=== PATIENT | female | born 1935 | race Hispanic/Latino ===

== ENCOUNTER 2017-12-21 14:39 | Inpatient (IN) | payer MEDICARE ==
[2017-12-21] MEDS ORDERED: Ipratropium 0.02% Inhal Soln (0.5 mg/2.5 ml) UD IH STA (15:09)
[2017-12-21 15:24] LABS: BASO # 0.02 K/mm3 (0.0-2.0); BASO % 0.2 % (0.0-3.0); EOS # 0.5 (0.0-0.7); EOS % 4.3 % (1.5-5.0); GRAN # 7.49 (1.4-6.5); GRAN % 72.2 % (50.0-68.0); HEMOGLOBIN 11.2 g/dL (12.0-16.0); LYMPH # 1.9 (1.2-3.4); LYMPH % 18.3 % (22.0-35.0); MEAN CELL VOLUME 97.3 fl (80.0-105.0); MEAN CORPUSCULAR HEMOGLOBIN 30.3 pg (25.0-35.0); MEAN CORPUSCULAR HGB CONC 31.1 g/dl (31.0-37.0); MEAN PLATELET VOLUME 11.2 fl (7.0-11.0); MONO # 0.5 (0.1-0.6); RBC 3.7 10^6/uL (3.5-6.1); RED CELL DISTRIBUTION WIDTH 16.1 % (11.5-14.5); WHITE BLOOD COUNT 10.4 10^3/ul (4.5-11.0)
--- NOTE | 2017-12-21 15:34 | ED PDOC ---
Arrival/HPI - General Chief Complaint: Shortness Of Breath Time Seen by Provider: 12/21/17 14:42 Historian: Patient EM Caveat: Acuity of Condition, Respiratory Distress - History of Present Illness Narrative History of Present Illness (Text): 82 year old woman Elliot @ [facility] w/ past medical history of chf, ckd, hypothyroidism, diabetes, hypothyroidism, depressive disorder, anxiety presents for evaluation of hypoxia in the NH to 80% on 02 NC at 2 L , increased lethargy , and swelling of b/l lower extremites , pt is following commands , and conversant with waxing /waning mental status aox 1 to person and maybe hospital , denying any corporeal pain , but not answering any further query. 12/21/17 15:30 12/21/17 15:37 12/21/17 15:43 Time/Duration: Prior to Arrival Symptom Onset: Gradual Symptom Course: Unchanged Past Medical History - Provider Review Nursing Documentation Reviewed: Yes - Infectious Disease Hx of Infectious Diseases: None - Tetanus Immunization Tetanus Immunization: Unknown - Reproductive Menopause: Yes - Cardiac Hx Cardiac Arrhythmia: No Hx Congestive Heart Failure: Yes Hx Hypertension: Yes Hx Internal Defibrillator: No Hx Mitral Valve Prolapse: No Hx Pacemaker: No Hx Peripheral Edema: No - Pulmonary Hx Asthma: No Hx Bronchitis: No Hx Chronic Obstructive Pulmonary Disease (COPD): No Hx Emphysema: No - Neurological Hx Dementia: Yes - HEENT Hx HEENT Disorder: No - Renal Hx Renal Failure: (impared renal function) Other/Comment: anuria - Endocrine/Metabolic Hx Hypothyroidism: Yes - Hematological/Oncological Hx Blood Disorders: No Hx Cancer: Yes - Integumentary Other/Comment: rash/redness groin area, femoral foldsbilateral shins to feet, red/scaling/cellulitisredness, back of shins bilaterally and dorsal aspect of foot - Musculoskeletal/Rheumatological Hx Arthritis: Yes Hx Falls: Yes - Gastrointestinal Hx Gastroesophageal Reflux: Yes - Genitourinary/Gynecological Hx Incontinence: Yes - Psychiatric Hx Depression: Yes Hx Substance Use: No - Surgical History Hx Appendectomy: Yes Hx Cardiac Catheterization: No Hx Cholecystectomy: Yes Hx Coronary Stent: No Hx Mastectomy: Yes (L sided) - Anesthesia Hx Anesthesia Reactions: No - Suicidal Assessment Feels Threatened In Home Enviroment: No Family/Social History - Physician Review Nursing Documentation Reviewed: Yes Family/Social History: No Known Family HX Smoking Status: Heavy Smoker > 10 Cigarettes Daily Hx Alcohol Use: No Hx Substance Use: No Hx Substance Use Treatment: No Allergies/Home Meds Allergies/Adverse Reactions: Allergies No Known Allergies Allergy (Verified 04/12/14 17:58) Home Medications: Home Meds Medication Instructions Recorded Confirmed Escitalopram [Lexapro] 20 mg PO DAILY 04/12/14 12/21/17 Acetaminophen [Tylenol] 650 mg PO Q4 PRN 05/25/14 12/21/17 Apixaban [Eliquis] 2.5 mg PO BID 12/21/17 12/21/17 Clonazepam [Klonopin] 0.25 mg PO DAILY 12/21/17 12/21/17 Insulin Human Regular [Novolin R] 0 unit SC BID 12/21/17 12/21/17 Levothyroxine [Synthroid] 0.112 mg PO DAILY 12/21/17 12/21/17 Magnesium Hydroxide [Milk Of 30 ml PO PRN PRN 12/21/17 12/21/17 Magnesia] Memantine [Namenda] 5 mg PO BID 12/21/17 12/21/17 Mirtazapine [Remeron] 15 mg PO HS 12/21/17 12/21/17 Multi Vitamin 1 tab PO DAILY 12/21/17 12/21/17 Omeprazole 20 mg PO DAILY 12/21/17 12/21/17 Pregabalin [Lyrica] 75 mg PO BID 12/21/17 12/21/17 Siltussin Dm 10 ml PO QID PRN 12/21/17 12/21/17 cloNIDine [clonidine HCl] 0.1 mg PO PRN PRN 12/21/17 12/21/17 Review of Systems - Physician Review All systems were reviewed & negative as marked: Yes - Review of Systems Systems not reviewed;Unavailable: Altered Mental Status Constitutional: Normal Eyes: Normal ENT: Normal Respiratory: SOB Cardiovascular: Normal Gastrointestinal: Normal Genitourinary Female: Normal Musculoskeletal: Normal Skin: Normal Neurological: Normal Endocrine: Normal Hemo/Lymphatic: Normal Psychiatric: Normal Physical Exam Vital Signs Reviewed: Yes Vital Signs Temp Pulse Resp BP Pulse Ox 12/21/17 17:22 68 20 81/52 L 99 12/21/17 15:54 100/50 L 12/21/17 15:48 60 20 100/5 L 93 L 12/21/17 15:10 98.6 F 60 22 120/45 L 77 L Temperature: Afebrile Blood Pressure: Normal Pulse: Regular Respiratory Rate: Normal Appearance: Positive for: Ill-Appearing, Other (lethargic) Pain Distress: None Mental Status: Positive for: Lethargic - Systems Exam Head: Present: Atraumatic, Normocephalic Pupils: Present: PERRL Extroacular Muscles: Present: EOMI Conjunctiva: Present: Normal Ears: Present: Normal Mouth: Present: Dry Respiratory/Chest: Present: Rales, Other (coarse crackles at the bases ) Cardiovascular: Present: Regular Rate and Rhythm Abdomen: Present: Normal Bowel Sounds, Other (obese , soft, nt ) Breast/Axillary: Present: Other (deferred) Upper Extremity: Present: Normal Inspection Lower Extremity: Present: Edema, Other (trace to 1+ pitting edema ) Neurological: Present: GCS=15, CN II-XII Intact, Speech Normal, Motor Func Grossly Intact, Normal Sensory Function, Normal Cerebellar Funct, Norm Deep Tendon Reflexes Skin: Present: Warm, Other (no sacral or calcaneal decubiti ) Psychiatric: Present: Lethargic Medical Decision Making ED Course and Treatment: 82 year old woman w/ pmhx of multiple comorbidities most relevantly chf and depression on antipsychotics presenting in likely chf exacerbation w/ possible superimposed C02 narcosis vs oversedation. ekg : paced ekg at 60 bpm ab.34 /60/57 risk stratify w/ labs trial of bipap/ivp lasix neumann catheter placement likly micu disposition cardiology consultation w/ Dr. Massey pulmonology consultation w/ Dr. Maria MICU 12/21/17 16:10 - Lab Interpretations Lab Results: 12/21/17 15:15 12/21/17 15:15 Lab Results 12/21/17 15:45: Urine Color Yellow, Urine Appearance Sl cloudy, Urine pH 6.0, Ur Specific [place] 1.020, Urine Protein Negative, Urine Glucose (UA) Negative, Urine Ketones Negative, Urine Blood Negative, Urine Nitrate Positive H, Urine Bilirubin Negative, Urine Urobilinogen 0.2, Ur Leukocyte Esterase Trace H, Urine RBC Negative, Urine WBC 10 - 15, Ur Epithelial Cells 4 - 5, Urine Bacteria Many 12/21/17 15:40: pCO2 60 H, pO2 57.0 L, HCO3 32.4 H, ABG pH 7.34 L, ABG Total CO2 34.2 H, ABG O2 Saturation 91.3 L, ABG Base Excess 4.8 H, ABG Potassium 3.1 L , Sodium 143.0, Chloride 109.0 H, Glucose 89, Lactate 0.6 L, Mechanical Rate 15 , FiO2 60.0, Inspiratory BiPAP 12, Arterial Blood Potassium 3.1 L 12/21/17 15:15: Sodium 142, Chloride 99, Potassium 4.0, Carbon Dioxide 37 H, Anion Gap 10, BUN 20, Creatinine 1.1, Est GFR ( Amer) 57, Est GFR (Non- Af Amer) 47, Random Glucose 104, Calcium 8.7, Phosphorus 4.4, Magnesium 1.6 L, Total Bilirubin 0.4, AST 29, ALT 25, Alkaline Phosphatase 78, Troponin I < 0.01 D, NT-Pro-B Natriuret Pep 1040 H, Total Protein 6.5, Albumin 3.1, Globulin 3.3 , Albumin/Globulin Ratio 0.9 L 12/21/17 15:15: pO2 66 H, VBG pH 7.28 L, VBG pCO2 85.0 H*, VBG HCO3 39.9 H, VBG Total CO2 42.5 H, VBG O2 Sat (Calc) 93.5 H, VBG Base Excess 9.6 H, VBG Potassium 4.0, Sodium 140.0, Chloride 103.0, Glucose 106 H, Lactate 1.0, FiO2 21.0, Venous Blood Potassium 4.0 12/21/17 15:15: PT 16.2 H, INR 1.41 H, APTT 34.5 12/21/17 15:15: WBC 10.4, RBC 3.70, Hgb 11.2 L, Hct 36.0, MCV 97.3, MCH 30.3, MCHC 31.1, RDW 16.1 H, Plt Count 184, MPV 11.2 H, Gran % 72.2 H, Lymph % (Auto) 18.3 L, [place] % (Auto) 5.0, Eos % (Auto) 4.3, Baso % (Auto) 0.2, Gran # 7.49 H, Lymph # (Auto) 1.9, [place] # (Auto) 0.5, Eos # (Auto) 0.5, Baso # (Auto) 0.02 - RAD Interpretation Radiology Orders: 12/21/17 15:05 CHEST PORTABLE [RAD] Stat - Medication Orders Current Medication Orders: Furosemide (Lasix) 40 mg IVP 0200,1400 SOHAN Heparin Sodium (Porcine) (Heparin) 5,000 units SC Q12 SOHAN PRN Reason: Protocol Ceftriaxone Sodium (Rocephin 1 Gram Ivpb) 1 gm in 100 mls @ 100 mls/hr IVPB DAILY SOHAN PRN Reason: Protocol Discontinued Medications Furosemide (Lasix) 40 mg IVP STAT STA Stop: 12/21/17 15:44 Last Admin: 12/21/17 15:54 Dose: 40 mg MAR Blood Pressure Document 12/21/17 15:54 SRE (Rec: 12/21/17 15:59 SRE [id number]) Blood Pressure Blood Pressure (100/60-150/90) 100/50 IVP Administration Document 12/21/17 15:54 SRE (Rec: 12/21/17 15:59 SRE [id number]) Charges for Administration # of IVP Administrations 1 Ceftriaxone Sodium (Rocephin 1 Gram Ivpb) 1 gm in 100 mls @ 100 mls/hr IVPB DAILY SOHAN PRN Reason: Protocol Ceftriaxone Sodium (Rocephin 1 Gram Ivpb) 1 gm in 100 mls @ 100 mls/hr IVPB ONCE ONE PRN Reason: Protocol Stop: 12/21/17 17:59 Last Admin: 12/21/17 17:21 Dose: 100 mls/hr eMAR Start Stop Document 12/21/17 17:21 SRE (Rec: 12/21/17 17:21 SRE [id number]) Intravenous Solution Start Date 12/21/17 Start Time 17:21 End Date 12/21/17 End time 18:20 Total Infusion Time 59 Ipratropium [place] (Atrovent) 0.5 mg IH STAT STA Stop: 12/21/17 15:10 Last Admin: 12/21/17 15:32 Dose: 0.5 mg Disposition/Present on Arrival - Present on Arrival Any Indicators Present on Arrival: Yes History of DVT/PE: No History of Uncontrolled Diabetes: Yes Urinary Catheter: No History of Decub. Ulcer: No History Surgical Site Infection Following: None - Disposition Have Diagnosis and Disposition been Completed?: Yes Diagnosis: Acute exacerbation of CHF (congestive heart failure) Disposition: HOSPITALIZED Disposition Time: 16:40 Patient Plan: Admission, ICU Condition: GUARDED
[2017-12-21 15:36] LABS: INR 1.41 (0.93-1.08); PARTIAL THROMBOPLASTIN TIME 34.5 Seconds (25.1-36.5); PROTHROMBIN TIME 16.2 SECONDS (9.4-12.5)
[2017-12-21 15:40] LABS: VENOUS BLOOD GAS BASE EXCESS 9.6 mmol/L (0.0-2.0); VENOUS BLOOD GAS PO2 66 mm/Hg (30-55); VENOUS BLOOD PH 7.28 (7.32-7.43)
--- NOTE | 2017-12-21 15:40 | RAD ---
HISTORY: Sepsis Patient COMPARISON: 06/03/2014 FINDINGS: LUNGS: No focal consolidation. PLEURA: Small bilateral pleural effusion, right greater than left. No pneumothorax. CARDIOVASCULAR: Grossly normal heart size. Congestive change is noted. Right subclavian central venous infusion port. Permanent pacemaker. OSSEOUS STRUCTURES: No significant abnormalities. VISUALIZED UPPER ABDOMEN: Normal. OTHER FINDINGS: None. IMPRESSION: Small bilateral pleural effusion, right greater than left. Congestive change. No focal consolidations seen.
[2017-12-21 15:44] LABS: ARTERIAL BLOOD GAS HCO3 32.4 mmol/L (21-28); ARTERIAL BLOOD GAS O2 SAT 91.3 % (95-98); ARTERIAL BLOOD GAS PCO2 60 mm/Hg (35-45); ARTERIAL BLOOD GAS PH 7.34 (7.35-7.45); ARTERIAL BLOOD GAS TCO2 34.2 mmol.L (22-28)
[2017-12-21 15:46] LABS: ALB/GLOB RATIO 0.9 (1.1-1.8); ALBUMIN 3.1 g/dL (3.0-4.8); ALT/SGPT 25 U/L (7-56); AST/SGOT 29 U/L (14-36); BLOOD UREA NITROGEN 20 mg/dL (7-21); CALCIUM 8.7 mg/dL (8.4-10.5); GFR AFRICAN-AMERICAN 57; GFR NON-AFRICAN AMERICAN 47
[2017-12-21 15:57] LABS: B-TYPE NATRIURETIC PEPTIDE 1040 pg/mL (0-450); TROPONIN I < 0.01 ng/mL
[2017-12-21 16:01] LABS: URINE BILIRUBIN NEGATIVE (NEGATIVE); URINE BLOOD NEGATIVE (NEGATIVE); URINE GLUCOSE (UA) NEGATIVE (NEGATIVE); URINE LEUKOCYTE ESTERASE TRACE Leu/uL (NEGATIVE); URINE PROTEIN NEGATIVE mg/dL (<30 mg/dL); URINE UROBILINOGEN 0.2 E.U./dL (<1 E.U./dL)
[2017-12-21 16:03] LABS: URINE APPEARANCE SL CLOUDY (CLEAR); URINE COLOR YELLOW (YELLOW)
[2017-12-21 16:12] LABS: URINE BACTERIA MANY (NEG); URINE RBC NEGATIVE /hpf (0-2)
[2017-12-21] MEDS ORDERED: cefTRIAXone 1 gm 1 GM/100 ML BAG IVPB ONE (17:00)
--- NOTE | 2017-12-21 17:26 | CP.PCM.CON ---
<Darrion Joseph - Last Filed: 12/21/17 17:51> History of Present Illness - History of Present Illness History of Present Illness: Patient is an 82 year old female with a past history of CHF, CKD, hypothyroidism , DM, hypothyroidism, depressive disorder, and anxiety who presents from [facility] due to concerns of low O2 sat of 80% on 2L NC, lethargy, and bilateral edema of lower extremities. Patient is alert and awake, able to communicate, currently complaining of hunger. States she wants to have food. Admits to having problems breathing. Denies fevers, chills, chest pain, nausea, vomiting, diarrhea.Patient was placed on BiPAP and given lasix. Patient will be transferred to ICU for further monitoring considering hypotension. Past medical hx: COPD, osteoarthritis, congestive heart failure, chronic renal insufficiency, coronary artery disease s/p angioplasty, dementia, NIDDM, peptic ulcer disease, history of mitral valve prolapse, bilateral leg cellulitis Surgical hx: Appendectomy, cholecystectomy, mastectomy Social hx: tobacco use > 10 cigarettes daily, denies alcohol and drug abuse medications: please refer to MAR Allergies:NKDA Review of Systems - Constitutional Constitutional: absent: Anorexia, Chills, Fever - EENT Eyes: absent: Blurred Vision, Change in Vision - Cardiovascular Cardiovascular: absent: Chest Pain, Dyspnea - Gastrointestinal Gastrointestinal: absent: Diarrhea, Nausea, Vomiting - Genitourinary Genitourinary: absent: Dysuria - Musculoskeletal Musculoskeletal: absent: Back Pain - Neurological Neurological: absent: Dizziness, Numbness - Psychiatric Psychiatric: absent: Anxiety - Endocrine Endocrine: absent: Fatigue - Hematologic/Lymphatic Hematologic: absent: Easy Bleeding, Easy Bruising Past Patient History - Infectious Disease Hx of Infectious Diseases: None - Tetanus Immunizations Tetanus Immunization: Unknown - Past Social History Smoking Status: Heavy Smoker > 10 Cigarettes Daily - CARDIAC Hx Cardia Arrhythmia: No Hx Congestive Heart Failure: Yes Hx Hypertension: Yes Hx Internal Defibrillator: No Hx Mitral Valve Prolapse: No Hx Pacemaker: No Hx Peripheral Edema: No - PULMONARY Hx Asthma: No Hx Bronchitis: No Hx Chronic Obstructive Pulmonary Disease (COPD): No Hx Emphysema: No - NEUROLOGICAL Hx Dementia: Yes - HEENT Hx HEENT Problems: No - RENAL Hx Renal Failure: (impared renal function) Other/Comment: anuria - ENDOCRINE/METABOLIC Hx Hypothyroidism: Yes - HEMATOLOGICAL/ONCOLOGICAL Hx Blood Disorders: No Hx Cancer: Yes - INTEGUMENTARY Other/Comment: rash/redness groin area, femoral foldsbilateral shins to feet, red/scaling/cellulitisredness, back of shins bilaterally and dorsal aspect of foot - MUSCULOSKELETAL/RHEUMATOLOGICAL Hx Arthritis: Yes Hx Falls: Yes - GASTROINTESTINAL Hx Gastroesophageal Reflux: Yes - GENITOURINARY/GYNECOLOGICAL Hx Incontinence: Yes - PSYCHIATRIC Hx Depression: Yes Hx Substance Use: No - SURGICAL HISTORY Hx Appendectomy: Yes Hx Cardiac Catheterization: No Hx Cholecystectomy: Yes Hx Coronary Stent: No Hx Mastectomy: Yes (L sided) - ANESTHESIA Hx Anesthesia Reactions: No Meds Allergies/Adverse Reactions: Allergies Allergy/AdvReac Type Severity Reaction Status Date / Time No Known Allergies Allergy Verified 04/12/14 17:58 - Medications Medications: Current Medications Ceftriaxone Sodium (Rocephin 1 Gram Ivpb) 1 gm in 100 mls @ 100 mls/hr IVPB ONCE ONE PRN Reason: Protocol Stop: 12/21/17 17:59 Last Admin: 12/21/17 17:21 Dose: 100 mls/hr Physical Exam - Head Exam Head Exam: ATRAUMATIC, NORMAL INSPECTION, NORMOCEPHALIC - Eye Exam Eye Exam: EOMI, Normal appearance - Neck Exam Neck exam: Positive for: Normal Inspection - Respiratory Exam Respiratory Exam: Wheezes. absent: Clear to Auscultation Bilateral, NORMAL BREATHING PATTERN - Cardiovascular Exam Cardiovascular Exam: REGULAR RHYTHM, +S1, +S2 - GI/Abdominal Exam GI & Abdominal Exam: Normal Bowel Sounds, Soft - Neurological Exam Neurological exam: Alert - Psychiatric Exam Psychiatric exam: Normal Affect, Normal Mood - Skin Additional comments: erythemetous rash to groin area, femoral folds , and bilateral shins extending to both feet, erythemetous scaling of back of shins bilaterally and dorsal aspect of foot Results - Vital Signs Recent Vital Signs: Last Vital Signs Temp 98.6 F 12/21/17 15:10 Pulse 68 12/21/17 17:22 Resp 20 12/21/17 17:22 BP 81/52 L 12/21/17 17:22 Pulse Ox 99 12/21/17 17:22 - Labs Result Diagrams: 12/21/17 15:15 12/21/17 15:15 Labs: Laboratory Results - last 24 hr 12/21/17 12/21/17 12/21/17 15:15 15:15 15:15 WBC 10.4 RBC 3.70 Hgb 11.2 L Hct 36.0 MCV 97.3 MCH 30.3 MCHC 31.1 RDW 16.1 H Plt Count 184 MPV 11.2 H Gran % 72.2 H Lymph % (Auto) 18.3 L [place] % (Auto) 5.0 Eos % (Auto) 4.3 Baso % (Auto) 0.2 Gran # 7.49 H Lymph # (Auto) 1.9 [place] # (Auto) 0.5 Eos # (Auto) 0.5 Baso # (Auto) 0.02 PT 16.2 H INR 1.41 H APTT 34.5 pCO2 pO2 66 H HCO3 ABG pH ABG Total CO2 ABG O2 Saturation ABG Base Excess ABG Potassium VBG pH 7.28 L VBG pCO2 85.0 H* VBG HCO3 39.9 H VBG Total CO2 42.5 H VBG O2 Sat (Calc) 93.5 H VBG Base Excess 9.6 H VBG Potassium 4.0 Sodium 140.0 Chloride 103.0 Glucose 106 H Lactate 1.0 Mechanical Rate FiO2 21.0 Inspiratory BiPAP Potassium Carbon Dioxide Anion Gap BUN Creatinine Est GFR ( Amer) Est GFR (Non-Af Amer) Random Glucose Calcium Phosphorus Magnesium Total Bilirubin AST ALT Alkaline Phosphatase Troponin I NT-Pro-B Natriuret Pep Total Protein Albumin Globulin Albumin/Globulin Ratio Arterial Blood Potassium Venous Blood Potassium 4.0 Urine Color Urine Appearance Urine pH Ur Specific [place] Urine Protein Urine Glucose (UA) Urine Ketones Urine Blood Urine Nitrate Urine Bilirubin Urine Urobilinogen Ur Leukocyte Esterase Urine RBC Urine WBC Ur Epithelial Cells Urine Bacteria 12/21/17 12/21/17 12/21/17 15:15 15:40 15:45 WBC RBC Hgb Hct MCV MCH MCHC RDW Plt Count MPV Gran % Lymph % (Auto) [place] % (Auto) Eos % (Auto) Baso % (Auto) Gran # Lymph # (Auto) [place] # (Auto) Eos # (Auto) Baso # (Auto) PT INR APTT pCO2 60 H pO2 57.0 L HCO3 32.4 H ABG pH 7.34 L ABG Total CO2 34.2 H ABG O2 Saturation 91.3 L ABG Base Excess 4.8 H ABG Potassium 3.1 L VBG pH VBG pCO2 VBG HCO3 VBG Total CO2 VBG O2 Sat (Calc) VBG Base Excess VBG Potassium Sodium 142 143.0 Chloride 99 109.0 H Glucose 89 Lactate 0.6 L Mechanical Rate 15 FiO2 60.0 Inspiratory BiPAP 12 Potassium 4.0 Carbon Dioxide 37 H Anion Gap 10 BUN 20 Creatinine 1.1 Est GFR ( Amer) 57 Est GFR (Non-Af Amer) 47 Random Glucose 104 Calcium 8.7 Phosphorus 4.4 Magnesium 1.6 L Total Bilirubin 0.4 AST 29 ALT 25 Alkaline Phosphatase 78 Troponin I < 0.01 D NT-Pro-B Natriuret Pep 1040 H Total Protein 6.5 Albumin 3.1 Globulin 3.3 Albumin/Globulin Ratio 0.9 L Arterial Blood Potassium 3.1 L Venous Blood Potassium Urine Color Yellow Urine Appearance Sl cloudy Urine pH 6.0 Ur Specific [place] 1.020 Urine Protein Negative Urine Glucose (UA) Negative Urine Ketones Negative Urine Blood Negative Urine Nitrate Positive H Urine Bilirubin Negative Urine Urobilinogen 0.2 Ur Leukocyte Esterase Trace H Urine RBC Negative Urine WBC 10 - 15 Ur Epithelial Cells 4 - 5 Urine Bacteria Many Assessment & Plan - Assessment and Plan (Free Text) Assessment: Patient is an 82 year old female with a past history of CHF, CKD, hypothyroidism , DM, hypothyroidism, depressive disorder, and anxiety who presents from [facility] due to concerns of low O2 sat of 80% on 2L NC, lethargy, and bilateral edema of lower extremities, found to be in CHF exacerbation and currently on BiPAP Plan: Neurologic -Patient alert awake and oriented x 3 -Patient has a baseline dementia, as of today she is aware that she is at [facility] as well as her name Cardiovascular -Cardiology consulted -CHF exacerbation; continue with lasix -Echo ordered; results pending Pulmonary -ABG reveals pCO2 60, pO2 57, Bicarb 32.4, pH 7.34 -Patient currently on BiPAP O2 sat 100% IPAP 12, 6 EPAP, Rate 15, 60 FIO2 -maintain O2> 92% Endocrine -Maintain euglycemia -TSH ordered; results pending Heme -H&H stable at 11.2 & 36; continue to monitor -DVT prophylaxis with Heparin SC Infectious disease -patient afebrile, maintain normothermia -UA reveals Positive nitrate and leukocyte esterase, WBC 10-15, epithelial cells 4-5 -Will repeat UA, start patient on Rocephin -Urine culture results pending <Jam Encarnacion - Last Filed: 12/21/17 18:18> Meds - Medications Medications: Current Medications Furosemide (Lasix) 40 mg IVP 0200,1400 SOHAN Heparin Sodium (Porcine) (Heparin) 5,000 units SC Q12 SOHAN PRN Reason: Protocol Ceftriaxone Sodium (Rocephin 1 Gram Ivpb) 1 gm in 100 mls @ 100 mls/hr IVPB DAILY SOHAN PRN Reason: Protocol Results - Vital Signs Recent Vital Signs: Last Vital Signs Temp 98.6 F 12/21/17 15:10 Pulse 68 12/21/17 17:56 Resp 18 12/21/17 17:56 BP 81/52 L 12/21/17 17:56 Pulse Ox 99 12/21/17 17:22 - Labs Result Diagrams: 12/21/17 15:15 12/21/17 15:15 Assessment & Plan - Assessment and Plan (Free Text) Plan: Patient seen and examined on rounds, agree with note with following additions/ exceptions: Patient is 82yo female with PMHx 84 of CHF, CKD, hypothyroidism, DM, hypothyroidism, depressive disorder, and anxiety who presents from [facility] for hypoxia, O2 sat 80% on room air, found to have LE edema, worsening congestion, pulm edema on CXR, given Lasix IV in the ER, with 400cc UOP. Currently afebrile , HD stable, comfortable on BIPAP. CHF exacerbation SOB Resp failure Hypothyroidism Recommend: - wean off bipap - supp o2 goal sat>90% - panculture, UCx, BCx, Procal - Rocephin for positive UA - hold BP meds for now - ECHO - cardiology consult - IV Lasix - I/Os, daily weights - GI ppx - DVT ppx - Monitor in MICU
[2017-12-21 18:06] VITALS: BMI 40.5
[2017-12-21] MEDS ORDERED: Insulin Reg-LOW-Coverage SC SCH (22:00)
[2017-12-22] MEDS: Insulin Reg-MEDIUM-Coverage SC SCH ×4 (01:12→22:31)
--- NOTE | 2017-12-22 02:34 | HP ---
HISTORY OF PRESENT ILLNESS: I have been talking with the nurses at [facility], [facility], over the past week to try and get her oxygen up, giving her Lasix and apparently today, she had between 77% and 80% O2 on 2 L nasal cannula and instead of increasing the nasal cannula and the Lasix, they brought her to the emergency room for evaluation. She is short of breath, although she is alert and conversing well. PAST MEDICAL HISTORY: CHF, CKD, hypothyroidism, diabetes, depressive disorder, osteoarthritis, COPD, chronic renal insufficiency. She is status post angioplasty, dementia, non-insulin dependant diabetes mellitus, peptic ulcer disease, history of mitral valve prolapse, and bilateral leg cellulitis history. PAST SURGICAL HISTORY: She had an appendectomy, cholecystectomy, mastectomy for breast cancer history. SOCIAL HISTORY: smoking history. No alcohol. No drugs. ALLERGIES: NO KNOWN DRUG ALLERGIES. MEDICATIONS: She is on heparin. She is on Lasix IV twice a day, Rocephin IV. She takes Klonopin, Tylenol, Catapres, Eliquis, omeprazole, Lexapro, Lyrica, Namenda, Remeron, Synthroid at the skilled nursing. She is on Rocephin right now. REVIEW OF SYSTEMS: She is alert, talking, comfortable. She has poor vision, but that is chronic. No acute vision changes. No hearing changes. No chest pain or shortness of breath at this time. She had shortness of breath at skilled nursing, but she had oxygen that helped. No coughing. No back pain. No problems urinating. No diarrhea, nausea, or vomiting. A little tired. No easy bleeding. History of impaired renal function, breast cancer history. Also, rashes and redness in the groin area, back of her shins. She has arthritis, does have history of falls, reflux, incontinence, depression, left-sided mastectomy. PHYSICAL EXAMINATION: VITAL SIGNS: She has 98.6 temperature, 68 pulse, 20 respiratory rate, 81/52 blood pressure, 99% O2 saturation on oxygen. HEENT: Head is atraumatic and normocephalic. Extraocular muscles are intact. Throat is moist. NECK: Supple. HEART: Regular rate. Normal S1, S2. LUNGS: Decreased breath sounds bilaterally, some wheezes, some congestion changes with cough. ABDOMEN: Soft, nontender. Positive bowel sounds. No guarding, no rebound, no CVA tenderness. NEUROLOGIC: Alert, presently confused. SKIN: Has erythema in her folds and to her feet. EXTREMITIES: A +1/4 pitting edema. LABORATORY DATA: She has a 10.4 white count, 11.2 hemoglobin, 36 hematocrit with 184 platelets. The pCO2 was 85. Her urine showed many bacteria. She had 142 sodium, potassium 4, BUN 20, creatinine 1.1, GFR is 47, sugar is 104, calcium 8.7, phosphorus 4.4, and magnesium is 1.6, I have replaced it. Total bilirubin is 0.4. AST is 29, ALT is 25, alkaline phosphatase 78. Troponin I less than 0.01. BNP is 1040, she is on Lasix 40 IV twice a day. Chest x-ray showed congestive heart failure. INR is 1.41. Urine has many bacteria. IMPRESSION AND PLAN: She is here for congestive heart failure. She is here for urinary tract infection, history of diabetes. She has dementia, presently confused. Check her labs tomorrow. IV Rocephin with IV Lasix. She has Atrovent, Lexapro, Lyrica, Namenda, Remeron, Synthroid, and I put her on some insulin coverage and hopefully she will do well. [place] As[place] DO [id number]
[2017-12-22 03:58] LABS: ALBUMIN 3.3 g/dL (3.0-4.8); ALT/SGPT 23 U/L (7-56); AST/SGOT 27 U/L (14-36); BLOOD UREA NITROGEN 20 mg/dL (7-21); CALCIUM 8.9 mg/dL (8.4-10.5); GFR AFRICAN-AMERICAN 52; GFR NON-AFRICAN AMERICAN 43; HDL CHOLESTEROL 44 mg/dL (29-60)
[2017-12-22 03:59] LABS: PROTHROMBIN TIME 14.7 SECONDS (9.4-12.5)
[2017-12-22 04:00] LABS: INR 1.28 (0.93-1.08); PARTIAL THROMBOPLASTIN TIME 35.4 Seconds (25.1-36.5)
[2017-12-22 04:09] LABS: LDL CHOLESTEROL 53 mg/dL (0-129); TROPONIN I < 0.01 ng/mL
[2017-12-22 04:11] LABS: BASO # 0.02 K/mm3 (0.0-2.0); BASO % 0.2 % (0.0-3.0); EOS # 0.8 (0.0-0.7); GRAN # 4.65 (1.4-6.5); GRAN % 55.4 % (50.0-68.0); HEMOGLOBIN 12.5 g/dL (12.0-16.0); LYMPH # 2.4 (1.2-3.4); LYMPH % 28.9 % (22.0-35.0); MEAN CELL VOLUME 97.1 fl (80.0-105.0); MEAN CORPUSCULAR HEMOGLOBIN 30.7 pg (25.0-35.0); MEAN CORPUSCULAR HGB CONC 31.6 g/dl (31.0-37.0); MEAN PLATELET VOLUME 11.4 fl (7.0-11.0); MONO # 0.5 (0.1-0.6); MONO % 5.5 % (1.0-6.0); RBC 4.07 10^6/uL (3.5-6.1); RED CELL DISTRIBUTION WIDTH 16.1 % (11.5-14.5); WHITE BLOOD COUNT 8.4 10^3/ul (4.5-11.0)
[2017-12-22] MEDS ORDERED: Magnesium Sulfate 1 gm in D5W 1 GM/100 ML BAG IVPB ONE ×2 (07:50→11:32)
[2017-12-22] MEDS: Levalbuterol 1.25 MG/3 ML Inhal Soln UD IH SCH ×2 (08:00→12:23)
--- NOTE | 2017-12-22 08:03 | CP.CCUPN ---
<Darrion Joseph - Last Filed: 12/22/17 11:13> CCU Subjective - Physician Review Subjective (Free Text): 12/22/17 08:08 Patient seen and examined at bedside with no acute complaints. States she feels great and much better than yesterday. Denies shortness of breath, chest pain, palpitations, nausea, vomiting, diarrhea, abdominal pain, cough, headache. CCU Objective - Vital Signs / Intake & Output Vital Signs (Last 4 hours): Vital Signs Temp Pulse Resp BP Pulse Ox 12/22/17 06:20 60 21 98 12/22/17 06:10 60 21 95 12/22/17 06:00 60 46 H 116/55 L 95 12/22/17 05:50 68 18 97 12/22/17 05:40 60 19 93 L 12/22/17 05:30 60 28 H 100 12/22/17 05:20 60 17 97 12/22/17 05:10 60 20 97 12/22/17 05:00 60 19 108/56 L 96 12/22/17 04:50 60 16 97 12/22/17 04:40 60 18 95 12/22/17 04:30 60 19 95 12/22/17 04:20 60 19 96 12/22/17 04:10 60 22 96 12/22/17 04:00 98.3 F 60 19 122/78 95 Intake and Output (Last 8hrs): Intake & Output 12/21/17 12/22/17 12/22/17 22:59 06:59 14:59 Intake Total 120 220 Output Total 1150 1900 Balance -1030 -1680 Weight 117.48 kg 110.178 kg Intake: IV 0 Right Antecubital 0 Right Hand 0 Oral 120 220 Output: Urine 1150 1900 Urethral (Walsh) 150 1900 Other: # Bowel Movements 0 - Physical Exam Head: Positive for: Atraumatic, Normocephalic Pupils: Positive for: PERRL Extroacular Muscles: Positive for: EOMI Conjunctiva: Positive for: Normal Ears: Positive for: Normal Mouth: Positive for: Moist Mucous Membranes Respiratory/Chest: Positive for: Rales, Other (coarse crackles at the bases ) Cardiovascular: Positive for: Regular Rate and Rhythm, Normal S1, S2 Abdomen: Positive for: Normal Bowel Sounds, Other (obese , soft, nt ) Breast/Axillary: Positive for: Other (deferred) Upper Extremity: Positive for: Normal Inspection Lower Extremity: Positive for: Edema, Other (trace to 1+ pitting edema ) Neurological: Positive for: GCS=15, CN II-XII Intact, Speech Normal, Motor Func Grossly Intact, Normal Sensory Function, Normal Cerebellar Funct, Norm Deep Tendon Reflexes Skin: Positive for: Warm, Other (erythemetous rash to groin area, femoral folds , and bilateral shins extending to both feet, erythemetous scaling of back of shins bilaterally and dorsal aspect of foot) Psychiatric: Positive for: Lethargic - Medications Active Medications: Active Medications Generic Name Dose Route Start Last Admin Trade Name Freq PRN Reason Stop Dose Admin Escitalopram Oxalate 20 mg 12/22/17 10:00 Lexapro PO DAILY SOHAN Furosemide 40 mg 12/22/17 02:00 12/22/17 02:01 Lasix IVP 40 mg 0200,1400 SOHAN Administration Heparin Sodium (Porcine) 5,000 units 12/21/17 22:00 12/21/17 21:30 Heparin SC 5,000 units Q12 SOHAN Administration Protocol Ceftriaxone Sodium 1 gm in 100 mls @ 100 mls/hr 12/22/17 10:00 Rocephin 1 Gram Ivpb IVPB DAILY SOHAN Protocol Magnesium Sulfate/Dextrose 1 gm in 100 mls @ 100 mls/hr 12/22/17 07:50 Magnesium Sulfate 1 Gm/100 Ml D5w IVPB 12/22/17 08:49 ONCE ONE Insulin Human Regular 0 units 12/21/17 22:00 12/22/17 01:12 Humulin R Med SC Not Given ACHS SOHAN Protocol Levalbuterol HCl 1.25 mg 12/22/17 08:00 Xopenex IH [id number] SOHAN Levothyroxine Sodium 112 mcg 12/22/17 07:30 Synthroid PO ACB SOHAN Memantine 5 mg 12/22/17 10:00 Namenda PO BID SOHAN Mirtazapine 15 mg 12/21/17 22:00 12/21/17 21:30 Remeron PO 15 mg HS SOHAN Administration Pantoprazole Sodium 40 mg 12/22/17 10:00 Protonix Inj IVP DAILY SOHAN Pregabalin 75 mg 12/22/17 10:00 Lyrica PO BID SOHAN - Patient Studies Lab Studies: Lab Studies 12/22/17 12/22/17 12/22/17 Range/Units 03:40 03:40 03:40 WBC 8.4 (4.5-11.0) 10^3/ul RBC 4.07 (3.5-6.1) 10^6/uL Hgb 12.5 (12.0-16.0) g/dL Hct 39.5 (36.0-48.0) % MCV 97.1 (80.0-105.0) fl MCH 30.7 (25.0-35.0) pg MCHC 31.6 (31.0-37.0) g/dl RDW 16.1 H (11.5-14.5) % Plt Count 172 (120.0-450.0) 10^3/uL MPV 11.4 H (7.0-11.0) fl Gran % 55.4 (50.0-68.0) % Lymph % (Auto) 28.9 (22.0-35.0) % [place] % (Auto) 5.5 (1.0-6.0) % Eos % (Auto) 10.0 H (1.5-5.0) % Baso % (Auto) 0.2 (0.0-3.0) % Gran # 4.65 (1.4-6.5) Lymph # (Auto) 2.4 (1.2-3.4) [place] # (Auto) 0.5 (0.1-0.6) Eos # (Auto) 0.8 H (0.0-0.7) Baso # (Auto) 0.02 (0.0-2.0) K/mm3 PT 14.7 H (9.4-12.5) SECONDS INR 1.28 H (0.93-1.08) APTT 35.4 (25.1-36.5) Seconds Sodium 141 (132-148) mmol/L Potassium 3.8 (3.6-5.0) mmol/L Chloride 96 L (98-107) mmol/L Carbon Dioxide 38 H (21-33) mmol/L Anion Gap 11 (10-20) BUN 20 (7-21) mg/dL Creatinine 1.2 (0.7-1.2) mg/dl Est GFR ( Amer) 52 Est GFR (Non-Af Amer) 43 POC Glucose (mg/dL) (65-110) mg/dL Random Glucose 89 (70-110) mg/dL Calcium 8.9 (8.4-10.5) mg/dL Phosphorus 4.2 (2.5-4.5) mg/dL Magnesium 1.5 L (1.7-2.2) mg/dL Total Bilirubin 0.4 (0.2-1.3) mg/dL AST 27 (14-36) U/L ALT 23 (7-56) U/L Alkaline Phosphatase 82 (38-126) U/L Troponin I < 0.01 ng/mL Total Protein 6.7 (5.8-8.3) g/dL Albumin 3.3 (3.0-4.8) g/dL Globulin 3.4 gm/dL Albumin/Globulin Ratio 1.0 L (1.1-1.8) Triglycerides 93 (35-160) mg/dL Cholesterol 135 (130-200) mg/dL LDL Cholesterol Direct 53 (0-129) mg/dL HDL Cholesterol 44 (29-60) mg/dL Free T4 (0.78-2.19) ng/dL TSH 3rd Generation (0.46-4.68) mIU/mL 12/21/17 12/21/17 12/21/17 Range/Units 21:56 21:27 21:27 WBC (4.5-11.0) 10^3/ul RBC (3.5-6.1) 10^6/uL Hgb (12.0-16.0) g/dL Hct (36.0-48.0) % MCV (80.0-105.0) fl MCH (25.0-35.0) pg MCHC (31.0-37.0) g/dl RDW (11.5-14.5) % Plt Count (120.0-450.0) 10^3/uL MPV (7.0-11.0) fl Gran % (50.0-68.0) % Lymph % (Auto) (22.0-35.0) % [place] % (Auto) (1.0-6.0) % Eos % (Auto) (1.5-5.0) % Baso % (Auto) (0.0-3.0) % Gran # (1.4-6.5) Lymph # (Auto) (1.2-3.4) [place] # (Auto) (0.1-0.6) Eos # (Auto) (0.0-0.7) Baso # (Auto) (0.0-2.0) K/mm3 PT (9.4-12.5) SECONDS INR (0.93-1.08) APTT (25.1-36.5) Seconds Sodium (132-148) mmol/L Potassium (3.6-5.0) mmol/L Chloride (98-107) mmol/L Carbon Dioxide (21-33) mmol/L Anion Gap (10-20) BUN (7-21) mg/dL Creatinine (0.7-1.2) mg/dl Est GFR ( Amer) Est GFR (Non-Af Amer) POC Glucose (mg/dL) 119 H (65-110) mg/dL Random Glucose (70-110) mg/dL Calcium (8.4-10.5) mg/dL Phosphorus (2.5-4.5) mg/dL Magnesium (1.7-2.2) mg/dL Total Bilirubin (0.2-1.3) mg/dL AST (14-36) U/L ALT (7-56) U/L Alkaline Phosphatase (38-126) U/L Troponin I < 0.01 ng/mL Total Protein (5.8-8.3) g/dL Albumin (3.0-4.8) g/dL Globulin gm/dL Albumin/Globulin Ratio (1.1-1.8) Triglycerides (35-160) mg/dL Cholesterol (130-200) mg/dL LDL Cholesterol Direct (0-129) mg/dL HDL Cholesterol (29-60) mg/dL Free T4 1.34 (0.78-2.19) ng/dL TSH 3rd Generation (0.46-4.68) mIU/mL 12/21/17 Range/Units 18:00 WBC (4.5-11.0) 10^3/ul RBC (3.5-6.1) 10^6/uL Hgb (12.0-16.0) g/dL Hct (36.0-48.0) % MCV (80.0-105.0) fl MCH (25.0-35.0) pg MCHC (31.0-37.0) g/dl RDW (11.5-14.5) % Plt Count (120.0-450.0) 10^3/uL MPV (7.0-11.0) fl Gran % (50.0-68.0) % Lymph % (Auto) (22.0-35.0) % [place] % (Auto) (1.0-6.0) % Eos % (Auto) (1.5-5.0) % Baso % (Auto) (0.0-3.0) % Gran # (1.4-6.5) Lymph # (Auto) (1.2-3.4) [place] # (Auto) (0.1-0.6) Eos # (Auto) (0.0-0.7) Baso # (Auto) (0.0-2.0) K/mm3 PT (9.4-12.5) SECONDS INR (0.93-1.08) APTT (25.1-36.5) Seconds Sodium (132-148) mmol/L Potassium (3.6-5.0) mmol/L Chloride (98-107) mmol/L Carbon Dioxide (21-33) mmol/L Anion Gap (10-20) BUN (7-21) mg/dL Creatinine (0.7-1.2) mg/dl Est GFR ( Amer) Est GFR (Non-Af Amer) POC Glucose (mg/dL) (65-110) mg/dL Random Glucose (70-110) mg/dL Calcium (8.4-10.5) mg/dL Phosphorus (2.5-4.5) mg/dL Magnesium (1.7-2.2) mg/dL Total Bilirubin (0.2-1.3) mg/dL AST (14-36) U/L ALT (7-56) U/L Alkaline Phosphatase (38-126) U/L Troponin I ng/mL Total Protein (5.8-8.3) g/dL Albumin (3.0-4.8) g/dL Globulin gm/dL Albumin/Globulin Ratio (1.1-1.8) Triglycerides (35-160) mg/dL Cholesterol (130-200) mg/dL LDL Cholesterol Direct (0-129) mg/dL HDL Cholesterol (29-60) mg/dL Free T4 (0.78-2.19) ng/dL TSH 3rd Generation 0.08 L (0.46-4.68) mIU/mL Laboratory Results - last 24 hr 12/21/17 12/21/17 12/21/17 18:00 21:27 21:27 WBC RBC Hgb Hct MCV MCH MCHC RDW Plt Count MPV Gran % Lymph % (Auto) [place] % (Auto) Eos % (Auto) Baso % (Auto) Gran # Lymph # (Auto) [place] # (Auto) Eos # (Auto) Baso # (Auto) PT INR APTT Sodium Potassium Chloride Carbon Dioxide Anion Gap BUN Creatinine Est GFR ( Amer) Est GFR (Non-Af Amer) POC Glucose (mg/dL) Random Glucose Calcium Phosphorus Magnesium Total Bilirubin AST ALT Alkaline Phosphatase Troponin I < 0.01 Total Protein Albumin Globulin Albumin/Globulin Ratio Triglycerides Cholesterol LDL Cholesterol Direct HDL Cholesterol Free T4 1.34 TSH 3rd Generation 0.08 L 12/21/17 12/22/17 12/22/17 21:56 03:40 03:40 WBC 8.4 RBC 4.07 Hgb 12.5 Hct 39.5 MCV 97.1 MCH 30.7 MCHC 31.6 RDW 16.1 H Plt Count 172 MPV 11.4 H Gran % 55.4 Lymph % (Auto) 28.9 [place] % (Auto) 5.5 Eos % (Auto) 10.0 H Baso % (Auto) 0.2 Gran # 4.65 Lymph # (Auto) 2.4 [place] # (Auto) 0.5 Eos # (Auto) 0.8 H Baso # (Auto) 0.02 PT 14.7 H INR 1.28 H APTT 35.4 Sodium Potassium Chloride Carbon Dioxide Anion Gap BUN Creatinine Est GFR ( Amer) Est GFR (Non-Af Amer) POC Glucose (mg/dL) 119 H Random Glucose Calcium Phosphorus Magnesium Total Bilirubin AST ALT Alkaline Phosphatase Troponin I Total Protein Albumin Globulin Albumin/Globulin Ratio Triglycerides Cholesterol LDL Cholesterol Direct HDL Cholesterol Free T4 TSH 3rd Generation 12/22/17 03:40 WBC RBC Hgb Hct MCV MCH MCHC RDW Plt Count MPV Gran % Lymph % (Auto) [place] % (Auto) Eos % (Auto) Baso % (Auto) Gran # Lymph # (Auto) [place] # (Auto) Eos # (Auto) Baso # (Auto) PT INR APTT Sodium 141 Potassium 3.8 Chloride 96 L Carbon Dioxide 38 H Anion Gap 11 BUN 20 Creatinine 1.2 Est GFR ( Amer) 52 Est GFR (Non-Af Amer) 43 POC Glucose (mg/dL) Random Glucose 89 Calcium 8.9 Phosphorus 4.2 Magnesium 1.5 L Total Bilirubin 0.4 AST 27 ALT 23 Alkaline Phosphatase 82 Troponin I < 0.01 Total Protein 6.7 Albumin 3.3 Globulin 3.4 Albumin/Globulin Ratio 1.0 L Triglycerides 93 Cholesterol 135 LDL Cholesterol Direct 53 HDL Cholesterol 44 Free T4 TSH 3rd Generation Fingerstick Blood Sugar Results: 119 Review of Systems - EENT Eyes: absent: Blurred Vision, Change in Vision Nose/Mouth/Throat: absent: Dysphagia, Sore Throat - Cardiovascular Cardiovascular: absent: Chest Pain, Dyspnea, Dyspnea on Exertion - Respiratory Respiratory: absent: Cough, Dyspnea - Gastrointestinal Gastrointestinal: absent: Diarrhea, Nausea, Vomiting - Genitourinary Genitourinary: UNREMARKABLE. absent: Dysuria - Musculoskeletal Musculoskeletal: UNREMARKABLE. absent: Back Pain - Integumentary Integumentary: UNREMARKABLE - Neurological Neurological: absent: Dizziness, Numbness - Psychiatric Psychiatric: absent: Anxiety - Endocrine Endocrine: UNREMARKABLE - Hematologic/Lymphatic Hematologic: UNREMARKABLE Critical Care Progress Note - Nutrition Nutrition: Nutrition Category Date Time Status Heart Healthy Diet [DIET] Diets 12/21/17 Dinner Ordered Assessment/Plan - Assessment and Plan (Free Text) Assessment: Patient is an 82 year old female with a past history of CHF, CKD, hypothyroidism , DM, hypothyroidism, depressive disorder, and anxiety who presents from [facility] due to concerns of low O2 sat of 80% on 2L NC, lethargy, and bilateral edema of lower extremities, found to be in CHF exacerbation and currently on BiPAP. Plan: Neurologic -Patient alert awake and oriented x 3 -aware of her surroundings and acknowledges understanding of her current condition Cardiovascular -Cardiology consulted -CHF exacerbation; continue with lasix -Echo ordered; results pending Pulmonary -Patient currently on BiPAP O2 sat 100% IPAP 12, 6 EPAP, Rate 15, 60 FIO2 -maintain O2> 92% Endocrine -Glucose of 68;provided Magnesium with D5 Maintain euglycemia -TSH 0.08, free t4 normal; sublinical hyperthyroidism Heme -H&H stable; continue to monitor -DVT prophylaxis with Heparin SC -Patient initially on eliquis due to immobility, will discuss with PMD Renal -Hypomagnesemia; repleted Infectious disease -patient afebrile, maintain normothermia -UA reveals Positive nitrate and leukocyte esterase, WBC 10-15, epithelial cells 4-5 -Continue with Rocephin -Urine culture results pending <Neeraj Park - Last Filed: 12/22/17 12:07> CCU Objective - Vital Signs / Intake & Output Intake and Output (Last 8hrs): Intake & Output 12/21/17 12/22/17 12/22/17 22:59 06:59 14:59 Intake Total 120 220 Output Total 1150 1900 Balance -1030 -1680 Weight 259 lb 242 lb 14.4 oz Intake: IV 0 Right Antecubital 0 Right Hand 0 Oral 120 220 Output: Urine 1150 1900 Urethral ([place]h) 150 1900 Other: # Bowel Movements 0 - Medications Active Medications: Active Medications Generic Name Dose Route Start Last Admin Trade Name Freq PRN Reason Stop Dose Admin Albuterol/Ipratropium 3 ml 12/22/17 14:00 Duoneb 3 Mg/0.5 Mg (3 Ml) Ud IH [id number] SOHAN Albuterol/Ipratropium 3 ml 12/22/17 08:25 Duoneb 3 Mg/0.5 Mg (3 Ml) Ud IH Q2H PRN Shortness of Breath Escitalopram Oxalate 20 mg 12/22/17 10:00 12/22/17 10:50 Lexapro PO 20 mg DAILY SOHAN Administration Furosemide 40 mg 12/22/17 02:00 12/22/17 02:01 Lasix IVP 40 mg 0200,1400 SOHAN Administration Heparin Sodium (Porcine) 5,000 units 12/21/17 22:00 12/22/17 09:01 Heparin SC 5,000 units Q12 SOHAN Administration Protocol Ceftriaxone Sodium 1 gm in 100 mls @ 100 mls/hr 12/22/17 10:00 12/22/17 09:03 Rocephin 1 Gram Ivpb IVPB 100 mls/hr DAILY SOHAN Administration Protocol Magnesium Sulfate/Dextrose 1 gm in 100 mls @ 102 mls/hr 12/22/17 11:32 Magnesium Sulfate 1 Gm/100 Ml D5w IVPB 12/22/17 12:19 ONCE ONE Insulin Human Regular 0 units 12/21/17 22:00 12/22/17 08:48 Humulin R Med SC Not Given ACHS [facility] Protocol Levalbuterol HCl 1.25 mg 12/22/17 08:00 Xopenex IH [id number] SOHAN Levothyroxine Sodium 112 mcg 12/22/17 07:30 12/22/17 10:50 Synthroid PO 112 mcg ACB SOHAN Administration Memantine 5 mg 12/22/17 10:00 12/22/17 10:50 Namenda PO 5 mg BID SOHAN Administration Mirtazapine 15 mg 12/21/17 22:00 12/21/17 21:30 Remeron PO 15 mg HS SOHAN Administration Pantoprazole Sodium 40 mg 12/22/17 10:00 12/22/17 09:02 Protonix Inj IVP 40 mg DAILY SOHAN Administration Pregabalin 75 mg 12/22/17 10:00 12/22/17 09:02 Lyrica PO 75 mg BID SOHAN Administration - Patient Studies Lab Studies: Lab Studies 12/22/17 12/22/17 12/22/17 Range/Units 11:02 10:40 08:46 WBC (4.5-11.0) 10^3/ul RBC (3.5-6.1) 10^6/uL Hgb (12.0-16.0) g/dL Hct (36.0-48.0) % MCV (80.0-105.0) fl MCH (25.0-35.0) pg MCHC (31.0-37.0) g/dl RDW (11.5-14.5) % Plt Count (120.0-450.0) 10^3/uL MPV (7.0-11.0) fl Gran % (50.0-68.0) % Lymph % (Auto) (22.0-35.0) % [place] % (Auto) (1.0-6.0) % Eos % (Auto) (1.5-5.0) % Baso % (Auto) (0.0-3.0) % Gran # (1.4-6.5) Lymph # (Auto) (1.2-3.4) [place] # (Auto) (0.1-0.6) Eos # (Auto) (0.0-0.7) Baso # (Auto) (0.0-2.0) K/mm3 PT (9.4-12.5) SECONDS INR (0.93-1.08) APTT (25.1-36.5) Seconds Sodium (132-148) mmol/L Potassium (3.6-5.0) mmol/L Chloride (98-107) mmol/L Carbon Dioxide (21-33) mmol/L Anion Gap (10-20) BUN (7-21) mg/dL Creatinine (0.7-1.2) mg/dl Est GFR ( Amer) Est GFR (Non-Af Amer) POC Glucose (mg/dL) 151 H 123 H (65-110) mg/dL Random Glucose (70-110) mg/dL Calcium (8.4-10.5) mg/dL Phosphorus (2.5-4.5) mg/dL Magnesium (1.7-2.2) mg/dL Total Bilirubin (0.2-1.3) mg/dL AST (14-36) U/L ALT (7-56) U/L Alkaline Phosphatase (38-126) U/L Troponin I ng/mL NT-Pro-B Natriuret Pep 1760 H (0-450) pg/mL Total Protein (5.8-8.3) g/dL Albumin (3.0-4.8) g/dL Globulin gm/dL Albumin/Globulin Ratio (1.1-1.8) Triglycerides (35-160) mg/dL Cholesterol (130-200) mg/dL LDL Cholesterol Direct (0-129) mg/dL HDL Cholesterol (29-60) mg/dL Free T4 (0.78-2.19) ng/dL TSH 3rd Generation (0.46-4.68) mIU/mL 12/22/17 12/22/17 12/22/17 Range/Units 07:28 03:40 03:40 WBC (4.5-11.0) 10^3/ul RBC (3.5-6.1) 10^6/uL Hgb (12.0-16.0) g/dL Hct (36.0-48.0) % MCV (80.0-105.0) fl MCH (25.0-35.0) pg MCHC (31.0-37.0) g/dl RDW (11.5-14.5) % Plt Count (120.0-450.0) 10^3/uL MPV (7.0-11.0) fl Gran % (50.0-68.0) % Lymph % (Auto) (22.0-35.0) % [place] % (Auto) (1.0-6.0) % Eos % (Auto) (1.5-5.0) % Baso % (Auto) (0.0-3.0) % Gran # (1.4-6.5) Lymph # (Auto) (1.2-3.4) [place] # (Auto) (0.1-0.6) Eos # (Auto) (0.0-0.7) Baso # (Auto) (0.0-2.0) K/mm3 PT 14.7 H (9.4-12.5) SECONDS INR 1.28 H (0.93-1.08) APTT 35.4 (25.1-36.5) Seconds Sodium 141 (132-148) mmol/L Potassium 3.8 (3.6-5.0) mmol/L Chloride 96 L (98-107) mmol/L Carbon Dioxide 38 H (21-33) mmol/L Anion Gap 11 (10-20) BUN 20 (7-21) mg/dL Creatinine 1.2 (0.7-1.2) mg/dl Est GFR ( Amer) 52 Est GFR (Non-Af Amer) 43 POC Glucose (mg/dL) 68 (65-110) mg/dL Random Glucose 89 (70-110) mg/dL Calcium 8.9 (8.4-10.5) mg/dL Phosphorus 4.2 (2.5-4.5) mg/dL Magnesium 1.5 L (1.7-2.2) mg/dL Total Bilirubin 0.4 (0.2-1.3) mg/dL AST 27 (14-36) U/L ALT 23 (7-56) U/L Alkaline Phosphatase 82 (38-126) U/L Troponin I < 0.01 ng/mL NT-Pro-B Natriuret Pep (0-450) pg/mL Total Protein 6.7 (5.8-8.3) g/dL Albumin 3.3 (3.0-4.8) g/dL Globulin 3.4 gm/dL Albumin/Globulin Ratio 1.0 L (1.1-1.8) Triglycerides 93 (35-160) mg/dL Cholesterol 135 (130-200) mg/dL LDL Cholesterol Direct 53 (0-129) mg/dL HDL Cholesterol 44 (29-60) mg/dL Free T4 (0.78-2.19) ng/dL TSH 3rd Generation (0.46-4.68) mIU/mL 12/22/17 12/21/17 12/21/17 Range/Units 03:40 21:56 21:27 WBC 8.4 (4.5-11.0) 10^3/ul RBC 4.07 (3.5-6.1) 10^6/uL Hgb 12.5 (12.0-16.0) g/dL Hct 39.5 (36.0-48.0) % MCV 97.1 (80.0-105.0) fl MCH 30.7 (25.0-35.0) pg MCHC 31.6 (31.0-37.0) g/dl RDW 16.1 H (11.5-14.5) % Plt Count 172 (120.0-450.0) 10^3/uL MPV 11.4 H (7.0-11.0) fl Gran % 55.4 (50.0-68.0) % Lymph % (Auto) 28.9 (22.0-35.0) % [place] % (Auto) 5.5 (1.0-6.0) % Eos % (Auto) 10.0 H (1.5-5.0) % Baso % (Auto) 0.2 (0.0-3.0) % Gran # 4.65 (1.4-6.5) Lymph # (Auto) 2.4 (1.2-3.4) [place] # (Auto) 0.5 (0.1-0.6) Eos # (Auto) 0.8 H (0.0-0.7) Baso # (Auto) 0.02 (0.0-2.0) K/mm3 PT (9.4-12.5) SECONDS INR (0.93-1.08) APTT (25.1-36.5) Seconds Sodium (132-148) mmol/L Potassium (3.6-5.0) mmol/L Chloride (98-107) mmol/L Carbon Dioxide (21-33) mmol/L Anion Gap (10-20) BUN (7-21) mg/dL Creatinine (0.7-1.2) mg/dl Est GFR ( Amer) Est GFR (Non-Af Amer) POC Glucose (mg/dL) 119 H (65-110) mg/dL Random Glucose (70-110) mg/dL Calcium (8.4-10.5) mg/dL Phosphorus (2.5-4.5) mg/dL Magnesium (1.7-2.2) mg/dL Total Bilirubin (0.2-1.3) mg/dL AST (14-36) U/L ALT (7-56) U/L Alkaline Phosphatase (38-126) U/L Troponin I ng/mL NT-Pro-B Natriuret Pep (0-450) pg/mL Total Protein (5.8-8.3) g/dL Albumin (3.0-4.8) g/dL Globulin gm/dL Albumin/Globulin Ratio (1.1-1.8) Triglycerides (35-160) mg/dL Cholesterol (130-200) mg/dL LDL Cholesterol Direct (0-129) mg/dL HDL Cholesterol (29-60) mg/dL Free T4 1.34 (0.78-2.19) ng/dL TSH 3rd Generation (0.46-4.68) mIU/mL 12/21/17 12/21/17 Range/Units 21:27 18:00 WBC (4.5-11.0) 10^3/ul RBC (3.5-6.1) 10^6/uL Hgb (12.0-16.0) g/dL Hct (36.0-48.0) % MCV (80.0-105.0) fl MCH (25.0-35.0) pg MCHC (31.0-37.0) g/dl RDW (11.5-14.5) % Plt Count (120.0-450.0) 10^3/uL MPV (7.0-11.0) fl Gran % (50.0-68.0) % Lymph % (Auto) (22.0-35.0) % [place] % (Auto) (1.0-6.0) % Eos % (Auto) (1.5-5.0) % Baso % (Auto) (0.0-3.0) % Gran # (1.4-6.5) Lymph # (Auto) (1.2-3.4) [place] # (Auto) (0.1-0.6) Eos # (Auto) (0.0-0.7) Baso # (Auto) (0.0-2.0) K/mm3 PT (9.4-12.5) SECONDS INR (0.93-1.08) APTT (25.1-36.5) Seconds Sodium (132-148) mmol/L Potassium (3.6-5.0) mmol/L Chloride (98-107) mmol/L Carbon Dioxide (21-33) mmol/L Anion Gap (10-20) BUN (7-21) mg/dL Creatinine (0.7-1.2) mg/dl Est GFR ( Amer) Est GFR (Non-Af Amer) POC Glucose (mg/dL) (65-110) mg/dL Random Glucose (70-110) mg/dL Calcium (8.4-10.5) mg/dL Phosphorus (2.5-4.5) mg/dL Magnesium (1.7-2.2) mg/dL Total Bilirubin (0.2-1.3) mg/dL AST (14-36) U/L ALT (7-56) U/L Alkaline Phosphatase (38-126) U/L Troponin I < 0.01 ng/mL NT-Pro-B Natriuret Pep (0-450) pg/mL Total Protein (5.8-8.3) g/dL Albumin (3.0-4.8) g/dL Globulin gm/dL Albumin/Globulin Ratio (1.1-1.8) Triglycerides (35-160) mg/dL Cholesterol (130-200) mg/dL LDL Cholesterol Direct (0-129) mg/dL HDL Cholesterol (29-60) mg/dL Free T4 (0.78-2.19) ng/dL TSH 3rd Generation 0.08 L (0.46-4.68) mIU/mL Laboratory Results - last 24 hr 12/21/17 12/21/17 12/21/17 18:00 21:27 21:27 WBC RBC Hgb Hct MCV MCH MCHC RDW Plt Count MPV Gran % Lymph % (Auto) [place] % (Auto) Eos % (Auto) Baso % (Auto) Gran # Lymph # (Auto) [place] # (Auto) Eos # (Auto) Baso # (Auto) PT INR APTT Sodium Potassium Chloride Carbon Dioxide Anion Gap BUN Creatinine Est GFR ( Amer) Est GFR (Non-Af Amer) POC Glucose (mg/dL) Random Glucose Calcium Phosphorus Magnesium Total Bilirubin AST ALT Alkaline Phosphatase Troponin I < 0.01 NT-Pro-B Natriuret Pep Total Protein Albumin Globulin Albumin/Globulin Ratio Triglycerides Cholesterol LDL Cholesterol Direct HDL Cholesterol Free T4 1.34 TSH 3rd Generation 0.08 L 12/21/17 12/22/17 12/22/17 21:56 03:40 03:40 WBC 8.4 RBC 4.07 Hgb 12.5 Hct 39.5 MCV 97.1 MCH 30.7 MCHC 31.6 RDW 16.1 H Plt Count 172 MPV 11.4 H Gran % 55.4 Lymph % (Auto) 28.9 [place] % (Auto) 5.5 Eos % (Auto) 10.0 H Baso % (Auto) 0.2 Gran # 4.65 Lymph # (Auto) 2.4 [place] # (Auto) 0.5 Eos # (Auto) 0.8 H Baso # (Auto) 0.02 PT 14.7 H INR 1.28 H APTT 35.4 Sodium Potassium Chloride Carbon Dioxide Anion Gap BUN Creatinine Est GFR ( Amer) Est GFR (Non-Af Amer) POC Glucose (mg/dL) 119 H Random Glucose Calcium Phosphorus Magnesium Total Bilirubin AST ALT Alkaline Phosphatase Troponin I NT-Pro-B Natriuret Pep Total Protein Albumin Globulin Albumin/Globulin Ratio Triglycerides Cholesterol LDL Cholesterol Direct HDL Cholesterol Free T4 TSH 3rd Generation 12/22/17 12/22/17 12/22/17 03:40 07:28 08:46 WBC RBC Hgb Hct MCV MCH MCHC RDW Plt Count MPV Gran % Lymph % (Auto) [place] % (Auto) Eos % (Auto) Baso % (Auto) Gran # Lymph # (Auto) [place] # (Auto) Eos # (Auto) Baso # (Auto) PT INR APTT Sodium 141 Potassium 3.8 Chloride 96 L Carbon Dioxide 38 H Anion Gap 11 BUN 20 Creatinine 1.2 Est GFR ( Amer) 52 Est GFR (Non-Af Amer) 43 POC Glucose (mg/dL) 68 123 H Random Glucose 89 Calcium 8.9 Phosphorus 4.2 Magnesium 1.5 L Total Bilirubin 0.4 AST 27 ALT 23 Alkaline Phosphatase 82 Troponin I < 0.01 NT-Pro-B Natriuret Pep Total Protein 6.7 Albumin 3.3 Globulin 3.4 Albumin/Globulin Ratio 1.0 L Triglycerides 93 Cholesterol 135 LDL Cholesterol Direct 53 HDL Cholesterol 44 Free T4 TSH 3rd Generation 12/22/17 12/22/17 10:40 11:02 WBC RBC Hgb Hct MCV MCH MCHC RDW Plt Count MPV Gran % Lymph % (Auto) [place] % (Auto) Eos % (Auto) Baso % (Auto) Gran # Lymph # (Auto) [place] # (Auto) Eos # (Auto) Baso # (Auto) PT INR APTT Sodium Potassium Chloride Carbon Dioxide Anion Gap BUN Creatinine Est GFR ( Amer) Est GFR (Non-Af Amer) POC Glucose (mg/dL) 151 H Random Glucose Calcium Phosphorus Magnesium Total Bilirubin AST ALT Alkaline Phosphatase Troponin I NT-Pro-B Natriuret Pep 1760 H Total Protein Albumin Globulin Albumin/Globulin Ratio Triglycerides Cholesterol LDL Cholesterol Direct HDL Cholesterol Free T4 TSH 3rd Generation Critical Care Progress Note - Nutrition Nutrition: Nutrition Category Date Time Status Heart Healthy Diet [DIET] Diets 12/21/17 Dinner Ordered Attending/Attestation - Attestation I have personally seen and examined this patient.: Yes I have fully participated in the care of the patient.: Yes I have reviewed all pertinent clinical information: Yes Notes (Text): 12/22/17 12:02 The patient was seen and examined at the bedside. Patient care was discussed with resident Medical records, lab studies, and imaging were reviewed and management issues were discussed and formulated. Agree with above treatment plans as outlined in ' note with addition of the following: Acute Respiratory Insufficiency \ Hypoxemia \ CHF \ COPD \ UTI \ DM -hemodynamic monitoring to maintain MAP>65 -o2 supplementation to maintain Spo2 >90 Pao2>60 -CXR reviewed -continue nebs and pulmonary toileting -continue Abx and f\u cultures -f\u Bun\Cr and U\o; monitor and replace e-lites; diuresis with lasix -PO diet and aspiration precautions -ISS and BGM monitoring -DVT \ PUD prophylaxis CCM f\u 30min
[2017-12-22] MEDS ORDERED: Albuterol-Ipratrop 3 mg / 0.5 (3 ml) UD IH PRN (08:25)
[2017-12-22] MEDS: cefTRIAXone 1 gm 1 GM/100 ML BAG IVPB SCH (09:03)
--- NOTE | 2017-12-22 09:03 | CARD ---
APPROVED REPORT EKG Measurement Heart [id number] <Conclusion> Electronic atrial pacemaker: 100% A. Paced Right bundle branch block Left anterior fascicular block Bifascicular block PRWP, possible due to lead positioning No change
[2017-12-22] MEDS ORDERED: cefTRIAXone 1 gm 1 GM/100 ML BAG IVPB SCH (10:00)
[2017-12-22] MEDS: Levothyroxine 112 MCG TAB PO SCH (10:50)
[2017-12-22] MEDS: Albuterol-Ipratrop 3 mg / 0.5 (3 ml) UD IH SCH ×2 (13:07→20:43)
--- NOTE | 2017-12-22 13:48 | CON ---
DATE: 12/22/2017 HISTORY OF PRESENT ILLNESS: The patient is a 82-year-old woman who lives in a intermediate who presented with shortness of breath. She was found to have a pulse oximetry that was low. PAST MEDICAL HISTORY: Notable for hypertension, diabetes mellitus as well as hypothyroidism. She was on Eliquis as an outpatient for questionable reasons. Currently, the patient is in the ICU. She denies chest pain, denies shortness of breath. Past medical history is notable for COPD, history of PTCA and stent in the past as well as chronic renal insufficiency. SOCIAL HISTORY: She does smoke occasionally. REVIEW OF SYSTEMS: The 14-point review of systems was reviewed. No cardiac symptomatology is noted. PHYSICAL EXAMINATION VITAL SIGNS: Blood pressure 116/55, heart rate in the 60s. NECK: Negative JVD. LUNGS: Decreased breath sounds without rales. HEART: Reveals S1, S2. EXTREMITIES: Trace edema. DATA: EKG shows normal sinus rhythm with right bundle-branch block and left anterior hemiblock. Troponins are negative x2. Glucose is 119. BUN and creatinine unremarkable. The hemoglobin is 12.5. IMPRESSION 1. Hypoxemia. 2. No evidence for congestive heart failure. 3. Diabetes mellitus. 4. Hypertension, questionable reasons for being on anticoagulation in the past. Given these findings, we will obtain an echocardiogram to evaluate her LV function and measure her pulmonary pressures. I will obtain a ProBNP. Homero Massey MD
--- NOTE | 2017-12-22 14:21 | PN ---
DATE: SUBJECTIVE: I saw her resting comfortably in the Intensive Care Unit. She has oxygen mask on. She is alert. She is comfortable. No acute complaints. No chest pain or shortness of breath. She tells me she is hungry for her breakfast. She is in good spirits. OBJECTIVE: VITAL SIGNS: Temperature 98.3, 60 pulse, 21 respiratory rate, 116/55 blood pressure, 98% O2 saturation on oxygen. HEENT: Head is atraumatic, normocephalic. HEART: Regular rate. LUNGS: Decreased breath sounds but clear. ABDOMEN: Soft, morbidly obese, nontender. EXTREMITIES: Trace edema if anything. MEDICATIONS: She is on DuoNeb, heparin, insulin, Lasix IV twice a day, Lexapro, Lyrica, magnesium replacement, Namenda, Protonix, Remeron, Rocephin, Synthroid, Xopenex. LABORATORY DATA: Her white count is 8.4, hemoglobin 12.5, hematocrit 39.5, platelets of 172. INR is 1.28. Sodium 141, potassium 3.8, BUN 20, creatinine 1.2, GFR is 52, sugar is 89, calcium is 8.9, phosphorus 4.2, magnesium 1.5. Total bilirubin is 0.4. AST is 27, ALT is 23, alkaline phosphatase is 82. The troponin is less than 0.01. Total protein 6.7, albumin is 3.3, globulin 3.4. ASSESSMENT AND PLAN: She does have urinary tract infection. She had congestive heart failure, shortness of breath, urinary tract infection. She might be able to today. I will discuss that with her consults, which are Pulmonary and Cardiology. Trying to get out of bed to chair and when get her back to her long term, which is [facility] where she is a permanent resident. North Asif DO MTDD
--- NOTE | 2017-12-22 15:59 | CON ---
DATE: 12/22/2017 PULMONARY CONSULTATION REASON FOR CONSULTATION: Shortness of breath. REFERRING PHYSICIAN: North Asif DO HISTORY OF PRESENT ILLNESS: History is obtained via extensive discussion with the night nurse. I have also reviewed the chart at length, and discussed the case with the patient at length. The patient is an 82-year-old female, long-term resident, with past medical history significant for congestive heart failure, hypothyroidism, diabetes mellitus, questionable chronic obstructive pulmonary disease (positive former heavy smoker), who presents to [facility] - transferred from the long-term - with increasing shortness of breath at rest and dyspnea on exertion for one day. In the long-term, the patient's oxygen saturation was also noted to be low. She was then transferred to [facility] for further evaluation and treatment. In the emergency room, the patient was noted to be in congestive heart failure. She was thus admitted for additional evaluation. Again, I did discuss the case with the night nurse at length. The night nurse stated that the patient's shortness of breath is much improved - compared to her initial presentation. There is no history of significant cough or sputum production. There is no history of chest pain, coughing up of blood, or chest pain - made worse with deep respirations. There is no history of temperatures, chills or infectious exposure. There is no history of night sweats, weight loss or appetite change prior to the above events. No history of leg or calf pains. No history of syncope or diaphoresis. No history of recent travel or trauma. REVIEW OF SYSTEMS: No history of nausea, vomiting or diarrhea. No acute urinary symptoms. No new musculoskeletal complaints. Rest of the review of systems is negative. ALLERGIES: NO KNOWN ALLERGIES. SOCIAL HISTORY: Positive for extensive tobacco usage. No alcohol. FAMILY HISTORY: No inheritable diseases. HOME MEDICATIONS: Include insulin, clonidine, Namenda, Remeron, Tylenol, Lyrica, omeprazole, Synthroid, Lexapro, Eliquis, Klonopin. PHYSICAL EXAMINATION GENERAL: The patient appears comfortable this morning. She is not short of breath at rest. She is awake and alert. VITAL SIGNS: Temperature is 98.3, pulse 60, respirations 18/20, blood pressure 116/55. Oxygen saturation on VentiMask is 98%. HEENT: Normocephalic, atraumatic. Positive JVD. CARDIOVASCULAR: Systolic ejection murmur at the lower left sternal border. Positive S3 gallop. LUNGS: Mild crackles at both bases. Very minimal rhonchi. No wheezing. EXTREMITIES: Positive for edema. No cyanosis, no clubbing. Calves are nontender to palpation. GI: Abdomen is soft, nontender and nondistended. Bowel sounds are positive. SKIN: No acute rash. NEUROLOGIC: Limited at the present time. PERTINENT LABORATORY DATA: Chest x-ray was done yesterday and reviewed. There is [id number] pulmonary vascular congestion noted. There are also small bilateral pleural effusions. CBC: White count 8.4, hemoglobin 12.5, hematocrit 39.5, platelets of 172,000. Arterial blood gas was done on BiPAP. Results are pH 7.34, pCO2 of 60, pO2 of 57. Complete metabolic profile: Chloride 96, carbon dioxide 38, magnesium 1.5. Rest of the metabolic profiles within normal limits. Initial B-type natriuretic peptide 1040. IMPRESSION: 1. Respiratory failure. 2. Acute congestive heart failure. 3. Probable chronic obstructive pulmonary disease. 4. Diabetes mellitus. 5. Hypertension. PLAN: Again, I did discuss the case with the night nurse at length. I have also reviewed the chart at length and discussed the case with the patient at length. The patient was transferred from [facility] because of increasing shortness of breath at rest, dyspnea on exertion, and oxygen desaturation for the past day. In the emergency room, she was noted to be in congestive heart failure. She was thus admitted for additional evaluation. Again, I did discuss the case with the night nurse at length. The night nurse stated that the patient's shortness of breath is much improved/decreased compared to her initial presentation. I did review the chest x-ray as above. The chest x-ray is consistent with [id number] congestive heart failure with small bilateral pleural effusions. The patient has been placed on Lasix and feels much better this morning. She is awake and alert. On physical exam, there is only mild bronchospasm noted. I will start the patient on Xopenex nebulizer treatments this morning. She does not carry the diagnosis of chronic obstructive pulmonary disease, but was a smoker for over 40 years. When the acute events have passed, I would like to get a pulmonary function test on this patient. The patient has also been started on antibiotic therapy. There are no temperatures noted. There is no leukocytosis. Again, the clinical status of this patient is significantly improved - compared to the initial presentation. I will order a chest x-ray - for tomorrow - for comparison. I would also like to see the patient out of bed if possible. I will discuss the above with the entire ICU team the next few moments. I will also discuss the above with Dr. Asif later this morning. Thank you very much for this pulmonary consultation. Willis Maria MD MTDShanice
--- NOTE | 2017-12-22 17:34 | CARD ---
APPROVED REPORT EXAM: Two-dimensional and M-mode echocardiogram with Doppler and color Doppler. INDICATION Dyspnea CHF 2D DIMENSIONS Left Atrium (2D)4.9 (1.6-4.0cm)IVSd1.2 (0.7-1.1cm) LVDd4.1 (3.9-5.9cm)LVOT Diameter1.9 (1.8-2.4cm) PWd1.3 (0.7-1.1cm)LVDs2.8 (2.5-4.0cm) FS (%) 32.1 %LVEF (%)60.7 (>50%) M-Mode DIMENSIONS Aortic Root3.40 (2.2-3.7cm)Aortic Cusp Exc.0.70 (1.5-2.0cm) Aortic Valve AoV Peak Fztleaqs142.0cm/sAoV VTI56.0cmAO Peak GR.37mmHg LVOT Peak Zldmlgba63.0cm/sLVOT VTI16.80cmAO Mean GR.19mmHg GLADYS (VMAX)0.12kf3PNM (VTI)0.85cm2 Mitral Valve MV E Omwgcmxt418.0cm/sMV A Hbwwqoof80.8cm/sMV ZAK059sc E/A ratio1.9MVA (PHT)1.95cm2 TDI Lateral E' Peak V7.99cm/sMedial E' Peak V7.80cm/sE/Lateral E'15.4 E/Medial E'15.8 Pulmonary Valve PV Peak Glvbmqui67.9cm/sPV Peak Grad.2mmHg Tricuspid Valve TR Peak Mzoutqhh087iq/sRAP LMBDERCO01skEzDS Peak Gr.23mmHg BIYM71cnPs LEFT VENTRICLE The left ventricle is normal size. There is normal left ventricular wall thickness. The left ventricular function is normal. The left ventricular ejection fraction is within the normal range. There is normal LV segmental wall motion. Transmitral Doppler flow pattern is Grade I-abnormal relaxation pattern. RIGHT VENTRICLE The right ventricle is normal size. There is normal right ventricular wall thickness. The right ventricular systolic function is normal. ATRIA The left atrium is moderately dilated. The right atrium is mildly dilated. AORTIC VALVE The aortic valve is mildly to moderately calcified. There is moderate valvular aortic stenosis. MITRAL VALVE The mitral valve is calcified and displays decreased opening. Mitral regurgitation is mild. There is moderate mitral valve stenosis. TRICUSPID VALVE There is mild tricuspid regurgitation. There is mild pulmonary hypertension. GREAT VESSELS The aortic root is normal in size. PERICARDIAL EFFUSION There is a small loculated anterior pericardial effusion. <Conclusion> The left ventricle is normal size. There is normal left ventricular wall thickness. The left ventricular function is normal. The left ventricular ejection fraction is within the normal range. There is normal LV segmental wall motion. There is moderate valvular aortic stenosis. There is moderate mitral valve stenosis.Mitral regurgitation is mild. There is mild tricuspid regurgitation.There is mild pulmonary hypertension.
[2017-12-23] MEDS: Albuterol-Ipratrop 3 mg / 0.5 (3 ml) UD IH SCH ×4 (02:59→19:36)
[2017-12-23 06:17] LABS: ARTERIAL BLOOD GAS HCO3 32.4 mmol/L (21-28); ARTERIAL BLOOD GAS HEMOGLOBIN 9.1 g/dL (11.7-17.4); ARTERIAL BLOOD GAS O2 CAPACITY 12.6 mL/dl (16-24); ARTERIAL BLOOD GAS O2 CONTENT 12.6 ML/dl (15-23); ARTERIAL BLOOD GAS PCO2 50 mm/Hg (35-45); ARTERIAL BLOOD GAS PH 7.42 (7.35-7.45); ARTERIAL BLOOD GAS TCO2 33.9 mmol.L (22-28)
[2017-12-23 06:34] LABS: HEMOGLOBIN 11.2 g/dL (12.0-16.0); MEAN CELL VOLUME 96.6 fl (80.0-105.0); MEAN CORPUSCULAR HEMOGLOBIN 29.4 pg (25.0-35.0); MEAN CORPUSCULAR HGB CONC 30.4 g/dl (31.0-37.0); MEAN PLATELET VOLUME 11.6 fl (7.0-11.0); RBC 3.81 10^6/uL (3.5-6.1); RED CELL DISTRIBUTION WIDTH 16.2 % (11.5-14.5); WHITE BLOOD COUNT 7.3 10^3/ul (4.5-11.0)
[2017-12-23 06:47] LABS: ALBUMIN 3.3 g/dL (3.0-4.8); CALCIUM 8.6 mg/dL (8.4-10.5)
[2017-12-23] MEDS: Pantoprazole 40 mg EC Tab PO SCH (06:50)
[2017-12-23] MEDS: Insulin Reg-MEDIUM-Coverage SC SCH ×4 (07:44→22:00)
[2017-12-23] MEDS: Levalbuterol 1.25 MG/3 ML Inhal Soln UD IH SCH ×2 (07:49→13:38)
[2017-12-23] MEDS: Budesonide 0.5 mg/2 ml Inhal Susp UD IH SCH (07:49)
--- NOTE | 2017-12-23 08:02 | PN ---
DATE: 12/23/2017 PULMONARY NOTE SUBJECTIVE: The patient appears much more comfortable this morning. She is not short of breath at rest. PHYSICAL EXAMINATION: VITAL SIGNS: Temperature is 98.2, pulse 63, respirations 16, blood pressure 100/53. Oxygen saturation on Ventimask is 95% to 96%. HEENT: Normocephalic, atraumatic. Positive JVD. CARDIOVASCULAR: Systolic ejection murmur at the lower left sternal border. Positive S3 gallop. LUNGS: Mild crackles at both bases. Still with mild rhonchi bilaterally. No wheezing. EXTREMITIES: Positive for edema. No cyanosis, no clubbing. Calves are nontender to palpation. GI: Abdomen is soft, nontender, nondistended. Bowel sounds are positive. SKIN: No acute rash. NEUROLOGIC: Exam limited at the present time. PERTINENT LABORATORY DATA: Chest x-ray was done this morning and reviewed. There is a slight decrease in the pulmonary vascular congestion. Arterial blood gas was done on Ventimask. Results are pH 7.42, pCO2 of 50 and pO2 of 125. IMPRESSION: 1. Respiratory failure. 2. Acute congestive heart failure. 3. Probable chronic obstructive pulmonary disease. 4. Diabetes mellitus. 5. Hypertension. PLAN: The patient appears comfortable this morning. She is not short of breath at rest. I did discuss the case with the night nurse at length. The night nurse stated that the patient had a very good night. I did review the chest x-ray as above. The chest x-ray is somewhat improved with a slight decrease in the pulmonary vascular congestion. I have also reviewed the arterial blood gas. The arterial blood gas now reveals normalization of the pH, as well as a decrease in the alveolar-arterial gradient. We can try changing to nasal cannula at this point in time. The patient is refusing her BiPAP. I would continue with the treatment for congestive heart failure as per Cardiology. Input by Dr. Massey is noted. The patient remains on Lasix/afterload reduction. I will continue with the current nebulizer treatments and try adding inhaled Pulmicort this morning. The patient does have a significant smoking history. The clinical status of the patient is certainly improved-compared to the initial presentation. However, her future status/prognosis does remain very guarded. I will discuss the above with the entire ICU team in the next few moments. I will also discuss the above with Dr. Asif later this morning. Willis Maria MD MTDShanice
[2017-12-23] MEDS: Levothyroxine 112 MCG TAB PO SCH (08:30)
--- NOTE | 2017-12-23 08:50 | RAD ---
HISTORY: Follow-up COMPARISON: Comparison made with prior chest radiograph 12/21/2017 FINDINGS: No change right-sided MediPort tip in the SVC. LUNGS: Pulmonary vascular congestive changes with bilateral lower lobe alveolar-type infiltrates and bilateral effusions. PLEURA: No significant pleural effusion identified, no pneumothorax apparent. CARDIOVASCULAR: Heart remains enlarged. Aorta ectatic and uncoiled Bipolar pacemaker unchanged OSSEOUS STRUCTURES: No significant abnormalities. VISUALIZED UPPER ABDOMEN: Normal. OTHER FINDINGS: None. IMPRESSION: Pulmonary vascular congestive changes with bilateral lower lobe alveolar-type infiltrates and bilateral effusions.
[2017-12-23] MEDS: cefTRIAXone 1 gm 1 GM/100 ML BAG IVPB SCH (09:38)
--- NOTE | 2017-12-23 10:26 | PQF RESP ---
This form is a permanent part of the medical record Clarification of your documentation is requested to better reflect the severity of illness and intensity of treatment of your patient. Indicators present Can you further clarify hypoxic respiratory failure as to Acute, chronic or Acute on chronic. Also Dr Massey states " no evidence of CHF". Can you clarify cause of Respiratory failure? [] Use of Home Oxygen [] Respiratory rate > 28 or <8/min (Labored respirations) [x] PCO2 > 50 mm Hg or (Hypercapnia) (somnolence) [] PaO2 < 60 mm Hg or Hypoxemia (confusion) [x] ABG blood gas pH < 7.35 [] SpO2 < 90% sat on Room Air [] Cyanosis [] Unable to Speak in Full Sentences [] Use of Accessory Muscles / Tripoding [] Wheezing [] Other: [] Location in the medical record that reflects the above clinical findings: [x] Pul & Card consults Treatment Provided: [] BiPap PHYSICIAN'S RESPONSE Based on your medical judgment of the clinical indicators outlined above, are you treating this patient for a known or suspected: [x] Acute Respiratory Failure (hypoxia or hypercapnia) [] Chronic Respiratory Failure (hypoxia or hypercapnia) [] Acute on Chronic Respiratory Failure (hypoxia or hypercapnia) [] Hypoxemia please specify ACUTE, CHRONIC or ACUTE on CHRONIC [] Other []_ [] If unable to determine, please check the box, sign and date. Present On Admission (POA) Indicator: [x] Present at the time of admission [] Not present at the time of admission [] Clinically Undetermined In responding to this query, please exercise your independent professional judgment. The fact that a question is asked does not imply that any particular answer is desired or expected. Thank you for your clarification on this documentation. If you have any questions please call:[ ] [phone] * Thank you, [ ] Nessa Winters RN CDS telemetry rn Chronic Respiratory Failure Description: Respiratory failure is a syndrome in which the respiratory system fails in one or both of its gas exchange functions: oxygenation and carbon dioxide elimination. In theory, respiratory failure is defined as a Pa02 value of <60 mm/Hg or a PaC02 of >50 mm/Hg. However, these values may be affected by renal compensation. Respiratory failure may be acute or chronic. While acute respiratory failure is characterized by life-threatening derangement in arterial blood gases and acid-base balance, the manifestations of chronic respiratory failure are less dramatic and may not be as readily apparent. Classifications: Respiratory failure may be classified as hypoxemic (usually characterized by Pa02 of <60 mm/Hg) or hypercapnic (usually characterized by PaC02 >50 mm/Hg) and either may be acute or chronic. Chronic hypercapnic respiratory failure develops over time and allows for renal compensation and an increase in bicarbonate concentration; therefore the pH is usually only slightly decreased. The distinction between acute and chronic hypoxemic respiratory failure cannot readily be made on the basis of ABGs; the clinical markers of chronic hypoxemia, such as polythycemia or cor pulmonale suggest a long standing disorder (chronic hypoxemic respiratory failure). Clinical Indicators: dyspnea at rest or "chronic" dyspnea, concomitant conditions such as polycythemia or cor pulmonale, requirement for continuous oxygen support, forced expiratory volume in one second (FEV1) of 49 or less, pursed lip breathing, "barrel" chest, hyperinflation by CXR, muscle wasting, malnutrition/obesity, poor exercise capacity, peripheral edema, description as a "blue bloater" (usually associated with chronic, obstructive bronchitis) or "pink puffer" (usually associated with emphysema) Risks: Chronic Hypoxemic Respiratory Failure - COPD, pulmonary fibrosis, asthma , pulmonary arterial hypertension, granulomatous lung diseases, congenital heart disease, bronchiectasis, kyphoscoliosis, obesity; Chronic Hypercapnic Respiratory Failure - COPD, severe asthma, myasthenia gravis, polyneuropathy, polio, head and cervical spine injuries, obesity hypoventilation syndrome. Treatment: supplemental oxygen, bronchodilators, corticosteroids, adequate nutrition, lung transplant References: Am. J. Respir. Crit. Care Med. "Global Strategy for the Diagnosis, Management and Prevention of COPD: GOLD Exectuive Summary," Philippe Headley [place] - 2007; Proceedings of the [employer] Thor[employer] Society "Mechanisms and Measurements of Dyspnea in COPD," [place] - 2006; WebMD; Respiratory Failure, Blake Chand MD - 03/2006; Kai's Principles of Internal Medicine, 17th edition. Acute Respiratory Failure Acute Respiratory Failure indicators include: ~Respirations >28 ~Air hunger ~Use of accessory muscles of respiration ~Inability to speak in full sentences Cyanosis ~Pulse ox <90% RA or <95% on O2 pH <7.35 or >7.45 ~pO2 < 60 mm Hg (or 10mm below COPD patient's baseline) ~pCO2 >50mm Hg (or 10mm above COPD patient's baseline) "Respiratory failure may be assigned as a principal diagnosis when it is the condition established after study to be chiefly responsible for occasioning admission to the hospital. The fact that the respiratory failure was managed without intubation and mechanical ventilation does not preclude its use." [facility], 3rd Qtr., 1988, p. 7 MTDD
--- NOTE | 2017-12-23 14:02 | PN ---
DATE: SUBJECTIVE: I saw her resting comfortably in the Intensive Care Unit. She is alert and talking. She has the oxygen on. I ordered some physical therapy for her. I think she could start to move. She is being seen by Pulmonary and Cardiology. MEDICATIONS: She is on albuterol, heparin, insulin, Lasix, Lexapro, Lyrica, magnesium replacement, Namenda, Protonix, Pulmicort, Remeron, Rocephin, Synthroid, Xopenex. PHYSICAL EXAMINATION: VITAL SIGNS: She has a 98.2 temp, 60 pulse, 16 respiratory rate, 95% O2 sat, 100/53 blood pressure. HEENT: Head is atraumatic, normocephalic. HEART: Regular rate. LUNGS: Decreased breath sounds, but clear. ABDOMEN: Morbidly obese, soft, nontender. Positive bowel sounds. EXTREMITIES: Trace edemas. LABORATORY DATA: She has a 7.3 white count, 11.2 hemoglobin, 36.8 hematocrit a 186 platelets. She has a 141 sodium; potassium 3.5, we will give her some potassium; BUN 23; creatinine 1.2; GFR is 43; sugar is 86; calcium is 8.6; total bili is 0.3; AST is 29; ALT is 24; alk phos is 81; total protein 6.7. ASSESSMENT AND PLAN: She is being seen by Pulmonary, Cardiology. She has respiratory failure, acute congestive heart failure. She had a chest x-ray showed pulmonary vascular congestion, changes of bilateral lower lobe infiltrate, so we are still dealing with pneumonia and congestive heart failure. We will continue with aggressive treatment and care by Pulmonary, Cardiology and Intensive Care Unit. We with check her labs tomorrow. Maybe some physical therapy and out of bed to chair if possible. I do think there is subtle improvement with her. North Asif DO
[2017-12-24] MEDS: Albuterol-Ipratrop 3 mg / 0.5 (3 ml) UD IH SCH ×4 (02:06→19:24)
[2017-12-24] MEDS: Pantoprazole 40 mg EC Tab PO SCH (05:04)
[2017-12-24 06:28] LABS: ARTERIAL BLOOD GAS HCO3 38.4 mmol/L (21-28); ARTERIAL BLOOD GAS HEMOGLOBIN 10.2 g/dL (11.7-17.4); ARTERIAL BLOOD GAS O2 CAPACITY 13.9 mL/dl (16-24); ARTERIAL BLOOD GAS O2 CONTENT 13.2 ML/dl (15-23); ARTERIAL BLOOD GAS O2 SAT 94.8 % (95-98); ARTERIAL BLOOD GAS PCO2 62 mm/Hg (35-45); ARTERIAL BLOOD GAS TCO2 40.3 mmol.L (22-28)
[2017-12-24 07:11] LABS: HEMOGLOBIN 11.3 g/dL (12.0-16.0); MEAN CELL VOLUME 96.1 fl (80.0-105.0); MEAN CORPUSCULAR HEMOGLOBIN 29.4 pg (25.0-35.0); MEAN CORPUSCULAR HGB CONC 30.5 g/dl (31.0-37.0); MEAN PLATELET VOLUME 11.5 fl (7.0-11.0); RBC 3.85 10^6/uL (3.5-6.1); RED CELL DISTRIBUTION WIDTH 16.5 % (11.5-14.5)
[2017-12-24 07:39] LABS: ALBUMIN 3.5 g/dL (3.0-4.8); CALCIUM 8.6 mg/dL (8.4-10.5)
[2017-12-24] MEDS: Levalbuterol 1.25 MG/3 ML Inhal Soln UD IH SCH ×2 (08:09→19:24)
[2017-12-24] MEDS: Budesonide 0.5 mg/2 ml Inhal Susp UD IH SCH ×2 (08:09→19:25)
[2017-12-24] MEDS: Levothyroxine 112 MCG TAB PO SCH (08:14)
[2017-12-24] MEDS ORDERED: Potassium Chloride 20 mEq ER Tab PO ONE (08:36)
--- NOTE | 2017-12-24 08:43 | PN ---
DATE: 12/24/2017 PULMONARY NOTE SUBJECTIVE: The patient appears comfortable this morning. She is not short of breath at rest. PHYSICAL EXAMINATION: VITAL SIGNS: Temperature is 98.6, pulse 61, respirations 17, blood pressure 126/57. Oxygen saturation on Ventimask is 98%. HEENT: Normocephalic, atraumatic. NECK: Positive JVD. CARDIOVASCULAR: Systolic ejection murmur at the lower left sternal border. Positive S3 gallop. LUNGS: Mild crackles at both bases. Much less rhonchi. No wheezing. EXTREMITIES: Positive for edema. No cyanosis, no clubbing. Calves are nontender to palpation. GI: Abdomen is soft, nontender, nondistended. Bowel sounds are positive. SKIN: No acute rash. NEUROLOGIC: Exam limited at the present time. PERTINENT LABORATORY DATA: The chest x-ray was done this morning and reviewed. There is definite improvement with decreased pulmonary vascular congestion. Arterial blood gas was done on Ventimask, 50% oxygen. Results are pH 7.40, pCO2 of 62 and pO2 of 62. IMPRESSION: 1. Respiratory failure. 2. Acute congestive heart failure. 3. Chronic obstructive pulmonary disease. 4. Diabetes mellitus. 5. Hypertension. PLAN: The patient appears comfortable this morning. She is not short of breath at rest. I did discuss the case with the night nurse at length. The night nurse stated that the patient had a very good night. I did review the chest x-ray as above. There is definite improvement with decreased pulmonary vascular congestion. I have also reviewed the arterial blood gas. The pH is normal, however, there is a significant alveolar-arterial gradient. The patient does use her BiPAP at night. On physical exam, there is significantly less bronchospasm. I will continue with the current nebulizer treatments and inhaled steroids (added yesterday) for now. I would continue with the treatment for congestive heart failure-as per Cardiology. Input by Dr. Massey is noted. The patient remains on intravenous Lasix. The clinical status of the patient is certainly improved overall. However, again, the future status/prognosis for this patient does remain guarded. I will discuss the above with the entire ICU team in the next few moments. I will also discuss the above with Dr. Asif later this morning. Willis Maria MD [facility] # [id number] [place]
--- NOTE | 2017-12-24 09:49 | PQF CHF ---
This form is a permanent part of the medical record Clarification of your documentation is requested to better reflect the severity of illness and intensity of treatment of your patient. Indicators present Dr. Massey consult 12/22 states- " No evidence for CHF" ECHO showed normal EF. You documentated acute CHF .Can you clarify if CHF was POA? Please include acuity & type. [] Diagnosis of CHF and/or history of CHF [x] BNP > 200 ( 1040 ) [] Imaging Finding of Pulmonary Edema /Pleural Effusions [] Fluid/Volume Overload [] Pitting edema [] Ejection Fraction < 40% (Indicative of Systolic Heart Failure) [] Ejection Fraction > 40% (Indicative of Diastolic Heart Failure) [] Dyspnea / Orthopenea / Paroxysmal Nocturnal Dyspnea [] Other: Location in the medical record that reflects the above clinical findings: [x] Card consult 12/22 Treatment Provided: [x] IV Lasix PHYSICIAN'S RESPONSE as per dr massey no chf Based on your medical judgment of the clinical indicators outlined above, are you treating this patient for a known or suspected: [] Acute CHF [] Systolic [] Diastolic [] Combined [] Chronic CHF [] Systolic [] Diastolic [] Combined [] Acute on Chronic CHF []Systolic [] Diastolic [] Combined [] CHF due hypertension [] Acute systolic []Chronic systolic [] Acute/ chronic systolic [] Other, please indicate: [] [] If Unable to Determine, please check the box, sign and date. Present On Admission (POA) Indicator: [] Present at the time of admission [] Not present at the time of admission [] Clinically Undetermined In responding to this query, please exercise your independent professional judgment. The fact that a question is asked does not imply that any particular answer is desired or expected. Thank you for your clarification on this documentation. If you have any questions please call:[ ][phone] * Thank you, [ ] Nessa Winters RN CDS motor grader operator MARCO
--- NOTE | 2017-12-24 10:01 | RAD ---
HISTORY: follow up COMPARISON: Comparison made with prior study dated 12/23/2017. FINDINGS: No change right central venous access line LUNGS: Interval slight improvement previously noted pulmonary vascular congestion however mild bibasilar alveolar-type infiltrates and small effusions remain. PLEURA: As above. No evidence of pneumothorax CARDIOVASCULAR: Marked cardiomegaly. No change bipolar pacemaker. OSSEOUS STRUCTURES: No significant abnormalities. VISUALIZED UPPER ABDOMEN: Normal. OTHER FINDINGS: None. IMPRESSION: Interval slight improvement previously noted pulmonary vascular congestion however mild bibasilar alveolar-type infiltrates and small effusions remain.
[2017-12-24] MEDS: Cefpodoxime (Vantin) 200 mg Tab PO SCH ×2 (10:15→22:05)
--- NOTE | 2017-12-24 12:01 | PN ---
DATE: SUBJECTIVE: She is resting comfortably in the Intensive Care Unit on Venti mask. She is alert. Presently confused. No acute distress. No shortness of breath. No abdominal pain. She tells me she is a little bit hungry. PHYSICAL EXAMINATION: VITAL SIGNS: She has a 98.6 temp, 64 pulse, 17 respiratory rate, 90% O2 sat with a 109/54 blood pressure. HEENT: Head is atraumatic, normocephalic. HEART: Regular rate. LUNGS: Decreased breath sounds bilaterally, but clear. ABDOMEN: Soft, morbidly obese. EXTREMITIES: +1/4 pitting edema. MEDICATIONS: She is on albuterol, heparin, insulin, Lasix, Lexapro, Lyrica, Namenda, Protonix, Pulmicort, Remeron, Synthroid, Vantin p.o., Xopenex. She is off the Rocephin. She is on IV Lasix 40 b.i.d. for the CHF. She had COPD, most probably and possible infiltrates on chest x-ray, UTI and diabetes. LABORATORY DATA: She has a 7 white count, 11.3 hemoglobin, 37 hematocrit with a 208 platelets. She has 140 sodium; potassium 3.3, I am going to give her some potassium this morning; BUN is 26; creatinine 1.3; GFR is 39; sugar is 87; calcium is 8.6; total bili is 0.3; AST is 29; ALT is 22; alk phos 87. ASSESSMENT AND PLAN: She is being seen by Pulmonary and Cardiology and the power chisel operator. Chest x-ray is pending this morning. She is from the atrium at [facility]. When I get the okay from Cardiology and Pulmonary, I will send her back there. We will continue aggressive treatment and care on Taylor Morris. North Asif DO
--- NOTE | 2017-12-24 15:50 | PN ---
DATE: 12/24/2017 CARDIOLOGY FOLLOWUP SUBJECTIVE: The patient is in bed comfortable without shortness of breath. PHYSICAL EXAMINATION VITAL SIGNS: Blood pressure is 98/60, pulse oximetry is 91, the heart rate is in the 60s. NECK: Negative JVD. LUNGS: Decreased breath sounds. HEART: Reveals S1, S2. EXTREMITIES: Without edema. LABORATORY DATA: Hemoglobin is 11.3. Chemistries: BUN and creatinine is 26 and 1.3. IMPRESSION: 1. No evidence for congestive heart failure. 2. Diabetes mellitus. 3. Hypertension. 4. Obesity. PLAN: Given these findings, we will review the echocardiogram. ADDENDUM The echocardiogram reveals good LV function with mitral valve disease noted. Homero Massey MD
[2017-12-24] MEDS: Insulin Reg-MEDIUM-Coverage SC SCH ×2 (17:14→22:24)
[2017-12-25] MEDS: Levalbuterol 1.25 MG/3 ML Inhal Soln UD IH SCH ×3 (01:29→13:52)
[2017-12-25] MEDS: Albuterol-Ipratrop 3 mg / 0.5 (3 ml) UD IH SCH ×3 (01:29→13:35)
[2017-12-25 07:18] LABS: HEMOGLOBIN 10.1 g/dL (12.0-16.0); MEAN CELL VOLUME 95.9 fl (80.0-105.0); MEAN CORPUSCULAR HEMOGLOBIN 29.7 pg (25.0-35.0); MEAN PLATELET VOLUME 11.2 fl (7.0-11.0); RBC 3.4 10^6/uL (3.5-6.1); RED CELL DISTRIBUTION WIDTH 16.5 % (11.5-14.5); WHITE BLOOD COUNT 5.9 10^3/ul (4.5-11.0)
[2017-12-25] MEDS: Budesonide 0.5 mg/2 ml Inhal Susp UD IH SCH (07:57)
--- NOTE | 2017-12-25 08:51 | PN ---
DATE: 12/25/2017 PULMONARY NOTE SUBJECTIVE: The patient appears very comfortable this morning. She is not short of breath at rest. PHYSICAL EXAMINATION: VITAL SIGNS: Temperature is 98.8, pulse 61, respirations 18, blood pressure 116/67. Oxygen saturation on nasal cannula is 95%. HEENT: Normocephalic, atraumatic. NECK: Positive JVD. CARDIOVASCULAR: Systolic ejection murmur at the lower left sternal border. Positive S3 gallop. LUNGS: Mild crackles at the bases. No rhonchi or wheezing this morning. EXTREMITIES: Positive for edema. No cyanosis, no clubbing. Calves are nontender to palpation. GI: Abdomen is soft, nontender, nondistended. Bowel sounds are positive. SKIN: No acute rash. NEUROLOGIC: Exam limited at the present time. IMPRESSION: 1. Status post respiratory failure. 2. Acute congestive heart failure. 3. Chronic obstructive pulmonary disease. 4. Diabetes mellitus. 5. Hypertension. PLAN: The patient appears very comfortable this morning. She is not short of breath at rest. She does state to feeling much better overall. I did discuss the case with the night nurse at length. The night nurse stated that the patient had a very good night, but continues to refuse the BiPAP. On physical exam, there is certainly less bronchospasm noted. I will continue with the current nebulizer treatments and inhaled steroids for now. I will also continue with the aspiration precautions. I would continue with the treatment for congestive heart failure as per Cardiology. Input by Dr. Massey is noted. Patient remains on intravenous Lasix. The clinical status of the patient is significantly improved overall. However, again, her future status/prognosis does remain guarded. I will also discuss the above with Dr. Asif. Willis Maria MD MTDD
[2017-12-25 09:24] LABS: ALB/GLOB RATIO 0.9 (1.1-1.8); BLOOD UREA NITROGEN 26 mg/dL (7-21); GFR AFRICAN-AMERICAN > 60; GFR NON-AFRICAN AMERICAN 53
[2017-12-25] MEDS: Cefpodoxime (Vantin) 200 mg Tab PO SCH (09:39)
[2017-12-25] MEDS: Insulin Reg-MEDIUM-Coverage SC SCH ×2 (09:40→12:40)
[2017-12-25] MEDS: Levothyroxine 112 MCG TAB PO SCH (09:42)
[2017-12-25] MEDS: Pantoprazole 40 mg EC Tab PO SCH (09:42)
[2017-12-25 10:28] LABS: ALT/SGPT 16 U/L (7-56); AST/SGOT 29 U/L (14-36); CALCIUM 8.7 mg/dL (8.4-10.5)
--- NOTE | 2017-12-25 12:51 | DS ---
She got out of the Intensive Care Unit. She is resting comfortably in bed. She is doing quite well. She is talking. She is eating. She is on albuterol; heparin; insulin coverage; potassium replacement; Lasix IV, we will change to p.o.; Lexapro; Lyrica; Namenda; Protonix; Pulmicort inhaler; Remeron; Synthroid; Vantin for another week and Xopenex. OBJECTIVE VITAL SIGNS: She has a 98.8 temperature, 61 pulse, 116/67 blood pressure, 18 respiratory rate, 95% O2 saturation on room air. HEENT: Head is atraumatic, normocephalic. HEART: Regular rate. LUNGS: Decreased breath sounds, but clear. ABDOMEN: Soft, obese, nontender. EXTREMITIES: No edema. She is bedridden. DATA: She has a 141 sodium, potassium 4.1, BUN 26, creatinine 1, GFR is 53, sugar is 89, total protein 6.4, albumin is 3. Urine with many, but she is on antibiotics. She has a 5.9 white count, 10.1 hemoglobin, 32.6 hematocrit, 27 platelets. She has 141 sodium. She has been seen by Cardio and Pulmonary. PLAN: My plan is to discharge her back to [facility]. Continue with the same medications she is getting here. We will follow up on a visit to the long-term. The patient had multiple problems while she was here. She had intubation, respiratory failure, CHF, COPD, UTI, diabetes, pneumonia. North Asif DO
--- NOTE | 2017-12-25 14:29 | PN ---
DATE: 12/25/2017 CARDIOLOGY FOLLOWUP SUBJECTIVE: The patient is without shortness of breath. PHYSICAL EXAMINATION: VITAL SIGNS: Blood pressure is 116/67. NECK: Negative JVD. LUNGS: Without rales. HEART: Reveals S1 and S2 with a II/ systolic ejection murmur. EXTREMITIES: Without edema. LABORATORY DATA: Laboratories are noted. IMPRESSION: 1. Dyspnea is improved. 2. Diabetes mellitus. 3. Hypertension. 4. Obesity. PLAN: Given these findings, there is no evidence for CHF. The patient has moderate aortic stenosis. We will discuss with Dr. Asif about continued medical care or whether we need to pursue further intervention for her aortic stenosis. Homero Massey MD
[2017-12-25 15:00] VITALS: BP 121/69; PULSE 60; RESP 20; TEMP 98.1; O2SAT 97
== END 2017-12-25 16:51 | DRG 189 ==
LOC: ED 14:39 → ERH 17:14 → CCU 18:03 → 5RNO 12-24 12:08
PROVIDERS: ADMIT Family Medicine; ATTEND Family Medicine
PROC: 5A09457 Assistance with Respiratory Ventilation, 24-96 Consecutive Hours, Continuous Positive Airway Pressure (ICD-10-PCS; principal; 2017-12-21)
DX: J96.01 Acute respiratory failure with hypoxia (principal); J18.9 Pneumonia, unspecified organism; I13.0 Hypertensive heart and chronic kidney disease with heart failure and stage 1 through stage 4 chronic kidney disease, or unspecified chronic kidney disease; J44.0 Chronic obstructive pulmonary disease with (acute) lower respiratory infection; N39.0 Urinary tract infection, site not specified; E03.9 Hypothyroidism, unspecified; E11.22 Type 2 diabetes mellitus with diabetic chronic kidney disease; E66.9 Obesity, unspecified; F03.90 Unspecified dementia, unspecified severity, without behavioral disturbance, psychotic disturbance, mood disturbance, and anxiety; F17.210 Nicotine dependence, cigarettes, uncomplicated; I05.8 Other rheumatic mitral valve diseases; I25.10 Atherosclerotic heart disease of native coronary artery without angina pectoris; I50.9 Heart failure, unspecified; K21.9 Gastro-esophageal reflux disease without esophagitis; N18.9 Chronic kidney disease, unspecified; Z79.01 Long term (current) use of anticoagulants; Z79.4 Long term (current) use of insulin; Z85.3 Personal history of malignant neoplasm of breast; Z87.11 Personal history of peptic ulcer disease; Z90.49 Acquired absence of other specified parts of digestive tract; Z95.5 Presence of coronary angioplasty implant and graft; R40.2412 Glasgow coma scale score 13-15, at arrival to emergency department

== ENCOUNTER 2018-01-11 20:29 | Inpatient (IN) | payer MEDICARE, MEDICAID ==
[2018-01-11] MEDS ORDERED: Sodium Chloride 0.9% 1,000 ML IV SCH (21:00)
[2018-01-11 21:10] LABS: HEMOGLOBIN 13.3 g/dL (12.0-16.0); MEAN CELL VOLUME 97.7 fl (80.0-105.0); MEAN CORPUSCULAR HEMOGLOBIN 30.9 pg (25.0-35.0); MEAN CORPUSCULAR HGB CONC 31.7 g/dl (31.0-37.0); MEAN PLATELET VOLUME 11.9 fl (7.0-11.0); RBC 4.3 10^6/uL (3.5-6.1); RED CELL DISTRIBUTION WIDTH 16.5 % (11.5-14.5); WHITE BLOOD COUNT 8.4 10^3/ul (4.5-11.0)
[2018-01-11 21:11] LABS: VENOUS BLOOD GAS BASE EXCESS 10.2 mmol/L (0.0-2.0); VENOUS BLOOD GAS PO2 91 mm/Hg (30-55); VENOUS BLOOD PH 7.38 (7.32-7.43)
[2018-01-11 21:28] LABS: INR 1.59 (0.93-1.08); PROTHROMBIN TIME 18.3 SECONDS (9.4-12.5)
[2018-01-11 21:29] LABS: PARTIAL THROMBOPLASTIN TIME 35.1 Seconds (25.1-36.5)
--- NOTE | 2018-01-11 21:43 | ED PDOC ---
Arrival/HPI - General Chief Complaint: Fever Time Seen by Provider: 01/11/18 20:33 Historian: Patient, [facility] - History of Present Illness Narrative History of Present Illness (Text): 01/11/18 21:39 Taylor Morris is an 82 year old female, whose past medical history includes CHF, chronic kidney disease, hypothyroidism, diabetes, depression, osteoarthritis, COPD, diabetes, mitral valve prolapse, dementia, bilateral lower extremity cellulitis, and left-sided mastecetomy s/p breast cancer, who presents to the Emergency department brought in from [facility] for fever and lethargy today. Patient when questioned denies any abdominal pain, chest pain, shortness of breath, or any other complaints. Patient appears weak, and answered slowly when questioned. Symptom Onset: Gradual Symptom Course: Unchanged Activities at Onset: Light Context: Home Past Medical History - Provider Review Nursing Documentation Reviewed: Yes - Infectious Disease Hx of Infectious Diseases: None - Tetanus Immunization Tetanus Immunization: Unknown - Reproductive Menopause: Yes - Cardiac Hx Congestive Heart Failure: Yes Hx Hypertension: Yes - Pulmonary Hx Chronic Obstructive Pulmonary Disease (COPD): No - Neurological Hx Dementia: Yes - HEENT Hx HEENT Disorder: No - Renal Hx Renal Failure: (impaired renal function) - Endocrine/Metabolic Hx Hypothyroidism: Yes - Hematological/Oncological Hx Blood Disorders: No Hx Cancer: Yes - Integumentary Other/Comment: rash/redness groin area, femoral foldsbilateral shins to feet, red/scaling/cellulitisredness, back of shins bilaterally and dorsal aspect of foot - Musculoskeletal/Rheumatological Hx Arthritis: Yes - Gastrointestinal Hx Gastroesophageal Reflux: Yes - Genitourinary/Gynecological Hx Incontinence: Yes - Psychiatric Hx Depression: Yes Hx Substance Use: No - Surgical History Hx Appendectomy: Yes Hx Cardiac Catheterization: No Hx Cholecystectomy: Yes Hx Coronary Stent: No Hx Mastectomy: Yes (L sided) - Anesthesia Hx Anesthesia Reactions: No - Suicidal Assessment Feels Threatened In Home Enviroment: No Family/Social History - Physician Review Nursing Documentation Reviewed: Yes Family/Social History: Unknown Family HX Smoking Status: Heavy Smoker > 10 Cigarettes Daily Hx Alcohol Use: No Hx Substance Use: No Hx Substance Use Treatment: No Allergies/Home Meds Allergies/Adverse Reactions: Allergies No Known Allergies Allergy (Verified 01/11/18 20:51) Home Medications: Home Meds Medication Instructions Recorded Confirmed Escitalopram [Lexapro] 20 mg PO DAILY 04/12/14 01/11/18 Acetaminophen [Tylenol] 650 mg PO Q4 PRN 05/25/14 01/11/18 Apixaban [Eliquis] 2.5 mg PO BID 12/21/17 01/11/18 Clonazepam [Klonopin] 0.25 mg PO DAILY 12/21/17 01/11/18 Insulin Human Regular [Novolin R] 0 unit SC BID 12/21/17 01/11/18 Levothyroxine [Synthroid] 0.112 mg PO DAILY 12/21/17 01/11/18 Magnesium Hydroxide [Milk Of 30 ml PO PRN PRN 12/21/17 01/11/18 Magnesia] Memantine [Namenda] 5 mg PO BID 12/21/17 01/11/18 Mirtazapine [Remeron] 15 mg PO HS 12/21/17 01/11/18 Multi Vitamin 1 tab PO DAILY 12/21/17 01/11/18 Omeprazole 20 mg PO DAILY 12/21/17 01/11/18 Pregabalin [Lyrica] 75 mg PO BID 12/21/17 01/11/18 Siltussin Dm 10 ml PO QID PRN 12/21/17 01/11/18 cloNIDine [Catapres] 0.1 mg PO PRN PRN 12/21/17 01/11/18 Review of Systems - Physician Review All systems were reviewed & negative as marked: Yes - Review of Systems Constitutional: Fevers, Other (+lethargy) Respiratory: absent: SOB Cardiovascular: absent: Chest Pain Gastrointestinal: absent: Abdominal Pain Physical Exam Vital Signs Reviewed: Yes Vital Signs Temp Pulse Resp BP Pulse Ox 01/11/18 22:31 60 18 100/68 93 L 01/11/18 20:45 98.5 F 60 17 104/62 91 L Temperature: Afebrile Blood Pressure: Normal Pulse: Regular Respiratory Rate: Normal Appearance: Positive for: Non-Toxic Pain Distress: None Mental Status: Positive for: other (Drowsy but arousable) Finger Stick Blood Glucose: 137 - Systems Exam Head: Present: Atraumatic, Normocephalic Pupils: Present: PERRL Extroacular Muscles: Present: EOMI Conjunctiva: Present: Normal Mouth: Present: Moist Mucous Membranes Pharnyx: Present: Normal. No: ERYTHEMA, EXUDATE, TONSILS ENLARGED, Peritonsilar Swelling, Uvular Deviation, Muffled/Hoarse Voice, Strider, Soft Palate/Uvular Edema Nose (External): Present: Atraumatic Nose (Internal): Present: Normal Inspection Neck: Present: Normal Range of Motion. No: Meningeal Signs, MIDLINE TENDERNESS , Paraspinal Tenderness Respiratory/Chest: Present: Clear to Auscultation. No: Respiratory Distress, Accessory Muscle Use Cardiovascular: Present: Regular Rate and Rhythm, Normal S1, S2. No: Murmurs Abdomen: No: Tenderness, Distention, Peritoneal Signs Back: Present: Normal Inspection Upper Extremity: Present: Normal Inspection. No: Cyanosis, Edema Lower Extremity: Present: Normal Inspection. No: Edema Neurological: Present: GCS=15, CN II-XII Intact, Speech Normal, Motor Func Grossly Intact, Normal Sensory Function, Normal Cerebellar Funct Skin: Present: Warm, Dry, Normal Color. No: Rashes Psychiatric: Present: Other (Drowsy but arousable) Medical Decision Making ED Course and Treatment: 01/11/18 21:39 Impression: 82 year old female sent from long-term for lethargy and fever. Plan: -- EKG -- Chest X-ray -- Labs, BNP, cardiac enzymes, VBG, blood cultures -- Urinalysis, urine cultures -- IV fluids -- Reassess and disposition Prior Visits: Notes and results from previous visits were reviewed. On 12/21/2017, pt was seen in the emergency department for hypoxia, lethargy, and bilateral lower extemity swelling. Pt was admitted to the ICU for further evaluation. Progress Notes: Reviewed EKG, 100% paced rhythm at [address] RBBB. Non-specific ST/T wave changes. 01/11/18 22:32 Chest X-ray reviewed, shows trace pleural effusion. 01/11/18 23:[address] Asif, who is aware and agrees with plan. Accepts pt in to his service. Pt will go to Telemetry observation for altered mental status and UTI. - Lab Interpretations Lab Results: 01/11/18 20:57 01/11/18 21:27 Lab Results 01/11/18 21:27: Urine Color Yellow, Urine Appearance Clear, Urine pH 6.0, Ur Specific [place] 1.015, Urine Protein Negative, Urine Glucose (UA) Negative, Urine Ketones Negative, Urine Blood Trace-intact H, Urine Nitrate Negative, Urine Bilirubin Negative, Urine Urobilinogen 1.0 H, Ur Leukocyte Esterase Trace H, Urine RBC 5 - 10, Urine WBC 5 - 10, Ur Epithelial Cells 6 - 8 01/11/18 21:27: Sodium 151 H, Chloride 104, Potassium 3.8, Carbon Dioxide 38 H, Anion Gap 13, BUN 35 H, Creatinine 1.4 H, Est GFR ( Amer) 43, Est GFR ( Non-Af Amer) 36, Random Glucose 154 H, Calcium 8.9, Phosphorus 4.7 H, Magnesium 1.5 L, Total Bilirubin 0.5, AST 31, ALT 25, Alkaline Phosphatase 95, Lactate Dehydrogenase 523, Total Creatine Kinase < 20 L, Troponin I 0.01, NT-Pro-B Natriuret Pep 893 H, Total Protein 7.2, Albumin 3.5, Globulin 3.7, Albumin/ Globulin Ratio 0.9 L 01/11/18 20:57: pO2 91 H, VBG pH 7.38, VBG pCO2 64.0 H, VBG HCO3 37.9 H, VBG Total CO2 39.9 H, VBG O2 Sat (Calc) 98.1 H, VBG Base Excess 10.2 H, VBG Potassium 3.9, Sodium 144.0, Chloride 105.0, Glucose 145 H, Lactate 1.4, FiO2 21.0, Venous Blood Potassium 3.9 01/11/18 20:57: WBC 8.4 D, RBC 4.30, Hgb 13.3 D, Hct 42.0, MCV 97.7, MCH 30.9 , MCHC 31.7, RDW 16.5 H, Plt Count 224, MPV 11.9 H 01/11/18 20:57: PT 18.3 H, INR 1.59 H, APTT 35.1 01/11/18 20:45: POC Glucose (mg/dL) 137 H I have reviewed the lab results: Yes - RAD Interpretation Radiology Orders: 01/11/18 20:48 CHEST PORTABLE [RAD] Stat Prison Warden: ED Physician - EKG Interpretation Interpreted by ED Physician: Yes Type: 12 lead EKG - Medication Orders Current Medication Orders: Dextrose (Dextrose 5% In Water 1000 Ml) 1,000 mls @ 100 mls/hr IV .Q10H SOHAN Discontinued Medications Sodium Chloride (Sodium Chloride 0.9%) 1,000 mls @ 150 mls/hr IV .Q6H40M SOHAN Last Admin: 01/11/18 21:19 Dose: 150 mls/hr eMAR Start Stop Document 01/11/18 21:19 JOL (Rec: 01/11/18 21:19 JOL [id number]) Intravenous Solution Start Date 01/11/18 Start Time 21:19 Ceftriaxone Sodium (Rocephin 1 Gram Ivpb) 1 gm in 100 mls @ 200 mls/hr IV ONCE STA PRN Reason: Protocol Stop: 01/12/18 00:05 Last Admin: 01/12/18 00:00 Dose: 200 mls/hr eMAR Start Stop Document 01/12/18 00:00 JOL (Rec: 01/12/18 00:00 JOL [id number]) Intravenous Solution Start Date 01/12/18 Start Time 00:00 End Date 01/12/18 End time 00:30 Total Infusion Time 30 - Scribe Statement The provider has reviewed the documentation as recorded by the Scribe Sweta Terry All medical record entries made by the Scribgina were at my direction and personally dictated by me. I have reviewed the chart and agree that the record accurately reflects my personal performance of the history, physical exam, medical decision making, and the department course for this patient. I have also personally directed, reviewed, and agree with the discharge instructions and disposition. Disposition/Present on Arrival - Present on Arrival Any Indicators Present on Arrival: No History of DVT/PE: No History of Uncontrolled Diabetes: Yes Urinary Catheter: No History of Decub. Ulcer: No History Surgical Site Infection Following: None - Disposition Have Diagnosis and Disposition been Completed?: Yes Diagnosis: Altered mental status, UTI (urinary tract infection) Disposition: HOSPITALIZED Disposition Time: 23:50 Condition: STABLE
[2018-01-11 22:32] LABS: URINE BILIRUBIN NEGATIVE (NEGATIVE); URINE BLOOD TRACE-INTACT (NEGATIVE); URINE GLUCOSE (UA) NEGATIVE (NEGATIVE); URINE LEUKOCYTE ESTERASE TRACE Leu/uL (NEGATIVE); URINE PROTEIN NEGATIVE mg/dL (<30 mg/dL)
[2018-01-11 22:33] LABS: URINE APPEARANCE CLEAR (CLEAR); URINE COLOR YELLOW (YELLOW)
[2018-01-11 22:44] LABS: ALB/GLOB RATIO 0.9 (1.1-1.8); ALBUMIN 3.5 g/dL (3.0-4.8); ALT/SGPT 25 U/L (7-56); AST/SGOT 31 U/L (14-36); BLOOD UREA NITROGEN 35 mg/dL (7-21); CALCIUM 8.9 mg/dL (8.4-10.5); GFR AFRICAN-AMERICAN 43; GFR NON-AFRICAN AMERICAN 36
[2018-01-11 22:53] LABS: B-TYPE NATRIURETIC PEPTIDE 893 pg/mL (0-450); TROPONIN I 0.01 ng/mL
[2018-01-11] MEDS ORDERED: cefTRIAXone 1 gm 1 GM/100 ML BAG IV STA (23:36)
--- NOTE | 2018-01-12 01:24 | CT ---
EXAM: CT Head Without Intravenous Contrast CLINICAL HISTORY: 82 years old, female; Signs and symptoms; Altered mental status/memory loss; Additional info: AMS TECHNIQUE: Axial computed tomography images of the head/brain without intravenous contrast. All CT scans at this facility use one or more dose reduction techniques, viz.: automated exposure control; ma/kV adjustment per patient size (including targeted exams where dose is matched to indication; i.e. head); or iterative reconstruction technique. Coronal and sagittal reformatted images were created and reviewed. COMPARISON: No relevant prior studies available. FINDINGS: Brain: [id number] atrophy. No intracranial hemorrhage. No mass. Several scattered foci of decreased attenuation within periventricular/subcortical white matter. No definite edema. Ventricles: No hydrocephalus. Bones/joints: No acute fracture. Soft tissues: Unremarkable. Vasculature: Atherosclerotic disease of intracranial arteries. Sinuses: No acute sinusitis. Mastoid air cells: Minimal opacification of RIGHT mastoid. Orbits: Unremarkable as visualized. IMPRESSION: 1. Nonspecific white matter changes. Acute infarction may be CT occult within first 24 hours. If a focal deficit persists, consider followup CT or MRI for further evaluation. 2. Incidental/non-acute findings are described above.
[2018-01-12 04:54] VITALS: BMI 40.2
[2018-01-12 08:21] LABS: ALBUMIN 3.2 g/dL (3.0-4.8); CALCIUM 8.4 mg/dL (8.4-10.5)
--- NOTE | 2018-01-12 08:45 | RAD ---
HISTORY: sob COMPARISON: 12/24/2017 FINDINGS: LUNGS: No active pulmonary disease. PLEURA: No significant pleural effusion identified, no pneumothorax apparent. CARDIOVASCULAR: Moderate cardiomegaly OSSEOUS STRUCTURES: No significant abnormalities. VISUALIZED UPPER ABDOMEN: Normal. OTHER FINDINGS: Pacemaker. Port-A-Cath IMPRESSION: No active disease.
[2018-01-12] MEDS: cefTRIAXone 1 gm 1 GM/100 ML BAG IVPB SCH (10:23)
[2018-01-12] MEDS: Levothyroxine 112 MCG TAB PO SCH (10:25)
[2018-01-12] MEDS: Sodium Chloride 0.45% 1,000 ML IV SCH (10:28)
--- NOTE | 2018-01-12 12:57 | CON ---
DATE: 01/12/2018 NEUROLOGY CONSULTATION CHIEF COMPLAINT: Change in mental status. HISTORY OF PRESENT ILLNESS: This is an 82-year-old woman with history of dementia, history of cognitive impairment, hypothyroidism, type 2 diabetes mellitus, depression, osteoarthritis, COPD, mitral valve prolapse, CHF, bilateral lower extremity cellulitis, history of breast cancer, status post left-sided mastectomy who has presented to the ER from [facility] because of generalized weakness, lethargy and fever. She appears generally weak and answers slowly to questions. She was found to have low systolic and diastolic blood pressures. She is on Lyrica 75 mg p.o. b.i.d. for neuropathic pain, Remeron at bedtime for possible insomnia and is on Klonopin likely low dose 0.25 for anxiety. She is on Namenda for cognitive impairment. Currently her today's blood pressure is 92/48, which is low. MRI of the brain is currently pending. She has elevated BUN and creatinine as well as elevated sodium level of 151. Currently, no acute focal weakness seen, but just generalized lethargy. PAST MEDICAL HISTORY: History of CHF, COPD, bilateral lower extremity cellulitis, cognitive impairment, osteoarthritis, type 2 diabetes mellitus, hypothyroidism, history of breast cancer, status post left-sided mastectomy. REVIEW OF SYSTEMS: A 14-point review of systems is negative except as per the HPI. ALLERGIES: NO KNOWN DRUG ALLERGIES. MEDICATIONS: Reviewed by nurse's reconciliation sheet. SOCIAL HISTORY: No illicit drug use, smoking or EtOH abuse. PHYSICAL EXAMINATION: GENERAL: Patient is lethargic. VITAL SIGNS: Temperature 97.5, pulse rate 68, blood pressure 98/50, respiratory rate 20, oxygen saturation 93% by nasal cannula. HEENT: Head is atraumatic, normocephalic. PERRLA. Extraocular muscles are intact. NECK: Supple. No JVD, no adenopathy noted. LUNGS: Clear to auscultation. No adventitious sounds. HEART: S1 and S2, normal rate and rhythm. No murmurs, rubs, or gallops. ABDOMEN: Soft, nontender, and nondistended. Bowel sounds are present. EXTREMITIES: No clubbing. No cyanosis. Peripheral pulses 2+ felt bilaterally. Lower extremities has rash and redness in the groin area and bilateral cellulitis in the lower extremities. NEUROLOGIC: Patient is lethargic. Speech is hypophonic, no aphasia noted. She is alert, oriented to person, place and year. Recall after 5 minutes is 0/3. Poor attention span. Slow thought process. Cranial nerves II through XII intact. Motor: No pronator drift seen but moves all extremities. Sensory: Decreased light touch and pinprick up to the calves bilaterally. Decreased vibration of the toes. DTRs are 2+ throughout and 1 at both knees and also at the ankles. Coordination: [id number] intact. No dysmetria noted. Gait is deferred for now. LABORATORY DATA: Sodium is 151, potassium 3.4, chloride of 102, CO2 of 37, BUN of 35, creatinine 1.2. Random glucose 138. ASSESSMENT: This is an 82-year-old woman with history of breast cancer, status post left mastectomy, congestive heart failure, chronic obstructive pulmonary disease, osteoarthritis, history of diabetes, diabetic neuropathy on Lyrica 75 p.o. b.i.d., history of congestive heart failure on Eliquis 2.5 mg p.o. b.i.d., history of depression on Lexapro, hypothyroidism who presents from the [facility] for lethargy and fever, found to have low systolic and diastolic blood pressures as well as elevated BUN and creatinine and elevated sodium. At this time I think her altered mental status is likely secondary to underlying toxic metabolic encephalopathy superimposed on underlying generalized current medical issues also her lethargy can also be secondary to transient cerebral hypoperfusion to the brain from low systolic and diastolic blood pressures and given that she has history of congestive heart failure. PLAN: 1. Keep blood pressure between 120s to 130s systolic and diastolic 70s to 80s. Gentle IV hydration. 2. Monitor her electrolytes and correct accordingly. 3. Keep blood sugars between 140 to 180. 4. Avoid any sedative medications. 5. Delirium precautions. 6. MRI of the brain to assess for any acute intracranial abnormality and PT/OT evaluation. Thank you for this consult. Patricio Moreno MD
[2018-01-12] MEDS ORDERED: Insulin Lispro 1 UNITS/0.01 ML ONE (13:13)
[2018-01-12] MEDS: Levalbuterol 1.25 MG/3 ML Inhal Soln UD IH SCH ×2 (13:47→18:59)
--- NOTE | 2018-01-12 14:07 | CARD ---
APPROVED REPORT EKG Measurement Heart [id number] [id number] <Conclusion> Electronic atrial pacemaker Right bundle branch block Left anterior fascicular block Bifascicular block Minimal voltage criteria for LVH, may be normal variant Possible Lateral infarct, age undetermined Abnormal ECG
--- NOTE | 2018-01-12 15:17 | CARD ---
APPROVED REPORT EKG Measurement Heart [id number] <Conclusion> AV sequential or dual chamber electronic pacemaker; AV paced
--- NOTE | 2018-01-12 17:44 | HP ---
HISTORY OF PRESENT ILLNESS: I know her quite well from the residential. I got a call from the nursing that she was not herself, presented to the Emergency Room. She is definitely sluggish mentally, not herself, arousable, but very lethargic which is new. She is an 82-year-old white female, morbidly obese with past medical history of CHF, chronic kidney disease, hypothyroid, diabetes, depression, osteoarthritis, COPD, mitral valve prolapse, dementia, bilateral lower extremity cellulitis, history of left-sided mastectomy, status post breast cancer. She is lethargic and she is in and out of it mentally. She has little bit of dementia, impaired renal function, hypothyroidism, breast cancer, some cellulitis in the femoral folds, bilateral shins. She has arthritis, reflux, incontinence of urine, depression, history of appendectomy, cholecystectomy, left sided mastectomy. FAMILY HISTORY: Hypertension in the family. SOCIAL HISTORY: Still smokes cigarettes, no alcohol, no drugs. ALLERGIES: NO KNOWN DRUG ALLERGIES. MEDICATIONS: She takes Lexapro, Tylenol, Eliquis, Klonopin, Novolyn, Synthroid, milk of magnesia, Namenda, Remeron, multivitamin, omeprazole, Lyrica, Siltussin, Catapres. Her blood pressure and hold the Catapres. She is out of it and hold Lyrica and hold Klonopin. REVIEW OF SYSTEMS: She is very lethargic. She will answer questions. No shortness of breath, no chest pain, no abdominal pain, not hungry, just feels very off, not herself. She is in and out of it during the interview. PHYSICAL EXAMINATION: VITAL SIGNS: She has a 98.5 temperature, 60 pulse, 17 respiratory rate, 104/62 blood pressure, 92% O2 sat on room air. GENERAL: She can be alert, you have to arouse her. HEENT: Head atraumatic and normocephalic. Extraocular movements are intact. Pupils equal and reactive to light. Throat moist. NECK: Supple. Weak voice. HEART: Regular rate. Normal S1 and S2. LUNGS: Decreased breath sounds bilaterally, poor inspiration, but clear to auscultation. No wheeze no rhonchi, no rales. ABDOMEN: Morbidly obese, soft, nontender, positive bowel sounds. No guarding, no rebound, no CVA tenderness. EXTREMITIES: Trace edema of the lower extremities. NEUROLOGIC: She can move everything but she is sluggish. GCS of 15. Cranial nerves II through XII grossly intact. Speech is normal but very faint voice, very weak. SKIN: Warm and dry, but there are some areas of redness in the folds, very drowsy, arousable, not much better than yesterday. LABORATORY DATA: She had multiple tests. She has urine, which was trace leukocytes. Sodium 151, potassium 3.8, BUN 35, creatinine 1.4, GFR 36, sugar is 129, calcium is 8.9, phosphorus 4.7, magnesium 1.5, total bilirubin is 0.5, AST is 31, ALT is 25, alkaline phosphatase 75. Lactate dehydrogenase is 523, troponin I is 0.01. BNP is high at 893, total protein 7.2. Blood gas lactate was 1.4, pO2 is 91. INR is 1.59. White count is 8.4, hemoglobin 13.3, hematocrit 42, platelets 224. She will have consult with Infectious Disease and Neurology, she will be on Rocephin, IV fluids, IV Lasix, I am not sure why she is out of it. The CAT scan of the head did not show anything acute. I set up for an MRI of the brain. We will see what Neuro and Infectious Disease have to say. She is presently an observation, I am going to keep her observation for the time being. North Asif DO MTDD
--- NOTE | 2018-01-12 18:10 | CT ---
PROCEDURE: CT HEAD WITHOUT CONTRAST. HISTORY: Altered mental status COMPARISON: 01/12/2018 CT head. TECHNIQUE: Axial computed tomography images were obtained through the head/brain without intravenous contrast. Coronal and sagittal reconstructed images. Radiation dose: Total exam DLP = 813.15 mGy-cm. This CT exam was performed using one or more of the following dose reduction techniques: Automated exposure control, adjustment of the mA and/or kV according to patient size, and/or use of iterative reconstruction technique. FINDINGS: HEMORRHAGE: No intracranial hemorrhage. BRAIN: No mass effect or edema. Age related senescent changes. VENTRICLES: Unremarkable. No hydrocephalus. CALVARIUM: Unremarkable. PARANASAL SINUSES: Unremarkable as visualized. No significant inflammatory changes. MASTOID AIR CELLS: Unremarkable as visualized. No inflammatory changes. OTHER FINDINGS: None. IMPRESSION: No acute intracranial abnormalities. No significant findings to account for the clinical presentation. No significant interval change compared to the prior examination(s).
[2018-01-12] MEDS: Budesonide 0.5 mg/2 ml Inhal Susp UD IH SCH (18:59)
--- NOTE | 2018-01-12 19:01 | CP.PCM.CON ---
History of Present Illness - History of Present Illness History of Present Illness: 82 year old female with PMH of chronic CHF, chronic renal failure, hypothyroidism, DM, history of depression, COPD, mitral valve prolapse, dementia , history of lower extremity cellulitis, breast cancer S/P left mastectomy was [place] [facility] [place] of lethargy and apparent fever in the custodial. There was no note of loss of consciousness, no convulsions, no bowel or urinary incontinence, no vomiting. There is no note of fever on this admission. The patient is now more awake and alert and is answering simple questions. Urinalysis done in the ED is showing 5-10 WBC's. Infectious Diseases consult is requested to further evaluate and manage. Review of Systems - Review of Systems All systems: reviewed and no additional remarkable complaints except (as per HPI ) Past Patient History - Infectious Disease Hx of Infectious Diseases: None - Tetanus Immunizations Tetanus Immunization: Unknown - Past Social History Smoking Status: Heavy Smoker > 10 Cigarettes Daily - CARDIAC Hx Congestive Heart Failure: Yes Hx Hypertension: Yes - PULMONARY Hx Chronic Obstructive Pulmonary Disease (COPD): No - NEUROLOGICAL Hx Dementia: Yes - HEENT Hx HEENT Problems: No - RENAL Hx Renal Failure: (impaired renal function) - ENDOCRINE/METABOLIC Hx Hypothyroidism: Yes - HEMATOLOGICAL/ONCOLOGICAL Hx Blood Disorders: No Hx Cancer: Yes - INTEGUMENTARY Other/Comment: rash/redness groin area, femoral foldsbilateral shins to feet, red/scaling/cellulitisredness, back of shins bilaterally and dorsal aspect of foot - MUSCULOSKELETAL/RHEUMATOLOGICAL Hx Arthritis: Yes - GASTROINTESTINAL Hx Gastroesophageal Reflux: Yes - GENITOURINARY/GYNECOLOGICAL Hx Incontinence: Yes - PSYCHIATRIC Hx Depression: Yes Hx Substance Use: No - SURGICAL HISTORY Hx Appendectomy: Yes Hx Cardiac Catheterization: No Hx Cholecystectomy: Yes Hx Coronary Stent: No Hx Mastectomy: Yes (L sided) - ANESTHESIA Hx Anesthesia Reactions: No Meds Allergies/Adverse Reactions: Allergies Allergy/AdvReac Type Severity Reaction Status Date / Time No Known Allergies Allergy Verified 01/11/18 20:51 - Medications Medications: Current Medications Dextrose (Dextrose 5% In Water 1000 Ml) 1,000 mls @ 100 mls/hr IV .Q10H SOHAN Last Admin: 01/12/18 05:53 Dose: 100 mls/hr Physical Exam - Constitutional Appears: Non-toxic, Chronically Ill - Head Exam Head Exam: NORMAL INSPECTION - Neck Exam Neck exam: Negative for: Meningismus - Respiratory Exam Respiratory Exam: Decreased Breath Sounds - Cardiovascular Exam Cardiovascular Exam: +S1, +S2 - GI/Abdominal Exam GI & Abdominal Exam: Soft. absent: Tenderness Results - Vital Signs Recent Vital Signs: Last Vital Signs Temp 97.5 F L 01/12/18 06:00 Pulse 70 01/12/18 06:00 Resp 20 01/12/18 06:00 BP 100/62 01/12/18 06:00 Pulse Ox 93 L 01/12/18 06:00 - Labs Result Diagrams: 01/11/18 20:57 01/12/18 07:55 Labs: Laboratory Results - last 24 hr 01/12/18 02:56 POC Glucose (mg/dL) 129 H Assessment & Plan - Assessment and Plan (Free Text) Plan: Assessment lethargy, probably toxic-metabolic encephalopathy (hypernatremia), R/O UTI chronic CHF chronic renal failure hypothyroidism DM history of depression COPD mitral valve prolapse dementia history of lower extremity cellulitis breast cancer S/P left mastectomy morbid obesity with BMI 42 Plan patient was started by PMD on Rocephin; will follow up urine cx and blood cx will monitor clinically
[2018-01-12] MEDS: Insulin Reg-HIGH-Coverage SC SCH ×2 (20:14→23:22)
[2018-01-13] MEDS: Levalbuterol 1.25 MG/3 ML Inhal Soln UD IH SCH ×4 (01:14→20:23)
[2018-01-13 06:16] LABS: HEMOGLOBIN 12.5 g/dL (12.0-16.0); MEAN CELL VOLUME 97.3 fl (80.0-105.0); MEAN CORPUSCULAR HEMOGLOBIN 30.6 pg (25.0-35.0); MEAN CORPUSCULAR HGB CONC 31.4 g/dl (31.0-37.0); MEAN PLATELET VOLUME 11.6 fl (7.0-11.0); RBC 4.09 10^6/uL (3.5-6.1); RED CELL DISTRIBUTION WIDTH 16.3 % (11.5-14.5); WHITE BLOOD COUNT 7.6 10^3/ul (4.5-11.0)
[2018-01-13 06:35] LABS: ALBUMIN 3.4 g/dL (3.0-4.8); CALCIUM 8.3 mg/dL (8.4-10.5)
[2018-01-13] MEDS: Pantoprazole 40 mg EC Tab PO SCH (06:35)
[2018-01-13] MEDS: Insulin Reg-HIGH-Coverage SC SCH ×4 (07:59→21:36)
[2018-01-13] MEDS: Budesonide 0.5 mg/2 ml Inhal Susp UD IH SCH ×2 (08:01→20:23)
[2018-01-13] MEDS: Sodium Chloride 0.45% 1,000 ML IV SCH (08:25)
[2018-01-13] MEDS: cefTRIAXone 1 gm 1 GM/100 ML BAG IVPB SCH (09:26)
[2018-01-13] MEDS: Levothyroxine 112 MCG TAB PO SCH (09:26)
[2018-01-13] MEDS ORDERED: Vancomycin 2 GM in Sodium Chloride 0.9% 500 ML IVPB ONE (09:36)
[2018-01-13] MEDS ORDERED: Magnesium Sulfate 2 GM in Sodium Chloride 0.9% 100 ML IVPB ONE (09:57)
--- NOTE | 2018-01-13 10:43 | PN ---
DATE: 01/13/2018 SUBJECTIVE: I saw her resting comfortably in bed. Yesterday, she was out of it and slow and confused and lethargic. Today, she is alert and comfortable and back to her baseline. MEDICATIONS: She is on IV fluids, Eliquis, insulin, Lasix IV, Lexapro, Nicoderm, potassium replacement, Protonix, Pulmicort, Remeron, Rocephin IV, Synthroid and Xopenex. PHYSICAL EXAMINATION: VITAL SIGNS: 98 temp, 60 pulse, 92/52 blood pressure, 18 respiratory rate, 93% O2 sat on nasal cannula 2 L. HEENT: Head is atraumatic, normocephalic. She is much more awake, alert, talking with me comfortable. No chest pain. No shortness of breath. No abdominal pain. HEART: Regular rate. LUNGS: Decreased breath sounds, but clear. ABDOMEN: Soft, morbidly obese, nontender. Positive bowel sounds. No guarding. No rebound. No CVA tenderness. EXTREMITIES: Have +1/4 pitting edema. LABORATORY DATA: She has a urine, which showed trace. She had chemistry with a 146 sodium, potassium 3.6, BUN 35, creatinine 1.3, GFR 39, sugar is 115, calcium is 8.3, total bili is 0.3, AST is 38, ALT is 24, alk phos 93, total protein 6.9. She has a white count of 7.6, hemoglobin 12.5, hematocrit 39.8, platelets of 202. On micro, she grew gram-positive cocci in the urine. No growth in the blood. ASSESSMENT AND PLAN: I will see what Infectious Disease has to say today. If it is at all possible, I will try and get her back to [facility]. I am going to get finish her treatment there if I can change her to p.o., is on IV Rocephin there. Possibly, we can discharge her to there today since she is improved with the change in mentation. This is a possible discharge summary on [facility]. [place] Asif DO [facility] # [id number]
--- NOTE | 2018-01-13 12:41 | CP.PCM.PN ---
Subjective - Date & Time of Evaluation Date of Evaluation: 01/13/18 Time of Evaluation: 10:15 - Subjective Subjective: Patient is more awake and alert, no fevers, not in distress. No abdominal pain. Objective - Vital Signs/Intake and Output Vital Signs (last 24 hours): Temp Pulse Resp BP Pulse Ox 98 F 60 18 111/39 L 93 L 01/13/18 00:01 01/13/18 06:00 01/13/18 00:01 01/13/18 09:26 01/13/18 00:01 Intake and Output: 01/13/18 01/13/18 06:59 18:59 Intake Total 360 240 Output Total 650 Balance 360 -410 - Medications Medications: Current Medications Apixaban (Eliquis) 2.5 mg PO BID [facility] PRN Reason: Protocol Last Admin: 01/13/18 09:26 Dose: 2.5 mg Budesonide (Pulmicort Respules) 0.5 mg IH [id number] [facility] Last Admin: 01/13/18 08:01 Dose: 0.5 mg Escitalopram Oxalate (Lexapro) 20 mg PO DAILY [facility] Last Admin: 01/13/18 09:26 Dose: 20 mg Furosemide (Lasix) 40 mg IVP DAILY [facility] Last Admin: 01/13/18 09:26 Dose: 40 mg Sodium Chloride (Sodium Chloride 0.45%) 1,000 mls @ 30 mls/hr IV .Q24H [facility] Last Admin: 01/13/18 08:25 Dose: Not Given Ceftriaxone Sodium (Rocephin 1 Gram Ivpb) 1 gm in 100 mls @ 100 mls/hr IVPB DAILY [facility] PRN Reason: Protocol Last Admin: 01/13/18 09:26 Dose: 100 mls/hr Insulin Human Regular (Humulin R High) 0 units SC ACHS [facility] PRN Reason: Protocol Last Admin: 01/13/18 07:59 Dose: Not Given Levalbuterol HCl (Xopenex) 1.25 mg IH [id number] [facility] Last Admin: 01/13/18 08:01 Dose: 1.25 mg Levothyroxine Sodium (Synthroid) 112 mcg PO DAILY [facility] Last Admin: 01/13/18 09:26 Dose: 112 mcg Mirtazapine (Remeron) 15 mg PO HS [facility] Last Admin: 05/07/18 23:24 Dose: 15 mg Nicotine (Nicoderm Cq) 1 patch TD DAILY [facility] Last Admin: 01/13/18 09:25 Dose: 1 patch Pantoprazole Sodium (Protonix Ec Tab) 40 mg PO 0600 [facility] Last Admin: 01/13/18 06:35 Dose: 40 mg - Labs Labs: 01/13/18 05:30 01/13/18 05:30 PT 18.3 SECONDS (9.4-12.5) H 01/11/18 20:57 INR 1.59 (0.93-1.08) H 01/11/18 20:57 APTT 35.1 Seconds (25.1-36.5) 01/11/18 20:57 - Constitutional Appears: Chronically Ill - Head Exam Head Exam: NORMAL INSPECTION - ENT Exam ENT Exam: Mucous Membranes Moist - Neck Exam Neck Exam: absent: Meningismus - Respiratory Exam Respiratory Exam: Decreased Breath Sounds - Cardiovascular Exam Cardiovascular Exam: +S1, +S2 - GI/Abdominal Exam GI & Abdominal Exam: Soft. absent: Tenderness Assessment and Plan - Assessment and Plan (Free Text) Plan: Assessment lethargy, probably toxic-metabolic encephalopathy (hypernatremia), R/O UTI with gram positive cocci chronic CHF chronic renal failure hypothyroidism DM history of depression COPD mitral valve prolapse dementia history of lower extremity cellulitis breast cancer S/P left mastectomy morbid obesity with BMI 42 Plan continue Rocephin day 2 for now and will give a dose of IV Vancomycin pending identification and sensitivities of the gram positive cocci in the urine will continue to monitor clinically discussed with Dr. Asif
[2018-01-13 17:15] VITALS: RESP 18
--- NOTE | 2018-01-13 18:14 | PN ---
DATE: 01/13/2018 NEUROLOGY CONSULT CHIEF COMPLAINT: Followup for change in mental status. SUBJECTIVE: The patient is seen and examined at bedside, more alert, more awake. Urinary tract culture grew gram-positive in clusters and cocci, on antibiotics as per ID. Repeat CAT scan showed no acute intracranial abnormalities. I saw her, she is much more improved today. Her magnesium is low at 1.2 and has calcium of 8.3, which is low. PAST MEDICAL HISTORY: History of CHF, COPD, bilateral lower extremity cellulitis, cognitive impairment, osteoarthritis, type 2 diabetes mellitus, hypothyroidism, history of breast cancer, status post left-sided mastectomy. REVIEW OF SYSTEMS: Fourteen-point review of systems negative except as per the HPI. ALLERGIES: NO KNOWN DRUG ALLERGIES. MEDICATIONS: Reviewed by nurses' reconciliation sheet. SOCIAL HISTORY: No illicit drug use, smoking or EtOH abuse. PHYSICAL EXAMINATION: VITAL SIGNS: Temperature 98.6, pulse rate of 60, blood pressure of 87/57, respiratory rate of 18 GENERAL: The patient is sitting up in bed, drowsy, in no acute distress. HEENT: Atraumatic, normocephalic. PERRLA. Extraocular muscles intact. NECK: Supple. No JVD. No adenopathy noted. LUNGS: Clear to auscultation. No adventitious sounds. HEART: S1 and S2. Normal rate and rhythm. No murmurs, rubs or gallops. ABDOMEN: Soft, nontender and nondistended. Bowel sounds are present. EXTREMITIES: No clubbing. No cyanosis. Peripheral pulses 2+ felt bilaterally. NEUROLOGIC: The patient is lethargic. Speech is hypophonic. No aphasia noted. She is oriented to person and place, not much to month and year. Recall after 5 minutes is 0/3. Poor attention span, slow thought process. Cranial nerves II through XII are intact. No pronator drift seen. Moves all extremities equally. Sensory exam: Decreased light touch and pinprick up to the calves bilaterally. Decreased vibration of the toes. DTRs are 2+ throughout and 1 at both knees and ankles. Coordination and gait are deferred for now. LABORATORY DATA: Sodium 146, potassium 3.6, chloride of 100, carbon dioxide 34, BUN of 35, creatinine of 1.3, random glucose of 123. ASSESSMENT AND PLAN: This is an 82-year-old woman with history of breast cancer, status post left mastectomy; congestive heart failure; chronic obstructive pulmonary disease; osteoarthritis; history of diabetes; diabetic neuropathy, on Lyrica 75 mg p.o. b.i.d; history of congestive heart failure, on Eliquis 2.5 mg p.o. b.i.d.; history of depression, on Lexapro; hypothyroidism. Presenting from the [facility] with lethargy, fever. Found to have low systolic and diastolic blood pressures, elevated BUN and creatinine, elevated sodium and on top of that, she has gram-positive cocci in her urine indicating urinary tract infection. In addition, she still has low systolic and diastolic blood pressures. At this time, her altered mental status is secondary to underlying toxic metabolic encephalopathy superimposed underlying generalized medical issues in addition to underlying transient cerebral hypoperfusion to the brain. At this time, recommend, 1. Keep systolic blood pressure in 120s to 130s systolic and diastolic 70-80s with gentle IV hydration. 2. Monitor electrolytes and correct accordingly. 3. Replace her magnesium. 4. Keep her sugars between 140-180. 5. Avoid sedative medications and continue with delirium precautions and continue with Physical Therapy/Occupational Therapy evaluations. Continue with current present medical management. Patricio Moreno MD
[2018-01-14] MEDS: Levalbuterol 1.25 MG/3 ML Inhal Soln UD IH SCH ×4 (01:38→21:14)
[2018-01-14] MEDS: Pantoprazole 40 mg EC Tab PO SCH (05:41)
[2018-01-14] MEDS: Sodium Chloride 0.45% 1,000 ML IV SCH (05:41)
[2018-01-14] MEDS: Budesonide 0.5 mg/2 ml Inhal Susp UD IH SCH ×2 (07:54→21:14)
[2018-01-14] MEDS: Insulin Reg-HIGH-Coverage SC SCH ×4 (07:58→21:50)
[2018-01-14] MEDS: Levothyroxine 112 MCG TAB PO SCH (09:42)
[2018-01-14] MEDS: cefTRIAXone 1 gm 1 GM/100 ML BAG IVPB SCH (09:42)
--- NOTE | 2018-01-14 09:43 | US ---
PROCEDURE: Right upper extremity venous US CLINICAL HISTORY: Arm pain and swelling Evaluate for deep venous thrombosis. PHYSICIAN(S): Homero Ibarra M.D FINDINGS: The exam is somewhat limited by edema and body habitus. The visualized rightinternal jugular vein is sonographically normal and compressible. No evidence of obstruction or thrombus is seen. The visualized segments of the right subclavian vein are patent with normal waveforms. No sonographic evidence of obstruction or thrombosis is seen. The visualized deep venous system of the proximal right upper extremity is sonographically normal and compressible. IMPRESSION: 1. No sonographic evidence for deep venous thrombosis in the visualized segments of the right upper extremity. 2. Limited study
[2018-01-14 10:12] LABS: ALB/GLOB RATIO 0.9 (1.1-1.8); CALCIUM 8.2 mg/dL (8.4-10.5)
--- NOTE | 2018-01-14 11:36 | CP.PCM.PN ---
Subjective - Date & Time of Evaluation Date of Evaluation: 01/14/18 Time of Evaluation: 10:00 - Subjective Subjective: Patient for 2D echo, no fevers, not in distress, no chest pain, no pain along the port site, no vomiting, no abdominal pain, no diarrhea. Objective - Vital Signs/Intake and Output Vital Signs (last 24 hours): Temp Pulse Resp BP Pulse Ox 98.3 F 60 18 101/51 L 100 01/14/18 06:00 01/14/18 06:00 01/14/18 06:00 01/14/18 06:00 01/14/18 06:00 Intake and Output: 01/14/18 01/14/18 06:59 18:59 Intake Total 590 Output Total 300 Balance 290 - Medications Medications: Current Medications Apixaban (Eliquis) 2.5 mg PO BID [facility] PRN Reason: Protocol Last Admin: 01/13/18 17:14 Dose: 2.5 mg Budesonide (Pulmicort Respules) 0.5 mg IH [id number] [facility] Last Admin: 01/14/18 07:54 Dose: 0.5 mg Escitalopram Oxalate (Lexapro) 20 mg PO DAILY [facility] Last Admin: 01/13/18 09:26 Dose: 20 mg Furosemide (Lasix) 40 mg IVP DAILY [facility] Last Admin: 01/13/18 09:26 Dose: 40 mg Sodium Chloride (Sodium Chloride 0.45%) 1,000 mls @ 30 mls/hr IV .Q24H [facility] Last Admin: 01/14/18 05:41 Dose: 30 mls/hr Ceftriaxone Sodium (Rocephin 1 Gram Ivpb) 1 gm in 100 mls @ 100 mls/hr IVPB DAILY [facility] PRN Reason: Protocol Last Admin: 01/13/18 09:26 Dose: 100 mls/hr Insulin Human Regular (Humulin R High) 0 units SC ACHS [facility] PRN Reason: Protocol Last Admin: 01/14/18 07:58 Dose: Not Given Levalbuterol HCl (Xopenex) 1.25 mg IH [id number] [facility] Last Admin: 01/14/18 07:54 Dose: 1.25 mg Levothyroxine Sodium (Synthroid) 112 mcg PO DAILY [facility] Last Admin: 01/13/18 09:26 Dose: 112 mcg Mirtazapine (Remeron) 15 mg PO HS [facility] Last Admin: 01/13/18 21:39 Dose: 15 mg Nicotine (Nicoderm Cq) 1 patch TD DAILY [facility] Last Admin: 01/13/18 09:25 Dose: 1 patch Pantoprazole Sodium (Protonix Ec Tab) 40 mg PO 0600 [facility] Last Admin: 01/14/18 05:41 Dose: 40 mg - Labs Labs: 01/13/18 05:30 01/13/18 05:30 PT 18.3 SECONDS (9.4-12.5) H 01/11/18 20:57 INR 1.59 (0.93-1.08) H 01/11/18 20:57 APTT 35.1 Seconds (25.1-36.5) 01/11/18 20:57 - Constitutional Appears: Non-toxic, Chronically Ill - Head Exam Head Exam: NORMAL INSPECTION - Respiratory Exam Respiratory Exam: Decreased Breath Sounds. absent: Rales Additional comments: right anterior chest wall port-a-cath in place - Cardiovascular Exam Cardiovascular Exam: +S1, +S2 - GI/Abdominal Exam GI & Abdominal Exam: Soft. absent: Tenderness Assessment and Plan - Assessment and Plan (Free Text) Plan: Assessment lethargy, probably toxic-metabolic encephalopathy (hypernatremia), R/O UTI with gram positive cocci, with coagulase negative staph bacteremia, R/O due to right sided chest wall port S/P pacemaker placement chronic CHF chronic renal failure hypothyroidism DM history of depression COPD mitral valve prolapse dementia history of lower extremity cellulitis breast cancer S/P left mastectomy morbid obesity with BMI 42 Plan continue Rocephin day 3 and we have given a dose of IV Vancomycin pending sensitivities of the coagulase negative staph in the blood, and t he gram positive cocci in the urine; follow up repeat blood cx, duplex ultrasound of right upper extremity veins and 2D echo; will get random Vanco level and dose Vancomycin intermittently will continue to monitor clinically
[2018-01-14] MEDS ORDERED: Potassium Chloride 40 mEq/30 ml LIQ UD PO ONE (11:58)
[2018-01-15] MEDS: Levalbuterol 1.25 MG/3 ML Inhal Soln UD IH SCH ×3 (01:51→13:25)
--- NOTE | 2018-01-15 05:04 | DS ---
HISTORY OF PRESENT ILLNESS: She stays at [facility]. She will be on IV Rocephin there for 7 more days. She is comfortable in bed, back to her baseline, happy, wants to go back. PHYSICAL EXAMINATION: VITAL SIGNS: She has 98.3 temperature, 60 pulse, 101/51 blood pressure, 18 respiratory rate, 100% O2 sat on 3 L nasal cannula. HEENT: Head is atraumatic and normocephalic. HEART: Regular rate. LUNGS: Decreased breath sounds, but clear. ABDOMEN: Soft. Morbidly obese. Nontender. EXTREMITIES: Trace edema. MEDICATIONS: She is going to go back on Eliquis, Lasix p.o. 40, Lexapro, Nicoderm patch, Protonix, Pulmicort, Remeron, Rocephin IV daily for 7 more days, Synthroid, and Xopenex. ASSESSMENT AND PLAN: She has temp. Hopefully, it will be okay with Infectious Disease. They wanted to keep her 1 more day. I think we can watch over there and do blood test at the [facility]. This is a discharge summary on Taylor Bah, who has a gram-positive cocci, urinary tract infection. She had change in mentation. North Asif DO
[2018-01-15] MEDS: Pantoprazole 40 mg EC Tab PO SCH (05:59)
[2018-01-15 06:12] VITALS: O2SAT 93
[2018-01-15] MEDS: Budesonide 0.5 mg/2 ml Inhal Susp UD IH SCH (07:32)
[2018-01-15] MEDS: Insulin Reg-HIGH-Coverage SC SCH ×2 (07:39→11:48)
[2018-01-15] MEDS: Sodium Chloride 0.45% 1,000 ML IV SCH ×2 (07:40→08:24)
[2018-01-15 08:14] LABS: HEMOGLOBIN 10.9 g/dL (12.0-16.0); MEAN CELL VOLUME 95.2 fl (80.0-105.0); MEAN CORPUSCULAR HGB CONC 32.5 g/dl (31.0-37.0); MEAN PLATELET VOLUME 11.7 fl (7.0-11.0); RBC 3.52 10^6/uL (3.5-6.1); RED CELL DISTRIBUTION WIDTH 16.2 % (11.5-14.5); WHITE BLOOD COUNT 6.6 10^3/ul (4.5-11.0)
[2018-01-15 08:25] LABS: CALCIUM 8.3 mg/dL (8.4-10.5); GFR AFRICAN-AMERICAN > 60; GFR NON-AFRICAN AMERICAN 53
[2018-01-15 08:42] LABS: BLOOD UREA NITROGEN 27 mg/dL (7-21)
[2018-01-15] MEDS: cefTRIAXone 1 gm 1 GM/100 ML BAG IVPB SCH (09:19)
[2018-01-15] MEDS: Levothyroxine 112 MCG TAB PO SCH (09:21)
--- NOTE | 2018-01-15 09:53 | CARD ---
APPROVED REPORT EXAM: Two-dimensional and M-mode echocardiogram with Doppler and color Doppler. Other Information Quality : PoorRhythm : INDICATION Infection:Rule out subacute bacterial endocarditis 2D DIMENSIONS Left Atrium (2D)4.1 (1.6-4.0cm)IVSd1.3 (0.7-1.1cm) LVDd2.6 (3.9-5.9cm)PWd1.3 (0.7-1.1cm) LVDs1.6 (2.5-4.0cm)FS (%) 39.2 % LVEF (%)72.0 (>50%) M-Mode DIMENSIONS Aortic Root3.00 (2.2-3.7cm)Aortic Cusp Exc.0.70 (1.5-2.0cm) Aortic Valve AoV Peak Mswzisdx967.0cm/sAoV VTI71.8cmAO Peak GR.35mmHg AO Mean GR.22mmHgAVA (VTI)1.01cm2 Mitral Valve MV E Cqbmiwvo62.4cm/sMV A Lcajnltz448.0cm/sE/A ratio0.7 TDI E/Lateral E'0.0E/Medial E'0.0 Tricuspid Valve TR Peak [id number]/sRAP [id number] Peak Gr.22mmHg [id number] LEFT VENTRICLE The left ventricle is normal size. There is mild concentric left ventricular hypertrophy. The left ventricular function is normal. The left ventricular ejection fraction is within the normal range. There is normal LV segmental wall motion. RIGHT VENTRICLE The right ventricle is normal size. ATRIA The left atrium is mildly dilated. The right atrium size is normal. AORTIC VALVE The aortic valve is moderately to severely calcified. There is mild to moderate valvular aortic stenosis. MITRAL VALVE The mitral valve is moderately thickened but opens well. Mitral annular calcification is moderate. The subvalvular structures are calcified. Mitral regurgitation is mild. TRICUSPID VALVE The tricuspid valve is not well visualized. There is mild tricuspid regurgitation. PULMONIC VALVE The pulmonic valve is not well visualized. GREAT VESSELS The aortic root is normal in size. PERICARDIAL EFFUSION There is no pericardial effusion. <Conclusion> The left ventricle is normal size. There is mild concentric left ventricular hypertrophy. The left ventricular function is normal. The aortic valve is moderately to severely calcified. There is mild to moderate valvular aortic stenosis. Mitral regurgitation is mild. There is mild tricuspid regurgitation. Limited study. Calcfied AV, MV. No definite vegetation seen.
[2018-01-15] MEDS ORDERED: Magnesium Sulfate 2 GM in Sodium Chloride 0.9% 100 ML IV ONE (10:37)
[2018-01-15] MEDS ORDERED: Potassium Chloride 20 mEq ER Tab PO ONE (10:37)
--- NOTE | 2018-01-15 10:39 | CP.PCM.DIS ---
Provider - Provider Date of Admission: 01/12/18 11:16 Attending physician: North Asif DO Primary care physician: North Asif DO Consults: ID: Dr Hernandez Neuro: Dr Moreno Time Spent in preparation of Discharge (in minutes): 45 Diagnosis - Discharge Diagnosis (1) Bacteremia due to coagulase-negative Staphylococcus Status: Acute (2) Urinary tract infection Status: Acute (3) Altered mental status Status: Resolved (4) CKD (chronic kidney disease) stage 4, GFR 15-29 ml/min Status: Chronic (5) COPD (chronic obstructive pulmonary disease) Status: Chronic (6) HTN (hypertension) Status: Chronic (7) Diastolic CHF Status: Chronic (8) Breast cancer Status: Chronic (9) Cellulitis of leg Status: Chronic Hospital Course - Lab Results Lab Results: Micro Results 01/13/18 20:39 Blood-Thru Central Line Blood Culture - Preliminary NO GROWTH AFTER 24 HOURS 01/13/18 20:39 Blood-Thru Central Line Blood Culture - Preliminary NO GROWTH AFTER 24 HOURS Most Recent Lab Values WBC 6.6 10^3/ul (4.5-11.0) 01/15/18 08:00 RBC 3.52 10^6/uL (3.5-6.1) 01/15/18 08:00 Hgb 10.9 g/dL (12.0-16.0) L 01/15/18 08:00 Hct 33.5 % (36.0-48.0) L 01/15/18 08:00 MCV 95.2 fl (80.0-105.0) 01/15/18 08:00 MCH 31.0 pg (25.0-35.0) 01/15/18 08:00 MCHC 32.5 g/dl (31.0-37.0) 01/15/18 08:00 RDW 16.2 % (11.5-14.5) H 01/15/18 08:00 Plt Count 183 10^3/uL (120.0-450.0) 01/15/18 08:00 MPV 11.7 fl (7.0-11.0) H 01/15/18 08:00 PT 18.3 SECONDS (9.4-12.5) H 01/11/18 20:57 INR 1.59 (0.93-1.08) H 01/11/18 20:57 APTT 35.1 Seconds (25.1-36.5) 01/11/18 20:57 pO2 91 mm/Hg (30-55) H 01/11/18 20:57 VBG pH 7.38 (7.32-7.43) 01/11/18 20:57 VBG pCO2 64.0 (40-60) H 01/11/18 20:57 VBG HCO3 37.9 mmol/l (21-28) H 01/11/18 20:57 VBG Total CO2 39.9 mmol.L (22-28) H 01/11/18 20:57 VBG O2 Sat (Calc) 98.1 % (40-65) H 01/11/18 20:57 VBG Base Excess 10.2 mmol/L (0.0-2.0) H 01/11/18 20:57 VBG Potassium 3.9 mmol/L (3.6-5.2) 01/11/18 20:57 Sodium 144.0 mmol/L (132-148) 01/11/18 20:57 Chloride 105.0 mmol/L (98-107) 01/11/18 20:57 Glucose 145 mg/dl (65-105) H 01/11/18 20:57 Lactate 1.4 mmol/L (0.7-2.1) 01/11/18 20:57 FiO2 21.0 % 01/11/18 20:57 Sodium 142 mmol/L (132-148) 01/15/18 08:00 Potassium 3.7 mmol/L (3.6-5.0) 01/15/18 08:00 Chloride 100 mmol/L (98-107) 01/15/18 08:00 Carbon Dioxide 31 mmol/L (21-33) 01/15/18 08:00 Anion Gap 14 (10-20) 01/15/18 08:00 BUN 27 mg/dL (7-21) H 01/15/18 08:00 Creatinine 1.0 mg/dl (0.7-1.2) 01/15/18 08:00 Est GFR ( Amer) > 60 01/15/18 08:00 Est GFR (Non-Af Amer) 53 01/15/18 08:00 POC Glucose (mg/dL) 140 mg/dL (65-110) H 01/14/18 16:23 Random Glucose 84 mg/dL (70-110) 01/15/18 08:00 Calcium 8.3 mg/dL (8.4-10.5) L 01/15/18 08:00 Phosphorus 4.1 mg/dL (2.5-4.5) 01/15/18 08:00 Magnesium 1.5 mg/dL (1.7-2.2) L 01/15/18 08:00 Total Bilirubin 0.3 mg/dL (0.2-1.3) 01/14/18 09:30 AST 24 U/L (14-36) 01/14/18 09:30 ALT 21 U/L (7-56) 01/14/18 09:30 Alkaline Phosphatase 82 U/L (38-126) 01/14/18 09:30 Lactate Dehydrogenase 523 U/L (333-699) 01/11/18 21:27 Total Creatine Kinase < 20 U/L (35-230) L 01/11/18 21:27 Troponin I 0.01 ng/mL 01/11/18 21:27 NT-Pro-B Natriuret Pep 893 pg/mL (0-450) H 01/11/18 21:27 Total Protein 6.2 g/dL (5.8-8.3) 01/14/18 09:30 Albumin 3.0 g/dL (3.0-4.8) 01/14/18 09:30 Globulin 3.2 gm/dL 01/14/18 09:30 Albumin/Globulin Ratio 0.9 (1.1-1.8) L 01/14/18 09:30 Venous Blood Potassium 3.9 mmol/L (3.6-5.2) 01/11/18 20:57 Urine Color Yellow (YELLOW) 01/11/18 21: Urine Appearance Clear (CLEAR) 01/11/18 21:27 Urine pH 6.0 (4.7-8.0) 01/11/18 21:27 Ur Specific Bath 1.015 (1.005-1.035) 01/11/18 21:27 Urine Protein Negative mg/dL (<30 mg/dL) 01/11/18 21:27 Urine Glucose (UA) Negative mg/dL (NEGATIVE) 05/06/18 21:27 Urine Ketones Negative mg/dL (NEGATIVE) 01/11/18 21:27 Urine Blood Trace-intact (NEGATIVE) H 01/11/18 21:27 Urine Nitrate Negative (NEGATIVE) 01/11/18 21: Urine Bilirubin Negative (NEGATIVE) 01/11/18 21:27 Urine Urobilinogen 1.0 E.U./dL (<1 E.U./dL) H 01/11/18 21:27 Ur Leukocyte Esterase Trace Susana/uL (NEGATIVE) H 01/11/18 21:27 Urine RBC 5 - 10 /hpf (0-2) 01/11/18 21:27 Urine WBC 5 - 10 /hpf (0-6) 01/11/18 21:27 Ur Epithelial Cells 6 - 8 /hpf (0-5) 01/11/18 21: Random Vancomycin 16.8 ug/mL (20-40) L 01/14/18 10:30 - Hospital Course Hospital Course: Patient is an 82 y/o Female with PMH of chronic CHF s/p pacemaker, CKD stage 2, hypothyroidism, DM, history of depression, COPD, mitral valve prolapse, history of lower extremity cellulites, breast cancer S/P left mastectomy, has right sided chemo port, senior living resident who initially presented to [facility] due to AMS and lethargy. Patient was found to have UTI with Strep gallolyticus, and coaguloase negative staph bacteremia. Patient was treated with rocephin for few days pending culture sensitively. Repeat blood cultures via the port with no growth. Patient had cardiac echo with no vegetations noted. Patient also had LE U/S with no DVT. ID was following. Patient was being followed by neuro, and cardio. On 01/15/18, urine and blood cultures sensitivities returned. Patient reported she was feeling better and want to return to the senior living. Patient was sent back to senior living on amoxi for 4 days for uti and vancomycin for 12 days, with repeat CMP in 3 days and 1 week subsequently to monitor for renal function. Diet: Dysphasia modified diet Activity: May return to baseline - Date & Time of H&P Date of H&P: 01/12/18 Time of H&P: 08:15 Discharge Exam - Head Exam Head Exam: NORMAL INSPECTION - Eye Exam Eye Exam: EOMI, Normal appearance, PERRL. absent: Scleral icterus Pupil Exam: NORMAL ACCOMODATION - ENT Exam ENT Exam: Mucous Membranes Moist - Neck Exam Neck exam: Normal Inspection - Respiratory Exam Respiratory Exam: Clear to PA & Lateral, NORMAL BREATHING PATTERN, UNREMARKABLE. absent: Rales, Rhonchi, Wheezes, Respiratory Distress, Stridor - Cardiovascular Exam Cardiovascular Exam: REGULAR RHYTHM, RRR, +S1, +S2. absent: Tachycardia, Gallop , JVD, Rubs, Systolic Murmur - GI/Abdominal Exam GI & Abdominal Exam: Normal Bowel Sounds, Unremarkable. absent: Distended, Firm , Guarding, Organomegaly, Rigid, Soft, Tenderness - Extremities Exam Extremities exam: normal inspection - Back Exam Back exam: NORMAL INSPECTION - Neurological Exam Neurological exam: Alert, Oriented x3, Reflexes Normal - Psychiatric Exam Psychiatric exam: Normal Affect, Normal Mood - Skin Skin Exam: Dry, Normal Color, Warm Discharge Plan - Discharge Medications Prescriptions: Amoxicillin [Amoxil 500 mg Cap] 500 mg PO Q8 4 Days cap Vancomycin 750mg [Vancomycin 750 mg in NS] 750 mg IVPB Q12 10 Days bag - Follow Up Plan Condition: STABLE Disposition: REHAB FACILITY/REHAB UNIT Patient education suggested?: Yes Instructions: Urinary Tract Infection, Adult (DC), Altered Mental Status (DC) Additional Instructions: Patient to be discharged to [facility], Will need Vancomycin 750 mg q12 for 10-14 days. Patient should get repeat complete metabolic panel ( cmp) in 3 days to make renal function is not worsening. Patient should also get another repeat cmp in another week after the first cmp to evaluate renal function. Patient will also need to take amoxicillin 500 mg q8 hours for 4 days for urinary tract infection. Patient will need a repeat blood cultures after completing the antibiotic regimen. Referrals: North Asif DO [Primary Care Provider] -
--- NOTE | 2018-01-15 11:51 | CP.PCM.PN ---
Subjective - Date & Time of Evaluation Date of Evaluation: 01/15/18 Time of Evaluation: 09:50 - Subjective Subjective: Patient is comfortable in bed, no fevers, no diarrhea, not in distress, wants to go home. Objective - Vital Signs/Intake and Output Vital Signs (last 24 hours): Temp Pulse Resp BP Pulse Ox 98 F 60 18 105/55 L 93 L 01/15/18 06:00 01/15/18 06:00 01/15/18 06:00 01/15/18 06:00 01/15/18 06:00 Intake and Output: 01/14/18 01/15/18 18:59 06:59 Intake Total 480 360 Output Total 400 Balance 80 360 - Medications Medications: Current Medications Apixaban (Eliquis) 2.5 mg PO BID [facility] PRN Reason: Protocol Last Admin: 01/14/18 17:41 Dose: 2.5 mg Budesonide (Pulmicort Respules) 0.5 mg IH [id number] [facility] Last Admin: 01/14/18 21:14 Dose: 0.5 mg Escitalopram Oxalate (Lexapro) 20 mg PO DAILY [facility] Last Admin: 01/14/18 09:42 Dose: 20 mg Furosemide (Lasix) 40 mg IVP DAILY [facility] Last Admin: 01/14/18 09:42 Dose: 40 mg Sodium Chloride (Sodium Chloride 0.45%) 1,000 mls @ 30 mls/hr IV .Q24H [facility] Last Admin: 01/14/18 05:41 Dose: 30 mls/hr Ceftriaxone Sodium (Rocephin 1 Gram Ivpb) 1 gm in 100 mls @ 100 mls/hr IVPB DAILY [facility] PRN Reason: Protocol Last Admin: 01/14/18 09:42 Dose: 100 mls/hr Insulin Human Regular (Humulin R High) 0 units SC ACHS [facility] PRN Reason: Protocol Last Admin: 01/14/18 21:50 Dose: Not Given Levalbuterol HCl (Xopenex) 1.25 mg IH [id number] [facility] Last Admin: 01/15/18 01:51 Dose: 1.25 mg Levothyroxine Sodium (Synthroid) 112 mcg PO DAILY [facility] Last Admin: 01/14/18 09:42 Dose: 112 mcg Mirtazapine (Remeron) 15 mg PO HS [facility] Last Admin: 01/14/18 21:50 Dose: 15 mg Nicotine (Nicoderm Cq) 1 patch TD DAILY [facility] Last Admin: 01/14/18 10:00 Dose: 1 patch Pantoprazole Sodium (Protonix Ec Tab) 40 mg PO 0600 [facility] Last Admin: 01/15/18 05:59 Dose: 40 mg - Labs Labs: 01/13/18 05:30 01/14/18 09:30 PT 18.3 SECONDS (9.4-12.5) H 01/11/18 20:57 INR 1.59 (0.93-1.08) H 01/11/18 20:57 APTT 35.1 Seconds (25.1-36.5) 01/11/18 20:57 - Constitutional Appears: Non-toxic, Chronically Ill - Head Exam Head Exam: NORMAL INSPECTION - ENT Exam ENT Exam: Mucous Membranes Moist - Neck Exam Neck Exam: absent: Lymphadenopathy, Meningismus - Respiratory Exam Respiratory Exam: Decreased Breath Sounds Additional comments: right anterior chest wall port in place - Cardiovascular Exam Cardiovascular Exam: +S1, +S2 - GI/Abdominal Exam GI & Abdominal Exam: Soft. absent: Tenderness Assessment and Plan - Assessment and Plan (Free Text) Plan: Assessment lethargy, probably toxic-metabolic encephalopathy (hypernatremia), R/O UTI with Strep gallolyticus, with methicillin-resistant coagulase negative staph bacteremia, R/O due to right sided chest wall port S/P pacemaker placement chronic CHF chronic renal failure hypothyroidism DM history of depression COPD mitral valve prolapse dementia history of lower extremity cellulitis breast cancer S/P left mastectomy morbid obesity with BMI 42 Plan on Rocephin day 4 and will continue IV Vancomycin 750 mg q12; repeat blood cx are negative, duplex ultrasound of right upper extremity veins and 2D echo are negative for DVT and vegetations respectively; random Vanco level is 16.8 - will need CMP in 3 days to make sure renal function is not worsening and then a week after that; will need 10-14 days of antibiotics with repeat blood cx after d/c of antibiotics - communicated this to Dr. Bender and his team (covering Dr. Asif) patient can be switched to PO Amoxicillin for the UTI for another 3-4 days
[2018-01-15] MEDS ORDERED: Vancomycin 750mg 750 MG/250 ML BAG IVPB SCH (12:00)
[2018-01-15 12:15] VITALS: BP 83/35; PULSE 56; TEMP 98.2
== END 2018-01-15 16:19 | DRG 689 ==
LOC: ED 20:29 → ERH 23:49 → 2RNO 01-12 02:13 → OBSVTOIN 01-12 11:16
PROVIDERS: ADMIT Family Medicine; ATTEND Family Medicine
PROC: 3E0F7GC Introduction of Other Therapeutic Substance into Respiratory Tract, Via Natural or Artificial Opening (ICD-10-PCS; principal; 2018-01-12)
DX: N39.0 Urinary tract infection, site not specified (principal); G92 Toxic encephalopathy; N18.4 Chronic kidney disease, stage 4 (severe); I13.0 Hypertensive heart and chronic kidney disease with heart failure and stage 1 through stage 4 chronic kidney disease, or unspecified chronic kidney disease; I50.32 Chronic diastolic (congestive) heart failure; L03.115 Cellulitis of right lower limb; L03.116 Cellulitis of left lower limb; Z68.41 Body mass index [BMI] 40.0-44.9, adult; J44.9 Chronic obstructive pulmonary disease, unspecified; E11.40 Type 2 diabetes mellitus with diabetic neuropathy, unspecified; E03.9 Hypothyroidism, unspecified; E11.22 Type 2 diabetes mellitus with diabetic chronic kidney disease; E66.01 Morbid (severe) obesity due to excess calories; I34.1 Nonrheumatic mitral (valve) prolapse; F03.90 Unspecified dementia, unspecified severity, without behavioral disturbance, psychotic disturbance, mood disturbance, and anxiety; B95.5 Unspecified streptococcus as the cause of diseases classified elsewhere; F32.9 Major depressive disorder, single episode, unspecified; F17.210 Nicotine dependence, cigarettes, uncomplicated; M19.90 Unspecified osteoarthritis, unspecified site; Z79.01 Long term (current) use of anticoagulants; Z85.3 Personal history of malignant neoplasm of breast; Z90.12 Acquired absence of left breast and nipple; Z95.0 Presence of cardiac pacemaker

== ENCOUNTER 2018-06-28 16:24 | Inpatient (IN) | payer MEDICARE, MEDICAID ==
[2018-06-28 16:25] VITALS: BMI 40.2
--- NOTE | 2018-06-28 16:56 | ED PDOC ---
Arrival/HPI - General Historian: Correction - History of Present Illness Narrative History of Present Illness (Text): 06/28/18 16:40 83 yo F with pmhx of chronic CHF, chronic renal failure, hypothyroidism, DM, depression, baseline dementia, COPD, mitral valve prolapse, hx LE cellulitis, breast cancer s/p L mastectomy BIBEMS from [facility] for worsening lethargy x 2 days, generalized weakness and confusion, O2 saturation 92% with NC 2L/min. Per information obtained from [facility], patient has been refusing meals the past 2 days, SBP has been running low in the 80s. HPI, ROS unattainable due to patient's status. PMHx: as stated above PSHx: L mastectomy Allergies: NKDA Home Medications: as per chart Social Hx: no alcohol, tobacco, illicit drug use; Comes from [facility] in [place] FHx: unknown Time/Duration: Prior to Arrival Symptom Onset: Gradual Symptom Course: Worsening Activities at Onset: Light <Jairo Henderson - Last Filed: 06/28/18 18:35> <Christopher Zamora - Last Filed: 06/28/18 18:56> - General Chief Complaint: Weakness/Neurological Deficit Time Seen by Provider: 06/28/18 16:26 Past Medical History - Provider Review Nursing Documentation Reviewed: Yes - Infectious Disease Hx of Infectious Diseases: None - Tetanus Immunization Tetanus Immunization: Unknown - Cardiac Hx Congestive Heart Failure: Yes Hx Hypertension: Yes - Pulmonary Hx Chronic Obstructive Pulmonary Disease (COPD): No - Neurological Hx Dementia: Yes - HEENT Hx HEENT Disorder: No - Renal Hx Renal Failure: (impaired renal function) - Endocrine/Metabolic Hx Hypothyroidism: Yes - Hematological/Oncological Hx Blood Disorders: No Hx Cancer: Yes - Integumentary Other/Comment: rash/redness groin area, femoral foldsbilateral shins to feet, red/scaling/cellulitisredness, back of shins bilaterally and dorsal aspect of foot - Musculoskeletal/Rheumatological Hx Arthritis: Yes - Gastrointestinal Hx Gastroesophageal Reflux: Yes - Genitourinary/Gynecological Hx Incontinence: Yes - Psychiatric Hx Depression: Yes Hx Substance Use: No - Surgical History Hx Appendectomy: Yes Hx Cardiac Catheterization: No Hx Cholecystectomy: Yes Hx Coronary Stent: No Hx Mastectomy: Yes (L sided) - Anesthesia Hx Anesthesia Reactions: No - Suicidal Assessment Feels Threatened In Home Enviroment: No <Loccisano,Jairo - Last Filed: 06/28/18 18:35> Family/Social History - Physician Review Nursing Documentation Reviewed: Yes Family/Social History: Unknown Family HX Smoking Status: Heavy Smoker > 10 Cigarettes Daily Hx Alcohol Use: No Hx Substance Use: No Hx Substance Use Treatment: No <Jairo Henderson - Last Filed: 06/28/18 18:35> Allergies/Home Meds <Jairo Henderson - Last Filed: 06/28/18 18:35> <Christopher Zamora - Last Filed: 06/28/18 18:56> Allergies/Adverse Reactions: Allergies No Known Allergies Allergy (Verified 06/28/18 16:38) Home Medications: Home Meds Medication Instructions Recorded Confirmed Escitalopram [Lexapro] 20 mg PO DAILY 04/12/14 06/28/18 Acetaminophen [Tylenol] 650 mg PO Q4 PRN 05/25/14 06/28/18 Apixaban [Eliquis] 2.5 mg PO BID 12/21/17 06/28/18 Clonazepam [Klonopin] 0.25 mg PO DAILY 12/21/17 06/28/18 Insulin Human Regular [Novolin R] 0 unit SC BID 12/21/17 06/28/18 Levothyroxine [Synthroid] 0.112 mg PO DAILY 12/21/17 06/28/18 Magnesium Hydroxide [Milk Of 30 ml PO PRN PRN 12/21/17 06/28/18 Magnesia] Memantine [Namenda] 5 mg PO BID 12/21/17 06/28/18 Mirtazapine [Remeron] 15 mg PO HS 12/21/17 06/28/18 Omeprazole 20 mg PO DAILY 12/21/17 06/28/18 Pregabalin [Lyrica] 75 mg PO BID 12/21/17 06/28/18 Review of Systems - Review of Systems Systems not reviewed;Unavailable: Altered Mental Status <Jairo Henderson - Last Filed: 06/28/18 18:35> Physical Exam - Physical Exam Physical Exam Limitations: Altered Mental Status Vital Signs Reviewed: Yes Temperature: Afebrile Blood Pressure: Normal Pulse: Regular Respiratory Rate: Normal Appearance: Positive for: Ill-Appearing Mental Status: Positive for: Lethargic - Systems Exam Head: Present: Atraumatic, Normocephalic Neck: Present: Normal Range of Motion Respiratory/Chest: Present: Good Air Exchange. No: Respiratory Distress, Accessory Muscle Use, Wheezes, Rales, Rhonchi Cardiovascular: Present: Regular Rate and Rhythm, Normal S1, S2 Abdomen: Present: Normal Bowel Sounds. No: Tenderness, Distention, Peritoneal Signs, Rebound, Guarding, Mass/Organomegaly Upper Extremity: Present: NORMAL PULSES, Capillary Refill < 2s. No: Cyanosis, Edema, Swelling, Erythema Lower Extremity: Present: Edema, NORMAL PULSES. No: Cyanosis, Erythema, Deformity Skin: Present: Warm, Dry, Normal Color. No: Rashes Psychiatric: Present: Lethargic <Jairo Henderson - Last Filed: 06/28/18 18:35> Vital Signs Temp Pulse Resp BP Pulse Ox 06/28/18 18:05 61 06/28/18 17:28 62 24 119/44 L 96 06/28/18 16:25 98.8 F 65 24 104/61 96 - Systems Exam Neck: No: Meningeal Signs, MIDLINE TENDERNESS <Christopher Zamora - Last Filed: 06/28/18 18:56> Medical Decision Making ED Course and Treatment: 06/28/18 17:17 Impression: 83 yo F presenting to emergency department with worsening AMS, lethargy, weakness x 2 days Plan: --CBC, CMP --ABG, VBG --BNP --Trop --TSH --BCx --type and screen --UA --CXR --duoneb 06/28/18 18:25 Dr. Zamora spoke to Dr. Asif, to be admitted to ICU - Lab Interpretations Narrative Lab Interpretation (Text): 06/28/18 18:26 UTI + Na 155 BNP 5900 Lactate 2.2 I have reviewed the lab results: Yes - RAD Interpretation Narrative RAD Interpretations (Text): 06/28/18 18:26 CXR: no active disease Radiology Orders: 06/28/18 16:37 CHEST PORTABLE [RAD] Stat Street [employer] Building Decorator: Radiologist - EKG Interpretation EKG Interpretation (Text): 06/28/18 17:19 HR 62 bpm Electronic atrial pacemaker RBBB L anterior fascicular block Bifascicular block Interpreted by ED Physician: Yes Type: 12 lead EKG <Jairo Henderson - Last Filed: 06/28/18 18:35> ED Course and Treatment: 06/28/18 18:51 Bipap ordered given GCS9 and ABG UTI on labs, ABX ordered. Appreciate consult w/ Dr. Richter: to be admitted to ICU Appreciate consult w/ Dr. Asif: to be admitted to his service: consults for Dr. Cates (URO) and Red (ID) placed Pending CT. Pupils PERRLA, EOMI. No unilateral weakness. Symptoms >24 hours. Non-tender abdomen. No meningeal signs or rash on my exam. Tolerating Bipap well on my exam. EK, Atrial paced, No stemi Critical Care time 30 minutes - Lab Interpretations Lab Results: 06/28/18 16:28 06/28/18 17:36 Lab Results 06/28/18 17:36: TSH 3rd Generation 0.53 06/28/18 17:36: Sodium 155 H, Chloride 114 H, Potassium 5.0, Carbon Dioxide 35 H , Anion Gap 10, BUN 92 H, Creatinine 3.0 H, Est GFR ( Amer) 18, Est GFR (Non-Af Amer) 15, Random Glucose 141 H, Calcium 11.6 H, Magnesium 1.6 L, Total Bilirubin 1.9 H, AST 101 H D, ALT 47, Alkaline Phosphatase 121, Troponin I 0.07 D, NT-Pro-B Natriuret Pep 5900 H, Total Protein 7.2, Albumin 3.0, Globulin 4.2, Albumin/Globulin Ratio 0.7 L 06/28/18 17:00: pCO2 49 H, pO2 68.0 L, HCO3 32.5 H, ABG pH 7.43, ABG Total CO2 34.0 H, ABG O2 Saturation 94.9 L, ABG Base Excess 6.9 H, ABG Potassium 4.5, Sodium 158.0 H, Chloride 121.0 H, Glucose 129 H, Lactate 1.5, FiO2 100.0, Arterial Blood Potassium 4.5 06/28/18 16:45: Blood Type Cancelled, Antibody Screen Cancelled, BBK History Checked Cancelled 06/28/18 16:45: Urine Color Light yellow, Urine Appearance Turbid, Urine pH 6.5, Ur Specific [place] 1.015, Urine Protein 30 H, Urine Glucose (UA) Negative, Urine Ketones Negative, Urine Blood Moderate H, Urine Nitrate Negative, Urine Bilirubin Negative, Urine Urobilinogen 2.0 H, Ur Leukocyte Esterase Large H, Urine RBC Tntc, Urine WBC Tntc, Ur Epithelial Cells 6 - 8, Amorphous Sediment Small, Urine Bacteria Large, Urine Other Uyeast 06/28/18 16:28: pO2 65 H, VBG pH 7.39, VBG pCO2 61.0 H, VBG HCO3 36.9 H, VBG Total CO2 38.8 H, VBG O2 Sat (Calc) 92.1 H, VBG Base Excess 9.6 H, VBG Potassium 5.2, Sodium 158.0 H, Chloride 117.0 H, Glucose 139 H, Lactate 2.2 H, FiO2 21.0, Venous Blood Potassium 5.2 06/28/18 16:28: WBC 10.9 D, RBC 4.21, Hgb 12.3, Hct 41.0, MCV 97.4, MCH 29.2, MCHC 30.0 L, RDW 18.3 H, Plt Count 210, Gran % 83.7 H, Lymph % (Auto) 10.7 L, [place] % (Auto) 5.4, Eos % (Auto) 0.1 L, Baso % (Auto) 0.1, Gran # 9.08 H, Lymph # (Auto) 1.2, [place] # (Auto) 0.6, Eos # (Auto) 0.0, Baso # (Auto) 0.01 - RAD Interpretation Radiology Orders: 06/28/18 16:37 CHEST PORTABLE [RAD] Stat 06/28/18 18:26 RENAL [US] Routine 06/28/18 18:36 HEAD W/O CONTRAST [CT] Stat - Medication Orders Current Medication Orders: Vancomycin HCl (Vancomycin 1gm) 1 gm in 250 mls @ 167 mls/hr IVPB STAT STA; Protocol Stop: 06/28/18 19:08 Last Admin: 06/28/18 18:34 Dose: 167 mls/hr eMAR Start Stop Document 06/28/18 18:34 EQ (Rec: 06/28/18 18:35 EQ [id number]) Intravenous Solution Start Date 06/28/18 Start Time 18:35 Lactated Ringer's 1,000 ml/ IV (SUPPLIES) 1,000 mls @ 1,000 mls/hr IV ONCE ONE Stop: 06/28/18 19:23 Last Admin: 06/28/18 18:34 Dose: 1,000 mls/hr eMAR Start Stop Document 06/28/18 18:34 EQ (Rec: 06/28/18 18:34 EQ [id number]) Intravenous Solution Start Date 06/28/18 Start Time 18:34 Insulin Human Regular (Humulin R Med) 0 units SC Q4H SOHAN; Protocol Pantoprazole Sodium (Protonix Inj) 40 mg IVP DAILY SOHAN Discontinued Medications Albuterol/Ipratropium (Duoneb 3 Mg/0.5 Mg (3 Ml) Ud) 3 ml IH STAT STA Stop: 06/28/18 16:59 Last Admin: 06/28/18 17:21 Dose: 3 ml Piperacillin Sod/Tazobactam Sod (Zosyn 3.375 In Ns 100ml) 100 mls @ 200 mls/hr IVPB STAT STA; Protocol Stop: 06/28/18 18:08 Last Admin: 06/28/18 18:00 Dose: 200 mls/hr eMAR Start Stop Document 06/28/18 18:00 EQ (Rec: 06/28/18 18:00 EQ [id number]) Intravenous Solution Start Date 06/28/18 Start Time 18:00 Lactated Ringer's 1,000 ml/ IV (SUPPLIES) 1,000 mls @ 13,607.7 mls/hr IV ONCE ONE Stop: 06/28/18 18:29 Last Admin: 06/28/18 18:34 Dose: 13,607.7 mls/hr eMAR Start Stop Document 06/28/18 18:34 EQ (Rec: 06/28/18 18:34 EQ [id number]) Intravenous Solution Start Date 06/28/18 Start Time 18:34 Methylprednisolone (Solu-Medrol) 125 mg IVP STAT STA Stop: 06/28/18 17:48 Last Admin: 06/28/18 18:00 Dose: 125 mg IVP Administration Document 06/28/18 18:00 EQ (Rec: 06/28/18 18:00 EQ [id number]) Charges for Administration # of IVP Administrations 1 <Christopher Zamora - Last Filed: 06/28/18 18:56> - PA / [employer] / Resident Statement MD/DO has examined the patient and agrees with the treatment plan. <Christopher Zamora - Last Filed: 06/28/18 18:56> Disposition/Present on Arrival - Present on Arrival Any Indicators Present on Arrival: Yes History of DVT/PE: No History of Uncontrolled Diabetes: Yes Urinary Catheter: No History of Decub. Ulcer: No History Surgical Site Infection Following: None - Disposition Have Diagnosis and Disposition been Completed?: Yes Disposition Time: 18:38 Patient Plan: ICU <Jairo Henderson - Last Filed: 06/28/18 18:35> <Christopher Zamora - Last Filed: 06/28/18 18:56> - Disposition Diagnosis: UTI (urinary tract infection), Altered mental status, Hypernatremia Disposition: HOSPITALIZED Patient Problems: Current Active Problems Problem Status Onset Urinary tract infection Acute Altered mental status Acute Hypernatremia Acute Condition: FAIR
[2018-06-28] MEDS ORDERED: Albuterol-Ipratrop 3 mg / 0.5 (3 ml) UD IH STA (16:58)
[2018-06-28 17:17] LABS: VENOUS BLOOD GAS BASE EXCESS 9.6 mmol/L (0.0-2.0); VENOUS BLOOD GAS PO2 65 mm/Hg (30-55); VENOUS BLOOD PH 7.39 (7.32-7.43)
[2018-06-28 17:20] LABS: ARTERIAL BLOOD GAS HCO3 32.5 mmol/L (21-28); ARTERIAL BLOOD GAS O2 SAT 94.9 % (95-98); ARTERIAL BLOOD GAS PCO2 49 mm/Hg (35-45); ARTERIAL BLOOD GAS PH 7.43 (7.35-7.45)
[2018-06-28 17:37] LABS: BASO # 0.01 K/mm3 (0.0-2.0); BASO % 0.1 % (0.0-3.0); EOS % 0.1 % (1.5-5.0); GRAN # 9.08 (1.4-6.5); GRAN % 83.7 % (50.0-68.0); HEMOGLOBIN 12.3 g/dL (12.0-16.0); LYMPH # 1.2 (1.2-3.4); LYMPH % 10.7 % (22.0-35.0); MEAN CELL VOLUME 97.4 fl (80.0-105.0); MEAN CORPUSCULAR HEMOGLOBIN 29.2 pg (25.0-35.0); MONO # 0.6 (0.1-0.6); MONO % 5.4 % (1.0-6.0); PLATELET COUNT 210 10^3/uL (120.0-450.0); RBC 4.21 10^6/uL (3.5-6.1); RED CELL DISTRIBUTION WIDTH 18.3 % (11.5-14.5); WHITE BLOOD COUNT 10.9 10^3/ul (4.5-11.0)
[2018-06-28] MEDS ORDERED: Vancomycin 1gm in NS 250ml 1 GM/250 ML BAG IVPB STA (17:39)
[2018-06-28] MEDS ORDERED: Piperacillin/Tazobact 3.375 gm 100 ML IVPB STA (17:39)
[2018-06-28 17:40] LABS: PH,URINE 6.5 (4.7-8.0); URINE APPEARANCE TURBID (CLEAR); URINE BILIRUBIN NEGATIVE (NEGATIVE); URINE BLOOD MODERATE (NEGATIVE); URINE COLOR LIGHT YELLOW (YELLOW); URINE GLUCOSE (UA) NEGATIVE (NEGATIVE); URINE LEUKOCYTE ESTERASE LARGE Leu/uL (NEGATIVE); URINE PROTEIN 30 mg/dL (<30 mg/dL)
--- NOTE | 2018-06-28 17:42 | RAD ---
Date of service: 06/28/2018 HISTORY: ams COMPARISON: 01/11/2018 FINDINGS: LUNGS: No active pulmonary disease. PLEURA: No significant pleural effusion identified, no pneumothorax apparent. CARDIOVASCULAR: Atherosclerotic calcifications identified primarily aortic arch. Cardiomegaly. No evidence of acute, significant cardiovascular disease. Position/ configuration of pacemaker Satisfactory. Venous access catheter in stable, satisfactory position. OSSEOUS STRUCTURES: No significant abnormalities. VISUALIZED UPPER ABDOMEN: Normal. OTHER FINDINGS: None. IMPRESSION: No active disease. No significant interval change compared to the prior examination(s).
[2018-06-28 17:46] LABS: URINE AMORPHOUS SEDIMENT SMALL; URINE BACTERIA LARGE (NEG); URINE RBC TNTC /hpf (0-2); URINE WBC TNTC /hpf (0-6)
[2018-06-28 17:55] LABS: ALB/GLOB RATIO 0.7 (1.1-1.8); CALCIUM 11.6 mg/dL (8.4-10.5)
[2018-06-28 18:07] LABS: TROPONIN I 0.07 ng/mL
[2018-06-28] MEDS: Insulin Reg-MEDIUM-Coverage SC SCH ×2 (19:37→23:21)
[2018-06-28] MEDS ORDERED: Magnesium Sulfate 2 gm/50 ml 2 GM/50 ML BAG IVPB ONE (19:50)
--- NOTE | 2018-06-28 20:24 | CP.PCM.CON ---
<Christiano Hampton - Last Filed: 06/28/18 21:12> History of Present Illness - History of Present Illness History of Present Illness: Christiano Hampton DO, PGY-2: ICU Consult Note 83 year old female with past medical history of chronic CHF, chronic renal failure, hypothyroidism, DM, history of depression, COPD, mitral valve prolapse, dementia, history of lower extremity cellulitis, and breast cancer S/P left mastectomy was brought in to [facility] for worsening lethargy x 2 days, generalized weakness and confusion. In the ED patient was on BIPAP and HPI and ROS was limited. Per ED note patient was refusing meals the past 2 days. Systolic Blood Pressure was also noted to be low intially in the ED but improved to the 130s after fluids. PMHx: as stated above PSHx: L mastectomy Allergies: NKDA Home Medications: as per chart Social Hx: no alcohol, tobacco, illicit drug use; Comes from [facility] in [place] FHx: unknown Review of Systems - Review of Systems All systems: reviewed and no additional remarkable complaints except (as per HPI) Past Patient History - Infectious Disease Hx of Infectious Diseases: None - Tetanus Immunizations Tetanus Immunization: Unknown - Past Social History Smoking Status: Heavy Smoker > 10 Cigarettes Daily - CARDIAC Hx Congestive Heart Failure: Yes Hx Hypertension: Yes - PULMONARY Hx Chronic Obstructive Pulmonary Disease (COPD): No - NEUROLOGICAL Hx Dementia: Yes - HEENT Hx HEENT Problems: No - RENAL Hx Renal Failure: (impaired renal function) - ENDOCRINE/METABOLIC Hx Hypothyroidism: Yes - HEMATOLOGICAL/ONCOLOGICAL Hx Blood Disorders: No Hx Cancer: Yes - INTEGUMENTARY Other/Comment: rash/redness groin area, femoral foldsbilateral shins to feet, red/scaling/cellulitisredness, back of shins bilaterally and dorsal aspect of foot - MUSCULOSKELETAL/RHEUMATOLOGICAL Hx Arthritis: Yes - GASTROINTESTINAL Hx Gastroesophageal Reflux: Yes - GENITOURINARY/GYNECOLOGICAL Hx Incontinence: Yes - PSYCHIATRIC Hx Depression: Yes Hx Substance Use: No - SURGICAL HISTORY Hx Appendectomy: Yes Hx Cardiac Catheterization: No Hx Cholecystectomy: Yes Hx Coronary Stent: No Hx Mastectomy: Yes (L sided) - ANESTHESIA Hx Anesthesia Reactions: No Meds Allergies/Adverse Reactions: Allergies Allergy/AdvReac Type Severity Reaction Status Date / Time No Known Allergies Allergy Verified 06/28/18 16:38 - Medications Medications: Current Medications Apixaban (Eliquis) 2.5 mg PO Q12 SOHAN; Protocol Escitalopram Oxalate (Lexapro) 20 mg PO DAILY SOHAN Meropenem 250 mg/ Sodium (Chloride) 100 mls @ 100 mls/hr IVPB Q12H SOHAN; Pro tocol Stop: 07/07/18 19:31 Magnesium Sulfate (Magnesium Sulfate 2 Gm/50 Ml Water) 2 gm in 50 mls @ 50 mls/hr IVPB ONCE ONE Stop: 06/28/18 20:49 Insulin Human Regular (Humulin R Med) 0 units SC Q4H SOHAN; Protocol Last Admin: 06/28/18 19:37 Dose: Not Given Levothyroxine Sodium (Synthroid) 112 mcg PO DAILY SOHAN Pantoprazole Sodium (Protonix Inj) 40 mg IVP DAILY [facility] Physical Exam - Constitutional Appears: Confused - Head Exam Head Exam: ATRAUMATIC, NORMOCEPHALIC - Eye Exam Eye Exam: EOMI, Normal appearance - ENT Exam ENT Exam: Mucous Membranes Moist - Respiratory Exam Respiratory Exam: Rales, NORMAL BREATHING PATTERN. absent: Accessory Muscle Use - Cardiovascular Exam Cardiovascular Exam: RRR, +S1, +S2 - GI/Abdominal Exam GI & Abdominal Exam: Normal Bowel Sounds, Soft - Extremities Exam Extremities exam: Positive for: pedal edema. Negative for: calf tenderness - Neurological Exam Additional comments: responds to sternal rub - Psychiatric Exam Psychiatric exam: Normal Affect, Normal Mood - Skin Skin Exam: Dry, Intact, Normal Color, Warm Results - Vital Signs Recent Vital Signs: Last Vital Signs Temp 97.5 F L 06/28/18 19:28 Pulse 60 06/28/18 19:28 Resp 16 06/28/18 19:28 BP 109/52 L 06/28/18 19:28 Pulse Ox 95 06/28/18 19:28 - Labs Result Diagrams: 06/28/18 16:28 06/28/18 17:36 Labs: Laboratory Results - last 24 hr 06/28/18 06/28/18 06/28/18 16:28 16:28 16:45 WBC 10.9 D RBC 4.21 Hgb 12.3 Hct 41.0 MCV 97.4 MCH 29.2 MCHC 30.0 L RDW 18.3 H Plt Count 210 Gran % 83.7 H Lymph % (Auto) 10.7 L [place] % (Auto) 5.4 Eos % (Auto) 0.1 L Baso % (Auto) 0.1 Gran # 9.08 H Lymph # (Auto) 1.2 [place] # (Auto) 0.6 Eos # (Auto) 0.0 Baso # (Auto) 0.01 pCO2 pO2 65 H HCO3 ABG pH ABG Total CO2 ABG O2 Saturation ABG Base Excess ABG Potassium VBG pH 7.39 VBG pCO2 61.0 H VBG HCO3 36.9 H VBG Total CO2 38.8 H VBG O2 Sat (Calc) 92.1 H VBG Base Excess 9.6 H VBG Potassium 5.2 Sodium 158.0 H Chloride 117.0 H Glucose 139 H Lactate 2.2 H FiO2 21.0 Potassium Carbon Dioxide Anion Gap BUN Creatinine Est GFR ( Amer) Est GFR (Non-Af Amer) Random Glucose Calcium Magnesium Total Bilirubin AST ALT Alkaline Phosphatase Troponin I NT-Pro-B Natriuret Pep Total Protein Albumin Globulin Albumin/Globulin Ratio TSH 3rd Generation Arterial Blood Potassium Venous Blood Potassium 5.2 Urine Color Light yellow Urine Appearance Turbid Urine pH 6.5 Ur Specific [place] 1.015 Urine Protein 30 H Urine Glucose (UA) Negative Urine Ketones Negative Urine Blood Moderate H Urine Nitrate Negative Urine Bilirubin Negative Urine Urobilinogen 2.0 H Ur Leukocyte Esterase Large H Urine RBC Tntc Urine WBC Tntc Ur Epithelial Cells 6 - 8 Amorphous Sediment Small Urine Bacteria Large Urine Other Uyeast Blood Type Blood Type Confirm Antibody Screen BBK History Checked 06/28/18 06/28/18 06/28/18 16:45 17:00 17:36 WBC RBC Hgb Hct MCV MCH MCHC RDW Plt Count Gran % Lymph % (Auto) [place] % (Auto) Eos % (Auto) Baso % (Auto) Gran # Lymph # (Auto) [place] # (Auto) Eos # (Auto) Baso # (Auto) pCO2 49 H pO2 68.0 L HCO3 32.5 H ABG pH 7.43 ABG Total CO2 34.0 H ABG O2 Saturation 94.9 L ABG Base Excess 6.9 H ABG Potassium 4.5 VBG pH VBG pCO2 VBG HCO3 VBG Total CO2 VBG O2 Sat (Calc) VBG Base Excess VBG Potassium Sodium 158.0 H 155 H Chloride 121.0 H 114 H Glucose 129 H Lactate 1.5 FiO2 100.0 Potassium 5.0 Carbon Dioxide 35 H Anion Gap 10 BUN 92 H Creatinine 3.0 H Est GFR ( Amer) 18 Est GFR (Non-Af Amer) 15 Random Glucose 141 H Calcium 11.6 H Magnesium 1.6 L Total Bilirubin 1.9 H AST 101 H D ALT 47 Alkaline Phosphatase 121 Troponin I 0.07 D NT-Pro-B Natriuret Pep 5900 H Total Protein 7.2 Albumin 3.0 Globulin 4.2 Albumin/Globulin Ratio 0.7 L TSH 3rd Generation Arterial Blood Potassium 4.5 Venous Blood Potassium Urine Color Urine Appearance Urine pH Ur Specific [place] Urine Protein Urine Glucose (UA) Urine Ketones Urine Blood Urine Nitrate Urine Bilirubin Urine Urobilinogen Ur Leukocyte Esterase Urine RBC Urine WBC Ur Epithelial Cells Amorphous Sediment Urine Bacteria Urine Other Blood Type Cancelled Blood Type Confirm Antibody Screen Cancelled BBK History Checked Cancelled 06/28/18 06/28/18 17:36 17:55 WBC RBC Hgb Hct MCV MCH MCHC RDW Plt Count Gran % Lymph % (Auto) [place] % (Auto) Eos % (Auto) Baso % (Auto) Gran # Lymph # (Auto) [place] # (Auto) Eos # (Auto) Baso # (Auto) pCO2 pO2 HCO3 ABG pH ABG Total CO2 ABG O2 Saturation ABG Base Excess ABG Potassium VBG pH VBG pCO2 VBG HCO3 VBG Total CO2 VBG O2 Sat (Calc) VBG Base Excess VBG Potassium Sodium Chloride Glucose Lactate FiO2 Potassium Carbon Dioxide Anion Gap BUN Creatinine Est GFR ( Amer) Est GFR (Non-Af Amer) Random Glucose Calcium Magnesium Total Bilirubin AST ALT Alkaline Phosphatase Troponin I NT-Pro-B Natriuret Pep Total Protein Albumin Globulin Albumin/Globulin Ratio TSH 3rd Generation 0.53 Arterial Blood Potassium Venous Blood Potassium Urine Color Urine Appearance Urine pH Ur Specific [place] Urine Protein Urine Glucose (UA) Urine Ketones Urine Blood Urine Nitrate Urine Bilirubin Urine Urobilinogen Ur Leukocyte Esterase Urine RBC Urine WBC Ur Epithelial Cells Amorphous Sediment Urine Bacteria Urine Other Blood Type Blood Type Confirm A POSITIVE Antibody Screen BBK History Checked Assessment & Plan - Assessment and Plan (Free Text) Assessment: 83 year old female with past medical history of CHF, chronic renal failure, hypothyroidism, DM, depression, baseline dementia, COPD, mitral valve prolapse, hx LE cellulitis, breast cancer s/p L mastectomy who presented with lethargy, decreased PO intake and was found to have a UTI with hypoxemic respiratory failure admitted to the ICU for closer monitoring. Plan: 1) Altered Mental Status secondary to UTI - Blood and urine cultures ordered - Chest X-ray non-diagnostic - Antibiotics per ID - CT head ordered 2) Hypoxemic respiratory failure - Non-invasive positve airway pressure support - ABG in the AM 3) Chronic Kidney Disease - Dose antibiotics renally - Avoid nephrotoxins - Renal US ordered 4) Hypercalcemia, Hypernatremia and hypomagnesemia - Lasix 40 mg IVP once - 2 L of lactated ringers given for hypernatremia - 2 grams of Magnesium given and to be infused slowly 5) Dementia, depression, hypothyroidism - Recommend continue home medications 6) DVT/GI prophylaxis - Protonix 40 mg IVP daily - Continue with Eliquis Case reviewed and discussed with attending physician, Dr. Everett - Date & Time Date: 06/28/18 Time: 21:22 <Ksenia Everett - Last Filed: 06/28/18 22:03> Meds - Medications Medications: Current Medications Apixaban (Eliquis) 2.5 mg PO Q12 SOHAN; Protocol Escitalopram Oxalate (Lexapro) 20 mg PO DAILY SOHAN Meropenem 250 mg/ Sodium (Chloride) 100 mls @ 100 mls/hr IVPB Q12H SOHAN; Protocol Stop: 07/07/18 19:31 Insulin Human Regular (Humulin R Med) 0 units SC Q4H SOHAN; Protocol Last Admin: 06/28/18 19:37 Dose: Not Given Levothyroxine Sodium (Synthroid) 112 mcg PO DAILY SOHAN Pantoprazole Sodium (Protonix Inj) 40 mg IVP DAILY SOHAN Results - Vital Signs Recent Vital Signs: Last Vital Signs Temp 97.5 F L 06/28/18 19:28 Pulse 60 06/28/18 19:28 Resp 16 06/28/18 19:28 BP 109/52 L 06/28/18 19:28 Pulse Ox 95 06/28/18 19:28 - Labs Result Diagrams: 06/28/18 16:28 06/28/18 17:36 Labs: Laboratory Results - last 24 hr 06/28/18 06/28/18 06/28/18 16:28 16:28 16:45 WBC 10.9 D RBC 4.21 Hgb 12.3 Hct 41.0 MCV 97.4 MCH 29.2 MCHC 30.0 L RDW 18.3 H Plt Count 210 Gran % 83.7 H Lymph % (Auto) 10.7 L [place] % (Auto) 5.4 Eos % (Auto) 0.1 L Baso % (Auto) 0.1 Gran # 9.08 H Lymph # (Auto) 1.2 [place] # (Auto) 0.6 Eos # (Auto) 0.0 Baso # (Auto) 0.01 PT INR pCO2 pO2 65 H HCO3 ABG pH ABG Total CO2 ABG O2 Saturation ABG Base Excess ABG Potassium VBG pH 7.39 VBG pCO2 61.0 H VBG HCO3 36.9 H VBG Total CO2 38.8 H VBG O2 Sat (Calc) 92.1 H VBG Base Excess 9.6 H VBG Potassium 5.2 Sodium 158.0 H Chloride 117.0 H Glucose 139 H Lactate 2.2 H FiO2 21.0 Potassium Carbon Dioxide Anion Gap BUN Creatinine Est GFR ( Amer) Est GFR (Non-Af Amer) Random Glucose Calcium Magnesium Total Bilirubin AST ALT Alkaline Phosphatase Troponin I NT-Pro-B Natriuret Pep Total Protein Albumin Globulin Albumin/Globulin Ratio TSH 3rd Generation Arterial Blood Potassium Venous Blood Potassium 5.2 Urine Color Light yellow Urine Appearance Turbid Urine pH 6.5 Ur Specific [place] 1.015 Urine Protein 30 H Urine Glucose (UA) Negative Urine Ketones Negative Urine Blood Moderate H Urine Nitrate Negative Urine Bilirubin Negative Urine Urobilinogen 2.0 H Ur Leukocyte Esterase Large H Urine RBC Tntc Urine WBC Tntc Ur Epithelial Cells 6 - 8 Amorphous Sediment Small Urine Bacteria Large Urine Other Uyeast Blood Type Blood Type Confirm Antibody Screen BBK History Checked 06/28/18 06/28/18 06/28/18 16:45 17:00 17:36 WBC RBC Hgb Hct MCV MCH MCHC RDW Plt Count Gran % Lymph % (Auto) [place] % (Auto) Eos % (Auto) Baso % (Auto) Gran # Lymph # (Auto) [place] # (Auto) Eos # (Auto) Baso # (Auto) PT INR pCO2 49 H pO2 68.0 L HCO3 32.5 H ABG pH 7.43 ABG Total CO2 34.0 H ABG O2 Saturation 94.9 L ABG Base Excess 6.9 H ABG Potassium 4.5 VBG pH VBG pCO2 VBG HCO3 VBG Total CO2 VBG O2 Sat (Calc) VBG Base Excess VBG Potassium Sodium 158.0 H 155 H Chloride 121.0 H 114 H Glucose 129 H Lactate 1.5 FiO2 100.0 Potassium 5.0 Carbon Dioxide 35 H Anion Gap 10 BUN 92 H Creatinine 3.0 H Est GFR ( Amer) 18 Est GFR (Non-Af Amer) 15 Random Glucose 141 H Calcium 11.6 H Magnesium 1.6 L Total Bilirubin 1.9 H AST 101 H D ALT 47 Alkaline Phosphatase 121 Troponin I 0.07 D NT-Pro-B Natriuret Pep 5900 H Total Protein 7.2 Albumin 3.0 Globulin 4.2 Albumin/Globulin Ratio 0.7 L TSH 3rd Generation Arterial Blood Potassium 4.5 Venous Blood Potassium Urine Color Urine Appearance Urine pH Ur Specific [place] Urine Protein Urine Glucose (UA) Urine Ketones Urine Blood Urine Nitrate Urine Bilirubin Urine Urobilinogen Ur Leukocyte Esterase Urine RBC Urine WBC Ur Epithelial Cells Amorphous Sediment Urine Bacteria Urine Other Blood Type Cancelled Blood Type Confirm Antibody Screen Cancelled BBK History Checked Cancelled 06/28/18 06/28/18 06/28/18 17:36 17:55 21:15 WBC RBC Hgb Hct MCV MCH MCHC RDW Plt Count Gran % Lymph % (Auto) [place] % (Auto) Eos % (Auto) Baso % (Auto) Gran # Lymph # (Auto) [place] # (Auto) Eos # (Auto) Baso # (Auto) PT 15.7 H INR 1.37 pCO2 pO2 HCO3 ABG pH ABG Total CO2 ABG O2 Saturation ABG Base Excess ABG Potassium VBG pH VBG pCO2 VBG HCO3 VBG Total CO2 VBG O2 Sat (Calc) VBG Base Excess VBG Potassium Sodium Chloride Glucose Lactate FiO2 Potassium Carbon Dioxide Anion Gap BUN Creatinine Est GFR ( Amer) Est GFR (Non-Af Amer) Random Glucose Calcium Magnesium Total Bilirubin AST ALT Alkaline Phosphatase Troponin I NT-Pro-B Natriuret Pep Total Protein Albumin Globulin Albumin/Globulin Ratio TSH 3rd Generation 0.53 Arterial Blood Potassium Venous Blood Potassium Urine Color Urine Appearance Urine pH Ur Specific [place] Urine Protein Urine Glucose (UA) Urine Ketones Urine Blood Urine Nitrate Urine Bilirubin Urine Urobilinogen Ur Leukocyte Esterase Urine RBC Urine WBC Ur Epithelial Cells Amorphous Sediment Urine Bacteria Urine Other Blood Type Blood Type Confirm A POSITIVE Antibody Screen BBK History Checked 06/28/18 21:15 WBC RBC Hgb Hct MCV MCH MCHC RDW Plt Count Gran % Lymph % (Auto) [place] % (Auto) Eos % (Auto) Baso % (Auto) Gran # Lymph # (Auto) [place] # (Auto) Eos # (Auto) Baso # (Auto) PT INR pCO2 pO2 39 HCO3 ABG pH ABG Total CO2 ABG O2 Saturation ABG Base Excess ABG Potassium VBG pH 7.37 VBG pCO2 56.0 VBG HCO3 32.4 H VBG Total CO2 34.1 H VBG O2 Sat (Calc) 69.4 H VBG Base Excess 5.5 H VBG Potassium 4.8 Sodium 157.0 H Chloride 116.0 H Glucose 172 H Lactate 3.2 H FiO2 21.0 Potassium Carbon Dioxide Anion Gap BUN Creatinine Est GFR ( Amer) Est GFR (Non-Af Amer) Random Glucose Calcium Magnesium Total Bilirubin AST ALT Alkaline Phosphatase Troponin I NT-Pro-B Natriuret Pep Total Protein Albumin Globulin Albumin/Globulin Ratio TSH 3rd Generation Arterial Blood Potassium Venous Blood Potassium 4.8 Urine Color Urine Appearance Urine pH Ur Specific [place] Urine Protein Urine Glucose (UA) Urine Ketones Urine Blood Urine Nitrate Urine Bilirubin Urine Urobilinogen Ur Leukocyte Esterase Urine RBC Urine WBC Ur Epithelial Cells Amorphous Sediment Urine Bacteria Urine Other Blood Type Blood Type Confirm Antibody Screen BBK History Checked Attending/Attestation - Attestation I have personally seen and examined this patient.: Yes I have fully participated in the care of the patient.: Yes I have reviewed all pertinent clinical information: Yes Notes (Text): 06/28/18 21:52 83 year old white woman with history of DM,CHF,MVR, CKD, hypothyroidism,dementia, breast cancer, left mastectomy, osteoarthritis, is admitted with altered mental status, hypoxia, hypercarbia, elevated lactate level, hypernatremia,UTI, obstructive uropathy?, will monitory hemodynamically, IV antibiotics, monitor ABG, consultation with nephrology, urology, ID. CC time spent: 30 minutes.
[2018-06-28 21:37] LABS: VENOUS BLOOD GAS BASE EXCESS 5.5 mmol/L (0.0-2.0); VENOUS BLOOD GAS PO2 39 mm/Hg (30-55); VENOUS BLOOD PH 7.37 (7.32-7.43)
[2018-06-28 21:42] LABS: INR 1.37; PROTHROMBIN TIME 15.7 SECONDS (9.4-12.5)
--- NOTE | 2018-06-29 00:36 | CON ---
DATE: 06/28/2018 HISTORY OF PRESENT ILLNESS: This is an 83-year-old lady with history of some dementia; atrial fibrillation, on Eliquis; CHF; chronic renal failure,; diabetes; depression; COPD; breast cancer status post left mastectomy who was brought in from [facility] for worsening lethargy for 2 days, generalized weakness, fatigue, and tiredness. She also had borderline oxygen saturation with 2 L per minute of FiO2 supplementation. Her appetite also declined. When she came to [facility] ER, she was put on BiPAP, however, still remained lethargic and somnolent. No nausea, no vomiting, no diarrhea, no constipation, no chest pain. PAST MEDICAL HISTORY: Chronic renal failure, CHF, hypothyroidism, diabetes, depression, baseline dementia, COPD, mitral valve prolapse. PAST SURGICAL HISTORY: Status post left mastectomy for breast cancer. FAMILY HISTORY: Noncontributory. SOCIAL HISTORY: No alcohol or illicit drug abuse. No tobacco smoking. She lives in [facility] at [place]. FAMILY HISTORY: Noncontributory. ALLERGIES: NKDA. REVIEW OF SYSTEMS: Review of 12-organ system other than mentioned in history of present illness is negative. PHYSICAL EXAMINATION VITAL SIGNS: Blood pressure 112/40, heart rate 62, oxygen saturation 93%. The patient is on BiPAP 12/5 with FiO2 40%. ENT: Head and neck atraumatic. LUNGS: Clear to auscultation bilaterally. HEART: Regular rate and rhythm. S1 and S2 normal. ABDOMEN: Soft, nontender, and nondistended. MUSCULOSKELETAL: No C/C/E. NEURO: The patient is somnolent. SKIN: Moist. PSYCH: The patient is somnolent. LABORATORY DATA: Sodium 155, potassium 5, chloride 114, carbon dioxide 35, BUN 92, creatinine 3, glucose 141, AST 101, ALT 47, total bilirubin 1.9. Magnesium 1.6. TSH 0.53. Potassium 4.5. ABG 7.43/49/68 with O2 sat 94 that was prior to BiPAP application. WBC 10.9, hemoglobin 12.3, platelet count 210. Urine is positive for large leukocyte esterase, negative for nitrites. Bacterial large. Yeast present. WBCs and RBCs are too numerous to be counted. DIAGNOSTIC DATA: Chest x-ray showed no active disease. ASSESSMENT AND PLAN: This is an 83-year-old lady who presented with severe sepsis secondary to urinary tract infection with acute kidney injury, septic encephalopathy, and some respiratory insufficiency. At present time, we will proceed with aggressive fluid resuscitation. We will work with balanced crystalloids and lactated Ringer's; 1 L bolus was given and then we will continue with lactated Ringer's at 100 mL/hour. We will keep eye on potassium, however, we will try to avoid hyperchloremia (therefore, lactated Ringer's was chosen over normal saline). The patient was given vancomycin and Zosyn. ID consult is pending. Blood culture, urine culture, and procalcitonin were ordered. The patient will be going to ICU for further management and monitoring. If her mental status deteriorate to the point that she would be unable to protect her airways, we will have low threshold for intubation. We will continue to target euvolemia, glycemia, normothermia, and oxygen saturation more than 90%. We will continue with deep vein thrombosis and gastrointestinal prophylaxis. Of note, the patient is on Eliquis, and I ordered, coagulation profile as well. Gastrointestinal prophylaxis aspiration precaution. Maintain mean arterial pressure more than 65. We will maintain blood glucose within 140-180 range according to NICE-SUGAR trial. GI-solano, the patient will remain n.p.o. ccm time 40 min Mickey Lee MD MARCO
[2018-06-29 01:30] LABS: VENOUS BLOOD GAS BASE EXCESS 4.3 mmol/L (0.0-2.0); VENOUS BLOOD GAS PO2 30 mm/Hg (30-55); VENOUS BLOOD PH 7.35 (7.32-7.43)
[2018-06-29] MEDS ORDERED: Lactated Ringer's 1,000 ML IV SCH (02:30)
[2018-06-29 03:11] LABS: ALB/GLOB RATIO 0.7 (1.1-1.8); ALBUMIN 2.1 g/dL (3.0-4.8); CALCIUM 10.2 mg/dL (8.4-10.5)
[2018-06-29] MEDS: Insulin Reg-MEDIUM-Coverage SC SCH ×5 (05:24→21:55)
[2018-06-29 05:30] LABS: VENOUS BLOOD GAS BASE EXCESS -10.9 mmol/L (0.0-2.0); VENOUS BLOOD GAS PO2 57 mm/Hg (30-55); VENOUS BLOOD PH 7.28 (7.32-7.43)
--- NOTE | 2018-06-29 05:43 | HP ---
HISTORY OF PRESENT ILLNESS: I know Taylor very well from [facility]. I have been doing blood testing and giving her Cipro. She has had urinary tract infection. She had different antibiotics. She has had multiple urinary tract infections over the past year. She is an 83-year-old morbidly obese bedridden female, who presents with change in mentation from the assisted, worsening lethargy over the past 48 hours, generalized weakness, confusion. Her oxygen sat was 92 on 2 liters. She is now on BiPAP in the emergency room, we are trying not to intubate her. She has a history of chronic CHF, renal failure, hypothyroidism, diabetes, depression, baseline dementia but she is alert, COPD, mitral valve prolapse, history of lower extremity cellulitis, breast cancer status post left mastectomy, brought in by ambulance. ALLERGIES: NO KNOWN DRUG ALLERGIES. SOCIAL HISTORY: She does no smoking, no drinking, no drugs. No alcohol. Was a heavy smoker, not smoking anymore. She is bedridden, cannot get a really good feel from her in the ER. She has impaired renal function, hypothyroid. She has cancer, rash, reddened groin area, scaling, reflux, incontinence, depression, appendectomy, cardiac catheterization, cholecystectomy, mastectomy left-sided. FAMILY HISTORY: Unknown family history. MEDICATIONS: Lexapro, Tylenol, Eliquis, Klonopin, Novolin, Synthroid, Namenda, Remeron, omeprazole and Lyrica. She has altered mental status, right now on BiPAP, good review of systems, but she has steadily worsening of mentation, stopped eating today. PHYSICAL EXAMINATION: VITAL SIGNS: Afebrile. Pulse is regular. She has a 98.8 temp, 65 pulse, 24 respiratory rate, 104/61 blood pressure, 96% O2 sat on oxygen. GENERAL: Ill appearing, lethargic, on BiPAP. HEENT: Head atraumatic, normocephalic. NECK: Supple. No JVD. HEART: Regular rate. Normal S1, S2. LUNGS: Decreased breath sounds. Poor inspiration, but clear to auscultation. No wheezes, no rhonchi, no rales. ABDOMEN: She is morbidly obese, soft, nontender. Positive bowel sounds. No guarding, no rebound, no CVA tenderness. EXTREMITIES: There is trace edema in bilateral lower extremities. SKIN: Has got some erythematous areas in her groin and her low back, early grade 1, poor turgor. LABORATORY DATA: She had multiple tests. She has a urine that has moderate blood, large leukocytes, large bacteria. Sodium 155, potassium 5, BUN 92, creatinine 3, GFR 15. Sugar is 141, calcium 11.6, magnesium 1.6, total bili is 1.9. AST is 101, ALT is 47, alk phos 121. Troponin I is 0.07. BNP is Total protein 7.2, albumin is 3. She is definitely dehydrated with acute kidney injury. Her lactate was 2.2. White count 10.9, 12.3 hemoglobin, 41 hematocrit with 210 platelets. Chest x-ray showed no active disease. She is here with a sepsis, UTI, acute kidney injury, dehydration. She will be put in the Intensive Care Unit. Also high sodium and change in mentation. North Asif DO MTDShanice
[2018-06-29 05:45] LABS: ARTERIAL BLOOD GAS HCO3 31.2 mmol/L (21-28); ARTERIAL BLOOD GAS HEMOGLOBIN 10.8 g/dL (11.7-17.4); ARTERIAL BLOOD GAS O2 CAPACITY 14.7 mL/dl (16-24); ARTERIAL BLOOD GAS O2 CONTENT 13.9 ML/dl (15-23); ARTERIAL BLOOD GAS O2 SAT 94.3 % (95-98); ARTERIAL BLOOD GAS PCO2 47 mm/Hg (35-45); ARTERIAL BLOOD GAS PH 7.43 (7.35-7.45); ARTERIAL BLOOD GAS TCO2 32.6 mmol.L (22-28)
[2018-06-29 06:00] LABS: GRAN % 92.4 % (50.0-68.0); LYMPH # 0.5 (1.2-3.4); LYMPH % 6.2 % (22.0-35.0); MEAN CELL VOLUME 97.2 fl (80.0-105.0); MEAN CORPUSCULAR HEMOGLOBIN 29.1 pg (25.0-35.0); MEAN CORPUSCULAR HGB CONC 29.9 g/dl (31.0-37.0); MEAN PLATELET VOLUME 12.1 fl (7.0-11.0); MONO # 0.1 (0.1-0.6); MONO % 1.4 % (1.0-6.0); PLATELET COUNT 140 10^3/uL (120.0-450.0); RBC 3.23 10^6/uL (3.5-6.1); WHITE BLOOD COUNT 7.8 10^3/ul (4.5-11.0)
[2018-06-29 06:06] LABS: TROPONIN I 0.03 ng/mL
[2018-06-29 06:06] LABS: HEMOGLOBIN 9.4 g/dL (12.0-16.0)
[2018-06-29 06:15] LABS: ALB/GLOB RATIO 0.7 (1.1-1.8); ALBUMIN 2.1 g/dL (3.0-4.8)
[2018-06-29 06:27] LABS: CALCIUM 9.9 mg/dL (8.4-10.5)
[2018-06-29 06:38] LABS: BAND 4 % (0-2); LYMPHOCYTE 2 % (22.0-35.0); NEUTROPHIL 94 % (50.0-70.0)
[2018-06-29 06:39] LABS: ANISOCYTOSIS 1+; PLATELET ESTIMATE NORMAL (NORMAL)
[2018-06-29] MEDS ORDERED: Magnesium Sulfate 2 gm/50 ml 2 GM/50 ML BAG IVPB ONE (07:30)
[2018-06-29 08:02] LABS: VENOUS BLOOD GAS BASE EXCESS 10.1 mmol/L (0.0-2.0); VENOUS BLOOD GAS PO2 28 mm/Hg (30-55); VENOUS BLOOD PH 7.39 (7.32-7.43)
--- NOTE | 2018-06-29 08:53 | PN ---
DATE: 06/29/2018 SUBJECTIVE: I saw her in the Intensive Care Unit. Her eyes are opened a little bit, nonverbal, still on BiPAP. She is in a lot of trouble. She has severe sepsis secondary to urinary tract infection, acute kidney injury, septic encephalopathy. MEDICATIONS: She is on multiple medications. She is on Eliquis, insulin, lactated Ringer's, Lexapro, Merrem IV, Protonix and Synthroid. PHYSICAL EXAMINATION: VITAL SIGNS: She has a 97.3 temp, 60 pulse, 111/65 blood pressure, 24 respiratory rate, 96% O2 sat on room air. HEENT: Head is atraumatic, normocephalic. HEART: Regular rate. LUNGS: Decreased breath sounds, but clear. ABDOMEN: Soft, morbidly obese, nontender. EXTREMITIES: Some edema. LABORATORY DATA: She has a 7.8 white count, 9.4 hemoglobin, 31.4 hematocrit with 140 platelets. Her lactate is down to 2.3, it was as high as 16.3. 149 sodium; potassium 4.3; BUN 69; creatinine 2.1, coming down a little bit; GFR is up to 22; sugar is 160; calcium is 9.9; phosphorus 3.2; magnesium is 1, we have to replace the magnesium; total bili is 1; AST is 79; ALT is 42; alk phos 81; troponin I is 0.03; total protein is 5.2. Urine with large leukocytes, large bacteria. ASSESSMENT AND PLAN: She was seen by the railroad yard worker and an Intensive Care Unit note from the resident. There are consults for Renal, Infectious Disease and Urology for the persistent urinary tract infections. We will check her labs tomorrow. Replace the magnesium. Hopefully, she will respond to treatment and improve. Taylor Morris who has severe sepsis. [place] Asif DO
--- NOTE | 2018-06-29 08:53 | CP.CCUPN ---
<Darrion Joseph - Last Filed: 06/29/18 11:20> CCU Subjective - Physician Review Subjective (Free Text): 06/29/18 11:21 Patient seen and examined at bedside in no acute distress. Patient is able to open her eyes when called upon. Patient noted to be on BiPAP this morning. No acute events overnight as per nurse. Critical Care Time Spent (in minutes): 40 CCU Objective - Vital Signs / Intake & Output Vital Signs (Last 4 hours): Vital Signs Temp Pulse Resp BP Pulse Ox 06/29/18 08:00 98.4 F 60 27 H 132/57 L 96 06/29/18 07:00 60 49 H 101/51 L 96 06/29/18 06:17 61 19 121/58 L 98 06/29/18 06:02 61 33 H 145/68 97 06/29/18 06:01 60 27 H 180/65 H 93 L 06/29/18 06:00 95 06/29/18 05:00 60 30 H 109/58 L 96 Intake and Output (Last 8hrs): Intake & Output 06/28/18 06/29/18 06/29/18 22:59 06:59 14:59 Intake Total 1900 Output Total 550 Balance 1350 Weight 122.47 kg 122.47 kg Intake: IV 1900 Right Hand 1900 Output: Urine 550 Urethral (Walsh) 550 Other: Voiding Method Indwelling Catheter # Bowel Movements 1 - Physical Exam Head: Positive for: Atraumatic, Normocephalic Conjunctiva: Positive for: Normal Ears: Positive for: Normal Mouth: Positive for: Dry Neck: Negative for: Meningeal Signs, MIDLINE TENDERNESS Respiratory/Chest: Positive for: Good Air Exchange, Rhonchi. Negative for: Respiratory Distress, Accessory Muscle Use, Wheezes, Rales Cardiovascular: Positive for: Regular Rate and Rhythm, Normal S1, S2 Abdomen: Positive for: Normal Bowel Sounds. Negative for: Tenderness, Distention, Peritoneal Signs, Rebound, Guarding, Mass/Organomegaly Upper Extremity: Positive for: NORMAL PULSES, Capillary Refill < 2s. Negative for: Cyanosis, Edema, Swelling, Erythema Lower Extremity: Positive for: Edema, NORMAL PULSES. Negative for: Cyanosis, Erythema, Deformity Skin: Positive for: Warm, Dry, Normal Color. Negative for: Rashes Psychiatric: Positive for: Alert - Medications Active Medications: Active Medications Generic Name Dose Route Start Last Admin Trade Name Jose E PRN Reason Stop Dose Admin Apixaban 2.5 mg 06/28/18 22:00 06/28/18 23:20 Eliquis PO Not Given Q12 SOHAN Protocol Escitalopram Oxalate 20 mg 06/29/18 10:00 Lexapro PO DAILY SOHAN Meropenem 250 mg/ Sodium 100 mls @ 100 mls/hr 06/28/18 19:30 06/29/18 08:20 Chloride IVPB 07/07/18 19:31 100 mls/hr Q12H SOHAN Administration Protocol Lactated Ringer's 1,000 mls @ 150 mls/hr 06/29/18 02:30 06/29/18 02:30 Lactated Ringer's IV 150 mls/hr .[id number] SOHAN Administration Insulin Human Regular 0 units 06/28/18 18:45 06/29/18 06:00 Humulin R Med SC Not Given Q4H SOHAN Protocol Levothyroxine Sodium 112 mcg 06/29/18 10:00 Synthroid PO DAILY SOHAN Pantoprazole Sodium 40 mg 06/29/18 10:00 Protonix Inj IVP DAILY SOHAN - Patient Studies Lab Studies: Lab Studies 06/29/18 06/29/18 06/29/18 Range/Units 07:50 05:54 05:39 WBC 7.8 D (4.5-11.0) 10^3/ul RBC 3.23 L (3.5-6.1) 10^6/uL Hgb 9.4 L D (12.0-16.0) g/dL Hct 31.4 L (36.0-48.0) % MCV 97.2 (80.0-105.0) fl MCH 29.1 (25.0-35.0) pg MCHC 29.9 L (31.0-37.0) g/dl RDW 18.0 H (11.5-14.5) % Plt Count 140 (120.0-450.0) 10^3/uL MPV 12.1 H (7.0-11.0) fl Gran % 92.4 H (50.0-68.0) % Lymph % (Auto) 6.2 L (22.0-35.0) % [place] % (Auto) 1.4 (1.0-6.0) % Eos % (Auto) 0.0 L (1.5-5.0) % Baso % (Auto) 0.0 (0.0-3.0) % Gran # 7.20 H (1.4-6.5) Lymph # (Auto) 0.5 L (1.2-3.4) [place] # (Auto) 0.1 (0.1-0.6) Eos # (Auto) 0.0 (0.0-0.7) Baso # (Auto) 0.00 (0.0-2.0) K/mm3 Neutrophils % (Manual) 94 H (50.0-70.0) % Band Neutrophils % 4 H (0-2) % Lymphocytes % (Manual) 2 L (22.0-35.0) % Monocytes % (Manual) TEST NOT PERFORMED Platelet Evaluation Normal (NORMAL) Anisocytosis (manual) 1+ PT (9.4-12.5) SECONDS INR pCO2 47 H (35-45) mm/Hg pO2 28 L 66.0 L (30-55) mm/Hg HCO3 31.2 H (21-28) mmol/L ABG pH 7.43 (7.35-7.45) ABG Total CO2 32.6 H (22-28) mmol.L ABG O2 Saturation 94.3 L (95-98) % ABG O2 Content 13.9 L (15-23) ML/dl ABG Base Excess 6.0 H (-2.0-3.0) mmol/L ABG Hemoglobin 10.8 L (11.7-17.4) g/dL ABG Carboxyhemoglobin 2.0 H (0.5-1.5) % POC ABG HHb (Measured) 5.5 H (0-5) % ABG Methemoglobin 1.3 (0.0-3.0) % ABG O2 Capacity 14.7 L (16-24) mL/dl ABG Potassium (3.6-5.2) mmol/L VBG pH 7.39 (7.32-7.43) VBG pCO2 62.0 H (40-60) VBG HCO3 37.5 H (21-28) mmol/l VBG Total CO2 39.4 H (22-28) mmol.L VBG O2 Sat (Calc) 42.5 (40-65) % VBG Base Excess 10.1 H (0.0-2.0) mmol/L VBG Potassium 4.7 (3.6-5.2) mmol/L Hgb O2 Saturation 91.1 L (95.0-98.0) % Sodium 157.0 H (132-148) mmol/L Chloride 117.0 H (98-107) mmol/L Glucose 183 H (65-105) mg/dl Lactate 2.3 H (0.7-2.1) mmol/L FiO2 21.0 40.0 % Potassium (3.6-5.0) mmol/L Carbon Dioxide (21-33) mmol/L Anion Gap (10-20) BUN (7-21) mg/dL Creatinine (0.7-1.2) mg/dl Est GFR ( Amer) Est GFR (Non-Af Amer) Random Glucose (70-110) mg/dL Calcium (8.4-10.5) mg/dL Phosphorus (2.5-4.5) mg/dL Magnesium (1.7-2.2) mg/dL Total Bilirubin (0.2-1.3) mg/dL AST (14-36) U/L ALT (7-56) U/L Alkaline Phosphatase (38-126) U/L Troponin I ng/mL NT-Pro-B Natriuret Pep (0-450) pg/mL Total Protein (5.8-8.3) g/dL Albumin (3.0-4.8) g/dL Globulin gm/dL Albumin/Globulin Ratio (1.1-1.8) TSH 3rd Generation (0.46-4.68) mIU/mL Arterial Blood Potassium (3.6-5.2) mmol/L Venous Blood Potassium 4.7 (3.6-5.2) mmol/L Urine Color (YELLOW) Urine Appearance (CLEAR) Urine pH (4.7-8.0) Ur Specific [place] (1.005-1.035) Urine Protein (<30 mg/dL) mg/dL Urine Glucose (UA) (NEGATIVE) mg/dL Urine Ketones (NEGATIVE) mg/dL Urine Blood (NEGATIVE) Urine Nitrate (NEGATIVE) Urine Bilirubin (NEGATIVE) Urine Urobilinogen (<1 E.U./dL) E.U./dL Ur Leukocyte Esterase (NEGATIVE) Susana/uL Urine RBC (0-2) /hpf Urine WBC (0-6) /hpf Ur Epithelial Cells (0-5) /hpf Amorphous Sediment Urine Bacteria (NEG) Urine Other Blood Type Blood Type Confirm Antibody Screen BBK History Checked 06/29/18 06/29/18 06/29/18 Range/Units 05:20 05:20 02:14 WBC (4.5-11.0) 10^3/ul RBC (3.5-6.1) 10^6/uL Hgb (12.0-16.0) g/dL Hct (36.0-48.0) % MCV (80.0-105.0) fl MCH (25.0-35.0) pg MCHC (31.0-37.0) g/dl RDW (11.5-14.5) % Plt Count (120.0-450.0) 10^3/uL MPV (7.0-11.0) fl Gran % (50.0-68.0) % Lymph % (Auto) (22.0-35.0) % [place] % (Auto) (1.0-6.0) % Eos % (Auto) (1.5-5.0) % Baso % (Auto) (0.0-3.0) % Gran # (1.4-6.5) Lymph # (Auto) (1.2-3.4) [place] # (Auto) (0.1-0.6) Eos # (Auto) (0.0-0.7) Baso # (Auto) (0.0-2.0) K/mm3 Neutrophils % (Manual) (50.0-70.0) % Band Neutrophils % (0-2) % Lymphocytes % (Manual) (22.0-35.0) % Monocytes % (Manual) Platelet Evaluation (NORMAL) Anisocytosis (manual) PT (9.4-12.5) SECONDS INR pCO2 (35-45) mm/Hg pO2 57 H (30-55) mm/Hg HCO3 (21-28) mmol/L ABG pH (7.35-7.45) ABG Total CO2 (22-28) mmol.L ABG O2 Saturation (95-98) % ABG O2 Content (15-23) ML/dl ABG Base Excess (-2.0-3.0) mmol/L ABG Hemoglobin (11.7-17.4) g/dL ABG Carboxyhemoglobin (0.5-1.5) % POC ABG HHb (Measured) (0-5) % ABG Methemoglobin (0.0-3.0) % ABG O2 Capacity (16-24) mL/dl ABG Potassium (3.6-5.2) mmol/L VBG pH 7.28 L (7.32-7.43) VBG pCO2 31.0 L (40-60) VBG HCO3 14.6 L (21-28) mmol/l VBG Total CO2 15.6 L (22-28) mmol.L VBG O2 Sat (Calc) 91.3 H (40-65) % VBG Base Excess -10.9 L (0.0-2.0) mmol/L VBG Potassium 4.3 (3.6-5.2) mmol/L Hgb O2 Saturation (95.0-98.0) % Sodium 140.0 149 H 151 H (132-148) mmol/L Chloride 110.0 H 113 H 114 H (98-107) mmol/L Glucose 84 (65-105) mg/dl Lactate 16.3 H* (0.7-2.1) mmol/L FiO2 21.0 % Potassium 4.3 4.8 (3.6-5.0) mmol/L Carbon Dioxide 29 30 (21-33) mmol/L Anion Gap 11 12 (10-20) BUN 69 H 73 H (7-21) mg/dL Creatinine 2.1 H 2.5 H (0.7-1.2) mg/dl Est GFR ( Amer) 27 22 Est GFR (Non-Af Amer) 22 18 Random Glucose 160 H 184 H (70-110) mg/dL Calcium 9.9 10.2 (8.4-10.5) mg/dL Phosphorus 3.2 3.4 (2.5-4.5) mg/dL Magnesium 1.0 L* 2.1 (1.7-2.2) mg/dL Total Bilirubin 1.0 1.4 H (0.2-1.3) mg/dL AST 79 H 78 H D (14-36) U/L ALT 42 44 (7-56) U/L Alkaline Phosphatase 81 86 (38-126) U/L Troponin I 0.03 D ng/mL NT-Pro-B Natriuret Pep (0-450) pg/mL Total Protein 5.2 L 5.3 L (5.8-8.3) g/dL Albumin 2.1 L 2.1 L (3.0-4.8) g/dL Globulin 3.1 3.2 gm/dL Albumin/Globulin Ratio 0.7 L 0.7 L (1.1-1.8) TSH 3rd Generation (0.46-4.68) mIU/mL Arterial Blood Potassium (3.6-5.2) mmol/L Venous Blood Potassium 4.3 (3.6-5.2) mmol/L Urine Color (YELLOW) Urine Appearance (CLEAR) Urine pH (4.7-8.0) Ur Specific [place] (1.005-1.035) Urine Protein (<30 mg/dL) mg/dL Urine Glucose (UA) (NEGATIVE) mg/dL Urine Ketones (NEGATIVE) mg/dL Urine Blood (NEGATIVE) Urine Nitrate (NEGATIVE) Urine Bilirubin (NEGATIVE) Urine Urobilinogen (<1 E.U./dL) E.U./dL Ur Leukocyte Esterase (NEGATIVE) Susana/uL Urine RBC (0-2) /hpf Urine WBC (0-6) /hpf Ur Epithelial Cells (0-5) /hpf Amorphous Sediment Urine Bacteria (NEG) Urine Other Blood Type Blood Type Confirm Antibody Screen BBK History Checked 06/29/18 06/28/18 06/28/18 Range/Units 01:20 21:15 21:15 WBC (4.5-11.0) 10^3/ul RBC (3.5-6.1) 10^6/uL Hgb (12.0-16.0) g/dL Hct (36.0-48.0) % MCV (80.0-105.0) fl MCH (25.0-35.0) pg MCHC (31.0-37.0) g/dl RDW (11.5-14.5) % Plt Count (120.0-450.0) 10^3/uL MPV (7.0-11.0) fl Gran % (50.0-68.0) % Lymph % (Auto) (22.0-35.0) % [place] % (Auto) (1.0-6.0) % Eos % (Auto) (1.5-5.0) % Baso % (Auto) (0.0-3.0) % Gran # (1.4-6.5) Lymph # (Auto) (1.2-3.4) [place] # (Auto) (0.1-0.6) Eos # (Auto) (0.0-0.7) Baso # (Auto) (0.0-2.0) K/mm3 Neutrophils % (Manual) (50.0-70.0) % Band Neutrophils % (0-2) % Lymphocytes % (Manual) (22.0-35.0) % Monocytes % (Manual) Platelet Evaluation (NORMAL) Anisocytosis (manual) PT 15.7 H (9.4-12.5) SECONDS INR 1.37 pCO2 (35-45) mm/Hg pO2 30 39 (30-55) mm/Hg HCO3 (21-28) mmol/L ABG pH (7.35-7.45) ABG Total CO2 (22-28) mmol.L ABG O2 Saturation (95-98) % ABG O2 Content (15-23) ML/dl ABG Base Excess (-2.0-3.0) mmol/L ABG Hemoglobin (11.7-17.4) g/dL ABG Carboxyhemoglobin (0.5-1.5) % POC ABG HHb (Measured) (0-5) % ABG Methemoglobin (0.0-3.0) % ABG O2 Capacity (16-24) mL/dl ABG Potassium (3.6-5.2) mmol/L VBG pH 7.35 7.37 (7.32-7.43) VBG pCO2 57.0 56.0 (40-60) VBG HCO3 31.5 H 32.4 H (21-28) mmol/l VBG Total CO2 33.2 H 34.1 H (22-28) mmol.L VBG O2 Sat (Calc) 51.8 69.4 H (40-65) % VBG Base Excess 4.3 H 5.5 H (0.0-2.0) mmol/L VBG Potassium 5.0 4.8 (3.6-5.2) mmol/L Hgb O2 Saturation (95.0-98.0) % Sodium 155.0 H 157.0 H (132-148) mmol/L Chloride 116.0 H 116.0 H (98-107) mmol/L Glucose 196 H 172 H (65-105) mg/dl Lactate 4.5 H* 3.2 H (0.7-2.1) mmol/L FiO2 21.0 21.0 % Potassium (3.6-5.0) mmol/L Carbon Dioxide (21-33) mmol/L Anion Gap (10-20) BUN (7-21) mg/dL Creatinine (0.7-1.2) mg/dl Est GFR ( Amer) Est GFR (Non-Af Amer) Random Glucose (70-110) mg/dL Calcium (8.4-10.5) mg/dL Phosphorus (2.5-4.5) mg/dL Magnesium (1.7-2.2) mg/dL Total Bilirubin (0.2-1.3) mg/dL AST (14-36) U/L ALT (7-56) U/L Alkaline Phosphatase (38-126) U/L Troponin I ng/mL NT-Pro-B Natriuret Pep (0-450) pg/mL Total Protein (5.8-8.3) g/dL Albumin (3.0-4.8) g/dL Globulin gm/dL Albumin/Globulin Ratio (1.1-1.8) TSH 3rd Generation (0.46-4.68) mIU/mL Arterial Blood Potassium (3.6-5.2) mmol/L Venous Blood Potassium 5.0 4.8 (3.6-5.2) mmol/L Urine Color (YELLOW) Urine Appearance (CLEAR) Urine pH (4.7-8.0) Ur Specific [place] (1.005-1.035) Urine Protein (<30 mg/dL) mg/dL Urine Glucose (UA) (NEGATIVE) mg/dL Urine Ketones (NEGATIVE) mg/dL Urine Blood (NEGATIVE) Urine Nitrate (NEGATIVE) Urine Bilirubin (NEGATIVE) Urine Urobilinogen (<1 E.U./dL) E.U./dL Ur Leukocyte Esterase (NEGATIVE) Susana/uL Urine RBC (0-2) /hpf Urine WBC (0-6) /hpf Ur Epithelial Cells (0-5) /hpf Amorphous Sediment Urine Bacteria (NEG) Urine Other Blood Type Blood Type Confirm Antibody Screen BBK History Checked 06/28/18 06/28/18 06/28/18 Range/Units 17:55 17:36 17:36 WBC (4.5-11.0) 10^3/ul RBC (3.5-6.1) 10^6/uL Hgb (12.0-16.0) g/dL Hct (36.0-48.0) % MCV (80.0-105.0) fl MCH (25.0-35.0) pg MCHC (31.0-37.0) g/dl RDW (11.5-14.5) % Plt Count (120.0-450.0) 10^3/uL MPV (7.0-11.0) fl Gran % (50.0-68.0) % Lymph % (Auto) (22.0-35.0) % [place] % (Auto) (1.0-6.0) % Eos % (Auto) (1.5-5.0) % Baso % (Auto) (0.0-3.0) % Gran # (1.4-6.5) Lymph # (Auto) (1.2-3.4) [place] # (Auto) (0.1-0.6) Eos # (Auto) (0.0-0.7) Baso # (Auto) (0.0-2.0) K/mm3 Neutrophils % (Manual) (50.0-70.0) % Band Neutrophils % (0-2) % Lymphocytes % (Manual) (22.0-35.0) % Monocytes % (Manual) Platelet Evaluation (NORMAL) Anisocytosis (manual) PT (9.4-12.5) SECONDS INR pCO2 (35-45) mm/Hg pO2 (30-55) mm/Hg HCO3 (21-28) mmol/L ABG pH (7.35-7.45) ABG Total CO2 (22-28) mmol.L ABG O2 Saturation (95-98) % ABG O2 Content (15-23) ML/dl ABG Base Excess (-2.0-3.0) mmol/L ABG Hemoglobin (11.7-17.4) g/dL ABG Carboxyhemoglobin (0.5-1.5) % POC ABG HHb (Measured) (0-5) % ABG Methemoglobin (0.0-3.0) % ABG O2 Capacity (16-24) mL/dl ABG Potassium (3.6-5.2) mmol/L VBG pH (7.32-7.43) VBG pCO2 (40-60) VBG HCO3 (21-28) mmol/l VBG Total CO2 (22-28) mmol.L VBG O2 Sat (Calc) (40-65) % VBG Base Excess (0.0-2.0) mmol/L VBG Potassium (3.6-5.2) mmol/L Hgb O2 Saturation (95.0-98.0) % Sodium 155 H (132-148) mmol/L Chloride 114 H (98-107) mmol/L Glucose (65-105) mg/dl Lactate (0.7-2.1) mmol/L FiO2 % Potassium 5.0 (3.6-5.0) mmol/L Carbon Dioxide 35 H (21-33) mmol/L Anion Gap 10 (10-20) BUN 92 H (7-21) mg/dL Creatinine 3.0 H (0.7-1.2) mg/dl Est GFR ( Amer) 18 Est GFR (Non-Af Amer) 15 Random Glucose 141 H (70-110) mg/dL Calcium 11.6 H (8.4-10.5) mg/dL Phosphorus (2.5-4.5) mg/dL Magnesium 1.6 L (1.7-2.2) mg/dL Total Bilirubin 1.9 H (0.2-1.3) mg/dL AST 101 H D (14-36) U/L ALT 47 (7-56) U/L Alkaline Phosphatase 121 (38-126) U/L Troponin I 0.07 D ng/mL NT-Pro-B Natriuret Pep 5900 H (0-450) pg/mL Total Protein 7.2 (5.8-8.3) g/dL Albumin 3.0 (3.0-4.8) g/dL Globulin 4.2 gm/dL Albumin/Globulin Ratio 0.7 L (1.1-1.8) TSH 3rd Generation 0.53 (0.46-4.68) mIU/mL Arterial Blood Potassium (3.6-5.2) mmol/L Venous Blood Potassium (3.6-5.2) mmol/L Urine Color (YELLOW) Urine Appearance (CLEAR) Urine pH (4.7-8.0) Ur Specific [place] (1.005-1.035) Urine Protein (<30 mg/dL) mg/dL Urine Glucose (UA) (NEGATIVE) mg/dL Urine Ketones (NEGATIVE) mg/dL Urine Blood (NEGATIVE) Urine Nitrate (NEGATIVE) Urine Bilirubin (NEGATIVE) Urine Urobilinogen (<1 E.U./dL) E.U./dL Ur Leukocyte Esterase (NEGATIVE) Susana/uL Urine RBC (0-2) /hpf Urine WBC (0-6) /hpf Ur Epithelial Cells (0-5) /hpf Amorphous Sediment Urine Bacteria (NEG) Urine Other Blood Type Blood Type Confirm A POSITIVE Antibody Screen BBK History Checked 06/28/18 06/28/18 06/28/18 Range/Units 17:00 16:45 16:45 WBC (4.5-11.0) 10^3/ul RBC (3.5-6.1) 10^6/uL Hgb (12.0-16.0) g/dL Hct (36.0-48.0) % MCV (80.0-105.0) fl MCH (25.0-35.0) pg MCHC (31.0-37.0) g/dl RDW (11.5-14.5) % Plt Count (120.0-450.0) 10^3/uL MPV (7.0-11.0) fl Gran % (50.0-68.0) % Lymph % (Auto) (22.0-35.0) % [place] % (Auto) (1.0-6.0) % Eos % (Auto) (1.5-5.0) % Baso % (Auto) (0.0-3.0) % Gran # (1.4-6.5) Lymph # (Auto) (1.2-3.4) [place] # (Auto) (0.1-0.6) Eos # (Auto) (0.0-0.7) Baso # (Auto) (0.0-2.0) K/mm3 Neutrophils % (Manual) (50.0-70.0) % Band Neutrophils % (0-2) % Lymphocytes % (Manual) (22.0-35.0) % Monocytes % (Manual) Platelet Evaluation (NORMAL) Anisocytosis (manual) PT (9.4-12.5) SECONDS INR pCO2 49 H (35-45) mm/Hg pO2 68.0 L (30-55) mm/Hg HCO3 32.5 H (21-28) mmol/L ABG pH 7.43 (7.35-7.45) ABG Total CO2 34.0 H (22-28) mmol.L ABG O2 Saturation 94.9 L (95-98) % ABG O2 Content (15-23) ML/dl ABG Base Excess 6.9 H (-2.0-3.0) mmol/L ABG Hemoglobin (11.7-17.4) g/dL ABG Carboxyhemoglobin (0.5-1.5) % POC ABG HHb (Measured) (0-5) % ABG Methemoglobin (0.0-3.0) % ABG O2 Capacity (16-24) mL/dl ABG Potassium 4.5 (3.6-5.2) mmol/L VBG pH (7.32-7.43) VBG pCO2 (40-60) VBG HCO3 (21-28) mmol/l VBG Total CO2 (22-28) mmol.L VBG O2 Sat (Calc) (40-65) % VBG Base Excess (0.0-2.0) mmol/L VBG Potassium (3.6-5.2) mmol/L Hgb O2 Saturation (95.0-98.0) % Sodium 158.0 H (132-148) mmol/L Chloride 121.0 H (98-107) mmol/L Glucose 129 H (65-105) mg/dl Lactate 1.5 (0.7-2.1) mmol/L FiO2 100.0 % Potassium (3.6-5.0) mmol/L Carbon Dioxide (21-33) mmol/L Anion Gap (10-20) BUN (7-21) mg/dL Creatinine (0.7-1.2) mg/dl Est GFR ( Amer) Est GFR (Non-Af Amer) Random Glucose (70-110) mg/dL Calcium (8.4-10.5) mg/dL Phosphorus (2.5-4.5) mg/dL Magnesium (1.7-2.2) mg/dL Total Bilirubin (0.2-1.3) mg/dL AST (14-36) U/L ALT (7-56) U/L Alkaline Phosphatase (38-126) U/L Troponin I ng/mL NT-Pro-B Natriuret Pep (0-450) pg/mL Total Protein (5.8-8.3) g/dL Albumin (3.0-4.8) g/dL Globulin gm/dL Albumin/Globulin Ratio (1.1-1.8) TSH 3rd Generation (0.46-4.68) mIU/mL Arterial Blood Potassium 4.5 (3.6-5.2) mmol/L Venous Blood Potassium (3.6-5.2) mmol/L Urine Color Light yellow (YELLOW) Urine Appearance Turbid (CLEAR) Urine pH 6.5 (4.7-8.0) Ur Specific [place] 1.015 (1.005-1.035) Urine Protein 30 H (<30 mg/dL) mg/dL Urine Glucose (UA) Negative (NEGATIVE) mg/dL Urine Ketones Negative (NEGATIVE) mg/dL Urine Blood Moderate H (NEGATIVE) Urine Nitrate Negative (NEGATIVE) Urine Bilirubin Negative (NEGATIVE) Urine Urobilinogen 2.0 H (<1 E.U./dL) E.U./dL Ur Leukocyte Esterase Large H (NEGATIVE) Susana/uL Urine RBC Tntc (0-2) /hpf Urine WBC Tntc (0-6) /hpf Ur Epithelial Cells 6 - 8 (0-5) /hpf Amorphous Sediment Small Urine Bacteria Large (NEG) Urine Other Uyeast Blood Type Cancelled Blood Type Confirm Antibody Screen Cancelled BBK History Checked Cancelled 06/28/18 06/28/18 Range/Units 16:28 16:28 WBC 10.9 D (4.5-11.0) 10^3/ul RBC 4.21 (3.5-6.1) 10^6/uL Hgb 12.3 (12.0-16.0) g/dL Hct 41.0 (36.0-48.0) % MCV 97.4 (80.0-105.0) fl MCH 29.2 (25.0-35.0) pg MCHC 30.0 L (31.0-37.0) g/dl RDW 18.3 H (11.5-14.5) % Plt Count 210 (120.0-450.0) 10^3/uL MPV (7.0-11.0) fl Gran % 83.7 H (50.0-68.0) % Lymph % (Auto) 10.7 L (22.0-35.0) % [place] % (Auto) 5.4 (1.0-6.0) % Eos % (Auto) 0.1 L (1.5-5.0) % Baso % (Auto) 0.1 (0.0-3.0) % Gran # 9.08 H (1.4-6.5) Lymph # (Auto) 1.2 (1.2-3.4) [place] # (Auto) 0.6 (0.1-0.6) Eos # (Auto) 0.0 (0.0-0.7) Baso # (Auto) 0.01 (0.0-2.0) K/mm3 Neutrophils % (Manual) (50.0-70.0) % Band Neutrophils % (0-2) % Lymphocytes % (Manual) (22.0-35.0) % Monocytes % (Manual) Platelet Evaluation (NORMAL) Anisocytosis (manual) PT (9.4-12.5) SECONDS INR pCO2 (35-45) mm/Hg pO2 65 H (30-55) mm/Hg HCO3 (21-28) mmol/L ABG pH (7.35-7.45) ABG Total CO2 (22-28) mmol.L ABG O2 Saturation (95-98) % ABG O2 Content (15-23) ML/dl ABG Base Excess (-2.0-3.0) mmol/L ABG Hemoglobin (11.7-17.4) g/dL ABG Carboxyhemoglobin (0.5-1.5) % POC ABG HHb (Measured) (0-5) % ABG Methemoglobin (0.0-3.0) % ABG O2 Capacity (16-24) mL/dl ABG Potassium (3.6-5.2) mmol/L VBG pH 7.39 (7.32-7.43) VBG pCO2 61.0 H (40-60) VBG HCO3 36.9 H (21-28) mmol/l VBG Total CO2 38.8 H (22-28) mmol.L VBG O2 Sat (Calc) 92.1 H (40-65) % VBG Base Excess 9.6 H (0.0-2.0) mmol/L VBG Potassium 5.2 (3.6-5.2) mmol/L Hgb O2 Saturation (95.0-98.0) % Sodium 158.0 H (132-148) mmol/L Chloride 117.0 H (98-107) mmol/L Glucose 139 H (65-105) mg/dl Lactate 2.2 H (0.7-2.1) mmol/L FiO2 21.0 % Potassium (3.6-5.0) mmol/L Carbon Dioxide (21-33) mmol/L Anion Gap (10-20) BUN (7-21) mg/dL Creatinine (0.7-1.2) mg/dl Est GFR ( Amer) Est GFR (Non-Af Amer) Random Glucose (70-110) mg/dL Calcium (8.4-10.5) mg/dL Phosphorus (2.5-4.5) mg/dL Magnesium (1.7-2.2) mg/dL Total Bilirubin (0.2-1.3) mg/dL AST (14-36) U/L ALT (7-56) U/L Alkaline Phosphatase (38-126) U/L Troponin I ng/mL NT-Pro-B Natriuret Pep (0-450) pg/mL Total Protein (5.8-8.3) g/dL Albumin (3.0-4.8) g/dL Globulin gm/dL Albumin/Globulin Ratio (1.1-1.8) TSH 3rd Generation (0.46-4.68) mIU/mL Arterial Blood Potassium (3.6-5.2) mmol/L Venous Blood Potassium 5.2 (3.6-5.2) mmol/L Urine Color (YELLOW) Urine Appearance (CLEAR) Urine pH (4.7-8.0) Ur Specific [place] (1.005-1.035) Urine Protein (<30 mg/dL) mg/dL Urine Glucose (UA) (NEGATIVE) mg/dL Urine Ketones (NEGATIVE) mg/dL Urine Blood (NEGATIVE) Urine Nitrate (NEGATIVE) Urine Bilirubin (NEGATIVE) Urine Urobilinogen (<1 E.U./dL) E.U./dL Ur Leukocyte Esterase (NEGATIVE) Susana/uL Urine RBC (0-2) /hpf Urine WBC (0-6) /hpf Ur Epithelial Cells (0-5) /hpf Amorphous Sediment Urine Bacteria (NEG) Urine Other Blood Type Blood Type Confirm Antibody Screen BBK History Checked Laboratory Results - last 24 hr 06/28/18 06/28/18 06/28/18 16:28 16:28 16:45 WBC 10.9 D RBC 4.21 Hgb 12.3 Hct 41.0 MCV 97.4 MCH 29.2 MCHC 30.0 L RDW 18.3 H Plt Count 210 MPV Gran % 83.7 H Lymph % (Auto) 10.7 L [place] % (Auto) 5.4 Eos % (Auto) 0.1 L Baso % (Auto) 0.1 Gran # 9.08 H Lymph # (Auto) 1.2 [place] # (Auto) 0.6 Eos # (Auto) 0.0 Baso # (Auto) 0.01 Neutrophils % (Manual) Band Neutrophils % Lymphocytes % (Manual) Monocytes % (Manual) Platelet Evaluation Anisocytosis (manual) PT INR pCO2 pO2 65 H HCO3 ABG pH ABG Total CO2 ABG O2 Saturation ABG O2 Content ABG Base Excess ABG Hemoglobin ABG Carboxyhemoglobin POC ABG HHb (Measured) ABG Methemoglobin ABG O2 Capacity ABG Potassium VBG pH 7.39 VBG pCO2 61.0 H VBG HCO3 36.9 H VBG Total CO2 38.8 H VBG O2 Sat (Calc) 92.1 H VBG Base Excess 9.6 H VBG Potassium 5.2 Hgb O2 Saturation Sodium 158.0 H Chloride 117.0 H Glucose 139 H Lactate 2.2 H FiO2 21.0 Potassium Carbon Dioxide Anion Gap BUN Creatinine Est GFR ( Amer) Est GFR (Non-Af Amer) Random Glucose Calcium Phosphorus Magnesium Total Bilirubin AST ALT Alkaline Phosphatase Troponin I NT-Pro-B Natriuret Pep Total Protein Albumin Globulin Albumin/Globulin Ratio TSH 3rd Generation Arterial Blood Potassium Venous Blood Potassium 5.2 Urine Color Light yellow Urine Appearance Turbid Urine pH 6.5 Ur Specific [place] 1.015 Urine Protein 30 H Urine Glucose (UA) Negative Urine Ketones Negative Urine Blood Moderate H Urine Nitrate Negative Urine Bilirubin Negative Urine Urobilinogen 2.0 H Ur Leukocyte Esterase Large H Urine RBC Tntc Urine WBC Tntc Ur Epithelial Cells 6 - 8 Amorphous Sediment Small Urine Bacteria Large Urine Other Uyeast Blood Type Blood Type Confirm Antibody Screen BBK History Checked 06/28/18 06/28/18 06/28/18 16:45 17:00 17:36 WBC RBC Hgb Hct MCV MCH MCHC RDW Plt Count MPV Gran % Lymph % (Auto) [place] % (Auto) Eos % (Auto) Baso % (Auto) Gran # Lymph # (Auto) [place] # (Auto) Eos # (Auto) Baso # (Auto) Neutrophils % (Manual) Band Neutrophils % Lymphocytes % (Manual) Monocytes % (Manual) Platelet Evaluation Anisocytosis (manual) PT INR pCO2 49 H pO2 68.0 L HCO3 32.5 H ABG pH 7.43 ABG Total CO2 34.0 H ABG O2 Saturation 94.9 L ABG O2 Content ABG Base Excess 6.9 H ABG Hemoglobin ABG Carboxyhemoglobin POC ABG HHb (Measured) ABG Methemoglobin ABG O2 Capacity ABG Potassium 4.5 VBG pH VBG pCO2 VBG HCO3 VBG Total CO2 VBG O2 Sat (Calc) VBG Base Excess VBG Potassium Hgb O2 Saturation Sodium 158.0 H 155 H Chloride 121.0 H 114 H Glucose 129 H Lactate 1.5 FiO2 100.0 Potassium 5.0 Carbon Dioxide 35 H Anion Gap 10 BUN 92 H Creatinine 3.0 H Est GFR ( Amer) 18 Est GFR (Non-Af Amer) 15 Random Glucose 141 H Calcium 11.6 H Phosphorus Magnesium 1.6 L Total Bilirubin 1.9 H AST 101 H D ALT 47 Alkaline Phosphatase 121 Troponin I 0.07 D NT-Pro-B Natriuret Pep 5900 H Total Protein 7.2 Albumin 3.0 Globulin 4.2 Albumin/Globulin Ratio 0.7 L TSH 3rd Generation Arterial Blood Potassium 4.5 Venous Blood Potassium Urine Color Urine Appearance Urine pH Ur Specific [place] Urine Protein Urine Glucose (UA) Urine Ketones Urine Blood Urine Nitrate Urine Bilirubin Urine Urobilinogen Ur Leukocyte Esterase Urine RBC Urine WBC Ur Epithelial Cells Amorphous Sediment Urine Bacteria Urine Other Blood Type Cancelled Blood Type Confirm Antibody Screen Cancelled BBK History Checked Cancelled 06/28/18 06/28/18 06/28/18 17:36 17:55 21:15 WBC RBC Hgb Hct MCV MCH MCHC RDW Plt Count MPV Gran % Lymph % (Auto) [place] % (Auto) Eos % (Auto) Baso % (Auto) Gran # Lymph # (Auto) [place] # (Auto) Eos # (Auto) Baso # (Auto) Neutrophils % (Manual) Band Neutrophils % Lymphocytes % (Manual) Monocytes % (Manual) Platelet Evaluation Anisocytosis (manual) PT 15.7 H INR 1.37 pCO2 pO2 HCO3 ABG pH ABG Total CO2 ABG O2 Saturation ABG O2 Content ABG Base Excess ABG Hemoglobin ABG Carboxyhemoglobin POC ABG HHb (Measured) ABG Methemoglobin ABG O2 Capacity ABG Potassium VBG pH VBG pCO2 VBG HCO3 VBG Total CO2 VBG O2 Sat (Calc) VBG Base Excess VBG Potassium Hgb O2 Saturation Sodium Chloride Glucose Lactate FiO2 Potassium Carbon Dioxide Anion Gap BUN Creatinine Est GFR ( Amer) Est GFR (Non-Af Amer) Random Glucose Calcium Phosphorus Magnesium Total Bilirubin AST ALT Alkaline Phosphatase Troponin I NT-Pro-B Natriuret Pep Total Protein Albumin Globulin Albumin/Globulin Ratio TSH 3rd Generation 0.53 Arterial Blood Potassium Venous Blood Potassium Urine Color Urine Appearance Urine pH Ur Specific [place] Urine Protein Urine Glucose (UA) Urine Ketones Urine Blood Urine Nitrate Urine Bilirubin Urine Urobilinogen Ur Leukocyte Esterase Urine RBC Urine WBC Ur Epithelial Cells Amorphous Sediment Urine Bacteria Urine Other Blood Type Blood Type Confirm A POSITIVE Antibody Screen BBK History Checked 06/28/18 06/29/18 06/29/18 21:15 01:20 02:14 WBC RBC Hgb Hct MCV MCH MCHC RDW Plt Count MPV Gran % Lymph % (Auto) [place] % (Auto) Eos % (Auto) Baso % (Auto) Gran # Lymph # (Auto) [place] # (Auto) Eos # (Auto) Baso # (Auto) Neutrophils % (Manual) Band Neutrophils % Lymphocytes % (Manual) Monocytes % (Manual) Platelet Evaluation Anisocytosis (manual) PT INR pCO2 pO2 39 30 HCO3 ABG pH ABG Total CO2 ABG O2 Saturation ABG O2 Content ABG Base Excess ABG Hemoglobin ABG Carboxyhemoglobin POC ABG HHb (Measured) ABG Methemoglobin ABG O2 Capacity ABG Potassium VBG pH 7.37 7.35 VBG pCO2 56.0 57.0 VBG HCO3 32.4 H 31.5 H VBG Total CO2 34.1 H 33.2 H VBG O2 Sat (Calc) 69.4 H 51.8 VBG Base Excess 5.5 H 4.3 H VBG Potassium 4.8 5.0 Hgb O2 Saturation Sodium 157.0 H 155.0 H 151 H Chloride 116.0 H 116.0 H 114 H Glucose 172 H 196 H Lactate 3.2 H 4.5 H* FiO2 21.0 21.0 Potassium 4.8 Carbon Dioxide 30 Anion Gap 12 BUN 73 H Creatinine 2.5 H Est GFR ( Amer) 22 Est GFR (Non-Af Amer) 18 Random Glucose 184 H Calcium 10.2 Phosphorus 3.4 Magnesium 2.1 Total Bilirubin 1.4 H AST 78 H D ALT 44 Alkaline Phosphatase 86 Troponin I NT-Pro-B Natriuret Pep Total Protein 5.3 L Albumin 2.1 L Globulin 3.2 Albumin/Globulin Ratio 0.7 L TSH 3rd Generation Arterial Blood Potassium Venous Blood Potassium 4.8 5.0 Urine Color Urine Appearance Urine pH Ur Specific [place] Urine Protein Urine Glucose (UA) Urine Ketones Urine Blood Urine Nitrate Urine Bilirubin Urine Urobilinogen Ur Leukocyte Esterase Urine RBC Urine WBC Ur Epithelial Cells Amorphous Sediment Urine Bacteria Urine Other Blood Type Blood Type Confirm Antibody Screen BBK History Checked 06/29/18 06/29/18 06/29/18 05:20 05:20 05:39 WBC RBC Hgb Hct MCV MCH MCHC RDW Plt Count MPV Gran % Lymph % (Auto) [place] % (Auto) Eos % (Auto) Baso % (Auto) Gran # Lymph # (Auto) [place] # (Auto) Eos # (Auto) Baso # (Auto) Neutrophils % (Manual) Band Neutrophils % Lymphocytes % (Manual) Monocytes % (Manual) Platelet Evaluation Anisocytosis (manual) PT INR pCO2 47 H pO2 57 H 66.0 L HCO3 31.2 H ABG pH 7.43 ABG Total CO2 32.6 H ABG O2 Saturation 94.3 L ABG O2 Content 13.9 L ABG Base Excess 6.0 H ABG Hemoglobin 10.8 L ABG Carboxyhemoglobin 2.0 H POC ABG HHb (Measured) 5.5 H ABG Methemoglobin 1.3 ABG O2 Capacity 14.7 L ABG Potassium VBG pH 7.28 L VBG pCO2 31.0 L VBG HCO3 14.6 L VBG Total CO2 15.6 L VBG O2 Sat (Calc) 91.3 H VBG Base Excess -10.9 L VBG Potassium 4.3 Hgb O2 Saturation 91.1 L Sodium 149 H 140.0 Chloride 113 H 110.0 H Glucose 84 Lactate 16.3 H* FiO2 21.0 40.0 Potassium 4.3 Carbon Dioxide 29 Anion Gap 11 BUN 69 H Creatinine 2.1 H Est GFR ( Amer) 27 Est GFR (Non-Af Amer) 22 Random Glucose 160 H Calcium 9.9 Phosphorus 3.2 Magnesium 1.0 L* Total Bilirubin 1.0 AST 79 H ALT 42 Alkaline Phosphatase 81 Troponin I 0.03 D NT-Pro-B Natriuret Pep Total Protein 5.2 L Albumin 2.1 L Globulin 3.1 Albumin/Globulin Ratio 0.7 L TSH 3rd Generation Arterial Blood Potassium Venous Blood Potassium 4.3 Urine Color Urine Appearance Urine pH Ur Specific [place] Urine Protein Urine Glucose (UA) Urine Ketones Urine Blood Urine Nitrate Urine Bilirubin Urine Urobilinogen Ur Leukocyte Esterase Urine RBC Urine WBC Ur Epithelial Cells Amorphous Sediment Urine Bacteria Urine Other Blood Type Blood Type Confirm Antibody Screen BBK History Checked 06/29/18 06/29/18 05:54 07:50 WBC 7.8 D RBC 3.23 L Hgb 9.4 L D Hct 31.4 L MCV 97.2 MCH 29.1 MCHC 29.9 L RDW 18.0 H Plt Count 140 MPV 12.1 H Gran % 92.4 H Lymph % (Auto) 6.2 L [place] % (Auto) 1.4 Eos % (Auto) 0.0 L Baso % (Auto) 0.0 Gran # 7.20 H Lymph # (Auto) 0.5 L [place] # (Auto) 0.1 Eos # (Auto) 0.0 Baso # (Auto) 0.00 Neutrophils % (Manual) 94 H Band Neutrophils % 4 H Lymphocytes % (Manual) 2 L Monocytes % (Manual) TEST NOT PERFORMED Platelet Evaluation Normal Anisocytosis (manual) 1+ PT INR pCO2 pO2 28 L HCO3 ABG pH ABG Total CO2 ABG O2 Saturation ABG O2 Content ABG Base Excess ABG Hemoglobin ABG Carboxyhemoglobin POC ABG HHb (Measured) ABG Methemoglobin ABG O2 Capacity ABG Potassium VBG pH 7.39 VBG pCO2 62.0 H VBG HCO3 37.5 H VBG Total CO2 39.4 H VBG O2 Sat (Calc) 42.5 VBG Base Excess 10.1 H VBG Potassium 4.7 Hgb O2 Saturation Sodium 157.0 H Chloride 117.0 H Glucose 183 H Lactate 2.3 H FiO2 21.0 Potassium Carbon Dioxide Anion Gap BUN Creatinine Est GFR ( Amer) Est GFR (Non-Af Amer) Random Glucose Calcium Phosphorus Magnesium Total Bilirubin AST ALT Alkaline Phosphatase Troponin I NT-Pro-B Natriuret Pep Total Protein Albumin Globulin Albumin/Globulin Ratio TSH 3rd Generation Arterial Blood Potassium Venous Blood Potassium 4.7 Urine Color Urine Appearance Urine pH Ur Specific [place] Urine Protein Urine Glucose (UA) Urine Ketones Urine Blood Urine Nitrate Urine Bilirubin Urine Urobilinogen Ur Leukocyte Esterase Urine RBC Urine WBC Ur Epithelial Cells Amorphous Sediment Urine Bacteria Urine Other Blood Type Blood Type Confirm Antibody Screen BBK History Checked EKG/Cardiology Studies: Cardiology / EKG Studies 06/28/18 16:32 EKG [ELECTROCARDIOGRAM] Stat Comment: Reason For Exam: WEAKNESS/LOW BLOOD PRESSURE Fingerstick Blood Sugar Results: 196 Review of Systems - Review of Systems Systems not reviewed;Unavailable: Altered Mental Status Critical Care Progress Note - Nutrition Nutrition: Nutrition Category Date Time Status NPO Diet [DIET] Diets 06/28/18 Breakfast Ordered Assessment/Plan - Assessment and Plan (Free Text) Assessment: 83 F with history of dementia, atrial fibrillation on eliquis, CHF, CRF, DM, depression, COPD, breast ca s/p L mastectomy presenting from [facility] for worsening lethargy x 2 days found to be in respiratory failure and severe sepsis secondary to UTI with ADY, septic encephalopathy, and respiratory insufficiency Neuro: -Alert and awake, no FND -Altered mental status likely 2/2 to sepsis -Continue to monitor neuro status. -Reorient patient as necessary. Cardio: -Last EF 72% 01/2018 -Monitor I&O -Last input 1900, output 550 -Maintain MAP >65 -DVT prophylaxis- continue with eliquis GI: -Continue with protonix for GI prophylaxis -Will continue NPO for now; Speech and Swallow eval ordered -UA reveals large leukocyte esterase, WBC tntc; will continue patient on merrem day#2 -Last input 1900, output 550 -Creatinine continues to downtrend. Now 2.1 from 2.5. -Hypomagnesemia; repleted -Continue Replete electrolytes as needed -Fluids switched from LR to 1/2 NS in light of mild hypernatremia -Maintain euvolemia ID -Continue with merrem day#2 -Procalcitonin pending -Blood and Urine cultures pending Endocrine -Maintain euglcemia within 140-180 -Continue with ISS-Med -Continue with fingersticks q6h -Maintain normothermia -Continue with Synthroid Disposition: Patient is no longer requiring BiPAP, is able to tolerate NC 3L and maintain O2 sat of 95%. Patient has also increased responsiveness in comparison to when admitted. Patient's labs are improving evidenced by improvement of lactate to a 2.3, improving Cr and electrolytes with exception of mg which has been repleted. Patient no longer requires ICU care due to improvements in current medical status. <Jam Encarnacion - Last Filed: 06/29/18 12:09> CCU Objective - Vital Signs / Intake & Output Vital Signs (Last 4 hours): Vital Signs Pulse Resp BP Pulse Ox 06/29/18 10:00 60 18 104/57 L 94 L 06/29/18 09:00 60 25 H 120/63 94 L Intake and Output (Last 8hrs): Intake & Output 06/28/18 06/29/18 06/29/18 22:59 06:59 14:59 Intake Total 1900 Output Total 550 Balance 1350 Weight 270 lb 270 lb Intake: IV 1900 Right Hand 1900 Output: Urine 550 Urethral (Walsh) 550 Other: Voiding Method Indwelling Catheter # Bowel Movements 1 - Medications Active Medications: Active Medications Generic Name Dose Route Start Last Admin Trade Name Freq PRN Reason Stop Dose Admin Apixaban 2.5 mg 06/28/18 22:00 06/29/18 09:20 Eliquis PO Not Given Q12 [facility] Protocol Escitalopram Oxalate 20 mg 06/29/18 10:00 06/29/18 09:21 Lexapro PO Not Given DAILY [facility] Meropenem 250 mg/ Sodium 100 mls @ 100 mls/hr 06/28/18 19:30 06/29/18 08:20 Chloride IVPB 07/07/18 19:31 100 mls/hr Q12H SOHAN Administration Protocol Sodium Chloride 1,000 mls @ 100 mls/hr 06/29/18 09:45 06/29/18 09:51 Sodium Chloride 0.45% IV 100 mls/hr .Q10H SOHAN Administration Insulin Human Regular 0 units 06/28/18 18:45 06/29/18 10:22 Humulin R Med SC 1 unit Q4H SOHAN Administration Protocol Levothyroxine Sodium 112 mcg 06/29/18 10:00 06/29/18 09:21 Synthroid PO Not Given DAILY SOHAN Pantoprazole Sodium 40 mg 06/29/18 10:00 06/29/18 09:21 Protonix Inj IVP 40 mg DAILY SOHAN Administration - Patient Studies Lab Studies: Lab Studies 06/29/18 06/29/18 06/29/18 Range/Units 07:50 05:54 05:39 WBC 7.8 D (4.5-11.0) 10^3/ul RBC 3.23 L (3.5-6.1) 10^6/uL Hgb 9.4 L D (12.0-16.0) g/dL Hct 31.4 L (36.0-48.0) % MCV 97.2 (80.0-105.0) fl MCH 29.1 (25.0-35.0) pg MCHC 29.9 L (31.0-37.0) g/dl RDW 18.0 H (11.5-14.5) % Plt Count 140 (120.0-450.0) 10^3/uL MPV 12.1 H (7.0-11.0) fl Gran % 92.4 H (50.0-68.0) % Lymph % (Auto) 6.2 L (22.0-35.0) % [place] % (Auto) 1.4 (1.0-6.0) % Eos % (Auto) 0.0 L (1.5-5.0) % Baso % (Auto) 0.0 (0.0-3.0) % Gran # 7.20 H (1.4-6.5) Lymph # (Auto) 0.5 L (1.2-3.4) [place] # (Auto) 0.1 (0.1-0.6) Eos # (Auto) 0.0 (0.0-0.7) Baso # (Auto) 0.00 (0.0-2.0) K/mm3 Neutrophils % (Manual) 94 H (50.0-70.0) % Band Neutrophils % 4 H (0-2) % Lymphocytes % (Manual) 2 L (22.0-35.0) % Monocytes % (Manual) TEST NOT PERFORMED Platelet Evaluation Normal (NORMAL) Anisocytosis (manual) 1+ PT (9.4-12.5) SECONDS INR pCO2 47 H (35-45) mm/Hg pO2 28 L 66.0 L (30-55) mm/Hg HCO3 31.2 H (21-28) mmol/L ABG pH 7.43 (7.35-7.45) ABG Total CO2 32.6 H (22-28) mmol.L ABG O2 Saturation 94.3 L (95-98) % ABG O2 Content 13.9 L (15-23) ML/dl ABG Base Excess 6.0 H (-2.0-3.0) mmol/L ABG Hemoglobin 10.8 L (11.7-17.4) g/dL ABG Carboxyhemoglobin 2.0 H (0.5-1.5) % POC ABG HHb (Measured) 5.5 H (0-5) % ABG Methemoglobin 1.3 (0.0-3.0) % ABG O2 Capacity 14.7 L (16-24) mL/dl ABG Potassium (3.6-5.2) mmol/L VBG pH 7.39 (7.32-7.43) VBG pCO2 62.0 H (40-60) VBG HCO3 37.5 H (21-28) mmol/l VBG Total CO2 39.4 H (22-28) mmol.L VBG O2 Sat (Calc) 42.5 (40-65) % VBG Base Excess 10.1 H (0.0-2.0) mmol/L VBG Potassium 4.7 (3.6-5.2) mmol/L Hgb O2 Saturation 91.1 L (95.0-98.0) % Sodium 157.0 H (132-148) mmol/L Chloride 117.0 H (98-107) mmol/L Glucose 183 H (65-105) mg/dl Lactate 2.3 H (0.7-2.1) mmol/L FiO2 21.0 40.0 % Potassium (3.6-5.0) mmol/L Carbon Dioxide (21-33) mmol/L Anion Gap (10-20) BUN (7-21) mg/dL Creatinine (0.7-1.2) mg/dl Est GFR ( Amer) Est GFR (Non-Af Amer) POC Glucose (mg/dL) (65-110) mg/dL Random Glucose (70-110) mg/dL Calcium (8.4-10.5) mg/dL Phosphorus (2.5-4.5) mg/dL Magnesium (1.7-2.2) mg/dL Total Bilirubin (0.2-1.3) mg/dL AST (14-36) U/L ALT (7-56) U/L Alkaline Phosphatase (38-126) U/L Troponin I ng/mL NT-Pro-B Natriuret Pep (0-450) pg/mL Total Protein (5.8-8.3) g/dL Albumin (3.0-4.8) g/dL Globulin gm/dL Albumin/Globulin Ratio (1.1-1.8) TSH 3rd Generation (0.46-4.68) mIU/mL Arterial Blood Potassium (3.6-5.2) mmol/L Venous Blood Potassium 4.7 (3.6-5.2) mmol/L Urine Color (YELLOW) Urine Appearance (CLEAR) Urine pH (4.7-8.0) Ur Specific [place] (1.005-1.035) Urine Protein (<30 mg/dL) mg/dL Urine Glucose (UA) (NEGATIVE) mg/dL Urine Ketones (NEGATIVE) mg/dL Urine Blood (NEGATIVE) Urine Nitrate (NEGATIVE) Urine Bilirubin (NEGATIVE) Urine Urobilinogen (<1 E.U./dL) E.U./dL Ur Leukocyte Esterase (NEGATIVE) Susana/uL Urine RBC (0-2) /hpf Urine WBC (0-6) /hpf Ur Epithelial Cells (0-5) /hpf Amorphous Sediment Urine Bacteria (NEG) Urine Other Blood Type Blood Type Confirm Antibody Screen BBK History Checked 06/29/18 06/29/18 06/29/18 Range/Units 05:20 05:20 04:55 WBC (4.5-11.0) 10^3/ul RBC (3.5-6.1) 10^6/uL Hgb (12.0-16.0) g/dL Hct (36.0-48.0) % MCV (80.0-105.0) fl MCH (25.0-35.0) pg MCHC (31.0-37.0) g/dl RDW (11.5-14.5) % Plt Count (120.0-450.0) 10^3/uL MPV (7.0-11.0) fl Gran % (50.0-68.0) % Lymph % (Auto) (22.0-35.0) % [place] % (Auto) (1.0-6.0) % Eos % (Auto) (1.5-5.0) % Baso % (Auto) (0.0-3.0) % Gran # (1.4-6.5) Lymph # (Auto) (1.2-3.4) [place] # (Auto) (0.1-0.6) Eos # (Auto) (0.0-0.7) Baso # (Auto) (0.0-2.0) K/mm3 Neutrophils % (Manual) (50.0-70.0) % Band Neutrophils % (0-2) % Lymphocytes % (Manual) (22.0-35.0) % Monocytes % (Manual) Platelet Evaluation (NORMAL) Anisocytosis (manual) PT (9.4-12.5) SECONDS INR pCO2 (35-45) mm/Hg pO2 57 H (30-55) mm/Hg HCO3 (21-28) mmol/L ABG pH (7.35-7.45) ABG Total CO2 (22-28) mmol.L ABG O2 Saturation (95-98) % ABG O2 Content (15-23) ML/dl ABG Base Excess (-2.0-3.0) mmol/L ABG Hemoglobin (11.7-17.4) g/dL ABG Carboxyhemoglobin (0.5-1.5) % POC ABG HHb (Measured) (0-5) % ABG Methemoglobin (0.0-3.0) % ABG O2 Capacity (16-24) mL/dl ABG Potassium (3.6-5.2) mmol/L VBG pH 7.28 L (7.32-7.43) VBG pCO2 31.0 L (40-60) VBG HCO3 14.6 L (21-28) mmol/l VBG Total CO2 15.6 L (22-28) mmol.L VBG O2 Sat (Calc) 91.3 H (40-65) % VBG Base Excess -10.9 L (0.0-2.0) mmol/L VBG Potassium 4.3 (3.6-5.2) mmol/L Hgb O2 Saturation (95.0-98.0) % Sodium 140.0 149 H (132-148) mmol/L Chloride 110.0 H 113 H (98-107) mmol/L Glucose 84 (65-105) mg/dl Lactate 16.3 H* (0.7-2.1) mmol/L FiO2 21.0 % Potassium 4.3 (3.6-5.0) mmol/L Carbon Dioxide 29 (21-33) mmol/L Anion Gap 11 (10-20) BUN 69 H (7-21) mg/dL Creatinine 2.1 H (0.7-1.2) mg/dl Est GFR ( Amer) 27 Est GFR (Non-Af Amer) 22 POC Glucose (mg/dL) 196 H (65-110) mg/dL Random Glucose 160 H (70-110) mg/dL Calcium 9.9 (8.4-10.5) mg/dL Phosphorus 3.2 (2.5-4.5) mg/dL Magnesium 1.0 L* (1.7-2.2) mg/dL Total Bilirubin 1.0 (0.2-1.3) mg/dL AST 79 H (14-36) U/L ALT 42 (7-56) U/L Alkaline Phosphatase 81 (38-126) U/L Troponin I 0.03 D ng/mL NT-Pro-B Natriuret Pep (0-450) pg/mL Total Protein 5.2 L (5.8-8.3) g/dL Albumin 2.1 L (3.0-4.8) g/dL Globulin 3.1 gm/dL Albumin/Globulin Ratio 0.7 L (1.1-1.8) TSH 3rd Generation (0.46-4.68) mIU/mL Arterial Blood Potassium (3.6-5.2) mmol/L Venous Blood Potassium 4.3 (3.6-5.2) mmol/L Urine Color (YELLOW) Urine Appearance (CLEAR) Urine pH (4.7-8.0) Ur Specific [place] (1.005-1.035) Urine Protein (<30 mg/dL) mg/dL Urine Glucose (UA) (NEGATIVE) mg/dL Urine Ketones (NEGATIVE) mg/dL Urine Blood (NEGATIVE) Urine Nitrate (NEGATIVE) Urine Bilirubin (NEGATIVE) Urine Urobilinogen (<1 E.U./dL) E.U./dL Ur Leukocyte Esterase (NEGATIVE) Susana/uL Urine RBC (0-2) /hpf Urine WBC (0-6) /hpf Ur Epithelial Cells (0-5) /hpf Amorphous Sediment Urine Bacteria (NEG) Urine Other Blood Type Blood Type Confirm Antibody Screen BBK History Checked 06/29/18 06/29/18 06/28/18 Range/Units 02:14 01:20 23:20 WBC (4.5-11.0) 10^3/ul RBC (3.5-6.1) 10^6/uL Hgb (12.0-16.0) g/dL Hct (36.0-48.0) % MCV (80.0-105.0) fl MCH (25.0-35.0) pg MCHC (31.0-37.0) g/dl RDW (11.5-14.5) % Plt Count (120.0-450.0) 10^3/uL MPV (7.0-11.0) fl Gran % (50.0-68.0) % Lymph % (Auto) (22.0-35.0) % [place] % (Auto) (1.0-6.0) % Eos % (Auto) (1.5-5.0) % Baso % (Auto) (0.0-3.0) % Gran # (1.4-6.5) Lymph # (Auto) (1.2-3.4) [place] # (Auto) (0.1-0.6) Eos # (Auto) (0.0-0.7) Baso # (Auto) (0.0-2.0) K/mm3 Neutrophils % (Manual) (50.0-70.0) % Band Neutrophils % (0-2) % Lymphocytes % (Manual) (22.0-35.0) % Monocytes % (Manual) Platelet Evaluation (NORMAL) Anisocytosis (manual) PT (9.4-12.5) SECONDS INR pCO2 (35-45) mm/Hg pO2 30 (30-55) mm/Hg HCO3 (21-28) mmol/L ABG pH (7.35-7.45) ABG Total CO2 (22-28) mmol.L ABG O2 Saturation (95-98) % ABG O2 Content (15-23) ML/dl ABG Base Excess (-2.0-3.0) mmol/L ABG Hemoglobin (11.7-17.4) g/dL ABG Carboxyhemoglobin (0.5-1.5) % POC ABG HHb (Measured) (0-5) % ABG Methemoglobin (0.0-3.0) % ABG O2 Capacity (16-24) mL/dl ABG Potassium (3.6-5.2) mmol/L VBG pH 7.35 (7.32-7.43) VBG pCO2 57.0 (40-60) VBG HCO3 31.5 H (21-28) mmol/l VBG Total CO2 33.2 H (22-28) mmol.L VBG O2 Sat (Calc) 51.8 (40-65) % VBG Base Excess 4.3 H (0.0-2.0) mmol/L VBG Potassium 5.0 (3.6-5.2) mmol/L Hgb O2 Saturation (95.0-98.0) % Sodium 151 H 155.0 H (132-148) mmol/L Chloride 114 H 116.0 H (98-107) mmol/L Glucose 196 H (65-105) mg/dl Lactate 4.5 H* (0.7-2.1) mmol/L FiO2 21.0 % Potassium 4.8 (3.6-5.0) mmol/L Carbon Dioxide 30 (21-33) mmol/L Anion Gap 12 (10-20) BUN 73 H (7-21) mg/dL Creatinine 2.5 H (0.7-1.2) mg/dl Est GFR ( Amer) 22 Est GFR (Non-Af Amer) 18 POC Glucose (mg/dL) 196 H (65-110) mg/dL Random Glucose 184 H (70-110) mg/dL Calcium 10.2 (8.4-10.5) mg/dL Phosphorus 3.4 (2.5-4.5) mg/dL Magnesium 2.1 (1.7-2.2) mg/dL Total Bilirubin 1.4 H (0.2-1.3) mg/dL AST 78 H D (14-36) U/L ALT 44 (7-56) U/L Alkaline Phosphatase 86 (38-126) U/L Troponin I ng/mL NT-Pro-B Natriuret Pep (0-450) pg/mL Total Protein 5.3 L (5.8-8.3) g/dL Albumin 2.1 L (3.0-4.8) g/dL Globulin 3.2 gm/dL Albumin/Globulin Ratio 0.7 L (1.1-1.8) TSH 3rd Generation (0.46-4.68) mIU/mL Arterial Blood Potassium (3.6-5.2) mmol/L Venous Blood Potassium 5.0 (3.6-5.2) mmol/L Urine Color (YELLOW) Urine Appearance (CLEAR) Urine pH (4.7-8.0) Ur Specific [place] (1.005-1.035) Urine Protein (<30 mg/dL) mg/dL Urine Glucose (UA) (NEGATIVE) mg/dL Urine Ketones (NEGATIVE) mg/dL Urine Blood (NEGATIVE) Urine Nitrate (NEGATIVE) Urine Bilirubin (NEGATIVE) Urine Urobilinogen (<1 E.U./dL) E.U./dL Ur Leukocyte Esterase (NEGATIVE) Susana/uL Urine RBC (0-2) /hpf Urine WBC (0-6) /hpf Ur Epithelial Cells (0-5) /hpf Amorphous Sediment Urine Bacteria (NEG) Urine Other Blood Type Blood Type Confirm Antibody Screen BBK History Checked 06/28/18 06/28/18 06/28/18 Range/Units 21:15 21:15 17:55 WBC (4.5-11.0) 10^3/ul RBC (3.5-6.1) 10^6/uL Hgb (12.0-16.0) g/dL Hct (36.0-48.0) % MCV (80.0-105.0) fl MCH (25.0-35.0) pg MCHC (31.0-37.0) g/dl RDW (11.5-14.5) % Plt Count (120.0-450.0) 10^3/uL MPV (7.0-11.0) fl Gran % (50.0-68.0) % Lymph % (Auto) (22.0-35.0) % [place] % (Auto) (1.0-6.0) % Eos % (Auto) (1.5-5.0) % Baso % (Auto) (0.0-3.0) % Gran # (1.4-6.5) Lymph # (Auto) (1.2-3.4) [place] # (Auto) (0.1-0.6) Eos # (Auto) (0.0-0.7) Baso # (Auto) (0.0-2.0) K/mm3 Neutrophils % (Manual) (50.0-70.0) % Band Neutrophils % (0-2) % Lymphocytes % (Manual) (22.0-35.0) % Monocytes % (Manual) Platelet Evaluation (NORMAL) Anisocytosis (manual) PT 15.7 H (9.4-12.5) SECONDS INR 1.37 pCO2 (35-45) mm/Hg pO2 39 (30-55) mm/Hg HCO3 (21-28) mmol/L ABG pH (7.35-7.45) ABG Total CO2 (22-28) mmol.L ABG O2 Saturation (95-98) % ABG O2 Content (15-23) ML/dl ABG Base Excess (-2.0-3.0) mmol/L ABG Hemoglobin (11.7-17.4) g/dL ABG Carboxyhemoglobin (0.5-1.5) % POC ABG HHb (Measured) (0-5) % ABG Methemoglobin (0.0-3.0) % ABG O2 Capacity (16-24) mL/dl ABG Potassium (3.6-5.2) mmol/L VBG pH 7.37 (7.32-7.43) VBG pCO2 56.0 (40-60) VBG HCO3 32.4 H (21-28) mmol/l VBG Total CO2 34.1 H (22-28) mmol.L VBG O2 Sat (Calc) 69.4 H (40-65) % VBG Base Excess 5.5 H (0.0-2.0) mmol/L VBG Potassium 4.8 (3.6-5.2) mmol/L Hgb O2 Saturation (95.0-98.0) % Sodium 157.0 H (132-148) mmol/L Chloride 116.0 H (98-107) mmol/L Glucose 172 H (65-105) mg/dl Lactate 3.2 H (0.7-2.1) mmol/L FiO2 21.0 % Potassium (3.6-5.0) mmol/L Carbon Dioxide (21-33) mmol/L Anion Gap (10-20) BUN (7-21) mg/dL Creatinine (0.7-1.2) mg/dl Est GFR ( Amer) Est GFR (Non-Af Amer) POC Glucose (mg/dL) (65-110) mg/dL Random Glucose (70-110) mg/dL Calcium (8.4-10.5) mg/dL Phosphorus (2.5-4.5) mg/dL Magnesium (1.7-2.2) mg/dL Total Bilirubin (0.2-1.3) mg/dL AST (14-36) U/L ALT (7-56) U/L Alkaline Phosphatase (38-126) U/L Troponin I ng/mL NT-Pro-B Natriuret Pep (0-450) pg/mL Total Protein (5.8-8.3) g/dL Albumin (3.0-4.8) g/dL Globulin gm/dL Albumin/Globulin Ratio (1.1-1.8) TSH 3rd Generation (0.46-4.68) mIU/mL Arterial Blood Potassium (3.6-5.2) mmol/L Venous Blood Potassium 4.8 (3.6-5.2) mmol/L Urine Color (YELLOW) Urine Appearance (CLEAR) Urine pH (4.7-8.0) Ur Specific Woodson (1.005-1.035) Urine Protein (<30 mg/dL) mg/dL Urine Glucose (UA) (NEGATIVE) mg/dL Urine Ketones (NEGATIVE) mg/dL Urine Blood (NEGATIVE) Urine Nitrate (NEGATIVE) Urine Bilirubin (NEGATIVE) Urine Urobilinogen (<1 E.U./dL) E.U./dL Ur Leukocyte Esterase (NEGATIVE) Susana/uL Urine RBC (0-2) /hpf Urine WBC (0-6) /hpf Ur Epithelial Cells (0-5) /hpf Amorphous Sediment Urine Bacteria (NEG) Urine Other Blood Type Blood Type Confirm A POSITIVE Antibody Screen BBK History Checked 06/28/18 06/28/18 06/28/18 Range/Units 17:36 17:36 17:00 WBC (4.5-11.0) 10^3/ul RBC (3.5-6.1) 10^6/uL Hgb (12.0-16.0) g/dL Hct (36.0-48.0) % MCV (80.0-105.0) fl MCH (25.0-35.0) pg MCHC (31.0-37.0) g/dl RDW (11.5-14.5) % Plt Count (120.0-450.0) 10^3/uL MPV (7.0-11.0) fl Gran % (50.0-68.0) % Lymph % (Auto) (22.0-35.0) % [place] % (Auto) (1.0-6.0) % Eos % (Auto) (1.5-5.0) % Baso % (Auto) (0.0-3.0) % Gran # (1.4-6.5) Lymph # (Auto) (1.2-3.4) [place] # (Auto) (0.1-0.6) Eos # (Auto) (0.0-0.7) Baso # (Auto) (0.0-2.0) K/mm3 Neutrophils % (Manual) (50.0-70.0) % Band Neutrophils % (0-2) % Lymphocytes % (Manual) (22.0-35.0) % Monocytes % (Manual) Platelet Evaluation (NORMAL) Anisocytosis (manual) PT (9.4-12.5) SECONDS INR pCO2 49 H (35-45) mm/Hg pO2 68.0 L (30-55) mm/Hg HCO3 32.5 H (21-28) mmol/L ABG pH 7.43 (7.35-7.45) ABG Total CO2 34.0 H (22-28) mmol.L ABG O2 Saturation 94.9 L (95-98) % ABG O2 Content (15-23) ML/dl ABG Base Excess 6.9 H (-2.0-3.0) mmol/L ABG Hemoglobin (11.7-17.4) g/dL ABG Carboxyhemoglobin (0.5-1.5) % POC ABG HHb (Measured) (0-5) % ABG Methemoglobin (0.0-3.0) % ABG O2 Capacity (16-24) mL/dl ABG Potassium 4.5 (3.6-5.2) mmol/L VBG pH (7.32-7.43) VBG pCO2 (40-60) VBG HCO3 (21-28) mmol/l VBG Total CO2 (22-28) mmol.L VBG O2 Sat (Calc) (40-65) % VBG Base Excess (0.0-2.0) mmol/L VBG Potassium (3.6-5.2) mmol/L Hgb O2 Saturation (95.0-98.0) % Sodium 155 H 158.0 H (132-148) mmol/L Chloride 114 H 121.0 H (98-107) mmol/L Glucose 129 H (65-105) mg/dl Lactate 1.5 (0.7-2.1) mmol/L FiO2 100.0 % Potassium 5.0 (3.6-5.0) mmol/L Carbon Dioxide 35 H (21-33) mmol/L Anion Gap 10 (10-20) BUN 92 H (7-21) mg/dL Creatinine 3.0 H (0.7-1.2) mg/dl Est GFR ( Amer) 18 Est GFR (Non-Af Amer) 15 POC Glucose (mg/dL) (65-110) mg/dL Random Glucose 141 H (70-110) mg/dL Calcium 11.6 H (8.4-10.5) mg/dL Phosphorus (2.5-4.5) mg/dL Magnesium 1.6 L (1.7-2.2) mg/dL Total Bilirubin 1.9 H (0.2-1.3) mg/dL AST 101 H D (14-36) U/L ALT 47 (7-56) U/L Alkaline Phosphatase 121 (38-126) U/L Troponin I 0.07 D ng/mL NT-Pro-B Natriuret Pep 5900 H (0-450) pg/mL Total Protein 7.2 (5.8-8.3) g/dL Albumin 3.0 (3.0-4.8) g/dL Globulin 4.2 gm/dL Albumin/Globulin Ratio 0.7 L (1.1-1.8) TSH 3rd Generation 0.53 (0.46-4.68) mIU/mL Arterial Blood Potassium 4.5 (3.6-5.2) mmol/L Venous Blood Potassium (3.6-5.2) mmol/L Urine Color (YELLOW) Urine Appearance (CLEAR) Urine pH (4.7-8.0) Ur Specific [place] (1.005-1.035) Urine Protein (<30 mg/dL) mg/dL Urine Glucose (UA) (NEGATIVE) mg/dL Urine Ketones (NEGATIVE) mg/dL Urine Blood (NEGATIVE) Urine Nitrate (NEGATIVE) Urine Bilirubin (NEGATIVE) Urine Urobilinogen (<1 E.U./dL) E.U./dL Ur Leukocyte Esterase (NEGATIVE) Susana/uL Urine RBC (0-2) /hpf Urine WBC (0-6) /hpf Ur Epithelial Cells (0-5) /hpf Amorphous Sediment Urine Bacteria (NEG) Urine Other Blood Type Blood Type Confirm Antibody Screen BBK History Checked 06/28/18 06/28/18 06/28/18 Range/Units 16:45 16:45 16:28 WBC (4.5-11.0) 10^3/ul RBC (3.5-6.1) 10^6/uL Hgb (12.0-16.0) g/dL Hct (36.0-48.0) % MCV (80.0-105.0) fl MCH (25.0-35.0) pg MCHC (31.0-37.0) g/dl RDW (11.5-14.5) % Plt Count (120.0-450.0) 10^3/uL MPV (7.0-11.0) fl Gran % (50.0-68.0) % Lymph % (Auto) (22.0-35.0) % [place] % (Auto) (1.0-6.0) % Eos % (Auto) (1.5-5.0) % Baso % (Auto) (0.0-3.0) % Gran # (1.4-6.5) Lymph # (Auto) (1.2-3.4) [place] # (Auto) (0.1-0.6) Eos # (Auto) (0.0-0.7) Baso # (Auto) (0.0-2.0) K/mm3 Neutrophils % (Manual) (50.0-70.0) % Band Neutrophils % (0-2) % Lymphocytes % (Manual) (22.0-35.0) % Monocytes % (Manual) Platelet Evaluation (NORMAL) Anisocytosis (manual) PT (9.4-12.5) SECONDS INR pCO2 (35-45) mm/Hg pO2 65 H (30-55) mm/Hg HCO3 (21-28) mmol/L ABG pH (7.35-7.45) ABG Total CO2 (22-28) mmol.L ABG O2 Saturation (95-98) % ABG O2 Content (15-23) ML/dl ABG Base Excess (-2.0-3.0) mmol/L ABG Hemoglobin (11.7-17.4) g/dL ABG Carboxyhemoglobin (0.5-1.5) % POC ABG HHb (Measured) (0-5) % ABG Methemoglobin (0.0-3.0) % ABG O2 Capacity (16-24) mL/dl ABG Potassium (3.6-5.2) mmol/L VBG pH 7.39 (7.32-7.43) VBG pCO2 61.0 H (40-60) VBG HCO3 36.9 H (21-28) mmol/l VBG Total CO2 38.8 H (22-28) mmol.L VBG O2 Sat (Calc) 92.1 H (40-65) % VBG Base Excess 9.6 H (0.0-2.0) mmol/L VBG Potassium 5.2 (3.6-5.2) mmol/L Hgb O2 Saturation (95.0-98.0) % Sodium 158.0 H (132-148) mmol/L Chloride 117.0 H (98-107) mmol/L Glucose 139 H (65-105) mg/dl Lactate 2.2 H (0.7-2.1) mmol/L FiO2 21.0 % Potassium (3.6-5.0) mmol/L Carbon Dioxide (21-33) mmol/L Anion Gap (10-20) BUN (7-21) mg/dL Creatinine (0.7-1.2) mg/dl Est GFR ( Amer) Est GFR (Non-Af Amer) POC Glucose (mg/dL) (65-110) mg/dL Random Glucose (70-110) mg/dL Calcium (8.4-10.5) mg/dL Phosphorus (2.5-4.5) mg/dL Magnesium (1.7-2.2) mg/dL Total Bilirubin (0.2-1.3) mg/dL AST (14-36) U/L ALT (7-56) U/L Alkaline Phosphatase (38-126) U/L Troponin I ng/mL NT-Pro-B Natriuret Pep (0-450) pg/mL Total Protein (5.8-8.3) g/dL Albumin (3.0-4.8) g/dL Globulin gm/dL Albumin/Globulin Ratio (1.1-1.8) TSH 3rd Generation (0.46-4.68) mIU/mL Arterial Blood Potassium (3.6-5.2) mmol/L Venous Blood Potassium 5.2 (3.6-5.2) mmol/L Urine Color Light yellow (YELLOW) Urine Appearance Turbid (CLEAR) Urine pH 6.5 (4.7-8.0) Ur Specific [place] 1.015 (1.005-1.035) Urine Protein 30 H (<30 mg/dL) mg/dL Urine Glucose (UA) Negative (NEGATIVE) mg/dL Urine Ketones Negative (NEGATIVE) mg/dL Urine Blood Moderate H (NEGATIVE) Urine Nitrate Negative (NEGATIVE) Urine Bilirubin Negative (NEGATIVE) Urine Urobilinogen 2.0 H (<1 E.U./dL) E.U./dL Ur Leukocyte Esterase Large H (NEGATIVE) Susana/uL Urine RBC Tntc (0-2) /hpf Urine WBC Tntc (0-6) /hpf Ur Epithelial Cells 6 - 8 (0-5) /hpf Amorphous Sediment Small Urine Bacteria Large (NEG) Urine Other Uyeast Blood Type Cancelled Blood Type Confirm Antibody Screen Cancelled BBK History Checked Cancelled 06/28/18 Range/Units 16:28 WBC 10.9 D (4.5-11.0) 10^3/ul RBC 4.21 (3.5-6.1) 10^6/uL Hgb 12.3 (12.0-16.0) g/dL Hct 41.0 (36.0-48.0) % MCV 97.4 (80.0-105.0) fl MCH 29.2 (25.0-35.0) pg MCHC 30.0 L (31.0-37.0) g/dl RDW 18.3 H (11.5-14.5) % Plt Count 210 (120.0-450.0) 10^3/uL MPV (7.0-11.0) fl Gran % 83.7 H (50.0-68.0) % Lymph % (Auto) 10.7 L (22.0-35.0) % [place] % (Auto) 5.4 (1.0-6.0) % Eos % (Auto) 0.1 L (1.5-5.0) % Baso % (Auto) 0.1 (0.0-3.0) % Gran # 9.08 H (1.4-6.5) Lymph # (Auto) 1.2 (1.2-3.4) [place] # (Auto) 0.6 (0.1-0.6) Eos # (Auto) 0.0 (0.0-0.7) Baso # (Auto) 0.01 (0.0-2.0) K/mm3 Neutrophils % (Manual) (50.0-70.0) % Band Neutrophils % (0-2) % Lymphocytes % (Manual) (22.0-35.0) % Monocytes % (Manual) Platelet Evaluation (NORMAL) Anisocytosis (manual) PT (9.4-12.5) SECONDS INR pCO2 (35-45) mm/Hg pO2 (30-55) mm/Hg HCO3 (21-28) mmol/L ABG pH (7.35-7.45) ABG Total CO2 (22-28) mmol.L ABG O2 Saturation (95-98) % ABG O2 Content (15-23) ML/dl ABG Base Excess (-2.0-3.0) mmol/L ABG Hemoglobin (11.7-17.4) g/dL ABG Carboxyhemoglobin (0.5-1.5) % POC ABG HHb (Measured) (0-5) % ABG Methemoglobin (0.0-3.0) % ABG O2 Capacity (16-24) mL/dl ABG Potassium (3.6-5.2) mmol/L VBG pH (7.32-7.43) VBG pCO2 (40-60) VBG HCO3 (21-28) mmol/l VBG Total CO2 (22-28) mmol.L VBG O2 Sat (Calc) (40-65) % VBG Base Excess (0.0-2.0) mmol/L VBG Potassium (3.6-5.2) mmol/L Hgb O2 Saturation (95.0-98.0) % Sodium (132-148) mmol/L Chloride (98-107) mmol/L Glucose (65-105) mg/dl Lactate (0.7-2.1) mmol/L FiO2 % Potassium (3.6-5.0) mmol/L Carbon Dioxide (21-33) mmol/L Anion Gap (10-20) BUN (7-21) mg/dL Creatinine (0.7-1.2) mg/dl Est GFR ( Amer) Est GFR (Non-Af Amer) POC Glucose (mg/dL) (65-110) mg/dL Random Glucose (70-110) mg/dL Calcium (8.4-10.5) mg/dL Phosphorus (2.5-4.5) mg/dL Magnesium (1.7-2.2) mg/dL Total Bilirubin (0.2-1.3) mg/dL AST (14-36) U/L ALT (7-56) U/L Alkaline Phosphatase (38-126) U/L Troponin I ng/mL NT-Pro-B Natriuret Pep (0-450) pg/mL Total Protein (5.8-8.3) g/dL Albumin (3.0-4.8) g/dL Globulin gm/dL Albumin/Globulin Ratio (1.1-1.8) TSH 3rd Generation (0.46-4.68) mIU/mL Arterial Blood Potassium (3.6-5.2) mmol/L Venous Blood Potassium (3.6-5.2) mmol/L Urine Color (YELLOW) Urine Appearance (CLEAR) Urine pH (4.7-8.0) Ur Specific [place] (1.005-1.035) Urine Protein (<30 mg/dL) mg/dL Urine Glucose (UA) (NEGATIVE) mg/dL Urine Ketones (NEGATIVE) mg/dL Urine Blood (NEGATIVE) Urine Nitrate (NEGATIVE) Urine Bilirubin (NEGATIVE) Urine Urobilinogen (<1 E.U./dL) E.U./dL Ur Leukocyte Esterase (NEGATIVE) Susana/uL Urine RBC (0-2) /hpf Urine WBC (0-6) /hpf Ur Epithelial Cells (0-5) /hpf Amorphous Sediment Urine Bacteria (NEG) Urine Other Blood Type Blood Type Confirm Antibody Screen BBK History Checked Laboratory Results - last 24 hr 06/28/18 06/28/18 06/28/18 16:28 16:28 16:45 WBC 10.9 D RBC 4.21 Hgb 12.3 Hct 41.0 MCV 97.4 MCH 29.2 MCHC 30.0 L RDW 18.3 H Plt Count 210 MPV Gran % 83.7 H Lymph % (Auto) 10.7 L [place] % (Auto) 5.4 Eos % (Auto) 0.1 L Baso % (Auto) 0.1 Gran # 9.08 H Lymph # (Auto) 1.2 [place] # (Auto) 0.6 Eos # (Auto) 0.0 Baso # (Auto) 0.01 Neutrophils % (Manual) Band Neutrophils % Lymphocytes % (Manual) Monocytes % (Manual) Platelet Evaluation Anisocytosis (manual) PT INR pCO2 pO2 65 H HCO3 ABG pH ABG Total CO2 ABG O2 Saturation ABG O2 Content ABG Base Excess ABG Hemoglobin ABG Carboxyhemoglobin POC ABG HHb (Measured) ABG Methemoglobin ABG O2 Capacity ABG Potassium VBG pH 7.39 VBG pCO2 61.0 H VBG HCO3 36.9 H VBG Total CO2 38.8 H VBG O2 Sat (Calc) 92.1 H VBG Base Excess 9.6 H VBG Potassium 5.2 Hgb O2 Saturation Sodium 158.0 H Chloride 117.0 H Glucose 139 H Lactate 2.2 H FiO2 21.0 Potassium Carbon Dioxide Anion Gap BUN Creatinine Est GFR ( Amer) Est GFR (Non-Af Amer) POC Glucose (mg/dL) Random Glucose Calcium Phosphorus Magnesium Total Bilirubin AST ALT Alkaline Phosphatase Troponin I NT-Pro-B Natriuret Pep Total Protein Albumin Globulin Albumin/Globulin Ratio TSH 3rd Generation Arterial Blood Potassium Venous Blood Potassium 5.2 Urine Color Light yellow Urine Appearance Turbid Urine pH 6.5 Ur Specific [place] 1.015 Urine Protein 30 H Urine Glucose (UA) Negative Urine Ketones Negative Urine Blood Moderate H Urine Nitrate Negative Urine Bilirubin Negative Urine Urobilinogen 2.0 H Ur Leukocyte Esterase Large H Urine RBC Tntc Urine WBC Tntc Ur Epithelial Cells 6 - 8 Amorphous Sediment Small Urine Bacteria Large Urine Other Uyeast Blood Type Blood Type Confirm Antibody Screen BBK History Checked 06/28/18 06/28/18 06/28/18 16:45 17:00 17:36 WBC RBC Hgb Hct MCV MCH MCHC RDW Plt Count MPV Gran % Lymph % (Auto) [place] % (Auto) Eos % (Auto) Baso % (Auto) Gran # Lymph # (Auto) [place] # (Auto) Eos # (Auto) Baso # (Auto) Neutrophils % (Manual) Band Neutrophils % Lymphocytes % (Manual) Monocytes % (Manual) Platelet Evaluation Anisocytosis (manual) PT INR pCO2 49 H pO2 68.0 L HCO3 32.5 H ABG pH 7.43 ABG Total CO2 34.0 H ABG O2 Saturation 94.9 L ABG O2 Content ABG Base Excess 6.9 H ABG Hemoglobin ABG Carboxyhemoglobin POC ABG HHb (Measured) ABG Methemoglobin ABG O2 Capacity ABG Potassium 4.5 VBG pH VBG pCO2 VBG HCO3 VBG Total CO2 VBG O2 Sat (Calc) VBG Base Excess VBG Potassium Hgb O2 Saturation Sodium 158.0 H 155 H Chloride 121.0 H 114 H Glucose 129 H Lactate 1.5 FiO2 100.0 Potassium 5.0 Carbon Dioxide 35 H Anion Gap 10 BUN 92 H Creatinine 3.0 H Est GFR ( Amer) 18 Est GFR (Non-Af Amer) 15 POC Glucose (mg/dL) Random Glucose 141 H Calcium 11.6 H Phosphorus Magnesium 1.6 L Total Bilirubin 1.9 H AST 101 H D ALT 47 Alkaline Phosphatase 121 Troponin I 0.07 D NT-Pro-B Natriuret Pep 5900 H Total Protein 7.2 Albumin 3.0 Globulin 4.2 Albumin/Globulin Ratio 0.7 L TSH 3rd Generation Arterial Blood Potassium 4.5 Venous Blood Potassium Urine Color Urine Appearance Urine pH Ur Specific [place] Urine Protein Urine Glucose (UA) Urine Ketones Urine Blood Urine Nitrate Urine Bilirubin Urine Urobilinogen Ur Leukocyte Esterase Urine RBC Urine WBC Ur Epithelial Cells Amorphous Sediment Urine Bacteria Urine Other Blood Type Cancelled Blood Type Confirm Antibody Screen Cancelled BBK History Checked Cancelled 06/28/18 06/28/18 06/28/18 17:36 17:55 21:15 WBC RBC Hgb Hct MCV MCH MCHC RDW Plt Count MPV Gran % Lymph % (Auto) [place] % (Auto) Eos % (Auto) Baso % (Auto) Gran # Lymph # (Auto) [place] # (Auto) Eos # (Auto) Baso # (Auto) Neutrophils % (Manual) Band Neutrophils % Lymphocytes % (Manual) Monocytes % (Manual) Platelet Evaluation Anisocytosis (manual) PT 15.7 H INR 1.37 pCO2 pO2 HCO3 ABG pH ABG Total CO2 ABG O2 Saturation ABG O2 Content ABG Base Excess ABG Hemoglobin ABG Carboxyhemoglobin POC ABG HHb (Measured) ABG Methemoglobin ABG O2 Capacity ABG Potassium VBG pH VBG pCO2 VBG HCO3 VBG Total CO2 VBG O2 Sat (Calc) VBG Base Excess VBG Potassium Hgb O2 Saturation Sodium Chloride Glucose Lactate FiO2 Potassium Carbon Dioxide Anion Gap BUN Creatinine Est GFR ( Amer) Est GFR (Non-Af Amer) POC Glucose (mg/dL) Random Glucose Calcium Phosphorus Magnesium Total Bilirubin AST ALT Alkaline Phosphatase Troponin I NT-Pro-B Natriuret Pep Total Protein Albumin Globulin Albumin/Globulin Ratio TSH 3rd Generation 0.53 Arterial Blood Potassium Venous Blood Potassium Urine Color Urine Appearance Urine pH Ur Specific [place] Urine Protein Urine Glucose (UA) Urine Ketones Urine Blood Urine Nitrate Urine Bilirubin Urine Urobilinogen Ur Leukocyte Esterase Urine RBC Urine WBC Ur Epithelial Cells Amorphous Sediment Urine Bacteria Urine Other Blood Type Blood Type Confirm A POSITIVE Antibody Screen BBK History Checked 06/28/18 06/28/18 06/29/18 21:15 23:20 01:20 WBC RBC Hgb Hct MCV MCH MCHC RDW Plt Count MPV Gran % Lymph % (Auto) [place] % (Auto) Eos % (Auto) Baso % (Auto) Gran # Lymph # (Auto) [place] # (Auto) Eos # (Auto) Baso # (Auto) Neutrophils % (Manual) Band Neutrophils % Lymphocytes % (Manual) Monocytes % (Manual) Platelet Evaluation Anisocytosis (manual) PT INR pCO2 pO2 39 30 HCO3 ABG pH ABG Total CO2 ABG O2 Saturation ABG O2 Content ABG Base Excess ABG Hemoglobin ABG Carboxyhemoglobin POC ABG HHb (Measured) ABG Methemoglobin ABG O2 Capacity ABG Potassium VBG pH 7.37 7.35 VBG pCO2 56.0 57.0 VBG HCO3 32.4 H 31.5 H VBG Total CO2 34.1 H 33.2 H VBG O2 Sat (Calc) 69.4 H 51.8 VBG Base Excess 5.5 H 4.3 H VBG Potassium 4.8 5.0 Hgb O2 Saturation Sodium 157.0 H 155.0 H Chloride 116.0 H 116.0 H Glucose 172 H 196 H Lactate 3.2 H 4.5 H* FiO2 21.0 21.0 Potassium Carbon Dioxide Anion Gap BUN Creatinine Est GFR ( Amer) Est GFR (Non-Af Amer) POC Glucose (mg/dL) 196 H Random Glucose Calcium Phosphorus Magnesium Total Bilirubin AST ALT Alkaline Phosphatase Troponin I NT-Pro-B Natriuret Pep Total Protein Albumin Globulin Albumin/Globulin Ratio TSH 3rd Generation Arterial Blood Potassium Venous Blood Potassium 4.8 5.0 Urine Color Urine Appearance Urine pH Ur Specific [place] Urine Protein Urine Glucose (UA) Urine Ketones Urine Blood Urine Nitrate Urine Bilirubin Urine Urobilinogen Ur Leukocyte Esterase Urine RBC Urine WBC Ur Epithelial Cells Amorphous Sediment Urine Bacteria Urine Other Blood Type Blood Type Confirm Antibody Screen BBK History Checked 06/29/18 06/29/18 06/29/18 02:14 04:55 05:20 WBC RBC Hgb Hct MCV MCH MCHC RDW Plt Count MPV Gran % Lymph % (Auto) [place] % (Auto) Eos % (Auto) Baso % (Auto) Gran # Lymph # (Auto) [place] # (Auto) Eos # (Auto) Baso # (Auto) Neutrophils % (Manual) Band Neutrophils % Lymphocytes % (Manual) Monocytes % (Manual) Platelet Evaluation Anisocytosis (manual) PT INR pCO2 pO2 HCO3 ABG pH ABG Total CO2 ABG O2 Saturation ABG O2 Content ABG Base Excess ABG Hemoglobin ABG Carboxyhemoglobin POC ABG HHb (Measured) ABG Methemoglobin ABG O2 Capacity ABG Potassium VBG pH VBG pCO2 VBG HCO3 VBG Total CO2 VBG O2 Sat (Calc) VBG Base Excess VBG Potassium Hgb O2 Saturation Sodium 151 H 149 H Chloride 114 H 113 H Glucose Lactate FiO2 Potassium 4.8 4.3 Carbon Dioxide 30 29 Anion Gap 12 11 BUN 73 H 69 H Creatinine 2.5 H 2.1 H Est GFR ( Amer) 22 27 Est GFR (Non-Af Amer) 18 22 POC Glucose (mg/dL) 196 H Random Glucose 184 H 160 H Calcium 10.2 9.9 Phosphorus 3.4 3.2 Magnesium 2.1 1.0 L* Total Bilirubin 1.4 H 1.0 AST 78 H D 79 H ALT 44 42 Alkaline Phosphatase 86 81 Troponin I 0.03 D NT-Pro-B Natriuret Pep Total Protein 5.3 L 5.2 L Albumin 2.1 L 2.1 L Globulin 3.2 3.1 Albumin/Globulin Ratio 0.7 L 0.7 L TSH 3rd Generation Arterial Blood Potassium Venous Blood Potassium Urine Color Urine Appearance Urine pH Ur Specific [place] Urine Protein Urine Glucose (UA) Urine Ketones Urine Blood Urine Nitrate Urine Bilirubin Urine Urobilinogen Ur Leukocyte Esterase Urine RBC Urine WBC Ur Epithelial Cells Amorphous Sediment Urine Bacteria Urine Other Blood Type Blood Type Confirm Antibody Screen BBK History Checked 06/29/18 06/29/18 06/29/18 05:20 05:39 05:54 WBC 7.8 D RBC 3.23 L Hgb 9.4 L D Hct 31.4 L MCV 97.2 MCH 29.1 MCHC 29.9 L RDW 18.0 H Plt Count 140 MPV 12.1 H Gran % 92.4 H Lymph % (Auto) 6.2 L [place] % (Auto) 1.4 Eos % (Auto) 0.0 L Baso % (Auto) 0.0 Gran # 7.20 H Lymph # (Auto) 0.5 L [place] # (Auto) 0.1 Eos # (Auto) 0.0 Baso # (Auto) 0.00 Neutrophils % (Manual) 94 H Band Neutrophils % 4 H Lymphocytes % (Manual) 2 L Monocytes % (Manual) TEST NOT PERFORMED Platelet Evaluation Normal Anisocytosis (manual) 1+ PT INR pCO2 47 H pO2 57 H 66.0 L HCO3 31.2 H ABG pH 7.43 ABG Total CO2 32.6 H ABG O2 Saturation 94.3 L ABG O2 Content 13.9 L ABG Base Excess 6.0 H ABG Hemoglobin 10.8 L ABG Carboxyhemoglobin 2.0 H POC ABG HHb (Measured) 5.5 H ABG Methemoglobin 1.3 ABG O2 Capacity 14.7 L ABG Potassium VBG pH 7.28 L VBG pCO2 31.0 L VBG HCO3 14.6 L VBG Total CO2 15.6 L VBG O2 Sat (Calc) 91.3 H VBG Base Excess -10.9 L VBG Potassium 4.3 Hgb O2 Saturation 91.1 L Sodium 140.0 Chloride 110.0 H Glucose 84 Lactate 16.3 H* FiO2 21.0 40.0 Potassium Carbon Dioxide Anion Gap BUN Creatinine Est GFR ( Amer) Est GFR (Non-Af Amer) POC Glucose (mg/dL) Random Glucose Calcium Phosphorus Magnesium Total Bilirubin AST ALT Alkaline Phosphatase Troponin I NT-Pro-B Natriuret Pep Total Protein Albumin Globulin Albumin/Globulin Ratio TSH 3rd Generation Arterial Blood Potassium Venous Blood Potassium 4.3 Urine Color Urine Appearance Urine pH Ur Specific [place] Urine Protein Urine Glucose (UA) Urine Ketones Urine Blood Urine Nitrate Urine Bilirubin Urine Urobilinogen Ur Leukocyte Esterase Urine RBC Urine WBC Ur Epithelial Cells Amorphous Sediment Urine Bacteria Urine Other Blood Type Blood Type Confirm Antibody Screen BBK History Checked 06/29/18 07:50 WBC RBC Hgb Hct MCV MCH MCHC RDW Plt Count MPV Gran % Lymph % (Auto) [place] % (Auto) Eos % (Auto) Baso % (Auto) Gran # Lymph # (Auto) [place] # (Auto) Eos # (Auto) Baso # (Auto) Neutrophils % (Manual) Band Neutrophils % Lymphocytes % (Manual) Monocytes % (Manual) Platelet Evaluation Anisocytosis (manual) PT INR pCO2 pO2 28 L HCO3 ABG pH ABG Total CO2 ABG O2 Saturation ABG O2 Content ABG Base Excess ABG Hemoglobin ABG Carboxyhemoglobin POC ABG HHb (Measured) ABG Methemoglobin ABG O2 Capacity ABG Potassium VBG pH 7.39 VBG pCO2 62.0 H VBG HCO3 37.5 H VBG Total CO2 39.4 H VBG O2 Sat (Calc) 42.5 VBG Base Excess 10.1 H VBG Potassium 4.7 Hgb O2 Saturation Sodium 157.0 H Chloride 117.0 H Glucose 183 H Lactate 2.3 H FiO2 21.0 Potassium Carbon Dioxide Anion Gap BUN Creatinine Est GFR ( Amer) Est GFR (Non-Af Amer) POC Glucose (mg/dL) Random Glucose Calcium Phosphorus Magnesium Total Bilirubin AST ALT Alkaline Phosphatase Troponin I NT-Pro-B Natriuret Pep Total Protein Albumin Globulin Albumin/Globulin Ratio TSH 3rd Generation Arterial Blood Potassium Venous Blood Potassium 4.7 Urine Color Urine Appearance Urine pH Ur Specific [place] Urine Protein Urine Glucose (UA) Urine Ketones Urine Blood Urine Nitrate Urine Bilirubin Urine Urobilinogen Ur Leukocyte Esterase Urine RBC Urine WBC Ur Epithelial Cells Amorphous Sediment Urine Bacteria Urine Other Blood Type Blood Type Confirm Antibody Screen BBK History Checked EKG/Cardiology Studies: Cardiology / EKG Studies 06/28/18 16:32 EKG [ELECTROCARDIOGRAM] Stat Comment: Reason For Exam: WEAKNESS/LOW BLOOD PRESSURE Critical Care Progress Note - Nutrition Nutrition: Nutrition Category Date Time Status NPO Diet [DIET] Diets 06/28/18 Breakfast Ordered Assessment/Plan - Assessment and Plan (Free Text) Assessment: Patient seen and examined on rounds, with resident, agree with note with following additions/exceptions: Patient is 83yo female with PMhx of dementia, atrial fibrillation on eliquis, CHF, CRF, DM, depression, COPD, breast ca s/p L mastectomy presenting from [facility] for worsening lethargy x 2 days, found to have UTI. Patient was on BIPAP for brief time, currently off, awake, alert. Labs, imaging, chart reviewed. Currently afebrile, BP stable, comfortable, awake, alert, in NAD, OFF BIPAP UTI AFIB on A/C CHF Dementia COPD Hypomagnesemia Recommend: - supp o2 as needed, duonebs PRN, IS, BIPAP as needed, QHS - Panculture, UCx, BCx, Procal - Abx as per ID - BP control - Gentle IVF - FS control - replete Mg - GI ppx - DVT ppx - Stable, transfer to telemetry, PMD made aware
[2018-06-29] MEDS: Levothyroxine 112 MCG TAB PO SCH (09:21)
--- NOTE | 2018-06-29 09:49 | CT ---
Date of service: 06/28/2018 PROCEDURE: CT HEAD WITHOUT CONTRAST. HISTORY: AMS COMPARISON: The the the comparison chest made with CT scan brain 01/12/2018. TECHNIQUE: Axial computed tomography images were obtained through the head/brain without intravenous contrast. Radiation dose: Total exam DLP = 1081.5 mGy-cm. This CT exam was performed using one or more of the following dose reduction techniques: Automated exposure control, adjustment of the mA and/or kV according to patient size, and/or use of iterative reconstruction technique. FINDINGS: HEMORRHAGE: No acute parenchymal, subarachnoid or extra-axial hemorrhage. BRAIN: Moderate chronic periventricular white matter ischemic changes seen extending peripherally into the deep and subcortical white matter both cerebral hemispheres note the possibility of a small hyperacute infarct cannot be excluded on this exam No obvious parenchymal nor extra-axial mass or collection seen on this noncontrast study. Moderate generalized volume loss. Minor vascular calcifications both carotid siphons. VENTRICLES: No obstructive hydrocephalus. CALVARIUM: There are no acute calvarial fractures. PARANASAL SINUSES: Minimal mucosal thickening noted within right chamber of the sphenoid sinus. MASTOID AIR CELLS: Unremarkable as visualized. No inflammatory changes. OTHER FINDINGS: Patient is edentulous IMPRESSION: Moderate chronic periventricular white matter ischemic changes seen extending peripherally into the deep and subcortical white matter both cerebral hemispheres note the possibility of a small hyperacute infarct cannot be excluded on this exam Moderate generalized volume loss. .
[2018-06-29] MEDS: Sodium Chloride 0.45% 1,000 ML IV SCH ×2 (09:51→20:39)
--- NOTE | 2018-06-29 14:07 | CP.PCM.CON ---
History of Present Illness - History of Present Illness History of Present Illness: Nephrology Consultation Note: Assessment: critical Acute Kidney Injury (N17.9) likely due to pre-renal state/dehydration: improving Hypernatremia, hypomagnesemia, hx of left side nephrolithiasis acute on chronic hypercapnic respi failure with lactic acidosis sepsis with UTI Diabetic chronic Kidney Disease (E11.22) Hypertensive Chronic Kidney Disease (I12.9) Chronic Kidney Disease (N18.3) Stage 3 with ? mg proteinuria (R80.9) likely due to AKIs in past/age related changes Anemia, COPD, diastolic CHF, A fib, CA breast, morbid obesity, dementia Plan No acute need for renal replacement therapy at this time. Maintain hemodynamics stable. Avoid hypotension. Patient not on ACEI/ARB due to ADY Monitor Input/Output, daily weights and renal function with basic metabolic panel continue with hypotonic fluids as 0.45% saline while pt NPO supplement lytes as needed Check urine analysis, spot protein/creatinine, albumin/creatinine ratio, renal sonogram Anemia work up with TSAT/Ferritin/Vitamin B12/folate Check for 25-OH vitamin D, iPTH, phosphorus level. Dose meds/antibiotics for reduced GFR. Avoid fleets enema/magnesium based laxat diallo. Avoid nephrotoxins/NSAIDs/ iodinated contrast (unless needed emergently) Glycemic control Further work up/management as per primary team Thanks for allowing me to participate in care of your patient. Will follow patient with you. Please call if any Qs. had d/w team Dr Alexei Blackmon Office: [phone] Chief Complaint; Unable to obtain Reason for consult: Acute Kidney Injury HPI: Pt is a 83 F with hx of diabetes Mellitus, COPD, diastolic CHF, A fib, CA breast, morbid obesity, dementia, CKD stage 3 with baseline cr 1.1-1.3 presented with complaints of AMS and lethargy, found to have hypercapnic respi failure with ADY and UTI. renal consult for ADY eval. pt unable to provide any hx at this time No known OTC/herbal meds or NSAIDs No recent iodinated contrast exposure. Noted obvious episodes of low BP (90/50) ROS: unable to obtain from pt Physical Examination: General Appearance: Comfortable, in no acute respiratory distress, ill appearing, non communicative Vitals reviewed and noted as below Head; Atraumatic, normocephalic ENT: no ulcers no thrush. Tongue is midline/dry. Oropharynx: no rash or ulcers. EYES: Pupils are equal, round and reactive to light accommodation. Eye muscles and extraocular movement intact. Sclera is anicteric. Neck; supple no lymphadenopathy, no thyromegaly or bruit Lungs: Normal respiratory rate/effort. Breath sounds bilateral with rales + Heart: Normal rate. s1s2 normal. No rub or gallop. Extremities: ankle puffiness + No varicose veins Neurological: Patient is arousable and mostly non communicative Skin: Warm and dry. Normal turgor. No rash. Palpitation: Normal elasticity for age Abdomen: Abdomen is soft. Bowel sounds +. There is no abdominal tenderness, no guarding/rigidity no organomegaly Psych: normal insight and normal affect/mood MSK: no joint tenderness or swelling. Digits and nails normal, no deformity : kidney or bladder not palpable Labs/imaging reviewed. Past medical history, past surgical history, family history, social history, allergy reviewed and noted as below Family hx: no hx of CKD. Rest non-contributory Past Patient History - Infectious Disease Hx of Infectious Diseases: None - Tetanus Immunizations Tetanus Immunization: Unknown - Past Social History Smoking Status: Former Smoker - CARDIAC Hx Cardiac Disorders: Yes Hx Congestive Heart Failure: Yes Hx Hypertension: Yes Hx Mitral Valve Prolapse: Yes Hx Pacemaker: Yes - PULMONARY Hx Respiratory Disorders: Yes Hx Chronic Obstructive Pulmonary Disease (COPD): Yes - NEUROLOGICAL Hx Neurological Disorder: Yes Hx Dementia: Yes - HEENT Hx HEENT Problems: No - RENAL Hx Chronic Kidney Disease: Yes Hx Renal Failure: Yes - ENDOCRINE/METABOLIC Hx Endocrine Disorders: Yes Hx Hypothyroidism: Yes - HEMATOLOGICAL/ONCOLOGICAL Hx Blood Disorders: Yes Hx Cancer: Yes - INTEGUMENTARY Hx Dermatological Problems: No - MUSCULOSKELETAL/RHEUMATOLOGICAL Hx Musculoskeletal Disorders: Yes Hx Arthritis: Yes Hx Falls: Yes - GASTROINTESTINAL Hx Gastrointestinal Disorders: Yes Hx Gastroesophageal Reflux: Yes - GENITOURINARY/GYNECOLOGICAL Hx Genitourinary Disorders: No - PSYCHIATRIC Hx Psychophysiologic Disorder: Yes Hx Depression: Yes - SURGICAL HISTORY Hx Surgeries: Yes Hx Appendectomy: Yes Hx Cholecystectomy: Yes Hx Mastectomy: Yes (left) - ANESTHESIA Hx Anesthesia Reactions: No Meds Allergies/Adverse Reactions: Allergies Allergy/AdvReac Type Severity Reaction Status Date / Time No Known Allergies Allergy Verified 06/28/18 16:38 - Medications Medications: Current Medications Apixaban (Eliquis) 2.5 mg PO Q12 SOHAN; Protocol Last Admin: 06/29/18 09:20 Dose: Not Given Escitalopram Oxalate (Lexapro) 20 mg PO DAILY SOHAN Last Admin: 06/29/18 09:21 Dose: Not Given Meropenem 250 mg/ Sodium (Chloride) 100 mls @ 100 mls/hr IVPB Q12H SOHAN; Protocol Stop: 07/07/18 19:31 Last Admin: 06/29/18 08:20 Dose: 100 mls/hr Sodium Chloride (Sodium Chloride 0.45%) 1,000 mls @ 100 mls/hr IV .Q10H SOHAN Last Admin: 06/29/18 09:51 Dose: 100 mls/hr Insulin Human Regular (Humulin R Med) 0 units SC Q6H SOHAN; Protocol Levothyroxine Sodium (Synthroid) 112 mcg PO DAILY SOHAN Last Admin: 06/29/18 09:21 Dose: Not Given Pantoprazole Sodium (Protonix Inj) 40 mg IVP DAILY SOHAN Last Admin: 06/29/18 09:21 Dose: 40 mg Results - Vital Signs Recent Vital Signs: Last Vital Signs Temp 98.4 F 06/29/18 08:00 Pulse 60 06/29/18 10:00 Resp 18 06/29/18 10:00 BP 104/57 L 06/29/18 10:00 Pulse Ox 94 L 06/29/18 10:00 - Labs Result Diagrams: 06/29/18 05:54 06/29/18 05:20 Labs: Laboratory Results - last 24 hr 06/28/18 06/28/18 06/28/18 16:28 16:28 16:45 WBC 10.9 D RBC 4.21 Hgb 12.3 Hct 41.0 MCV 97.4 MCH 29.2 MCHC 30.0 L RDW 18.3 H Plt Count 210 MPV Gran % 83.7 H Lymph % (Auto) 10.7 L [place] % (Auto) 5.4 Eos % (Auto) 0.1 L Baso % (Auto) 0.1 Gran # 9.08 H Lymph # (Auto) 1.2 [place] # (Auto) 0.6 Eos # (Auto) 0.0 Baso # (Auto) 0.01 Neutrophils % (Manual) Band Neutrophils % Lymphocytes % (Manual) Monocytes % (Manual) Platelet Evaluation Anisocytosis (manual) PT INR pCO2 pO2 65 H HCO3 ABG pH ABG Total CO2 ABG O2 Saturation ABG O2 Content ABG Base Excess ABG Hemoglobin ABG Carboxyhemoglobin POC ABG HHb (Measured) ABG Methemoglobin ABG O2 Capacity ABG Potassium VBG pH 7.39 VBG pCO2 61.0 H VBG HCO3 36.9 H VBG Total CO2 38.8 H VBG O2 Sat (Calc) 92.1 H VBG Base Excess 9.6 H VBG Potassium 5.2 Hgb O2 Saturation Sodium 158.0 H Chloride 117.0 H Glucose 139 H Lactate 2.2 H FiO2 21.0 Potassium Carbon Dioxide Anion Gap BUN Creatinine Est GFR ( Amer) Est GFR (Non-Af Amer) POC Glucose (mg/dL) Random Glucose Calcium Phosphorus Magnesium Total Bilirubin AST ALT Alkaline Phosphatase Troponin I NT-Pro-B Natriuret Pep Total Protein Albumin Globulin Albumin/Globulin Ratio Procalcitonin TSH 3rd Generation Arterial Blood Potassium Venous Blood Potassium 5.2 Urine Color Light yellow Urine Appearance Turbid Urine pH 6.5 Ur Specific [place] 1.015 Urine Protein 30 H Urine Glucose (UA) Negative Urine Ketones Negative Urine Blood Moderate H Urine Nitrate Negative Urine Bilirubin Negative Urine Urobilinogen 2.0 H Ur Leukocyte Esterase Large H Urine RBC Tntc Urine WBC Tntc Ur Epithelial Cells 6 - 8 Amorphous Sediment Small Urine Bacteria Large Urine Other Uyeast Blood Type Blood Type Confirm Antibody Screen BBK History Checked 06/28/18 06/28/18 06/28/18 16:45 17:00 17:36 WBC RBC Hgb Hct MCV MCH MCHC RDW Plt Count MPV Gran % Lymph % (Auto) [place] % (Auto) Eos % (Auto) Baso % (Auto) Gran # Lymph # (Auto) [place] # (Auto) Eos # (Auto) Baso # (Auto) Neutrophils % (Manual) Band Neutrophils % Lymphocytes % (Manual) Monocytes % (Manual) Platelet Evaluation Anisocytosis (manual) PT INR pCO2 49 H pO2 68.0 L HCO3 32.5 H ABG pH 7.43 ABG Total CO2 34.0 H ABG O2 Saturation 94.9 L ABG O2 Content ABG Base Excess 6.9 H ABG Hemoglobin ABG Carboxyhemoglobin POC ABG HHb (Measured) ABG Methemoglobin ABG O2 Capacity ABG Potassium 4.5 VBG pH VBG pCO2 VBG HCO3 VBG Total CO2 VBG O2 Sat (Calc) VBG Base Excess VBG Potassium Hgb O2 Saturation Sodium 158.0 H 155 H Chloride 121.0 H 114 H Glucose 129 H Lactate 1.5 FiO2 100.0 Potassium 5.0 Carbon Dioxide 35 H Anion Gap 10 BUN 92 H Creatinine 3.0 H Est GFR ( Amer) 18 Est GFR (Non-Af Amer) 15 POC Glucose (mg/dL) Random Glucose 141 H Calcium 11.6 H Phosphorus Magnesium 1.6 L Total Bilirubin 1.9 H AST 101 H D ALT 47 Alkaline Phosphatase 121 Troponin I 0.07 D NT-Pro-B Natriuret Pep 5900 H Total Protein 7.2 Albumin 3.0 Globulin 4.2 Albumin/Globulin Ratio 0.7 L Procalcitonin TSH 3rd Generation Arterial Blood Potassium 4.5 Venous Blood Potassium Urine Color Urine Appearance Urine pH Ur Specific [place] Urine Protein Urine Glucose (UA) Urine Ketones Urine Blood Urine Nitrate Urine Bilirubin Urine Urobilinogen Ur Leukocyte Esterase Urine RBC Urine WBC Ur Epithelial Cells Amorphous Sediment Urine Bacteria Urine Other Blood Type Cancelled Blood Type Confirm Antibody Screen Cancelled BBK History Checked Cancelled 06/28/18 06/28/18 06/28/18 17:36 17:55 21:15 WBC RBC Hgb Hct MCV MCH MCHC RDW Plt Count MPV Gran % Lymph % (Auto) [place] % (Auto) Eos % (Auto) Baso % (Auto) Gran # Lymph # (Auto) [place] # (Auto) Eos # (Auto) Baso # (Auto) Neutrophils % (Manual) Band Neutrophils % Lymphocytes % (Manual) Monocytes % (Manual) Platelet Evaluation Anisocytosis (manual) PT 15.7 H INR 1.37 pCO2 pO2 HCO3 ABG pH ABG Total CO2 ABG O2 Saturation ABG O2 Content ABG Base Excess ABG Hemoglobin ABG Carboxyhemoglobin POC ABG HHb (Measured) ABG Methemoglobin ABG O2 Capacity ABG Potassium VBG pH VBG pCO2 VBG HCO3 VBG Total CO2 VBG O2 Sat (Calc) VBG Base Excess VBG Potassium Hgb O2 Saturation Sodium Chloride Glucose Lactate FiO2 Potassium Carbon Dioxide Anion Gap BUN Creatinine Est GFR ( Amer) Est GFR (Non-Af Amer) POC Glucose (mg/dL) Random Glucose Calcium Phosphorus Magnesium Total Bilirubin AST ALT Alkaline Phosphatase Troponin I NT-Pro-B Natriuret Pep Total Protein Albumin Globulin Albumin/Globulin Ratio Procalcitonin TSH 3rd Generation 0.53 Arterial Blood Potassium Venous Blood Potassium Urine Color Urine Appearance Urine pH Ur Specific [place] Urine Protein Urine Glucose (UA) Urine Ketones Urine Blood Urine Nitrate Urine Bilirubin Urine Urobilinogen Ur Leukocyte Esterase Urine RBC Urine WBC Ur Epithelial Cells Amorphous Sediment Urine Bacteria Urine Other Blood Type Blood Type Confirm A POSITIVE Antibody Screen BBK History Checked 06/28/18 06/28/18 06/28/18 21:15 21:15 23:20 WBC RBC Hgb Hct MCV MCH MCHC RDW Plt Count MPV Gran % Lymph % (Auto) [place] % (Auto) Eos % (Auto) Baso % (Auto) Gran # Lymph # (Auto) [place] # (Auto) Eos # (Auto) Baso # (Auto) Neutrophils % (Manual) Band Neutrophils % Lymphocytes % (Manual) Monocytes % (Manual) Platelet Evaluation Anisocytosis (manual) PT INR pCO2 pO2 39 HCO3 ABG pH ABG Total CO2 ABG O2 Saturation ABG O2 Content ABG Base Excess ABG Hemoglobin ABG Carboxyhemoglobin POC ABG HHb (Measured) ABG Methemoglobin ABG O2 Capacity ABG Potassium VBG pH 7.37 VBG pCO2 56.0 VBG HCO3 32.4 H VBG Total CO2 34.1 H VBG O2 Sat (Calc) 69.4 H VBG Base Excess 5.5 H VBG Potassium 4.8 Hgb O2 Saturation Sodium 157.0 H Chloride 116.0 H Glucose 172 H Lactate 3.2 H FiO2 21.0 Potassium Carbon Dioxide Anion Gap BUN Creatinine Est GFR ( Amer) Est GFR (Non-Af Amer) POC Glucose (mg/dL) 196 H Random Glucose Calcium Phosphorus Magnesium Total Bilirubin AST ALT Alkaline Phosphatase Troponin I NT-Pro-B Natriuret Pep Total Protein Albumin Globulin Albumin/Globulin Ratio Procalcitonin 0.25 TSH 3rd Generation Arterial Blood Potassium Venous Blood Potassium 4.8 Urine Color Urine Appearance Urine pH Ur Specific [place] Urine Protein Urine Glucose (UA) Urine Ketones Urine Blood Urine Nitrate Urine Bilirubin Urine Urobilinogen Ur Leukocyte Esterase Urine RBC Urine WBC Ur Epithelial Cells Amorphous Sediment Urine Bacteria Urine Other Blood Type Blood Type Confirm Antibody Screen BBK History Checked 10/22/18 10/22/18 10/22/18 01:20 02:14 04:55 WBC RBC Hgb Hct MCV MCH MCHC RDW Plt Count MPV Gran % Lymph % (Auto) [place] % (Auto) Eos % (Auto) Baso % (Auto) Gran # Lymph # (Auto) [place] # (Auto) Eos # (Auto) Baso # (Auto) Neutrophils % (Manual) Band Neutrophils % Lymphocytes % (Manual) Monocytes % (Manual) Platelet Evaluation Anisocytosis (manual) PT INR pCO2 pO2 30 HCO3 ABG pH ABG Total CO2 ABG O2 Saturation ABG O2 Content ABG Base Excess ABG Hemoglobin ABG Carboxyhemoglobin POC ABG HHb (Measured) ABG Methemoglobin ABG O2 Capacity ABG Potassium VBG pH 7.35 VBG pCO2 57.0 VBG HCO3 31.5 H VBG Total CO2 33.2 H VBG O2 Sat (Calc) 51.8 VBG Base Excess 4.3 H VBG Potassium 5.0 Hgb O2 Saturation Sodium 155.0 H 151 H Chloride 116.0 H 114 H Glucose 196 H Lactate 4.5 H* FiO2 21.0 Potassium 4.8 Carbon Dioxide 30 Anion Gap 12 BUN 73 H Creatinine 2.5 H Est GFR ( Amer) 22 Est GFR (Non-Af Amer) 18 POC Glucose (mg/dL) 196 H Random Glucose 184 H Calcium 10.2 Phosphorus 3.4 Magnesium 2.1 Total Bilirubin 1.4 H AST 78 H D ALT 44 Alkaline Phosphatase 86 Troponin I NT-Pro-B Natriuret Pep Total Protein 5.3 L Albumin 2.1 L Globulin 3.2 Albumin/Globulin Ratio 0.7 L Procalcitonin TSH 3rd Generation Arterial Blood Potassium Venous Blood Potassium 5.0 Urine Color Urine Appearance Urine pH Ur Specific [place] Urine Protein Urine Glucose (UA) Urine Ketones Urine Blood Urine Nitrate Urine Bilirubin Urine Urobilinogen Ur Leukocyte Esterase Urine RBC Urine WBC Ur Epithelial Cells Amorphous Sediment Urine Bacteria Urine Other Blood Type Blood Type Confirm Antibody Screen BBK History Checked 06/29/18 06/29/18 06/29/18 05:20 05:20 05:39 WBC RBC Hgb Hct MCV MCH MCHC RDW Plt Count MPV Gran % Lymph % (Auto) [place] % (Auto) Eos % (Auto) Baso % (Auto) Gran # Lymph # (Auto) [place] # (Auto) Eos # (Auto) Baso # (Auto) Neutrophils % (Manual) Band Neutrophils % Lymphocytes % (Manual) Monocytes % (Manual) Platelet Evaluation Anisocytosis (manual) PT INR pCO2 47 H pO2 57 H 66.0 L HCO3 31.2 H ABG pH 7.43 ABG Total CO2 32.6 H ABG O2 Saturation 94.3 L ABG O2 Content 13.9 L ABG Base Excess 6.0 H ABG Hemoglobin 10.8 L ABG Carboxyhemoglobin 2.0 H POC ABG HHb (Measured) 5.5 H ABG Methemoglobin 1.3 ABG O2 Capacity 14.7 L ABG Potassium VBG pH 7.28 L VBG pCO2 31.0 L VBG HCO3 14.6 L VBG Total CO2 15.6 L VBG O2 Sat (Calc) 91.3 H VBG Base Excess -10.9 L VBG Potassium 4.3 Hgb O2 Saturation 91.1 L Sodium 149 H 140.0 Chloride 113 H 110.0 H Glucose 84 Lactate 16.3 H* FiO2 21.0 40.0 Potassium 4.3 Carbon Dioxide 29 Anion Gap 11 BUN 69 H Creatinine 2.1 H Est GFR ( Amer) 27 Est GFR (Non-Af Amer) 22 POC Glucose (mg/dL) Random Glucose 160 H Calcium 9.9 Phosphorus 3.2 Magnesium 1.0 L* Total Bilirubin 1.0 AST 79 H ALT 42 Alkaline Phosphatase 81 Troponin I 0.03 D NT-Pro-B Natriuret Pep Total Protein 5.2 L Albumin 2.1 L Globulin 3.1 Albumin/Globulin Ratio 0.7 L Procalcitonin TSH 3rd Generation Arterial Blood Potassium Venous Blood Potassium 4.3 Urine Color Urine Appearance Urine pH Ur Specific [place] Urine Protein Urine Glucose (UA) Urine Ketones Urine Blood Urine Nitrate Urine Bilirubin Urine Urobilinogen Ur Leukocyte Esterase Urine RBC Urine WBC Ur Epithelial Cells Amorphous Sediment Urine Bacteria Urine Other Blood Type Blood Type Confirm Antibody Screen BBK History Checked 06/29/18 06/29/18 05:54 07:50 WBC 7.8 D RBC 3.23 L Hgb 9.4 L D Hct 31.4 L MCV 97.2 MCH 29.1 MCHC 29.9 L RDW 18.0 H Plt Count 140 MPV 12.1 H Gran % 92.4 H Lymph % (Auto) 6.2 L [place] % (Auto) 1.4 Eos % (Auto) 0.0 L Baso % (Auto) 0.0 Gran # 7.20 H Lymph # (Auto) 0.5 L [place] # (Auto) 0.1 Eos # (Auto) 0.0 Baso # (Auto) 0.00 Neutrophils % (Manual) 94 H Band Neutrophils % 4 H Lymphocytes % (Manual) 2 L Monocytes % (Manual) TEST NOT PERFORMED Platelet Evaluation Normal Anisocytosis (manual) 1+ PT INR pCO2 pO2 28 L HCO3 ABG pH ABG Total CO2 ABG O2 Saturation ABG O2 Content ABG Base Excess ABG Hemoglobin ABG Carboxyhemoglobin POC ABG HHb (Measured) ABG Methemoglobin ABG O2 Capacity ABG Potassium VBG pH 7.39 VBG pCO2 62.0 H VBG HCO3 37.5 H VBG Total CO2 39.4 H VBG O2 Sat (Calc) 42.5 VBG Base Excess 10.1 H VBG Potassium 4.7 Hgb O2 Saturation Sodium 157.0 H Chloride 117.0 H Glucose 183 H Lactate 2.3 H FiO2 21.0 Potassium Carbon Dioxide Anion Gap BUN Creatinine Est GFR ( Amer) Est GFR (Non-Af Amer) POC Glucose (mg/dL) Random Glucose Calcium Phosphorus Magnesium Total Bilirubin AST ALT Alkaline Phosphatase Troponin I NT-Pro-B Natriuret Pep Total Protein Albumin Globulin Albumin/Globulin Ratio Procalcitonin TSH 3rd Generation Arterial Blood Potassium Venous Blood Potassium 4.7 Urine Color Urine Appearance Urine pH Ur Specific [place] Urine Protein Urine Glucose (UA) Urine Ketones Urine Blood Urine Nitrate Urine Bilirubin Urine Urobilinogen Ur Leukocyte Esterase Urine RBC Urine WBC Ur Epithelial Cells Amorphous Sediment Urine Bacteria Urine Other Blood Type Blood Type Confirm Antibody Screen BBK History Checked
--- NOTE | 2018-06-29 14:37 | US ---
Date of service: 06/29/2018 PROCEDURE: Ultrasound of the Kidneys HISTORY: obstructive uropahty COMPARISON: None available. TECHNIQUE: Sonogram of the kidneys. FINDINGS: RIGHT KIDNEY: Measures: 4.6 x 9.8 cm. Normal in size, contour and echogenicity. No stone, solid mass lesion or hydronephrosis visualized. LEFT KIDNEY: Measures: 0.2 x 9.6 cm. Normal in size, contour and echogenicity. Mild left hydronephrosis. OTHER FINDINGS: None. IMPRESSION: Unilateral, left hydronephrosis. Unremarkable right kidney. Limitations of the current examination: Body habitus and portable technique.
--- NOTE | 2018-06-29 16:42 | CARD ---
APPROVED REPORT Date of service: 06/28/2018 EKG Measurement Heart [id number] <Conclusion> Electronic atrial pacemaker Right bundle branch block Left anterior fascicular block Bifascicular block Possible Lateral infarct, age undetermined Abnormal ECG
[2018-06-29 20:01] LABS: ALB/GLOB RATIO 0.7 (1.1-1.8); ALBUMIN 2.6 g/dL (3.0-4.8); CALCIUM 10.6 mg/dL (8.4-10.5)
--- NOTE | 2018-06-29 20:51 | CON ---
DATE: 06/29/2018 The patient is seen in ICU this morning, room 128, bed 4. She is complaining of change in mental status and lethargy for 1 to 2 days. HISTORY OF PRESENT ILLNESS: This is an 83-year-old female with morbid obesity, BMI of 41, [facility] patient with history of dementia, congestive heart failure, chronic renal failure, hypothyroidism, and diabetes mellitus, depression, chronic obstructive lung disease, mitral valve prolapse, lower extremity cellulitis, breast cancer, who was admitted with a change in mental status and shortness of breath. REVIEW OF SYSTEMS: The 12-point review systems is performed. She has shortness of breath, low grade fevers. No chest pain. No hemoptysis. No diarrhea or constipation. No blood above the rectum. PAST MEDICAL HISTORY: Significant for congestive heart failure, chronic renal failure, hypothyroidism, diabetes mellitus, depression, chronic obstructive lung disease, mitral valve prolapse, lower extremity cellulitis, breast cancer, urinary tract infection with E. coli. PAST SURGICAL HISTORY: Significant for left mastectomy, cholecystectomy, splenectomy, cardiac catheterization with stent placement. ALLERGIES: THE PATIENT HAS NO KNOWN ALLERGIES. MEDICATIONS: Reviewed from the [facility]. PHYSICAL EXAMINATION: VITAL SIGNS: Temperature is 99, with blood pressure of 120/70, it was down to 91, respiratory rate of 25, and heart rate of 60. HEENT: Unremarkable. NECK: Supple. LUNGS: Have decreased breath sounds. HEART: Normal S1, S2. ABDOMEN: Soft, nontender. No rebound or guarding. No masses. LABORATORY EXAMINATION: Reveals the patient's white count of 10,000, and platelets of 210. The patient's BUN is 73, creatinine of 2.5, last the patient's creatinine was 1. Chest x-ray is reported to be negative and the urinalysis is positive. ASSESSMENT AND PLAN: An 83-year-old female [facility] patient with congestive heart failure, dementia, chronic disease, hypothyroidism, diabetes, depression, chronic obstructive pulmonary disease, mitral valve prolapse, history of breast cancer, lower extremity cellulitis, presenting with tachypnea, change in mental status, hypotension, with severe sepsis with urine as the source with acute kidney injury. One dose of vancomycin was given, meropenem was started and pancultures, blood, urine, sputum cultures are negative. Methicillin-resistant Staphylococcus aureus screen. We will make further recommendations upon availability of initial results, procalcitonin is also ordered, and overall prognosis is quite poor for this patient. Dr. Maier note is reviewed. We will follow with you. Michael Moon MD
[2018-06-30 04:26] LABS: ARTERIAL BLOOD GAS HCO3 30.4 mmol/L (21-28); ARTERIAL BLOOD GAS HEMOGLOBIN 11.3 g/dL (11.7-17.4); ARTERIAL BLOOD GAS O2 CAPACITY 15.4 mL/dl (16-24); ARTERIAL BLOOD GAS O2 CONTENT 14.8 ML/dl (15-23); ARTERIAL BLOOD GAS PCO2 48 mm/Hg (35-45); ARTERIAL BLOOD GAS PH 7.41 (7.35-7.45); ARTERIAL BLOOD GAS TCO2 31.9 mmol.L (22-28)
[2018-06-30] MEDS: Insulin Reg-MEDIUM-Coverage SC SCH ×4 (05:01→22:40)
[2018-06-30 07:10] LABS: IRON 34 ug/dL (45-180)
[2018-06-30 07:12] LABS: EOS % 0.6 % (1.5-5.0); GRAN # 5.81 (1.4-6.5); LYMPH # 0.6 (1.2-3.4); LYMPH % 8.5 % (22.0-35.0); MEAN CELL VOLUME 97.1 fl (80.0-105.0); MEAN CORPUSCULAR HEMOGLOBIN 28.7 pg (25.0-35.0); MEAN CORPUSCULAR HGB CONC 29.6 g/dl (31.0-37.0); MEAN PLATELET VOLUME 12.7 fl (7.0-11.0); MONO # 0.2 (0.1-0.6); MONO % 2.9 % (1.0-6.0); RBC 3.48 10^6/uL (3.5-6.1); WHITE BLOOD COUNT 6.6 10^3/ul (4.5-11.0)
[2018-06-30 07:20] LABS: % IRON SATURATION 21 % (20-55); TOTAL IRON BINDING CAPACITY 158 ug/dL (265-497)
[2018-06-30 07:24] LABS: ALB/GLOB RATIO 0.6 (1.1-1.8); CALCIUM 8.8 mg/dL (8.4-10.5)
[2018-06-30] MEDS: Sodium Chloride 0.45% 1,000 ML IV SCH ×3 (08:13→18:14)
[2018-06-30] MEDS: Levothyroxine 112 MCG TAB PO SCH (10:38)
--- NOTE | 2018-06-30 10:44 | PN ---
DATE: 06/30/2018 SUBJECTIVE: She is much more alert. She is on the BiPAP. She is talking to me. She is being seen by Renal and Infectious Disease. I will also consulted Urology. On an ultrasound, she has a left hydronephrosis. She might need a stent, but she also has issues with severe sepsis, UTI, acute kidney injury, dehydration. She is on IV antibiotics. It is the first moment I think she is starting to turn the corner. She is also being seen by Renal. She is on BiPAP. PHYSICAL EXAMINATION: VITAL SIGNS: She has a 97.6 temp, 87 pulse, 92/58 blood pressure, 18 respiratory rate, 99% O2 sat on BiPAP. HEENT: Head is atraumatic, normocephalic. HEART: Regular rate. LUNGS: Decreased breath sounds bilaterally. Poor inspiration. ABDOMEN: Morbidly obese, nontender. Positive bowel sounds. No guarding. No rebound. No CVA tenderness. EXTREMITIES: Have trace edema. PHYSICAL EXAMINATION: VITAL SIGNS: She has a 6.6 white count, 10 hemoglobin, 33.8 hematocrit with 140 platelets. She has a 141 sodium; potassium 3, I replaced the potassium with two K-riders of 10 mEq. BUN is coming down nicely to 60, creatinine is coming down nicely to 1.7, still elevated, but better. GFR is up to 29, sugar is 59, calcium is 8.8, iron is low at 34, total bili is 0.7, AST is 61, ALT is 39, alk phos 79, total protein is 5.1. ASSESSMENT AND PLAN: She has large bacteria and large leukocytes, severe sepsis. She now has a left hydronephrosis. We will continue with the aggressive treatment and care. Check her labs tomorrow. We are going to get a swallowing evaluation, so we could see if she could eat. I think she is waking up that she can eat. She did not do well with the first swallow evaluation. Taylor Morris who is improving slowly. [place] DO MARCO
--- NOTE | 2018-06-30 12:10 | PN ---
DATE: 06/30/2018 SUBJECTIVE: . The patient is in bed, in no acute distress. PHYSICAL EXAMINATION VITAL SIGNS: On exam, temperature is 97, blood pressure is 92/50, respiratory rate of 18. HEENT: Examination of HEENT is unremarkable. NECK: Supple. LUNGS: Have decreased breath sounds. HEART: Normal S1, S2. ABDOMEN: Soft, nontender. LABORATORY DATA: Laboratory examination reveals a white count of 6.6, hemoglobin of 10, platelets of 140. Chemistries reveals a BUN of 60, creatinine of 1.7, procalcitonin 0.25. Urinalysis is noted. ASSESSMENT AND PLAN: [facility] 83[facility] with congestive heart failure, dementia, chronic disease, hypothyroidism, diabetes, depression, chronic obstructive lung disease, mitral valve prolapse, history of breast cancer and lower extremity cellulitis in the past, now presenting with severe sepsis with urine as the source with acute kidney injury, on meropenem and pending panculture and workup results. Today is day #3 of meropenem. We will follow with you. Pending pancultures. Michael Moon MD
--- NOTE | 2018-06-30 12:29 | CP.PCM.PN ---
Subjective - Date & Time of Evaluation Date of Evaluation: 06/30/18 Time of Evaluation: 12:27 - Subjective Subjective: Nephrology Consultation Note: Assessment: Stable Acute Kidney Injury (N17.9) likely due to pre-renal state/dehydration: improving Hypernatremia, hypomagnesemia, hx of left side nephrolithiasis acute on chronic hypercapnic respi failure with lactic acidosis sepsis with UTI Diabetic chronic Kidney Disease (E11.22) Hypertensive Chronic Kidney Disease (I12.9) Chronic Kidney Disease (N18.3) Stage 3 with ? mg proteinuria (R80.9) likely due to AKIs in past/age related changes Anemia, COPD, diastolic CHF, A fib, CA breast, morbid obesity, dementia, Vit D def mild left hydronephrosis Plan No acute need for renal replacement therapy at this time. Maintain hemodynamics stable. Avoid hypotension. Patient not on ACEI/ARB due to ADY Monitor Input/Output, daily weights and renal function with basic metabolic panel continue with hypotonic fluids as 0.45% saline while pt NPO supplement lytes as needed started iron, MVI and weekly Vit D Check urine analysis, spot protein/creatinine, albumin/creatinine ratio, renal sonogram Anemia work up with TSAT/Ferritin/Vitamin B12/folate Check for 25-OH vitamin D, iPTH, phosphorus level. Dose meds/antibiotics for reduced GFR. Avoid fleets enema/magnesium based laxatives. Avoid nephrotoxins/NSAIDs/ iodinated contrast (unless needed emergently) Glycemic control Further work up/management as per primary team Thanks for allowing me to participate in care of your patient. Will follow patient with you. Please call if any Qs. had d/w team Dr Alexei Blackmon Office: [phone] Chief Complaint; Unable to obtain Reason for consult: Acute Kidney Injury HPI: Pt is a 83 F with hx of diabetes Mellitus, COPD, diastolic CHF, A fib, CA breast, morbid obesity, dementia, CKD stage 3 with baseline cr 1.1-1.3 presented with complaints of AMS and lethargy, found to have hypercapnic respi failure with ADY and UTI. renal consult for ADY eval. pt unable to provide any hx at this time No known OTC/herbal meds or NSAIDs No recent iodinated contrast exposure. Noted obvious episodes of low BP (90/50) ROS: unable to obtain from pt Physical Examination: General Appearance: Comfortable, in no acute respiratory distress, ill appearing, non communicative. on BiPAP Vitals reviewed and noted as below Head; Atraumatic, normocephalic EYES: Pupils are equal, round and reactive to light accommodation. Sclera is anicteric. Neck; supple no lymphadenopathy, no thyromegaly or bruit Lungs: Normal respiratory rate/effort. Breath sounds bilateral clearer Heart: Normal rate. s1s2 normal. No rub or gallop. SM at aortic area Extremities: ankle puffiness + No varicose veins Neurological: Patient is mostly non communicative Skin: Warm and dry. Normal turgor. No rash. Palpitation: Normal elasticity for age Abdomen: Abdomen is soft. Bowel sounds +. There is no abdominal tenderness, no guarding/rigidity no organomegaly Psych: unable MSK: no joint tenderness or swelling. Digits and nails normal, no deformity : kidney or bladder not palpable. Labs/imaging reviewed. Past medical history, past surgical history, family history, social history, allergy reviewed and noted as below Family hx: no hx of CKD. Rest non-contributory Objective - Vital Signs/Intake and Output Vital Signs (last 24 hours): Temp Pulse Resp BP Pulse Ox 98.5 F 61 16 83/42 L 99 06/30/18 11:49 06/30/18 11:49 06/30/18 11:49 06/30/18 11:49 06/30/18 06:00 Intake and Output: 06/30/18 06/30/18 06:59 18:59 Intake Total 0 Output Total 3 Balance -3 - Medications Medications: Current Medications Apixaban (Eliquis) 2.5 mg PO Q12 [facility]; Protocol Last Admin: 06/30/18 10:38 Dose: Not Given Escitalopram Oxalate (Lexapro) 20 mg PO DAILY [facility] Last Admin: 06/30/18 10:37 Dose: Not Given Ferrous Gluconate (Fergon) 324 mg PO TID [facility] Meropenem 250 mg/ Sodium (Chloride) 100 mls @ 100 mls/hr IVPB Q12H [facility]; Protocol Stop: 07/07/18 19:31 Last Admin: 06/30/18 10:37 Dose: 100 mls/hr Sodium Chloride (Sodium Chloride 0.45%) 1,000 mls @ 100 mls/hr IV .Q10H [facility] Last Admin: 06/30/18 08:13 Dose: 100 mls/hr Potassium Chloride (Potassium Chloride 10 Meq/100 Ml) 10 meq in 100 mls @ 50 mls/hr IVPB Q2H [facility] Stop: 06/30/18 13:44 Last Admin: 06/30/18 10:40 Dose: 50 mls/hr Insulin Human Regular (Humulin R Med) 0 units SC Q6H [facility]; Protocol Last Admin: 06/30/18 10:38 Dose: Not Given Levothyroxine Sodium (Synthroid) 112 mcg PO DAILY [facility] Last Admin: 06/30/18 10:38 Dose: Not Given Pantoprazole Sodium (Protonix Inj) 40 mg IVP DAILY [facility] Last Admin: 06/30/18 10:40 Dose: 40 mg Vitamin B Complex/Vit C/Folic Acid (Nephro-Alyson) 1 tab PO 0800 [facility] - Labs Labs: 06/30/18 06:00 06/30/18 06:00 PT 15.7 SECONDS (9.4-12.5) H 06/28/18 21:15 INR 1.37 06/28/18 21:15
[2018-06-30] MEDS ORDERED: Ergocalciferol 50,000 Intl Units Cap PO SCH (12:30)
[2018-06-30] MEDS ORDERED: Dextrose 50% SYRINGE Inj (50 ml) IVP ONE (16:20)
[2018-06-30 19:26] LABS: ALB/GLOB RATIO 0.7 (1.1-1.8); ALBUMIN 2.5 g/dL (3.0-4.8); CALCIUM 10.5 mg/dL (8.4-10.5)
[2018-07-01] MEDS: Insulin Reg-MEDIUM-Coverage SC SCH ×4 (05:49→22:16)
[2018-07-01] MEDS ORDERED: Dextrose 50% SYRINGE Inj (50 ml) IVP STA (05:51)
[2018-07-01] MEDS: Sodium Chloride 0.45% 1,000 ML IV SCH ×2 (06:00→14:26)
[2018-07-01 07:04] LABS: ARTERIAL BLOOD GAS HCO3 26.6 mmol/L (21-28); ARTERIAL BLOOD GAS HEMOGLOBIN 10.2 g/dL (11.7-17.4); ARTERIAL BLOOD GAS O2 CAPACITY 13.9 mL/dl (16-24); ARTERIAL BLOOD GAS O2 CONTENT 12.8 ML/dl (15-23); ARTERIAL BLOOD GAS O2 SAT 92.3 % (95-98); ARTERIAL BLOOD GAS PCO2 43 mm/Hg (35-45); ARTERIAL BLOOD GAS TCO2 27.9 mmol.L (22-28)
[2018-07-01] MEDS: Multivitamin Vitamin B Complex (Nephro-Vite) Tab PO SCH ×2 (08:29→13:37)
[2018-07-01] MEDS ORDERED: Dextrose 5%/0.45% NS 1,000 ML IV SCH ×3 (08:30→09:16)
--- NOTE | 2018-07-01 09:23 | PN ---
DATE: 07/01/2018 SUBJECTIVE: The patient is in bed, in no acute distress, nontoxic. PHYSICAL EXAMINATION: VITAL SIGNS: On exam, temperature is 98, blood pressure is 90/50, respiratory rate of 20. HEENT: Examination of HEENT is unremarkable. NECK: Supple. LUNGS: Have decreased breath sounds. HEART: Normal S1, S2. ABDOMEN: Soft. LABORATORY DATA: Laboratory examination reveals a white count of 6, hemoglobin of 10 and chemistries reveals a BUN of 62, creatinine of 2. Urinalysis is noted. Microbiology is noted. Blood cultures are negative and urine cultures are gram-negative destiny. ASSESSMENT AND PLAN: An 83-year-old female, residential patient, with congestive heart failure and dementia, chronic congestive heart failure, hypothyroidism, diabetes mellitus, depression, chronic obstructive lung disease, mitral valve prolapse, history of breast cancer with lower extremity cellulitis in the past, presenting now with severe sepsis with urine as the source and acute kidney injury with negative blood cultures, however, there is a negative gram-negative destiny in the urine and currently on meropenem. Awaiting for sensitivity of the gram-negative destiny and today is day #4 of meropenem. Maybe able to switch to p.o. once the sensitivity is available to complete 5-7 days, today is day #4. Michael Moon MD
[2018-07-01] MEDS: Potassium Chloride 20 mEq ER Tab PO SCH ×2 (09:40→13:35)
[2018-07-01] MEDS: Levothyroxine 112 MCG TAB PO SCH ×2 (10:34→13:35)
--- NOTE | 2018-07-01 11:06 | CP.PCM.PN ---
Subjective - Date & Time of Evaluation Date of Evaluation: 07/01/18 Time of Evaluation: 11:05 - Subjective Subjective: Nephrology Consultation Note: Assessment: Stable Acute Kidney Injury (N17.9) likely due to pre-renal state/dehydration: improving Hypernatremia, hypomagnesemia, hx of left side nephrolithiasis acute on chronic hypercapnic respi failure with lactic acidosis sepsis with UTI Diabetic chronic Kidney Disease (E11.22) Hypertensive Chronic Kidney Disease (I12.9) Chronic Kidney Disease (N18.3) Stage 3 with ? mg proteinuria (R80.9) likely due to AKIs in past/age related changes Anemia, COPD, diastolic CHF, A fib, CA breast, morbid obesity, dementia, Vit D def mild left hydronephrosis Plan No acute need for renal replacement therapy at this time. Maintain hemodynamics stable. Avoid hypotension. Patient not on ACEI/ARB due to ADY Monitor Input/Output, daily weights and renal function with basic metabolic panel continue with hypotonic fluids as 0.45% saline while pt NPO, increased to 75 ml/hr supplement lytes as needed started iron, MVI and weekly Vit D work up as urine analysis, spot protein/creatinine, albumin/creatinine ratio, renal sonogram Anemia work up with TSAT/Ferritin/Vitamin B12/folate Check for 25-OH vitamin D, iPTH, phosphorus level. Dose meds/antibiotics for reduced GFR. Avoid fleets enema/magnesium based laxatives. Avoid nephrotoxins/NSAIDs/ iodinated contrast (unless needed emergently) Glycemic control Further work up/management as per primary team Thanks for allowing me to participate in care of your patient. Will follow patient with you. Please call if any Qs. had d/w team Dr Alexei Blackmon Office: [phone] Chief Complaint; Unable to obtain Reason for consult: Acute Kidney Injury HPI: Pt is a 83 F with hx of diabetes Mellitus, COPD, diastolic CHF, A fib, CA breast, morbid obesity, dementia, CKD stage 3 with baseline cr 1.1-1.3 presented with complaints of AMS and lethargy, found to have hypercapnic respi failure with ADY and UTI. renal consult for ADY eval. pt unable to provide any hx at this time No known OTC/herbal meds or NSAIDs No recent iodinated contrast exposure. Noted obvious episodes of low BP (90/50) ROS: unable to obtain from pt Physical Examination: General Appearance: Comfortable, in no acute respiratory distress, ill rylie earing, non communicative. on BiPAP Vitals reviewed and noted as below Head; Atraumatic, normocephalic EYES: Pupils are equal, round and reactive to light accommodation. Sclera is anicteric. Neck; supple no lymphadenopathy, no thyromegaly or bruit Lungs: Normal respiratory rate/effort. Breath sounds bilateral clearer Heart: Normal rate. s1s2 normal. No rub or gallop. SM at aortic area Extremities: ankle puffiness + No varicose veins Neurological: Patient is mostly non communicative, awake today Skin: Warm and dry. Normal turgor. No rash. Palpitation: Normal elasticity for age Abdomen: Abdomen is soft. Bowel sounds +. There is no abdominal tenderness, no guarding/rigidity no organomegaly Psych: unable MSK: no joint tenderness or swelling. Digits and nails normal, no deformity : kidney or bladder not palpable. Labs/imaging reviewed. Past medical history, past surgical history, family history, social history, allergy reviewed and noted as below Family hx: no hx of CKD. Rest non-contributory Objective - Vital Signs/Intake and Output Vital Signs (last 24 hours): Temp Pulse Resp BP Pulse Ox 98.0 F 61 20 97/57 L 97 07/01/18 06:00 07/01/18 08:17 07/01/18 06:00 07/01/18 06:00 07/01/18 06:00 Intake and Output: 07/01/18 07/01/18 06:59 18:59 Intake Total 1200 Output Total 700 Balance 500 - Medications Medications: Current Medications Apixaban (Eliquis) 2.5 mg PO Q12 [facility]; Protocol Last Admin: 07/01/18 10:33 Dose: Not Given Ergocalciferol (Drisdol 50,000 Intl Units Cap) 1 cap PO Q7D [facility] Last Admin: 06/30/18 13:22 Dose: Not Given Escitalopram Oxalate (Lexapro) 20 mg PO DAILY [facility] Last Admin: 07/01/18 10:34 Dose: Not Given Ferrous Gluconate (Fergon) 324 mg PO TID [facility] Last Admin: 07/01/18 10:33 Dose: Not Given Meropenem 250 mg/ Sodium (Chloride) 100 mls @ 100 mls/hr IVPB Q12H [facility]; Protocol Stop: 07/07/18 19:31 Last Admin: 07/01/18 09:54 Dose: 100 mls/hr Dextrose/Sodium Chloride (Dextrose 5%/0.45% Ns 1000 Ml) 1,000 mls @ 75 mls/hr IV .[id number] [facility] Last Admin: 07/01/18 09:41 Dose: 75 mls/hr Insulin Human Regular (Humulin R Med) 0 units SC Q6H [facility]; Protocol Last Admin: 07/01/18 10:33 Dose: Not Given Levothyroxine Sodium (Synthroid) 112 mcg PO DAILY [facility] Last Admin: 07/01/18 10:34 Dose: Not Given Pantoprazole Sodium (Protonix Inj) 40 mg IVP DAILY [facility] Last Admin: 07/01/18 10:48 Dose: 40 mg Potassium Chloride (K-Dur 20 Meq Er Tab) 20 meq PO BRK [facility] Last Admin: 07/01/18 09:40 Dose: Not Given Vitamin B Complex/Vit C/Folic Acid (Nephro-Alyson) 1 tab PO 0800 [facility] Last Admin: 07/01/18 08:29 Dose: Not Given - Labs Labs: 07/01/18 06:00 06/30/18 18:45 PT 15.7 SECONDS (9.4-12.5) H 06/28/18 21:15 INR 1.37 06/28/18 21:15
[2018-07-01 11:32] LABS: ALB/GLOB RATIO 0.6 (1.1-1.8); ALBUMIN 2.4 g/dL (3.0-4.8); CALCIUM 10.5 mg/dL (8.4-10.5)
[2018-07-01 11:34] LABS: EOS # 0.2 (0.0-0.7); EOS % 2.2 % (1.5-5.0); GRAN # 5.83 (1.4-6.5); GRAN % 84.3 % (50.0-68.0); HEMOGLOBIN 11.6 g/dL (12.0-16.0); LYMPH # 0.7 (1.2-3.4); LYMPH % 10.3 % (22.0-35.0); MEAN CELL VOLUME 96.5 fl (80.0-105.0); MEAN CORPUSCULAR HEMOGLOBIN 28.9 pg (25.0-35.0); MEAN CORPUSCULAR HGB CONC 29.9 g/dl (31.0-37.0); MEAN PLATELET VOLUME 12.5 fl (7.0-11.0); MONO # 0.2 (0.1-0.6); MONO % 3.2 % (1.0-6.0); RBC 4.02 10^6/uL (3.5-6.1); RED CELL DISTRIBUTION WIDTH 17.6 % (11.5-14.5); WHITE BLOOD COUNT 6.9 10^3/ul (4.5-11.0)
[2018-07-01] MEDS ORDERED: Sodium Chloride 0.9% 250 ML IV STA ×2 (12:55→15:39)
--- NOTE | 2018-07-01 14:21 | PN ---
DATE: 07/01/2018 SUBJECTIVE: She has a BiPAP on. She is alert. She is looking at me. I think she said hello to me. She failed the second swallow eval. little bit more awake this morning. She is to eat in the [place] [facility]. PHYSICAL EXAMINATION: VITAL SIGNS: She has a 98 temp, 70 pulse, 97/57 blood pressure, 20 respiratory rate, 97% O2 sat and 40% BiPAP. HEENT: Head is atraumatic and normocephalic. HEART: Regular rate. LUNGS: Decreased breath sounds, but clear. ABDOMEN: Soft. Morbidly obese. Nontender. EXTREMITIES: No edema. She is currently on dextrose,, potassium, Lexapro, Merrem IV, Nephro-Alyson, Protonix and Synthroid. She was on regular half normal saline, but the blood sugars have been low, so I put her on dextrose. She is not on anything for diabetes. She has a 6.6 white count, 10 hemoglobin, 32.8 hematocrit, 140 platelets. She has 149 sodium, potassium 3.5, replaced potassium. BUN is 52, creatinine is 2, little bit high. GFR is 24. Sugar is 101, calcium is 7.5, phosphorus 3.6, magnesium 2.2, total bili is 0.9, AST is 62, ALT is 44, alk phos 99, total protein 6.2. She does have urinary tract infection with gram-negative rods. Renal is on the case for the elevated BUN and creatinine. We will increase her dextrose from 40 mL an hour to 60 mL an hour hoping to lower the BUN and creatinine. We will see what Renal has to add to the picture. Hopefully, she will wake up on the IV antibiotics from the infection and she will start to eat and she is here with numerous issues; severe sepsis, UTI, acute kidney injury, dehydration, high potassium and low potassium. [place] Asif DO MTDShanice
[2018-07-01] MEDS ORDERED: Sodium Chloride 0.9% 500 ML IV STA (16:56)
[2018-07-01] MEDS ORDERED: Sodium Chloride 0.45% 1,000 ML IV SCH (17:00)
--- NOTE | 2018-07-01 18:04 | CP.PCM.CON ---
<Genet Cottrell - Last Filed: 07/01/18 18:40> History of Present Illness - History of Present Illness History of Present Illness: CRITICAL CARE CONSULT NOTE FOR DR. MILAGROS Cottrell PGY-1 83 y/o F with PMHx of HFpEF, CKD3, hypothyroidism, COPD, LLE cellulitis, MVP, breast ca s/p L mastectomy, dementia, depression admitted recently for worsening lethargy, weakness and confusion for 2 days before admission. She was treated in the ICU with BiPAP, and showed improvement in lactate and electrolytes and transferred to telemetry. She had been treated with IV abx and fluids. She was found to be hypotensive in the 80-90/40-50s that was unresponsive to fluid resuscitation. She was transferred to ICU for evaluation of treatment of hypotension secondary to septic shock. Pt currently on BiPAP, ROS limited. She is alert and awake. PMHx: HFpEF (Last known echo 01/2018 72%), CKD3, hypothyroidism, COPD, LLE cellulitis, MVP, breast ca s/p L mastectomy, dementia, depression PSHx: L mastectomy Allergies: NKDA Meds: as per chart SH: no alcohol, tobacco, illicit drug use. [facility] pt FHx: unknown Review of Systems - Review of Systems Review of Systems: per HPI Past Patient History - Infectious Disease Hx of Infectious Diseases: None - Tetanus Immunizations Tetanus Immunization: Unknown - Past Social History Smoking Status: Former Smoker - CARDIAC Hx Cardiac Disorders: Yes Hx Congestive Heart Failure: Yes - PULMONARY Hx Chronic Obstructive Pulmonary Disease (COPD): Yes - NEUROLOGICAL Hx Neurological Disorder: Yes Hx Dementia: Yes - HEENT Hx HEENT Problems: No - RENAL Hx Renal Failure: Yes - ENDOCRINE/METABOLIC Hx Diabetes Mellitus Type 2: Yes Hx Hypothyroidism: Yes - HEMATOLOGICAL/ONCOLOGICAL Hx Cancer: Yes (breast) - INTEGUMENTARY Hx Dermatological Problems: No - MUSCULOSKELETAL/RHEUMATOLOGICAL Hx Musculoskeletal Disorders: Yes Hx Arthritis: Yes Hx Falls: Yes - GASTROINTESTINAL Hx Gastrointestinal Disorders: Yes Hx Gastroesophageal Reflux: Yes - GENITOURINARY/GYNECOLOGICAL Hx Genitourinary Disorders: No - PSYCHIATRIC Hx Psychophysiologic Disorder: Yes Hx Depression: Yes - SURGICAL HISTORY Hx Surgeries: Yes Hx Appendectomy: Yes Hx Cholecystectomy: Yes Hx Mastectomy: Yes (left) - ANESTHESIA Hx Anesthesia Reactions: No Meds Allergies/Adverse Reactions: Allergies Allergy/AdvReac Type Severity Reaction Status Date / Time No Known Allergies Allergy Verified 06/28/18 16:38 - Medications Medications: Current Medications Apixaban (Eliquis) 2.5 mg PO Q12 [facility]; Protocol Last Admin: 07/01/18 13:35 Dose: 2.5 mg Ergocalciferol (Drisdol 50,000 Intl Units Cap) 1 cap PO Q7D [facility] Last Admin: 06/30/18 13:22 Dose: Not Given Escitalopram Oxalate (Lexapro) 20 mg PO DAILY [facility] Last Admin: 07/01/18 13:35 Dose: 20 mg Ferrous Gluconate (Fergon) 324 mg PO TID [facility] Last Admin: 07/01/18 13:35 Dose: 324 mg Meropenem 250 mg/ Sodium (Chloride) 100 mls @ 100 mls/hr IVPB Q12H [facility]; Protocol Stop: 07/07/18 19:31 Last Admin: 07/01/18 09:54 Dose: 100 mls/hr Sodium Chloride (Sodium Chloride 0.45%) 1,000 mls @ 75 mls/hr IV .[id number] [facility] Last Admin: 07/01/18 14:26 Dose: 75 mls/hr Insulin Human Regular (Humulin R Med) 0 units SC Q6H [facility]; Protocol Last Admin: 07/01/18 17:25 Dose: Not Given Levothyroxine Sodium (Synthroid) 112 mcg PO DAILY [facility] Last Admin: 07/01/18 13:35 Dose: 112 mcg Pantoprazole Sodium (Protonix Inj) 40 mg IVP DAILY [facility] Last Admin: 07/01/18 10:48 Dose: 40 mg Potassium Chloride (K-Dur 20 Meq Er Tab) 20 meq PO BRK [facility] Last Admin: 07/01/18 13:35 Dose: 20 meq Vitamin B Complex/Vit C/Folic Acid (Nephro-Alyson) 1 tab PO 0800 [facility] Last Admin: 07/01/18 13:37 Dose: 1 tab Physical Exam - Constitutional Appears: Non-toxic, Chronically Ill - Head Exam Head Exam: ATRAUMATIC, NORMOCEPHALIC - Eye Exam Eye Exam: EOMI, Normal appearance - Respiratory Exam Respiratory Exam: Decreased Breath Sounds Additional comments: On BiPAP machine - Cardiovascular Exam Cardiovascular Exam: REGULAR RHYTHM - GI/Abdominal Exam GI & Abdominal Exam: Soft. absent: Distended, Tenderness - Extremities Exam Extremities exam: Positive for: normal inspection. Negative for: calf tenderness - Neurological Exam Neurological exam: Alert - Psychiatric Exam Psychiatric exam: Normal Affect, Normal Mood - Skin Skin Exam: Dry, Intact, Warm Results - Vital Signs Recent Vital Signs: Last Vital Signs Temp 98.4 F 07/01/18 17:33 Pulse 72 07/01/18 17:33 Resp 19 07/01/18 17:33 BP 144/67 07/01/18 17:33 Pulse Ox 97 07/01/18 06:00 - Labs Result Diagrams: 07/01/18 11:00 07/01/18 11:00 Labs: Laboratory Results - last 24 hr 06/30/18 06/30/18 06/30/18 06:00 16:14 18:45 WBC RBC Hgb Hct MCV MCH MCHC RDW Plt Count MPV Gran % Lymph % (Auto) [place] % (Auto) Eos % (Auto) Baso % (Auto) Gran # Lymph # (Auto) [place] # (Auto) Eos # (Auto) Baso # (Auto) pCO2 pO2 HCO3 ABG pH ABG Total CO2 ABG O2 Saturation ABG O2 Content ABG Base Excess ABG Hemoglobin ABG Carboxyhemoglobin POC ABG HHb (Measured) ABG Methemoglobin ABG O2 Capacity Hgb O2 Saturation FiO2 Sodium 149 H Potassium 3.5 L Chloride 113 H Carbon Dioxide 32 Anion Gap 8 L BUN 62 H Creatinine 2.0 H Est GFR ( Amer) 29 Est GFR (Non-Af Amer) 24 POC Glucose (mg/dL) 53 L Random Glucose 101 Calcium 10.5 Phosphorus 3.6 Magnesium 2.2 Total Bilirubin 0.9 AST 62 H ALT 44 Alkaline Phosphatase 99 Total Protein 6.2 Albumin 2.5 L Globulin 3.7 Albumin/Globulin Ratio 0.7 L PTH Intact Whole Molec 15 Ur Random Creatinine 06/30/18 06/30/18 07/01/18 19:19 21:11 05:00 WBC RBC Hgb Hct MCV MCH MCHC RDW Plt Count MPV Gran % Lymph % (Auto) [place] % (Auto) Eos % (Auto) Baso % (Auto) Gran # Lymph # (Auto) [place] # (Auto) Eos # (Auto) Baso # (Auto) pCO2 43 pO2 58.0 L HCO3 26.6 ABG pH 7.40 ABG Total CO2 27.9 ABG O2 Saturation 92.3 L ABG O2 Content 12.8 L ABG Base Excess 1.5 ABG Hemoglobin 10.2 L ABG Carboxyhemoglobin 2.3 H POC ABG HHb (Measured) 7.4 H ABG Methemoglobin 1.0 ABG O2 Capacity 13.9 L Hgb O2 Saturation 89.2 L FiO2 40.0 Sodium Potassium Chloride Carbon Dioxide Anion Gap BUN Creatinine Est GFR ( Amer) Est GFR (Non-Af Amer) POC Glucose (mg/dL) 89 75 Random Glucose Calcium Phosphorus Magnesium Total Bilirubin AST ALT Alkaline Phosphatase Total Protein Albumin Globulin Albumin/Globulin Ratio PTH Intact Whole Molec Ur Random Creatinine 07/01/18 07/01/18 07/01/18 05:48 06:00 07:18 WBC Cancelled RBC Cancelled Hgb Cancelled Hct Cancelled MCV Cancelled MCH Cancelled MCHC Cancelled RDW Cancelled Plt Count Cancelled MPV Cancelled Gran % Cancelled Lymph % (Auto) Cancelled [place] % (Auto) Cancelled Eos % (Auto) Cancelled Baso % (Auto) Cancelled Gran # Cancelled Lymph # (Auto) Cancelled [place] # (Auto) Cancelled Eos # (Auto) Cancelled Baso # (Auto) Cancelled pCO2 pO2 HCO3 ABG pH ABG Total CO2 ABG O2 Saturation ABG O2 Content ABG Base Excess ABG Hemoglobin ABG Carboxyhemoglobin POC ABG HHb (Measured) ABG Methemoglobin ABG O2 Capacity Hgb O2 Saturation FiO2 Sodium Potassium Chloride Carbon Dioxide Anion Gap BUN Creatinine Est GFR ( Amer) Est GFR (Non-Af Amer) POC Glucose (mg/dL) 57 L 118 H Random Glucose Calcium Phosphorus Magnesium Total Bilirubin AST ALT Alkaline Phosphatase Total Protein Albumin Globulin Albumin/Globulin Ratio PTH Intact Whole Molec Ur Random Creatinine 07/01/18 07/01/18 07/01/18 10:37 11:00 11:00 WBC 6.9 RBC 4.02 Hgb 11.6 L Hct 38.8 MCV 96.5 MCH 28.9 MCHC 29.9 L RDW 17.6 H Plt Count 142 MPV 12.5 H Gran % 84.3 H Lymph % (Auto) 10.3 L [place] % (Auto) 3.2 Eos % (Auto) 2.2 Baso % (Auto) 0.0 Gran # 5.83 Lymph # (Auto) 0.7 L [place] # (Auto) 0.2 Eos # (Auto) 0.2 Baso # (Auto) 0.00 pCO2 pO2 HCO3 ABG pH ABG Total CO2 ABG O2 Saturation ABG O2 Content ABG Base Excess ABG Hemoglobin ABG Carboxyhemoglobin POC ABG HHb (Measured) ABG Methemoglobin ABG O2 Capacity Hgb O2 Saturation FiO2 Sodium 148 Potassium 3.1 L Chloride 113 H Carbon Dioxide 30 Anion Gap 8 L BUN 53 H Creatinine 1.5 H Est GFR ( Amer) 40 Est GFR (Non-Af Amer) 33 POC Glucose (mg/dL) 110 Random Glucose 93 Calcium 10.5 Phosphorus Magnesium Total Bilirubin 1.0 AST 53 H ALT 37 Alkaline Phosphatase 101 Total Protein 6.1 Albumin 2.4 L Globulin 3.7 Albumin/Globulin Ratio 0.6 L PTH Intact Whole Molec Ur Random Creatinine 07/01/18 07/01/18 11:47 16:19 WBC RBC Hgb Hct MCV MCH MCHC RDW Plt Count MPV Gran % Lymph % (Auto) [place] % (Auto) Eos % (Auto) Baso % (Auto) Gran # Lymph # (Auto) [place] # (Auto) Eos # (Auto) Baso # (Auto) pCO2 pO2 HCO3 ABG pH ABG Total CO2 ABG O2 Saturation ABG O2 Content ABG Base Excess ABG Hemoglobin ABG Carboxyhemoglobin POC ABG HHb (Measured) ABG Methemoglobin ABG O2 Capacity Hgb O2 Saturation FiO2 Sodium Potassium Chloride Carbon Dioxide Anion Gap BUN Creatinine Est GFR ( Amer) Est GFR (Non-Af Amer) POC Glucose (mg/dL) 164 H Random Glucose Calcium Phosphorus Magnesium Total Bilirubin AST ALT Alkaline Phosphatase Total Protein Albumin Globulin Albumin/Globulin Ratio PTH Intact Whole Molec Ur Random Creatinine 63 Assessment & Plan - Assessment and Plan (Free Text) Assessment: 83 y/o F with PMHx of HFpEF, CKD3, hypothyroidism, COPD, LLE cellulitis, MVP, breast ca s/p L mastectomy, dementia, depression admitted for altered mental status and septic shock likely secondary to UTI. She was recently transferred to ICU, found to be hypoxic, treated with BiPAP and transferred to telemetry. Pt recently was found to be hypotensive, and had not responded to 3L of fluids. She has been undergoing IV antibiotics for UTI with meropenem. She was transferred to ICU for septic shock and hypotension. Plan: Neuro: AxO x 3. No focal deficits Reorient as necessary Cardio: Pt has pacemaker Hx of afib on eliquis HFpEF with last known EF 72% (01/2018) Hypotensive: Non-responsive to 3L NS fluid bolus NS @ 75cc/hr Monitor Ins & Outs Balance: +1996 (07/01) Maintain MAP >65 Pulm: ABG (07/01): 7.4/43/58/30 Supplement O2 prn Duonebs prn IS BIPAP prn QHS GI: GI PPx: protonix speech/swallow eval /Renal: Diabetic/hypertensive chronic kidney disease stage 3 Urine Cx: (+)E Coli Renal U/s (06/29): unilateral L hydronephrosis Replete lytes as necessary NS @ 75/hr Maintain euvolemia Heme: H/H stable Plts stable ID: UCx (06/28): (+) E. Coli MRSA (-) Blood Cx (06/28) NG after 3 days Repeat panculture Abx as per ID recs Start 1 dose vancomycin Meropenem 9 days course (started 06/28/18) f/u Procalcitonin Endocrine: Maintain euglycemia. Glucose 140-180 ISS- Med Fingersticks q6h Synthroid DVT/GI: Eliquis/Protonix IVP Dispo: Monitor closely in ICU for septic shock/hypotension Case seen, examined and discussed with attending physician, Dr. Uribe <Brandin Uribe - Last Filed: 07/02/18 11:04> Meds - Medications Medications: Current Medications Apixaban (Eliquis) 2.5 mg PO Q12 [facility]; Protocol Last Admin: 07/01/18 22:15 Dose: 2.5 mg Ergocalciferol (Drisdol 50,000 Intl Units Cap) 1 cap PO Q7D [facility] Last Admin: 06/30/18 13:22 Dose: Not Given Escitalopram Oxalate (Lexapro) 20 mg PO DAILY [facility] Last Admin: 07/01/18 13:35 Dose: 20 mg Ferrous Gluconate (Fergon) 324 mg PO TID [facility] Last Admin: 07/01/18 13:35 Dose: 324 mg Meropenem 250 mg/ Sodium (Chloride) 100 mls @ 100 mls/hr IVPB Q12H [facility]; Protocol Stop: 07/07/18 19:31 Last Admin: 07/02/18 07:42 Dose: 100 mls/hr Sodium Chloride (Sodium Chloride 0.45%) 1,000 mls @ 75 mls/hr IV .[id number] [facility] Last Admin: 07/02/18 04:43 Dose: 75 mls/hr Vancomycin HCl (Vancomycin 1gm) 1 gm in 250 mls @ 167 mls/hr IVPB Q12H [facility]; Protocol Last Admin: 07/01/18 20:01 Dose: 167 mls/hr Insulin Human Regular (Humulin R Med) 0 units SC Q6H [facility]; Protocol Last Admin: 07/02/18 04:30 Dose: Not Given Levothyroxine Sodium (Synthroid) 112 mcg PO DAILY [facility] Last Admin: 07/01/18 13:35 Dose: 112 mcg Pantoprazole Sodium (Protonix Inj) 40 mg IVP DAILY [facility] Last Admin: 07/01/18 10:48 Dose: 40 mg Potassium Chloride (K-Dur 20 Meq Er Tab) 20 meq PO BRK [facility] Last Admin: 07/01/18 13:35 Dose: 20 meq Vitamin B Complex/Vit C/Folic Acid (Nephro-Alyson) 1 tab PO 0800 [facility] Last Admin: 07/01/18 13:37 Dose: 1 tab Results - Vital Signs Recent Vital Signs: Last Vital Signs Temp 97.4 F L 07/02/18 04:00 Pulse 60 07/02/18 08:03 Resp 15 07/02/18 08:03 BP 102/35 L 07/02/18 08:03 Pulse Ox 83 L 07/02/18 08:03 - Labs Result Diagrams: 07/02/18 04:30 07/02/18 04:30 Labs: Laboratory Results - last 24 hr 06/30/18 07/01/18 07/01/18 06:00 11:00 11:00 WBC 6.9 RBC 4.02 Hgb 11.6 L Hct 38.8 MCV 96.5 MCH 28.9 MCHC 29.9 L RDW 17.6 H Plt Count 142 MPV 12.5 H Gran % 84.3 H Lymph % (Auto) 10.3 L [place] % (Auto) 3.2 Eos % (Auto) 2.2 Baso % (Auto) 0.0 Gran # 5.83 Lymph # (Auto) 0.7 L [place] # (Auto) 0.2 Eos # (Auto) 0.2 Baso # (Auto) 0.00 Sodium 148 Potassium 3.1 L Chloride 113 H Carbon Dioxide 30 Anion Gap 8 L BUN 53 H Creatinine 1.5 H Est GFR ( Amer) 40 Est GFR (Non-Af Amer) 33 POC Glucose (mg/dL) Random Glucose 93 Calcium 10.5 Phosphorus Magnesium Total Bilirubin 1.0 AST 53 H ALT 37 Alkaline Phosphatase 101 Total Protein 6.1 Albumin 2.4 L Globulin 3.7 Albumin/Globulin Ratio 0.6 L PTH Intact Whole Molec 15 Ur Random Creatinine 07/01/18 07/01/18 07/01/18 11:47 16:19 18:53 WBC RBC Hgb Hct MCV MCH MCHC RDW Plt Count MPV Gran % Lymph % (Auto) [place] % (Auto) Eos % (Auto) Baso % (Auto) Gran # Lymph # (Auto) [place] # (Auto) Eos # (Auto) Baso # (Auto) Sodium 147 Potassium 4.0 Chloride 114 H Carbon Dioxide 27 Anion Gap 9 L BUN 52 H Creatinine 1.6 H Est GFR ( Amer) 37 Est GFR (Non-Af Amer) 31 POC Glucose (mg/dL) 164 H Random Glucose 177 H Calcium 10.3 Phosphorus 3.1 Magnesium 1.9 Total Bilirubin 0.8 AST 54 H ALT 39 Alkaline Phosphatase 100 Total Protein 5.9 Albumin 2.4 L Globulin 3.5 Albumin/Globulin Ratio 0.7 L PTH Intact Whole Molec Ur Random Creatinine 63 07/01/18 07/02/18 07/02/18 21:48 04:13 04:30 WBC 8.8 D RBC 3.97 Hgb 11.2 L Hct 37.5 MCV 94.5 MCH 28.2 MCHC 29.9 L RDW 17.3 H Plt Count 145 MPV 12.6 H Gran % 87.0 H Lymph % (Auto) 8.3 L [place] % (Auto) 3.7 Eos % (Auto) 0.9 L Baso % (Auto) 0.1 Gran # 7.67 H Lymph # (Auto) 0.7 L [place] # (Auto) 0.3 Eos # (Auto) 0.1 Baso # (Auto) 0.01 Sodium Potassium Chloride Carbon Dioxide Anion Gap BUN Creatinine Est GFR ( Amer) Est GFR (Non-Af Amer) POC Glucose (mg/dL) 146 H 124 H Random Glucose Calcium Phosphorus Magnesium Total Bilirubin AST ALT Alkaline Phosphatase Total Protein Albumin Globulin Albumin/Globulin Ratio PTH Intact Whole Molec Ur Random Creatinine 07/02/18 04:30 WBC RBC Hgb Hct MCV MCH MCHC RDW Plt Count MPV Gran % Lymph % (Auto) [place] % (Auto) Eos % (Auto) Baso % (Auto) Gran # Lymph # (Auto) [place] # (Auto) Eos # (Auto) Baso # (Auto) Sodium 148 Potassium 3.6 Chloride 118 H Carbon Dioxide 26 Anion Gap 7 L BUN 46 H Creatinine 1.5 H Est GFR ( Amer) 40 Est GFR (Non-Af Amer) 33 POC Glucose (mg/dL) Random Glucose 138 H Calcium 10.4 Phosphorus Magnesium Total Bilirubin 1.0 AST 56 H ALT 36 Alkaline Phosphatase 103 Total Protein 5.9 Albumin 2.4 L Globulin 3.5 Albumin/Globulin Ratio 0.7 L PTH Intact Whole Molec Ur Random Creatinine Addendum Addendum: 07/01/18 18:02 ICU Attending Addendum Patient seen and examined on 07/01. Case reviewed on round with housestaff. Agree with resident note above with the following additions/exceptions: 83 F PMHx of HFpEF, CKD3, hypothyroidism, COPD, LLE cellulitis, MVP, breast ca s/p L mastectomy, dementia, depression admitted for altered mental status and septic shock likely secondary to UTI. initally tx in the ICU, stabilized and transferred out on 06/29 re-called for hypotension does not appear to be septic how does have recent UTI with ecoli still on merrem Will add vanc bolus another 1L IVF transfer to ICU Map Goal > 60 rest of care above Brandin Uribe MD Tassel Snipper
[2018-07-01 19:38] LABS: ALB/GLOB RATIO 0.7 (1.1-1.8); ALBUMIN 2.4 g/dL (3.0-4.8); CALCIUM 10.3 mg/dL (8.4-10.5)
[2018-07-01] MEDS: Vancomycin 1gm in NS 250ml 1 GM/250 ML BAG IVPB SCH (20:01)
[2018-07-02] MEDS: Insulin Reg-MEDIUM-Coverage SC SCH ×4 (04:30→21:57)
[2018-07-02] MEDS: Sodium Chloride 0.45% 1,000 ML IV SCH (04:43)
[2018-07-02 04:47] LABS: ALB/GLOB RATIO 0.7 (1.1-1.8); ALBUMIN 2.4 g/dL (3.0-4.8); CALCIUM 10.4 mg/dL (8.4-10.5)
[2018-07-02 05:12] LABS: BASO # 0.01 K/mm3 (0.0-2.0); BASO % 0.1 % (0.0-3.0); EOS # 0.1 (0.0-0.7); EOS % 0.9 % (1.5-5.0); GRAN # 7.67 (1.4-6.5); HEMOGLOBIN 11.2 g/dL (12.0-16.0); LYMPH # 0.7 (1.2-3.4); LYMPH % 8.3 % (22.0-35.0); MEAN CELL VOLUME 94.5 fl (80.0-105.0); MEAN CORPUSCULAR HEMOGLOBIN 28.2 pg (25.0-35.0); MEAN CORPUSCULAR HGB CONC 29.9 g/dl (31.0-37.0); MEAN PLATELET VOLUME 12.6 fl (7.0-11.0); MONO # 0.3 (0.1-0.6); MONO % 3.7 % (1.0-6.0); RBC 3.97 10^6/uL (3.5-6.1); RED CELL DISTRIBUTION WIDTH 17.3 % (11.5-14.5); WHITE BLOOD COUNT 8.8 10^3/ul (4.5-11.0)
--- NOTE | 2018-07-02 09:29 | PN ---
DATE: 07/02/2018 SUBJECTIVE: Patient is in bed in no acute distress. Seen in [facility], bed 5. She was transferred to ICU for hypotension. This morning, she was awake. She was doing better. No fevers, no chills. No nausea. PHYSICAL EXAMINATION: VITAL SIGNS: On exam, temperature is 97, blood pressure is 102/35, respiratory rate of 20, heart rate of 62. HEENT: Examination of HEENT is unremarkable. NECK: Supple. LUNGS: Have decreased breath sounds. HEART: Normal S1, S2. ABDOMEN: Soft, nontender. LABORATORY EXAMINATION: Reveals a white count of 8000, hemoglobin of 11. Chemistries are noted. Creatinine is 1.5 with LFTs are noted. Procalcitonin 0.25. Urinalysis is positive and urine culture is E-coli, relatively sensitive, resistant to ampicillin, resistant to Cipro and Bactrim. Currently on meropenem. MRSA screen is negative. ASSESSMENT AND PLAN: An 83-year-old female with obesity with body mass index of 36 with half-way patient with congestive heart failure, dementia, chronic congestive heart failure, hypothyroidism, depression and chronic obstructive lung disease, mitral valve prolapse, history of breast cancer with lower extremity cellulitis in the past, now presenting with severe sepsis with Escherichia coli in the urine as the source with acute kidney injury, hypotension in the Intensive Care Unit. The patient is on meropenem day #5 and today is day #5. I do not believe this episode of hypotension is infectious in origin. We will follow with you. We will be able to switch to p.o. antibiotics upon discharge. Michael Moon MD
[2018-07-02] MEDS: Vancomycin 1gm in NS 250ml 1 GM/250 ML BAG IVPB SCH ×2 (10:00→17:40)
--- NOTE | 2018-07-02 10:02 | CP.PCM.PN ---
Subjective - Date & Time of Evaluation Date of Evaluation: 07/02/18 Time of Evaluation: 10:01 - Subjective Subjective: No significant changes patient in bed Receiving oxygen No vomiting reported Vital sign noted to be stable Objective - Vital Signs/Intake and Output Vital Signs (last 24 hours): Temp Pulse Resp BP Pulse Ox 97.4 F L 60 15 102/35 L 83 L 07/02/18 04:00 07/02/18 08:03 07/02/18 08:03 07/02/18 08:03 07/02/18 08:03 Intake and Output: 07/02/18 07/02/18 06:59 18:59 Intake Total 1050 Output Total 600 Balance 450 - Medications Medications: Current Medications Apixaban (Eliquis) 2.5 mg PO Q12 [facility]; Protocol Last Admin: 07/01/18 22:15 Dose: 2.5 mg Ergocalciferol (Drisdol 50,000 Intl Units Cap) 1 cap PO Q7D [facility] Last Admin: 06/30/18 13:22 Dose: Not Given Escitalopram Oxalate (Lexapro) 20 mg PO DAILY [facility] Last Admin: 07/01/18 13:35 Dose: 20 mg Ferrous Gluconate (Fergon) 324 mg PO TID [facility] Last Admin: 07/01/18 13:35 Dose: 324 mg Meropenem 250 mg/ Sodium (Chloride) 100 mls @ 100 mls/hr IVPB Q12H [facility]; Protocol Stop: 07/07/18 19:31 Last Admin: 07/02/18 07:42 Dose: 100 mls/hr Sodium Chloride (Sodium Chloride 0.45%) 1,000 mls @ 75 mls/hr IV .[id number] [facility] Last Admin: 07/02/18 04:43 Dose: 75 mls/hr Vancomycin HCl (Vancomycin 1gm) 1 gm in 250 mls @ 167 mls/hr IVPB Q12H [facility]; Protocol Last Admin: 07/01/18 20:01 Dose: 167 mls/hr Insulin Human Regular (Humulin R Med) 0 units SC Q6H [facility]; Protocol Last Admin: 07/02/18 04:30 Dose: Not Given Levothyroxine Sodium (Synthroid) 112 mcg PO DAILY [facility] Last Admin: 07/01/18 13:35 Dose: 112 mcg Pantoprazole Sodium (Protonix Inj) 40 mg IVP DAILY [facility] Last Admin: 07/01/18 10:48 Dose: 40 mg Potassium Chloride (K-Dur 20 Meq Er Tab) 20 meq PO BRK [facility] Last Admin: 07/01/18 13:35 Dose: 20 meq Vitamin B Complex/Vit C/Folic Acid (Nephro-Alyson) 1 tab PO 0800 [facility] Last Admin: 07/01/18 13:37 Dose: 1 tab - Labs Labs: 07/02/18 04:30 07/02/18 04:30 PT 15.7 SECONDS (9.4-12.5) H 06/28/18 21:15 INR 1.37 06/28/18 21:15 - Eye Exam Eye Exam: Conjunctival injection - ENT Exam ENT Exam: Mucous Membranes Moist - Neck Exam Neck Exam: absent: Lymphadenopathy - Respiratory Exam Respiratory Exam: NORMAL BREATHING PATTERN. absent: Chest Wall Tenderness - Cardiovascular Exam Cardiovascular Exam: absent: Gallop, JVD, Rubs - GI/Abdominal Exam GI & Abdominal Exam: Soft, Normal Bowel Sounds - Extremities Exam Extremities Exam: absent: Calf Tenderness - Back Exam Back Exam: absent: CVA tenderness (L), CVA tenderness (R) - Neurological Exam Neurological Exam: Awake - Psychiatric Exam Psychiatric exam: Flat Affect - Skin Skin Exam: absent: Cyanosis Assessment and Plan - Assessment and Plan (Free Text) Plan: Acute Kidney Injury (N17.9) likely due to pre-renal state/dehydration: improving Hypernatremia, hypomagnesemia, hx of left side nephrolithiasis acute on chronic hypercapnic respi failure with lactic acidosis sepsis with UTI Diabetic chronic Kidney Disease (E11.22) Hypertensive Chronic Kidney Disease (I12.9) Chronic Kidney Disease (N18.3) Stage 3 with ? mg proteinuria (R80.9) likely due to AKIs in past/age related changes Anemia, COPD, diastolic CHF, A fib, CA breast, morbid obesity, dementia, Vit D def mild left hydronephrosis Recommendation Serum sodium going up 148 also noted that the patient receiving normal saline please to be switched to half-normal saline. Also serum chloride going up consistent with hyperchloremia from normal saline perhaps. Also we need to do vancomycin level patient receiving 1 g every 12 hours to monitor kidney function and monitor serum vancomycin level. Repeat BMP tomorrow
--- NOTE | 2018-07-02 10:47 | RAD ---
Date of service: 07/02/2018 HISTORY: sepsis, r/o pneumonia COMPARISON: 06/28/2018. FINDINGS: The right-sided central venous catheter terminates in the right atrium. LUNGS: There is mild pulmonary venous congestion improved since the prior examination. There is interval development of opacity with sharp lateral margin in the right lower lobe. There is loss of right diaphragmatic silhouette. PLEURA: Bilateral small pleural effusions no pneumothorax CARDIOVASCULAR: Persistent cardiomegaly. Atherosclerotic aortic arch calcifications are present. There is stable position of left-sided pacemaker. OSSEOUS STRUCTURES: Within normal limits for the patient's age. VISUALIZED UPPER ABDOMEN: Normal. OTHER FINDINGS: None. IMPRESSION: Interval development of right lower lobe atelectasis/pneumonia. Suspect background of mild congestive heart failure.
--- NOTE | 2018-07-02 11:11 | PN ---
DATE: 07/02/2018 SUBJECTIVE: I saw her in bed. She is more alert today. She is now on a diet, it is pureed diet. She is eating some. She is on a BiPAP, may be a little bit better than when she came in. She is on IV antibiotics. She is in the Intensive Care Unit right now. PHYSICAL EXAMINATION: VITAL SIGNS: She has 97.4 temp, 60 pulse, 103/51 blood pressure, 18 respiratory rate, 73% to 83% O2 sat on 40% BiPAP and she is only 83% oxygen. HEENT: Head is atraumatic, normocephalic. HEART: Regular rate. LUNGS: Decreased breath sounds, but clear. ABDOMEN: Soft, morbidly obese. EXTREMITIES: Trace edema. MEDICATIONS: She is on insulin, potassium, Drisdol, Eliquis, Fergon, Lexapro, Merrem IV, vitamins, Protonix, IV fluids, levothyroxine and vancomycin IV. LABORATORY DATA: She has E. coli in the urine. ASSESSMENT AND PLAN: She, I believe, is trying to turnaround a little bit because now she could eat a little bit. She could not eat or talk or pass the swallow evaluation the first few days. She is in the Intensive Care Unit. As per Infectious Disease, she is on IV antibiotics until we get the final determination of the infection and then we can switch her to p.o., we will get her back to [facility] and we will follow her there. She also has low blood pressure, that is why she is in the unit also. We will continue aggressive treatment and care, vancomycin IV, Merrem IV, check her labs tomorrow. Hopefully she will continue to improve. [place] DO
[2018-07-02] MEDS: Multivitamin Vitamin B Complex (Nephro-Vite) Tab PO SCH (11:40)
[2018-07-02] MEDS: Potassium Chloride 20 mEq ER Tab PO SCH (11:40)
--- NOTE | 2018-07-02 11:44 | CP.CCUPN ---
<Darrion Joseph - Last Filed: 07/02/18 12:05> CCU Subjective - Physician Review Subjective (Free Text): 07/02/18 11:39 Patient seen and examined at bedside in no acute distress. Patient states she is not in pain and is not sad but wants to go home. Critical Care Time Spent (in minutes): 40 CCU Objective - Vital Signs / Intake & Output Vital Signs (Last 4 hours): Vital Signs Pulse Resp BP Pulse Ox 07/02/18 11:28 80 16 78/38 L 87 L 07/02/18 10:31 71 16 98/64 L 63 L 07/02/18 10:30 71 16 118/40 L 91 L 07/02/18 10:29 70 21 103/72 91 L 07/02/18 10:28 70 18 98/52 L 93 L 07/02/18 10:27 72 18 111/59 L 92 L 07/02/18 10:00 70 12 95 07/02/18 09:28 60 14 95/60 L 92 L 07/02/18 09:27 60 19 122/71 95 07/02/18 09:03 69 30 H 128/52 L 88 L 07/02/18 08:03 60 15 102/35 L 83 L 07/02/18 08:00 60 20 95 Intake and Output (Last 8hrs): Intake & Output 07/01/18 07/02/18 07/02/18 22:59 06:59 14:59 Intake Total 1050 Output Total 600 Balance 450 Weight 107.955 kg Intake: IV 1000 Right chest 1000 Oral 50 Output: Urine 600 Urine, Voided 600 - Physical Exam Head: Positive for: Atraumatic, Normocephalic Conjunctiva: Positive for: Normal Ears: Positive for: Normal Mouth: Positive for: Dry Neck: Negative for: Meningeal Signs, MIDLINE TENDERNESS Respiratory/Chest: Positive for: Good Air Exchange, Rhonchi. Negative for: Respiratory Distress, Accessory Muscle Use, Wheezes, Rales Cardiovascular: Positive for: Regular Rate and Rhythm, Normal S1, S2 Abdomen: Positive for: Normal Bowel Sounds. Negative for: Tenderness, Distention, Peritoneal Signs, Rebound, Guarding, Mass/Organomegaly Upper Extremity: Positive for: NORMAL PULSES, Capillary Refill < 2s. Negative for: Cyanosis, Edema, Swelling, Erythema Lower Extremity: Positive for: Edema, NORMAL PULSES. Negative for: Cyanosis, Erythema, Deformity Skin: Positive for: Warm, Dry, Normal Color. Negative for: Rashes Psychiatric: Positive for: Alert - Medications Active Medications: Active Medications Generic Name Dose Route Start Last Admin Trade Name Freq PRN Reason Stop Dose Admin Apixaban 2.5 mg 06/28/18 22:00 07/01/18 22:15 Eliquis PO 2.5 mg Q12 SOHAN Administration Protocol Ergocalciferol 1 cap 06/30/18 12:30 06/30/18 13:22 Drisdol 50,000 Intl Units Cap PO Not Given Q7D SOHAN Escitalopram Oxalate 20 mg 06/29/18 10:00 07/01/18 13:35 Lexapro PO 20 mg DAILY SOHAN Administration Ferrous Gluconate 324 mg 06/30/18 14:00 07/01/18 13:35 Fergon PO 324 mg TID SOHAN Administration Meropenem 250 mg/ Sodium 100 mls @ 100 mls/hr 06/28/18 19:30 07/02/18 07:42 Chloride IVPB 07/07/18 19:31 100 mls/hr Q12H SOHAN Administration Protocol Sodium Chloride 1,000 mls @ 75 mls/hr 07/01/18 14:30 07/02/18 04:43 Sodium Chloride 0.45% IV 75 mls/hr .[id number] SOHAN Administration Vancomycin HCl 1 gm in 250 mls @ 167 mls/hr 07/01/18 18:30 07/01/18 20:01 Vancomycin 1gm IVPB 167 mls/hr Q12H SOHAN Administration Protocol Insulin Human Regular 0 units 06/29/18 16:00 07/02/18 04:30 Humulin R Med SC Not Given Q6H SOHAN Protocol Levothyroxine Sodium 112 mcg 06/29/18 10:00 07/01/18 13:35 Synthroid PO 112 mcg DAILY SOHAN Administration Pantoprazole Sodium 40 mg 06/29/18 10:00 07/01/18 10:48 Protonix Inj IVP 40 mg DAILY SOHAN Administration Potassium Chloride 20 meq 07/01/18 08:45 07/01/18 13:35 K-Dur 20 Meq Er Tab PO 20 meq BRK SOHAN Administration Vitamin B Complex/Vit C/Folic Acid 1 tab 07/01/18 08:00 07/01/18 13:37 Nephro-Alyson PO 1 tab 0800 SOHAN Administration - Patient Studies Lab Studies: Microbiology Studies 06/28/18 16:45 Blood Culture - Preliminary Blood NO GROWTH AFTER 3 DAYS 06/28/18 16:28 Blood Culture - Preliminary Blood NO GROWTH AFTER 3 DAYS 06/28/18 16:45 Urine Culture - Final Urine,Catheterized Escherichia Coli Lab Studies 07/02/18 07/02/18 07/02/18 Range/Units 04:30 04:30 04:13 WBC 8.8 D (4.5-11.0) 10^3/ul RBC 3.97 (3.5-6.1) 10^6/uL Hgb 11.2 L (12.0-16.0) g/dL Hct 37.5 (36.0-48.0) % MCV 94.5 (80.0-105.0) fl MCH 28.2 (25.0-35.0) pg MCHC 29.9 L (31.0-37.0) g/dl RDW 17.3 H (11.5-14.5) % Plt Count 145 (120.0-450.0) 10^3/uL MPV 12.6 H (7.0-11.0) fl Gran % 87.0 H (50.0-68.0) % Lymph % (Auto) 8.3 L (22.0-35.0) % [place] % (Auto) 3.7 (1.0-6.0) % Eos % (Auto) 0.9 L (1.5-5.0) % Baso % (Auto) 0.1 (0.0-3.0) % Gran # 7.67 H (1.4-6.5) Lymph # (Auto) 0.7 L (1.2-3.4) [place] # (Auto) 0.3 (0.1-0.6) Eos # (Auto) 0.1 (0.0-0.7) Baso # (Auto) 0.01 (0.0-2.0) K/mm3 Sodium 148 (132-148) mmol/L Potassium 3.6 (3.6-5.0) mmol/L Chloride 118 H (98-107) mmol/L Carbon Dioxide 26 (21-33) mmol/L Anion Gap 7 L (10-20) BUN 46 H (7-21) mg/dL Creatinine 1.5 H (0.7-1.2) mg/dl Est GFR ( Amer) 40 Est GFR (Non-Af Amer) 33 POC Glucose (mg/dL) 124 H (65-110) mg/dL Random Glucose 138 H (70-110) mg/dL Calcium 10.4 (8.4-10.5) mg/dL Phosphorus (2.5-4.5) mg/dL Magnesium (1.7-2.2) mg/dL Total Bilirubin 1.0 (0.2-1.3) mg/dL AST 56 H (14-36) U/L ALT 36 (7-56) U/L Alkaline Phosphatase 103 (38-126) U/L Total Protein 5.9 (5.8-8.3) g/dL Albumin 2.4 L (3.0-4.8) g/dL Globulin 3.5 gm/dL Albumin/Globulin Ratio 0.7 L (1.1-1.8) PTH Intact Whole Molec (14-64) pg/mL Ur Random Creatinine mg/dL 07/01/18 07/01/18 07/01/18 Range/Units 21:48 18:53 16:19 WBC (4.5-11.0) 10^3/ul RBC (3.5-6.1) 10^6/uL Hgb (12.0-16.0) g/dL Hct (36.0-48.0) % MCV (80.0-105.0) fl MCH (25.0-35.0) pg MCHC (31.0-37.0) g/dl RDW (11.5-14.5) % Plt Count (120.0-450.0) 10^3/uL MPV (7.0-11.0) fl Gran % (50.0-68.0) % Lymph % (Auto) (22.0-35.0) % [place] % (Auto) (1.0-6.0) % Eos % (Auto) (1.5-5.0) % Baso % (Auto) (0.0-3.0) % Gran # (1.4-6.5) Lymph # (Auto) (1.2-3.4) [place] # (Auto) (0.1-0.6) Eos # (Auto) (0.0-0.7) Baso # (Auto) (0.0-2.0) K/mm3 Sodium 147 (132-148) mmol/L Potassium 4.0 (3.6-5.0) mmol/L Chloride 114 H (98-107) mmol/L Carbon Dioxide 27 (21-33) mmol/L Anion Gap 9 L (10-20) BUN 52 H (7-21) mg/dL Creatinine 1.6 H (0.7-1.2) mg/dl Est GFR ( Amer) 37 Est GFR (Non-Af Amer) 31 POC Glucose (mg/dL) 146 H 164 H (65-110) mg/dL Random Glucose 177 H (70-110) mg/dL Calcium 10.3 (8.4-10.5) mg/dL Phosphorus 3.1 (2.5-4.5) mg/dL Magnesium 1.9 (1.7-2.2) mg/dL Total Bilirubin 0.8 (0.2-1.3) mg/dL AST 54 H (14-36) U/L ALT 39 (7-56) U/L Alkaline Phosphatase 100 (38-126) U/L Total Protein 5.9 (5.8-8.3) g/dL Albumin 2.4 L (3.0-4.8) g/dL Globulin 3.5 gm/dL Albumin/Globulin Ratio 0.7 L (1.1-1.8) PTH Intact Whole Molec (14-64) pg/mL Ur Random Creatinine mg/dL 07/01/18 07/01/18 06/30/18 Range/Units 11:47 11:00 06:00 WBC (4.5-11.0) 10^3/ul RBC (3.5-6.1) 10^6/uL Hgb (12.0-16.0) g/dL Hct (36.0-48.0) % MCV (80.0-105.0) fl MCH (25.0-35.0) pg MCHC (31.0-37.0) g/dl RDW (11.5-14.5) % Plt Count (120.0-450.0) 10^3/uL MPV (7.0-11.0) fl Gran % (50.0-68.0) % Lymph % (Auto) (22.0-35.0) % [place] % (Auto) (1.0-6.0) % Eos % (Auto) (1.5-5.0) % Baso % (Auto) (0.0-3.0) % Gran # (1.4-6.5) Lymph # (Auto) (1.2-3.4) [place] # (Auto) (0.1-0.6) Eos # (Auto) (0.0-0.7) Baso # (Auto) (0.0-2.0) K/mm3 Sodium (132-148) mmol/L Potassium 3.1 L (3.6-5.0) mmol/L Chloride (98-107) mmol/L Carbon Dioxide (21-33) mmol/L Anion Gap (10-20) BUN (7-21) mg/dL Creatinine (0.7-1.2) mg/dl Est GFR ( Amer) Est GFR (Non-Af Amer) POC Glucose (mg/dL) (65-110) mg/dL Random Glucose (70-110) mg/dL Calcium (8.4-10.5) mg/dL Phosphorus (2.5-4.5) mg/dL Magnesium (1.7-2.2) mg/dL Total Bilirubin (0.2-1.3) mg/dL AST (14-36) U/L ALT (7-56) U/L Alkaline Phosphatase (38-126) U/L Total Protein (5.8-8.3) g/dL Albumin (3.0-4.8) g/dL Globulin gm/dL Albumin/Globulin Ratio (1.1-1.8) PTH Intact Whole Molec 15 (14-64) pg/mL Ur Random Creatinine 63 mg/dL Laboratory Results - last 24 hr 06/30/18 07/01/18 07/01/18 06:00 11:00 11:47 WBC RBC Hgb Hct MCV MCH MCHC RDW Plt Count MPV Gran % Lymph % (Auto) [place] % (Auto) Eos % (Auto) Baso % (Auto) Gran # Lymph # (Auto) [place] # (Auto) Eos # (Auto) Baso # (Auto) Sodium Potassium 3.1 L Chloride Carbon Dioxide Anion Gap BUN Creatinine Est GFR ( Amer) Est GFR (Non-Af Amer) POC Glucose (mg/dL) Random Glucose Calcium Phosphorus Magnesium Total Bilirubin AST ALT Alkaline Phosphatase Total Protein Albumin Globulin Albumin/Globulin Ratio PTH Intact Whole Molec 15 Ur Random Creatinine 63 07/01/18 07/01/18 07/01/18 16:19 18:53 21:48 WBC RBC Hgb Hct MCV MCH MCHC RDW Plt Count MPV Gran % Lymph % (Auto) [place] % (Auto) Eos % (Auto) Baso % (Auto) Gran # Lymph # (Auto) [place] # (Auto) Eos # (Auto) Baso # (Auto) Sodium 147 Potassium 4.0 Chloride 114 H Carbon Dioxide 27 Anion Gap 9 L BUN 52 H Creatinine 1.6 H Est GFR ( Amer) 37 Est GFR (Non-Af Amer) 31 POC Glucose (mg/dL) 164 H 146 H Random Glucose 177 H Calcium 10.3 Phosphorus 3.1 Magnesium 1.9 Total Bilirubin 0.8 AST 54 H ALT 39 Alkaline Phosphatase 100 Total Protein 5.9 Albumin 2.4 L Globulin 3.5 Albumin/Globulin Ratio 0.7 L PTH Intact Whole Molec Ur Random Creatinine 07/02/18 07/02/18 07/02/18 04:13 04:30 04:30 WBC 8.8 D RBC 3.97 Hgb 11.2 L Hct 37.5 MCV 94.5 MCH 28.2 MCHC 29.9 L RDW 17.3 H Plt Count 145 MPV 12.6 H Gran % 87.0 H Lymph % (Auto) 8.3 L [place] % (Auto) 3.7 Eos % (Auto) 0.9 L Baso % (Auto) 0.1 Gran # 7.67 H Lymph # (Auto) 0.7 L [place] # (Auto) 0.3 Eos # (Auto) 0.1 Baso # (Auto) 0.01 Sodium 148 Potassium 3.6 Chloride 118 H Carbon Dioxide 26 Anion Gap 7 L BUN 46 H Creatinine 1.5 H Est GFR ( Amer) 40 Est GFR (Non-Af Amer) 33 POC Glucose (mg/dL) 124 H Random Glucose 138 H Calcium 10.4 Phosphorus Magnesium Total Bilirubin 1.0 AST 56 H ALT 36 Alkaline Phosphatase 103 Total Protein 5.9 Albumin 2.4 L Globulin 3.5 Albumin/Globulin Ratio 0.7 L PTH Intact Whole Molec Ur Random Creatinine Fingerstick Blood Sugar Results: 124 Review of Systems - Review of Systems Systems not reviewed;Unavailable: Uncooperative Critical Care Progress Note - Nutrition Nutrition: Nutrition Category Date Time Status Diabetic [Consistent Carbohydrate] [DIET] Diets 07/01/18 Lunch Ordered Assessment/Plan - Assessment and Plan (Free Text) Assessment: Patient is 83yo female with PMhx of dementia, atrial fibrillation on eliquis, CHF, CRF, DM, depression, COPD, breast ca s/p L mastectomy admitted to the ICU for hypotension. Plan: Neuro/Psych -AAOx3 -Monitor patient's mood, appears depressed; continue with lexapro Pulmonary -Supplemental oxygen as needed to keep sat >90% -Continue with duonebs PRN, BiPAP as needed qHS Cardiovascular -BP control -Continue with eliquis for atrial fibrillation -Replete electrolytes as needed ID -Continue with merrem day #5 to complete a total course of 7 days and vancomycin as per ID Endocrine -Continue with levoythroxine for hypothroidism -Continue with ISS medium GI -GI prophylaxis Heme -DVT prophylaxis <Brandin Uribe - Last Filed: 07/02/18 16:29> CCU Objective - Vital Signs / Intake & Output Vital Signs (Last 4 hours): Vital Signs Pulse Resp BP Pulse Ox 07/02/18 14:28 60 25 H 99/42 L 96 07/02/18 14:00 60 20 95 07/02/18 13:29 94/45 L 96 Intake and Output (Last 8hrs): Intake & Output 07/02/18 07/02/18 07/02/18 06:59 14:59 22:59 Intake Total 1050 Output Total 600 Balance 450 Weight 107.955 kg Intake: IV 1000 Right chest 1000 Oral 50 Output: Urine 600 Urine, Voided 600 - Medications Active Medications: Active Medications Generic Name Dose Route Start Last Admin Trade Name Freq PRN Reason Stop Dose Admin Apixaban 2.5 mg 06/28/18 22:00 07/02/18 11:40 Eliquis PO 2.5 mg Q12 SOHAN Administration Protocol Ergocalciferol 1 cap 06/30/18 12:30 06/30/18 13:22 Drisdol 50,000 Intl Units Cap PO Not Given Q7D SOHAN Escitalopram Oxalate 20 mg 06/29/18 10:00 07/02/18 11:40 Lexapro PO 20 mg DAILY SOHAN Administration Ferrous Gluconate 324 mg 06/30/18 14:00 07/02/18 11:41 Fergon PO 324 mg TID SOHAN Administration Meropenem 250 mg/ Sodium 100 mls @ 100 mls/hr 06/28/18 19:30 07/02/18 07:42 Chloride IVPB 07/07/18 19:31 100 mls/hr Q12H SOHAN Administration Protocol Sodium Chloride 1,000 mls @ 75 mls/hr 07/01/18 14:30 07/02/18 04:43 Sodium Chloride 0.45% IV 75 mls/hr .[id number] SOHAN Administration Vancomycin HCl 1 gm in 250 mls @ 167 mls/hr 07/01/18 18:30 07/01/18 20:01 Vancomycin 1gm IVPB 167 mls/hr Q12H SOHAN Administration Protocol Insulin Human Regular 0 units 06/29/18 16:00 07/02/18 04:30 Humulin R Med SC Not Given Q6H [facility] Protocol Levothyroxine Sodium 112 mcg 06/29/18 10:00 07/01/18 13:35 Synthroid PO 112 mcg DAILY SOHAN Administration Pantoprazole Sodium 40 mg 06/29/18 10:00 07/02/18 11:40 Protonix Inj IVP 40 mg DAILY SOHAN Administration Potassium Chloride 20 meq 07/01/18 08:45 07/02/18 11:40 K-Dur 20 Meq Er Tab PO 20 meq BRK SOHAN Administration Vitamin B Complex/Vit C/Folic Acid 1 tab 07/01/18 08:00 07/02/18 11:40 Nephro-Alyson PO 1 tab 0800 SOHAN Administration - Patient Studies Lab Studies: Microbiology Studies 06/28/18 16:45 Blood Culture - Preliminary Blood NO GROWTH AFTER 3 DAYS 06/28/18 16:28 Blood Culture - Preliminary Blood NO GROWTH AFTER 3 DAYS Lab Studies 07/02/18 07/02/18 07/02/18 Range/Units 15:56 12:22 04:30 WBC (4.5-11.0) 10^3/ul RBC (3.5-6.1) 10^6/uL Hgb (12.0-16.0) g/dL Hct (36.0-48.0) % MCV (80.0-105.0) fl MCH (25.0-35.0) pg MCHC (31.0-37.0) g/dl RDW (11.5-14.5) % Plt Count (120.0-450.0) 10^3/uL MPV (7.0-11.0) fl Gran % (50.0-68.0) % Lymph % (Auto) (22.0-35.0) % [place] % (Auto) (1.0-6.0) % Eos % (Auto) (1.5-5.0) % Baso % (Auto) (0.0-3.0) % Gran # (1.4-6.5) Lymph # (Auto) (1.2-3.4) [place] # (Auto) (0.1-0.6) Eos # (Auto) (0.0-0.7) Baso # (Auto) (0.0-2.0) K/mm3 Sodium 148 (132-148) mmol/L Potassium 3.6 (3.6-5.0) mmol/L Chloride 118 H (98-107) mmol/L Carbon Dioxide 26 (21-33) mmol/L Anion Gap 7 L (10-20) BUN 46 H (7-21) mg/dL Creatinine 1.5 H (0.7-1.2) mg/dl Est GFR ( Amer) 40 Est GFR (Non-Af Amer) 33 POC Glucose (mg/dL) 162 H 177 H (65-110) mg/dL Random Glucose 138 H (70-110) mg/dL Calcium 10.4 (8.4-10.5) mg/dL Phosphorus (2.5-4.5) mg/dL Magnesium (1.7-2.2) mg/dL Total Bilirubin 1.0 (0.2-1.3) mg/dL AST 56 H (14-36) U/L ALT 36 (7-56) U/L Alkaline Phosphatase 103 (38-126) U/L Total Protein 5.9 (5.8-8.3) g/dL Albumin 2.4 L (3.0-4.8) g/dL Globulin 3.5 gm/dL Albumin/Globulin Ratio 0.7 L (1.1-1.8) Procalcitonin (0.19-0.49) NG/ML 07/02/18 07/02/18 07/01/18 Range/Units 04:30 04:13 21:48 WBC 8.8 D (4.5-11.0) 10^3/ul RBC 3.97 (3.5-6.1) 10^6/uL Hgb 11.2 L (12.0-16.0) g/dL Hct 37.5 (36.0-48.0) % MCV 94.5 (80.0-105.0) fl MCH 28.2 (25.0-35.0) pg MCHC 29.9 L (31.0-37.0) g/dl RDW 17.3 H (11.5-14.5) % Plt Count 145 (120.0-450.0) 10^3/uL MPV 12.6 H (7.0-11.0) fl Gran % 87.0 H (50.0-68.0) % Lymph % (Auto) 8.3 L (22.0-35.0) % [place] % (Auto) 3.7 (1.0-6.0) % Eos % (Auto) 0.9 L (1.5-5.0) % Baso % (Auto) 0.1 (0.0-3.0) % Gran # 7.67 H (1.4-6.5) Lymph # (Auto) 0.7 L (1.2-3.4) [place] # (Auto) 0.3 (0.1-0.6) Eos # (Auto) 0.1 (0.0-0.7) Baso # (Auto) 0.01 (0.0-2.0) K/mm3 Sodium (132-148) mmol/L Potassium (3.6-5.0) mmol/L Chloride (98-107) mmol/L Carbon Dioxide (21-33) mmol/L Anion Gap (10-20) BUN (7-21) mg/dL Creatinine (0.7-1.2) mg/dl Est GFR ( Amer) Est GFR (Non-Af Amer) POC Glucose (mg/dL) 124 H 146 H (65-110) mg/dL Random Glucose (70-110) mg/dL Calcium (8.4-10.5) mg/dL Phosphorus (2.5-4.5) mg/dL Magnesium (1.7-2.2) mg/dL Total Bilirubin (0.2-1.3) mg/dL AST (14-36) U/L ALT (7-56) U/L Alkaline Phosphatase (38-126) U/L Total Protein (5.8-8.3) g/dL Albumin (3.0-4.8) g/dL Globulin gm/dL Albumin/Globulin Ratio (1.1-1.8) Procalcitonin (0.19-0.49) NG/ML 07/01/18 07/01/18 Range/Units 18:53 18:53 WBC (4.5-11.0) 10^3/ul RBC (3.5-6.1) 10^6/uL Hgb (12.0-16.0) g/dL Hct (36.0-48.0) % MCV (80.0-105.0) fl MCH (25.0-35.0) pg MCHC (31.0-37.0) g/dl RDW (11.5-14.5) % Plt Count (120.0-450.0) 10^3/uL MPV (7.0-11.0) fl Gran % (50.0-68.0) % Lymph % (Auto) (22.0-35.0) % [place] % (Auto) (1.0-6.0) % Eos % (Auto) (1.5-5.0) % Baso % (Auto) (0.0-3.0) % Gran # (1.4-6.5) Lymph # (Auto) (1.2-3.4) [place] # (Auto) (0.1-0.6) Eos # (Auto) (0.0-0.7) Baso # (Auto) (0.0-2.0) K/mm3 Sodium 147 (132-148) mmol/L Potassium 4.0 (3.6-5.0) mmol/L Chloride 114 H (98-107) mmol/L Carbon Dioxide 27 (21-33) mmol/L Anion Gap 9 L (10-20) BUN 52 H (7-21) mg/dL Creatinine 1.6 H (0.7-1.2) mg/dl Est GFR ( Amer) 37 Est GFR (Non-Af Amer) 31 POC Glucose (mg/dL) (65-110) mg/dL Random Glucose 177 H (70-110) mg/dL Calcium 10.3 (8.4-10.5) mg/dL Phosphorus 3.1 (2.5-4.5) mg/dL Magnesium 1.9 (1.7-2.2) mg/dL Total Bilirubin 0.8 (0.2-1.3) mg/dL AST 54 H (14-36) U/L ALT 39 (7-56) U/L Alkaline Phosphatase 100 (38-126) U/L Total Protein 5.9 (5.8-8.3) g/dL Albumin 2.4 L (3.0-4.8) g/dL Globulin 3.5 gm/dL Albumin/Globulin Ratio 0.7 L (1.1-1.8) Procalcitonin 0.10 L (0.19-0.49) NG/ML Laboratory Results - last 24 hr 07/01/18 07/01/18 07/01/18 18:53 18:53 21:48 WBC RBC Hgb Hct MCV MCH MCHC RDW Plt Count MPV Gran % Lymph % (Auto) [place] % (Auto) Eos % (Auto) Baso % (Auto) Gran # Lymph # (Auto) [place] # (Auto) Eos # (Auto) Baso # (Auto) Sodium 147 Potassium 4.0 Chloride 114 H Carbon Dioxide 27 Anion Gap 9 L BUN 52 H Creatinine 1.6 H Est GFR ( Amer) 37 Est GFR (Non-Af Amer) 31 POC Glucose (mg/dL) 146 H Random Glucose 177 H Calcium 10.3 Phosphorus 3.1 Magnesium 1.9 Total Bilirubin 0.8 AST 54 H ALT 39 Alkaline Phosphatase 100 Total Protein 5.9 Albumin 2.4 L Globulin 3.5 Albumin/Globulin Ratio 0.7 L Procalcitonin 0.10 L 07/02/18 07/02/18 07/02/18 04:13 04:30 04:30 WBC 8.8 D RBC 3.97 Hgb 11.2 L Hct 37.5 MCV 94.5 MCH 28.2 MCHC 29.9 L RDW 17.3 H Plt Count 145 MPV 12.6 H Gran % 87.0 H Lymph % (Auto) 8.3 L [place] % (Auto) 3.7 Eos % (Auto) 0.9 L Baso % (Auto) 0.1 Gran # 7.67 H Lymph # (Auto) 0.7 L [place] # (Auto) 0.3 Eos # (Auto) 0.1 Baso # (Auto) 0.01 Sodium 148 Potassium 3.6 Chloride 118 H Carbon Dioxide 26 Anion Gap 7 L BUN 46 H Creatinine 1.5 H Est GFR ( Amer) 40 Est GFR (Non-Af Amer) 33 POC Glucose (mg/dL) 124 H Random Glucose 138 H Calcium 10.4 Phosphorus Magnesium Total Bilirubin 1.0 AST 56 H ALT 36 Alkaline Phosphatase 103 Total Protein 5.9 Albumin 2.4 L Globulin 3.5 Albumin/Globulin Ratio 0.7 L Procalcitonin 07/02/18 07/02/18 12:22 15:56 WBC RBC Hgb Hct MCV MCH MCHC RDW Plt Count MPV Gran % Lymph % (Auto) [place] % (Auto) Eos % (Auto) Baso % (Auto) Gran # Lymph # (Auto) [place] # (Auto) Eos # (Auto) Baso # (Auto) Sodium Potassium Chloride Carbon Dioxide Anion Gap BUN Creatinine Est GFR ( Amer) Est GFR (Non-Af Amer) POC Glucose (mg/dL) 177 H 162 H Random Glucose Calcium Phosphorus Magnesium Total Bilirubin AST ALT Alkaline Phosphatase Total Protein Albumin Globulin Albumin/Globulin Ratio Procalcitonin Critical Care Progress Note - Nutrition Nutrition: Nutrition Category Date Time Status Diabetic [Consistent Carbohydrate] [DIET] Diets 07/01/18 Lunch Ordered Addendum Addendum: 07/02/18 16:28 ICU Attending Addendum Patient seen and examined on 07/01. Case reviewed on round with housestaff. Agree with resident note above with the following additions/exceptions: 83 F PMHx of HFpEF, CKD3, hypothyroidism, COPD, LLE cellulitis, MVP, breast ca s/p L mastectomy, dementia, depression admitted for altered mental status and septic shock likely secondary to UTI. initally tx in the ICU, stabilized and transferred out on 06/29 re-called yesterday 07/02 for hypotension responded well to IV fluids did not need pressors still on merrem Will add vanc she is acceptable to transfer out of ICU rest of care above Brandin Uribe MD Disbursing Agent
[2018-07-02] MEDS: Dextrose 5%/0.45% NS 1,000 ML IV SCH (17:57)
[2018-07-03] MEDS: Insulin Reg-MEDIUM-Coverage SC SCH ×5 (06:20→21:45)
[2018-07-03 06:25] LABS: BASO # 0.02 K/mm3 (0.0-2.0); BASO % 0.3 % (0.0-3.0); EOS # 0.2 (0.0-0.7); EOS % 3.1 % (1.5-5.0); GRAN # 6.35 (1.4-6.5); GRAN % 82.8 % (50.0-68.0); HEMOGLOBIN 10.9 g/dL (12.0-16.0); LYMPH # 0.8 (1.2-3.4); LYMPH % 10.4 % (22.0-35.0); MEAN CELL VOLUME 96.3 fl (80.0-105.0); MEAN CORPUSCULAR HEMOGLOBIN 28.8 pg (25.0-35.0); MEAN CORPUSCULAR HGB CONC 29.9 g/dl (31.0-37.0); MEAN PLATELET VOLUME 12.1 fl (7.0-11.0); MONO # 0.3 (0.1-0.6); MONO % 3.4 % (1.0-6.0); RBC 3.78 10^6/uL (3.5-6.1); RED CELL DISTRIBUTION WIDTH 17.8 % (11.5-14.5); WHITE BLOOD COUNT 7.7 10^3/uL (4.5-11.0)
[2018-07-03 06:43] LABS: ALB/GLOB RATIO 0.7 (1.1-1.8); ALBUMIN 2.2 g/dL (3.0-4.8); CALCIUM 10.1 mg/dL (8.4-10.5)
[2018-07-03] MEDS: Vancomycin 1gm in NS 250ml 1 GM/250 ML BAG IVPB SCH (06:44)
[2018-07-03] MEDS: Multivitamin Vitamin B Complex (Nephro-Vite) Tab PO SCH (08:00)
[2018-07-03] MEDS: Potassium Chloride 20 mEq ER Tab PO SCH (08:00)
[2018-07-03] MEDS: Dextrose 5%/0.45% NS 1,000 ML IV SCH ×2 (08:48→23:08)
--- NOTE | 2018-07-03 09:18 | PN ---
DATE: 07/03/2018 SUBJECTIVE: She is in the Intensive Care Unit. She had a low blood pressure of 60, it is now up to 80 plus. She is on IV antibiotics. She is on BiPAP. She is starting to eat a little bit and she spoke a few words this morning. MEDICATIONS: She is on dextrose, Drisdol, Eliquis, Fergon, insulin, potassium, Lexapro, Merrem IV, Nephro-Alyson, ProAmatine, Protonix, Synthroid and vancomycin IV. PHYSICAL EXAMINATION: VITAL SIGNS: 97.6 temp, 61 pulse, 87/45 blood pressure, 12 respiratory rate, 95% O2 sat on oxygen and BiPAP. HEENT: Head is atraumatic, normocephalic. HEART: Regular rate. LUNGS: Decreased breath sounds. Poor inspiration, but clear. ABDOMEN: Soft, morbidly obese, nontender. EXTREMITIES: Trace edema. LABORATORY DATA: 7.7 white count, 10.9 hemoglobin, 36.4 hematocrit with 114 platelets. 146 sodium, potassium 3.8, BUN 39, creatinine 1.2, better. GFR is up to 43, sugar is 146, calcium is 10.1, total bili is 0.7, AST is 43, ALT is 35, alk phos is 80, total protein is 5.3. ASSESSMENT AND PLAN: She has multiple issues. She had severe sepsis, hypertension, hypotension, urinary tract infection, acute kidney injury. Continue aggressive treatment and care on her as per Infectious Disease and when we can, we will get her to [facility] when it is okayed by Infectious Disease. Her blood pressure stays stable. [place] DO
--- NOTE | 2018-07-03 09:49 | CP.PCM.PN ---
Subjective - Date & Time of Evaluation Date of Evaluation: 07/03/18 Time of Evaluation: 09:44 - Subjective Subjective: Nephrology Consultation Note: Assessment: Stable Acute Kidney Injury (N17.9) likely due to pre-renal state/dehydration: improving Hypernatremia, hypomagnesemia, hx of left side nephrolithiasis acute on chronic hypercapnic respi failure with lactic acidosis sepsis with UTI Diabetic chronic Kidney Disease (E11.22) Hypertensive Chronic Kidney Disease (I12.9) Chronic Kidney Disease (N18.3) Stage 3 with ? mg proteinuria (R80.9) likely due to AKIs in past/age related changes Anemia, COPD, diastolic CHF, A fib, CA breast, morbid obesity, dementia, Vit D def mild left hydronephrosis Plan Renal function continues to improve Maintain hemodynamics stable. Avoid hypotension. Avoid gifty/arb given low bp Monitor Input/Output, daily weights and renal function with basic metabolic panel na is slowly improving on hypotonic 0.45 % ns renal US reviewed - L mild hydro noted - would consider neumann placement and consult supplement lytes as needed on oral iron S:seen in ICU , clinically unchanged, non commmunicative Physical Examination: General Appearance: Comfortable, in no acute respiratory distress, ill appearing, non communicative Vitals reviewed and noted as below Head; Atraumatic, normocephalic EYES: Pupils are equal, round Sclera is anicteric. Neck; supple no lymphadenopathy, no thyromegaly or bruit Lungs: Normal respiratory rate/effort cta anteriorrly Heart: Normal rate. s1s2 normal. No rub or gallop. SM at aortic area Extremities: trace ankle edema Neurological: Patient is mostly non communicative, opens eyes to voice Skin: Warm and dry. Normal turgor. No rash. Palpitation: Normal elasticity for age Abdomen: Abdomen is soft. Bowel sounds +. There is no abdominal tenderness, no guarding/rigidity no organomegaly Psych: unable to assess altered MSK: no joint tenderness or swelling. Digits and nails normal, no deformity : kidney or bladder not palpable. Labs/imaging reviewed. Past medical history, past surgical history, family history, social history, allergy reviewed and noted as below Family hx: no hx of CKD. Rest non-contributory Objective - Vital Signs/Intake and Output Vital Signs (last 24 hours): Temp Pulse Resp BP Pulse Ox 97.6 F 60 12 87/45 L 95 07/03/18 04:00 07/03/18 07:28 07/03/18 07:28 07/03/18 07:28 07/03/18 07:28 Intake and Output: 07/03/18 07/03/18 06:59 18:59 Intake Total 1280 Output Total 250 Balance 1030 - Medications Medications: Current Medications Apixaban (Eliquis) 2.5 mg PO Q12 [facility]; Protocol Last Admin: 07/02/18 21:51 Dose: 2.5 mg Ergocalciferol (Drisdol 50,000 Intl Units Cap) 1 cap PO Q7D [facility] Last Admin: 06/30/18 13:22 Dose: Not Given Escitalopram Oxalate (Lexapro) 20 mg PO DAILY [facility] Last Admin: 07/02/18 11:40 Dose: 20 mg Ferrous Gluconate (Fergon) 324 mg PO TID [facility] Last Admin: 07/02/18 17:40 Dose: 324 mg Meropenem 250 mg/ Sodium (Chloride) 100 mls @ 100 mls/hr IVPB Q12H [facility]; Protocol Stop: 07/07/18 19:31 Last Admin: 07/03/18 07:58 Dose: 100 mls/hr Vancomycin HCl (Vancomycin 1gm) 1 gm in 250 mls @ 167 mls/hr IVPB Q12H [facility]; Protocol Last Admin: 07/03/18 06:44 Dose: 167 mls/hr Dextrose/Sodium Chloride (Dextrose 5%/0.45% Ns 1000 Ml) 1,000 mls @ 75 mls/hr IV .[id number] [facility] Last Admin: 07/03/18 08:48 Dose: 75 mls/hr Insulin Human Regular (Humulin R Med) 0 units SC ACHS [facility]; Protocol Last Admin: 07/03/18 08:48 Dose: Not Given Levothyroxine Sodium (Synthroid) 112 mcg PO DAILY [facility] Last Admin: 07/01/18 13:35 Dose: 112 mcg Midodrine (Proamatine) 5 mg PO TID [facility] Pantoprazole Sodium (Protonix Inj) 40 mg IVP DAILY [facility] Last Admin: 07/02/18 11:40 Dose: 40 mg Potassium Chloride (K-Dur 20 Meq Er Tab) 20 meq PO BRK [facility] Last Admin: 07/03/18 08:00 Dose: 20 meq Vitamin B Complex/Vit C/Folic Acid (Nephro-Alyson) 1 tab PO 0800 [facility] Last Admin: 07/03/18 08:00 Dose: 1 tab - Labs Labs: 07/03/18 05:30 07/03/18 05:30 PT 15.7 SECONDS (9.4-12.5) H 06/28/18 21:15 INR 1.37 06/28/18 21:15
[2018-07-03] MEDS: cefTRIAXone 1 gm 1 GM/100 ML BAG IVPB SCH (10:19)
[2018-07-03] MEDS: Levothyroxine 112 MCG TAB PO SCH (10:20)
--- NOTE | 2018-07-03 10:38 | PN ---
DATE: 07/03/2018 SUBJECTIVE: The patient is in bed, in no acute distress, nontoxic. PHYSICAL EXAMINATION: VITAL SIGNS: On exam, temperature is 97, blood pressure is 87/40, respiratory rate of 18, heart rate of 60. HEENT: Examination of HEENT is unremarkable. NECK: Supple. LUNGS: Have decreased breath sounds. HEART: Normal S1, S2. ABDOMEN: Soft, nontender. LABORATORY DATA: Laboratory examination reveals a white count of 7.7, hemoglobin of 10, platelets of 114. Chemistries reveals a BUN of 39, creatinine of 1.2. Urinalysis is noted. Microbiology is reviewed. E. coli in the urine. Review of orders reveals the patient is on meropenem. ASSESSMENT AND PLAN: An 83-year-old female, seen earlier today in [facility], bed . Female with obesity, body mass index of 36, residential patient with congestive heart failure, dementia, chronic congestive heart failure, hypothyroidism, depression, chronic obstructive lung disease, mitral valve prolapse, history of breast cancer, lower extremity cellulitis, presenting with a severe sepsis with Escherichia coli in the urine with acute kidney injury. We will discontinue the meropenem and vancomycin today, day #6 and complete with ceftriaxone 1 g every 24 hours. Maybe able to switch to p.o. upon discharge. Michael Moon MD
--- NOTE | 2018-07-03 11:46 | CP.CCUPN ---
<Darrion Joseph - Last Filed: 07/03/18 14:17> CCU Subjective - Physician Review Subjective (Free Text): . 07/03/18 10:38 Patient seen and examined at bedside in no acute distress. Patient states she is in no pain nor sad however continues to cry which seems to be patient's baseline. CCU Objective - Vital Signs / Intake & Output Intake and Output (Last 8hrs): Intake & Output 07/02/18 07/03/18 07/03/18 22:59 06:59 14:59 Intake Total 1280 Output Total 250 Balance 1030 Intake: IV 1250 Right chest 1250 Oral 30 Output: Urine 250 Urine, Voided 250 Other: # Bowel Movements 1 - Physical Exam Head: Positive for: Atraumatic, Normocephalic Conjunctiva: Positive for: Normal Ears: Positive for: Normal Mouth: Positive for: Dry Neck: Negative for: Meningeal Signs, MIDLINE TENDERNESS Respiratory/Chest: Positive for: Good Air Exchange. Negative for: Respiratory Distress, Accessory Muscle Use, Wheezes, Rales Cardiovascular: Positive for: Regular Rate and Rhythm, Normal S1, S2 Abdomen: Positive for: Normal Bowel Sounds. Negative for: Tenderness, Distention, Peritoneal Signs, Rebound, Guarding, Mass/Organomegaly Upper Extremity: Positive for: NORMAL PULSES, Capillary Refill < 2s. Negative for: Cyanosis, Edema, Swelling, Erythema Lower Extremity: Positive for: Edema, NORMAL PULSES. Negative for: Cyanosis, Erythema, Deformity Skin: Positive for: Warm, Dry, Normal Color. Negative for: Rashes Psychiatric: Positive for: Alert - Medications Active Medications: Active Medications Generic Name Dose Route Start Last Admin Trade Name Jose E PRN Reason Stop Dose Admin Apixaban 2.5 mg 06/28/18 22:00 07/03/18 10:19 Eliquis PO 2.5 mg Q12 [facility] Administration Protocol Ergocalciferol 1 cap 06/30/18 12:30 06/30/18 13:22 Drisdol 50,000 Intl Units Cap PO Not Given Q7D [facility] Escitalopram Oxalate 20 mg 06/29/18 10:00 07/03/18 10:19 Lexapro PO 20 mg DAILY [facility] Administration Ferrous Gluconate 324 mg 06/30/18 14:00 07/03/18 10:19 Fergon PO 324 mg TID [facility] Administration Dextrose/Sodium Chloride 1,000 mls @ 75 mls/hr 07/02/18 18:00 07/03/18 08:48 Dextrose 5%/0.45% Ns 1000 Ml IV 75 mls/hr .[id number] [facility] Administration Ceftriaxone Sodium 1 gm in 100 mls @ 100 mls/hr 07/03/18 10:15 07/03/18 10:19 Rocephin 1 Gram Ivpb IVPB 100 mls/hr DAILY [facility] Administration Protocol Insulin Human Regular 0 units 07/03/18 08:00 07/03/18 08:48 Humulin R Med SC Not Given ACHS [facility] Protocol Levothyroxine Sodium 112 mcg 06/29/18 10:00 07/03/18 10:20 Synthroid PO 112 mcg DAILY [facility] Administration Midodrine 5 mg 07/03/18 10:00 07/03/18 10:19 Proamatine PO 5 mg TID [facility] Administration Pantoprazole Sodium 40 mg 06/29/18 10:00 07/03/18 10:20 Protonix Inj IVP 40 mg DAILY [facility] Administration Potassium Chloride 20 meq 07/01/18 08:45 07/03/18 08:00 K-Dur 20 Meq Er Tab PO 20 meq BRK [facility] Administration Vitamin B Complex/Vit C/Folic Acid 1 tab 07/01/18 08:00 07/03/18 08:00 Nephro-Alyson PO 1 tab 0800 [facility] Administration - Patient Studies Lab Studies: Microbiology Studies 07/01/18 18:53 Blood Culture - Preliminary Blood NO GROWTH AFTER 24 HOURS 07/01/18 18:53 Blood Culture - Preliminary Blood NO GROWTH AFTER 24 HOURS 06/28/18 16:45 Blood Culture - Preliminary Blood NO GROWTH AFTER 4 DAYS 06/28/18 16:28 Blood Culture - Preliminary Blood NO GROWTH AFTER 4 DAYS Lab Studies 07/03/18 07/03/18 07/03/18 Range/Units 05:30 05:30 04:56 WBC 7.7 (4.5-11.0) 10^3/uL RBC 3.78 (3.5-6.1) 10^6/uL Hgb 10.9 L (12.0-16.0) g/dL Hct 36.4 (36.0-48.0) % MCV 96.3 (80.0-105.0) fl MCH 28.8 (25.0-35.0) pg MCHC 29.9 L (31.0-37.0) g/dl RDW 17.8 H (11.5-14.5) % Plt Count 114 L (120.0-450.0) 10^3/uL MPV 12.1 H (7.0-11.0) fl Gran % 82.8 H (50.0-68.0) % Lymph % (Auto) 10.4 L (22.0-35.0) % [place] % (Auto) 3.4 (1.0-6.0) % Eos % (Auto) 3.1 (1.5-5.0) % Baso % (Auto) 0.3 (0.0-3.0) % Gran # 6.35 (1.4-6.5) Lymph # (Auto) 0.8 L (1.2-3.4) [place] # (Auto) 0.3 (0.1-0.6) Eos # (Auto) 0.2 (0.0-0.7) Baso # (Auto) 0.02 (0.0-2.0) K/mm3 Sodium 146 (132-148) mmol/L Potassium 3.8 (3.6-5.0) mmol/L Chloride 118 H (98-107) mmol/L Carbon Dioxide 26 (21-33) mmol/L Anion Gap 6 L (10-20) BUN 39 H (7-21) mg/dL Creatinine 1.2 (0.7-1.2) mg/dl Est GFR ( Amer) 52 Est GFR (Non-Af Amer) 43 POC Glucose (mg/dL) 135 H (65-110) mg/dL Random Glucose 146 H (70-110) mg/dL Calcium 10.1 (8.4-10.5) mg/dL Total Bilirubin 0.7 (0.2-1.3) mg/dL AST 43 H D (14-36) U/L ALT 35 (7-56) U/L Alkaline Phosphatase 88 (38-126) U/L Total Protein 5.3 L (5.8-8.3) g/dL Albumin 2.2 L (3.0-4.8) g/dL Globulin 3.2 gm/dL Albumin/Globulin Ratio 0.7 L (1.1-1.8) Procalcitonin (0.19-0.49) NG/ML 07/02/18 07/02/18 07/02/18 Range/Units 21:52 15:56 12:22 WBC (4.5-11.0) 10^3/uL RBC (3.5-6.1) 10^6/uL Hgb (12.0-16.0) g/dL Hct (36.0-48.0) % MCV (80.0-105.0) fl MCH (25.0-35.0) pg MCHC (31.0-37.0) g/dl RDW (11.5-14.5) % Plt Count (120.0-450.0) 10^3/uL MPV (7.0-11.0) fl Gran % (50.0-68.0) % Lymph % (Auto) (22.0-35.0) % [place] % (Auto) (1.0-6.0) % Eos % (Auto) (1.5-5.0) % Baso % (Auto) (0.0-3.0) % Gran # (1.4-6.5) Lymph # (Auto) (1.2-3.4) [place] # (Auto) (0.1-0.6) Eos # (Auto) (0.0-0.7) Baso # (Auto) (0.0-2.0) K/mm3 Sodium (132-148) mmol/L Potassium (3.6-5.0) mmol/L Chloride (98-107) mmol/L Carbon Dioxide (21-33) mmol/L Anion Gap (10-20) BUN (7-21) mg/dL Creatinine (0.7-1.2) mg/dl Est GFR ( Amer) Est GFR (Non-Af Amer) POC Glucose (mg/dL) 156 H 162 H 177 H (65-110) mg/dL Random Glucose (70-110) mg/dL Calcium (8.4-10.5) mg/dL Total Bilirubin (0.2-1.3) mg/dL AST (14-36) U/L ALT (7-56) U/L Alkaline Phosphatase (38-126) U/L Total Protein (5.8-8.3) g/dL Albumin (3.0-4.8) g/dL Globulin gm/dL Albumin/Globulin Ratio (1.1-1.8) Procalcitonin (0.19-0.49) NG/ML 07/01/18 Range/Units 18:53 WBC (4.5-11.0) 10^3/uL RBC (3.5-6.1) 10^6/uL Hgb (12.0-16.0) g/dL Hct (36.0-48.0) % MCV (80.0-105.0) fl MCH (25.0-35.0) pg MCHC (31.0-37.0) g/dl RDW (11.5-14.5) % Plt Count (120.0-450.0) 10^3/uL MPV (7.0-11.0) fl Gran % (50.0-68.0) % Lymph % (Auto) (22.0-35.0) % [place] % (Auto) (1.0-6.0) % Eos % (Auto) (1.5-5.0) % Baso % (Auto) (0.0-3.0) % Gran # (1.4-6.5) Lymph # (Auto) (1.2-3.4) [place] # (Auto) (0.1-0.6) Eos # (Auto) (0.0-0.7) Baso # (Auto) (0.0-2.0) K/mm3 Sodium (132-148) mmol/L Potassium (3.6-5.0) mmol/L Chloride (98-107) mmol/L Carbon Dioxide (21-33) mmol/L Anion Gap (10-20) BUN (7-21) mg/dL Creatinine (0.7-1.2) mg/dl Est GFR ( Amer) Est GFR (Non-Af Amer) POC Glucose (mg/dL) (65-110) mg/dL Random Glucose (70-110) mg/dL Calcium (8.4-10.5) mg/dL Total Bilirubin (0.2-1.3) mg/dL AST (14-36) U/L ALT (7-56) U/L Alkaline Phosphatase (38-126) U/L Total Protein (5.8-8.3) g/dL Albumin (3.0-4.8) g/dL Globulin gm/dL Albumin/Globulin Ratio (1.1-1.8) Procalcitonin 0.10 L (0.19-0.49) NG/ML Laboratory Results - last 24 hr 07/01/18 07/02/18 07/02/18 18:53 12:22 15:56 WBC RBC Hgb Hct MCV MCH MCHC RDW Plt Count MPV Gran % Lymph % (Auto) [place] % (Auto) Eos % (Auto) Baso % (Auto) Gran # Lymph # (Auto) [place] # (Auto) Eos # (Auto) Baso # (Auto) Sodium Potassium Chloride Carbon Dioxide Anion Gap BUN Creatinine Est GFR ( Amer) Est GFR (Non-Af Amer) POC Glucose (mg/dL) 177 H 162 H Random Glucose Calcium Total Bilirubin AST ALT Alkaline Phosphatase Total Protein Albumin Globulin Albumin/Globulin Ratio Procalcitonin 0.10 L 07/02/18 07/03/18 07/03/18 21:52 04:56 05:30 WBC 7.7 RBC 3.78 Hgb 10.9 L Hct 36.4 MCV 96.3 MCH 28.8 MCHC 29.9 L RDW 17.8 H Plt Count 114 L MPV 12.1 H Gran % 82.8 H Lymph % (Auto) 10.4 L [place] % (Auto) 3.4 Eos % (Auto) 3.1 Baso % (Auto) 0.3 Gran # 6.35 Lymph # (Auto) 0.8 L [place] # (Auto) 0.3 Eos # (Auto) 0.2 Baso # (Auto) 0.02 Sodium Potassium Chloride Carbon Dioxide Anion Gap BUN Creatinine Est GFR ( Amer) Est GFR (Non-Af Amer) POC Glucose (mg/dL) 156 H 135 H Random Glucose Calcium Total Bilirubin AST ALT Alkaline Phosphatase Total Protein Albumin Globulin Albumin/Globulin Ratio Procalcitonin 07/03/18 05:30 WBC RBC Hgb Hct MCV MCH MCHC RDW Plt Count MPV Gran % Lymph % (Auto) [place] % (Auto) Eos % (Auto) Baso % (Auto) Gran # Lymph # (Auto) [place] # (Auto) Eos # (Auto) Baso # (Auto) Sodium 146 Potassium 3.8 Chloride 118 H Carbon Dioxide 26 Anion Gap 6 L BUN 39 H Creatinine 1.2 Est GFR ( Amer) 52 Est GFR (Non-Af Amer) 43 POC Glucose (mg/dL) Random Glucose 146 H Calcium 10.1 Total Bilirubin 0.7 AST 43 H D ALT 35 Alkaline Phosphatase 88 Total Protein 5.3 L Albumin 2.2 L Globulin 3.2 Albumin/Globulin Ratio 0.7 L Procalcitonin Fingerstick Blood Sugar Results: 135 Review of Systems - Review of Systems Systems not reviewed;Unavailable: Uncooperative Critical Care Progress Note - Nutrition Nutrition: Nutrition Category Date Time Status Diabetic [Consistent Carbohydrate] [DIET] Diets 07/01/18 Lunch Ordered Assessment/Plan - Assessment and Plan (Free Text) Assessment: Patient is 83yo female with PMhx of dementia, atrial fibrillation on eliquis, CHF, CRF, DM, depression, COPD, breast ca s/p L mastectomy admitted to the ICU for hypotension which has resolved. Plan: Neuro/Psych -AAOx3 -Continue with lexapro for patient's history of depression Pulmonary -Supplemental oxygen as needed to keep sat >90% -Continue with duonebs PRN, BiPAP PRN Cardiovascular -BP control -Keep MAP>65 -Continue with eliquis for atrial fibrillation -Replete electrolytes as needed ID -Continue with merrem day #6 to complete a total course of 7 days and vancomycin as per ID Endocrine -Continue with levoythroxine for hypothroidism -Continue with ISS medium GI -GI prophylaxis Heme -continue with DVT prophylaxis Disposition: Patient will be transferred to med/surg <Brandin Uribe - Last Filed: 07/03/18 15:14> CCU Objective - Vital Signs / Intake & Output Vital Signs (Last 4 hours): Vital Signs Temp Pulse Resp BP Pulse Ox 07/03/18 13:16 60 110/33 L 97 07/03/18 12:17 60 07/03/18 12:00 98.4 F 46 L 14 104/44 L 100 Intake and Output (Last 8hrs): Intake & Output 07/03/18 07/03/18 07/03/18 06:59 14:59 22:59 Intake Total 1280 1000 Output Total 250 200 Balance 1030 800 Weight 115.122 kg Intake: IV 1250 550 Right chest 1250 550 Oral 30 450 Output: Urine 250 200 Urine, Voided 250 200 Other: # Bowel Movements 1 - Medications Active Medications: Active Medications Generic Name Dose Route Start Last Admin Trade Name Jose E PRN Reason Stop Dose Admin Apixaban 2.5 mg 06/28/18 22:00 07/03/18 10:19 Eliquis PO 2.5 mg Q12 [facility] Administration Protocol Ergocalciferol 1 cap 06/30/18 12:30 06/30/18 13:22 Drisdol 50,000 Intl Units Cap PO Not Given Q7D [facility] Escitalopram Oxalate 20 mg 06/29/18 10:00 07/03/18 10:19 Lexapro PO 20 mg DAILY [facility] Administration Ferrous Gluconate 324 mg 06/30/18 14:00 07/03/18 13:25 Fergon PO 324 mg TID [facility] Administration Dextrose/Sodium Chloride 1,000 mls @ 75 mls/hr 07/02/18 18:00 07/03/18 08:48 Dextrose 5%/0.45% Ns 1000 Ml IV 75 mls/hr .[id number] [facility] Administration Ceftriaxone Sodium 1 gm in 100 mls @ 100 mls/hr 07/03/18 10:15 07/03/18 10:19 Rocephin 1 Gram Ivpb IVPB 100 mls/hr DAILY [facility] Administration Protocol Insulin Human Regular 0 units 07/03/18 08:00 07/03/18 13:08 Humulin R Med SC Not Given ACHS [facility] Protocol Levothyroxine Sodium 112 mcg 06/29/18 10:00 07/03/18 10:20 Synthroid PO 112 mcg DAILY [facility] Administration Midodrine 5 mg 07/03/18 10:00 07/03/18 13:15 Proamatine PO 5 mg TID [facility] Administration Pantoprazole Sodium 40 mg 06/29/18 10:00 07/03/18 10:20 Protonix Inj IVP 40 mg DAILY [facility] Administration Potassium Chloride 20 meq 07/01/18 08:45 07/03/18 08:00 K-Dur 20 Meq Er Tab PO 20 meq BRK [facility] Administration Vitamin B Complex/Vit C/Folic Acid 1 tab 07/01/18 08:00 07/03/18 08:00 Nephro-Alyson PO 1 tab 0800 [facility] Administration - Patient Studies Lab Studies: Microbiology Studies 10/24/18 18:53 Blood Culture - Preliminary Blood NO GROWTH AFTER 24 HOURS 07/01/18 18:53 Blood Culture - Preliminary Blood NO GROWTH AFTER 24 HOURS 06/28/18 16:45 Blood Culture - Preliminary Blood NO GROWTH AFTER 4 DAYS 06/28/18 16:28 Blood Culture - Preliminary Blood NO GROWTH AFTER 4 DAYS Lab Studies 07/03/18 07/03/18 07/03/18 Range/Units 05:30 05:30 04:56 WBC 7.7 (4.5-11.0) 10^3/uL RBC 3.78 (3.5-6.1) 10^6/uL Hgb 10.9 L (12.0-16.0) g/dL Hct 36.4 (36.0-48.0) % MCV 96.3 (80.0-105.0) fl MCH 28.8 (25.0-35.0) pg MCHC 29.9 L (31.0-37.0) g/dl RDW 17.8 H (11.5-14.5) % Plt Count 114 L (120.0-450.0) 10^3/uL MPV 12.1 H (7.0-11.0) fl Gran % 82.8 H (50.0-68.0) % Lymph % (Auto) 10.4 L (22.0-35.0) % [place] % (Auto) 3.4 (1.0-6.0) % Eos % (Auto) 3.1 (1.5-5.0) % Baso % (Auto) 0.3 (0.0-3.0) % Gran # 6.35 (1.4-6.5) Lymph # (Auto) 0.8 L (1.2-3.4) [place] # (Auto) 0.3 (0.1-0.6) Eos # (Auto) 0.2 (0.0-0.7) Baso # (Auto) 0.02 (0.0-2.0) K/mm3 Sodium 146 (132-148) mmol/L Potassium 3.8 (3.6-5.0) mmol/L Chloride 118 H (98-107) mmol/L Carbon Dioxide 26 (21-33) mmol/L Anion Gap 6 L (10-20) BUN 39 H (7-21) mg/dL Creatinine 1.2 (0.7-1.2) mg/dl Est GFR ( Amer) 52 Est GFR (Non-Af Amer) 43 POC Glucose (mg/dL) 135 H (65-110) mg/dL Random Glucose 146 H (70-110) mg/dL Calcium 10.1 (8.4-10.5) mg/dL Total Bilirubin 0.7 (0.2-1.3) mg/dL AST 43 H D (14-36) U/L ALT 35 (7-56) U/L Alkaline Phosphatase 88 (38-126) U/L Total Protein 5.3 L (5.8-8.3) g/dL Albumin 2.2 L (3.0-4.8) g/dL Globulin 3.2 gm/dL Albumin/Globulin Ratio 0.7 L (1.1-1.8) 07/02/18 07/02/18 Range/Units 21:52 15:56 WBC (4.5-11.0) 10^3/uL RBC (3.5-6.1) 10^6/uL Hgb (12.0-16.0) g/dL Hct (36.0-48.0) % MCV (80.0-105.0) fl MCH (25.0-35.0) pg MCHC (31.0-37.0) g/dl RDW (11.5-14.5) % Plt Count (120.0-450.0) 10^3/uL MPV (7.0-11.0) fl Gran % (50.0-68.0) % Lymph % (Auto) (22.0-35.0) % [place] % (Auto) (1.0-6.0) % Eos % (Auto) (1.5-5.0) % Baso % (Auto) (0.0-3.0) % Gran # (1.4-6.5) Lymph # (Auto) (1.2-3.4) [place] # (Auto) (0.1-0.6) Eos # (Auto) (0.0-0.7) Baso # (Auto) (0.0-2.0) K/mm3 Sodium (132-148) mmol/L Potassium (3.6-5.0) mmol/L Chloride (98-107) mmol/L Carbon Dioxide (21-33) mmol/L Anion Gap (10-20) BUN (7-21) mg/dL Creatinine (0.7-1.2) mg/dl Est GFR ( Amer) Est GFR (Non-Af Amer) POC Glucose (mg/dL) 156 H 162 H (65-110) mg/dL Random Glucose (70-110) mg/dL Calcium (8.4-10.5) mg/dL Total Bilirubin (0.2-1.3) mg/dL AST (14-36) U/L ALT (7-56) U/L Alkaline Phosphatase (38-126) U/L Total Protein (5.8-8.3) g/dL Albumin (3.0-4.8) g/dL Globulin gm/dL Albumin/Globulin Ratio (1.1-1.8) Laboratory Results - last 24 hr 07/02/18 07/02/18 07/03/18 15:56 21:52 04:56 WBC RBC Hgb Hct MCV MCH MCHC RDW Plt Count MPV Gran % Lymph % (Auto) [place] % (Auto) Eos % (Auto) Baso % (Auto) Gran # Lymph # (Auto) [place] # (Auto) Eos # (Auto) Baso # (Auto) Sodium Potassium Chloride Carbon Dioxide Anion Gap BUN Creatinine Est GFR ( Amer) Est GFR (Non-Af Amer) POC Glucose (mg/dL) 162 H 156 H 135 H Random Glucose Calcium Total Bilirubin AST ALT Alkaline Phosphatase Total Protein Albumin Globulin Albumin/Globulin Ratio 07/03/18 07/03/18 05:30 05:30 WBC 7.7 RBC 3.78 Hgb 10.9 L Hct 36.4 MCV 96.3 MCH 28.8 MCHC 29.9 L RDW 17.8 H Plt Count 114 L MPV 12.1 H Gran % 82.8 H Lymph % (Auto) 10.4 L [place] % (Auto) 3.4 Eos % (Auto) 3.1 Baso % (Auto) 0.3 Gran # 6.35 Lymph # (Auto) 0.8 L [place] # (Auto) 0.3 Eos # (Auto) 0.2 Baso # (Auto) 0.02 Sodium 146 Potassium 3.8 Chloride 118 H Carbon Dioxide 26 Anion Gap 6 L BUN 39 H Creatinine 1.2 Est GFR ( Amer) 52 Est GFR (Non-Af Amer) 43 POC Glucose (mg/dL) Random Glucose 146 H Calcium 10.1 Total Bilirubin 0.7 AST 43 H D ALT 35 Alkaline Phosphatase 88 Total Protein 5.3 L Albumin 2.2 L Globulin 3.2 Albumin/Globulin Ratio 0.7 L Critical Care Progress Note - Nutrition Nutrition: Nutrition Category Date Time Status Diabetic [Consistent Carbohydrate] [DIET] Diets 07/01/18 Lunch Ordered Addendum Addendum: 07/03/18 15:13 ICU Attending Addendum Patient seen and examined on 07/01. Case reviewed on round with housestaff. Agree with resident note above with the following additions/exceptions: 83 F PMHx of HFpEF, CKD3, hypothyroidism, COPD, LLE cellulitis, MVP, breast ca s/p L mastectomy, dementia, depression admitted for altered mental status and septic shock likely secondary to UTI. initially tx in the ICU, stabilized and transferred out on 06/29 re-called 07/02 for hypotension and transf back to MICU responded well to IV fluids alone, added vanc as well did not need pressors Monitored an extra night given borderline BP which appears to her baseline now add midrodrine this morning 5mg TID cont abx she is acceptable to transfer out of ICU Discussed her case with Dr Asif this am, agreeable to transfer, he is requesting Tele rest of care above Brandin Uribe MD Lpn Private Duty
--- NOTE | 2018-07-03 23:51 | CON ---
DATE: 07/03/2018 CARDIOLOGY CONSULTATION HISTORY: The patient is an 83-year-old woman who presents with lethargy as well as edema. After being given diuretics, she was found to be hypotensive. PAST MEDICAL HISTORY: Includes multiple echocardiograms that show critical aortic stenosis with normal LV function. The patient suffers from chronic dementia. In addition, the patient's past medical history includes diabetes mellitus, hypertension, hypothyroidism, and is status post pacemaker placement in the past. She has a history of CAD with a stent placed in the past as well. PHYSICAL EXAMINATION: GENERAL: Currently, the patient is in bed, confused, in no acute distress. VITAL SIGNS: Blood pressure is 87 systolic, heart rate is paced in the 60s. NECK: Negative JVD. LUNGS: Decreased breath sounds. HEART: Reveals S1 and S2 with 2/6 systolic ejection murmur. EXTREMITIES: 1 to 2+ edema. LABORATORY DATA: Hemoglobin is 10.9. Chemistries: BUN and creatinine are 39 and 1.2. The glucose is 146. IMPRESSION: 1. Critical aortic stenosis. 2. Right-sided recurrent pedal edema. 3. Hypotension. 4. Prerenal azotemia. 5. Diabetes mellitus. 6. History of hypertension. 7. History of coronary artery disease. Given these findings, the patient is hypotensive is directly related to attempted diuresis with Lasix in the presence of aortic stenosis. The patient is not a candidate for transcatheter aortic valve replacement or aortic valve replacement. We will hold off the diuretics. We will need to accept her pedal edema so as not to lower her blood pressure. Homero Massey MD
[2018-07-04] MEDS: Insulin Reg-MEDIUM-Coverage SC SCH ×4 (08:10→22:40)
[2018-07-04] MEDS: Multivitamin Vitamin B Complex (Nephro-Vite) Tab PO SCH (08:12)
[2018-07-04] MEDS: Potassium Chloride 20 mEq ER Tab PO SCH (08:12)
[2018-07-04] MEDS: Dextrose 5%/0.45% NS 1,000 ML IV SCH (09:46)
--- NOTE | 2018-07-04 09:53 | PN ---
DATE: 07/02/2018 SUBJECTIVE: The patient is in bed, in no acute distress, nontoxic; however, chronically ill, debilitated. She does not communicate well. PHYSICAL EXAMINATION: VITAL SIGNS: On exam, temperature is 98, blood pressure is 117/40, respiratory rate of 20, heart rate of 57. HEENT: Examination of HEENT is unremarkable. NECK: Supple. LUNGS: Have decreased breath sounds. HEART: Normal S1, S2. ABDOMEN: Soft, nontender. LABORATORY DATA: Laboratory examination reveals a white count of 7.7, hemoglobin of 10, platelets of 114. Chemistries reveals a BUN of 39, creatinine of 1.2. Microbiology reveals the blood cultures are negative. Urine cultures, E. coli. It is resistant to Bactrim and Cipro. ASSESSMENT AND PLAN: An 83-year-old female, seen earlier today in 262, bed 1 with obesity, body mass index of 36, [facility] patient with congestive heart failure, dementia, chronic congestive heart failure, hypothyroidism, depression, chronic obstructive lung disease, mitral valve prolapse, history of breast cancer, lower extremity cellulitis, presenting with severe sepsis with Escherichia coli in the urine as the source with acute kidney injury, currently now day #7 of ceftriaxone, may switch to p.o. upon discharge. With a creatinine of 1.2 and a GFR of 43, maybe able to use p.o. Vantin, which is cefpodoxime at 100 mg p.o. b.i.d. x3 days. Michael Moon MD
[2018-07-04] MEDS: cefTRIAXone 1 gm 1 GM/100 ML BAG IVPB SCH (09:57)
[2018-07-04] MEDS: Levothyroxine 112 MCG TAB PO SCH ×2 (09:57→09:58)
[2018-07-04 10:53] LABS: BASO # 0.01 K/mm3 (0.0-2.0); BASO % 0.1 % (0.0-3.0); EOS # 0.3 (0.0-0.7); GRAN # 7.29 (1.4-6.5); GRAN % 84.8 % (50.0-68.0); HEMOGLOBIN 11.2 g/dL (12.0-16.0); LYMPH # 0.7 (1.2-3.4); LYMPH % 7.8 % (22.0-35.0); MEAN CELL VOLUME 94.6 fl (80.0-105.0); MEAN CORPUSCULAR HEMOGLOBIN 28.9 pg (25.0-35.0); MEAN CORPUSCULAR HGB CONC 30.6 g/dl (31.0-37.0); MEAN PLATELET VOLUME 12.3 fl (7.0-11.0); MONO # 0.3 (0.1-0.6); MONO % 3.3 % (1.0-6.0); RBC 3.87 10^6/uL (3.5-6.1); RED CELL DISTRIBUTION WIDTH 17.3 % (11.5-14.5); WHITE BLOOD COUNT 8.6 10^3/uL (4.5-11.0)
[2018-07-04 11:33] LABS: ALB/GLOB RATIO 0.7 (1.1-1.8); ALBUMIN 2.1 g/dL (3.0-4.8); ALT/SGPT 35 U/L (7-56); AST/SGOT 40 U/L (14-36); BLOOD UREA NITROGEN 30 mg/dL (7-21); CALCIUM 8.9 mg/dL (8.4-10.5); GFR NON-AFRICAN AMERICAN 53
--- NOTE | 2018-07-04 12:34 | PN ---
DATE: 07/04/2018 SUBJECTIVE: I saw her resting in bed, she was hard to arouse this morning. She opens her eyes a little bit, not really talking. She said the word "yes" that was the extent. I am not sure she is eating that well or much. MEDICATIONS: She is on dextrose, Drisdol, Eliquis, iron, insulin coverage, potassium, Lexapro, vitamins, Protonix, Rocephin and Synthroid. PHYSICAL EXAMINATION VITAL SIGNS: 97.9 temperature, 89 pulse, 117/47 blood pressure which is better than the 98/47 earlier, one of the better blood pressure she is on, oxygen now 2 L it looks like. HEENT: Head is atraumatic, normocephalic. Alert, but not talking, usually she talks better, not waken up yet. HEART: Regular rate. LUNGS: Decreased breath sounds, but clear. ABDOMEN: Soft, obese, nontender. No guarding. No rebound. EXTREMITIES: +3/4 pitting edema. She is off the Lasix due to her critical aortic stenosis. LABORATORY DATA: She has a 7.7 white count, 10.9 hemoglobin, 36.4 hematocrit with 114 platelets. Last lactate was still high at 2.3, it was as high as 16.3, now is down to 2.3 better. She is not herself yet. 146 sodium, potassium 3.8, BUN 39, creatinine 1.2. Last blood sugar was 156. Her calcium is 10.1, AST is 43, ALT is 35, alk phos is 88. Her urine showed large leukocytes. She had E. coli in the urine. ASSESSMENT AND PLAN: She is being seen by Infectious Disease, Pulmonary, Renal. She has had critical aortic stenosis, congestive heart failure, obesity, severe sepsis, acute kidney injury, urinary tract infection. I feel she does in the next 24 hours, hopefully she wakes up a little bit. We will get her back to [facility] when I feel that she is not going to have a bad blood pressure or get worse maybe by tomorrow. North Asif DO
--- NOTE | 2018-07-04 12:46 | PN ---
DATE: 07/04/2018 CARDIOLOGY FOLLOWUP SUBJECTIVE: The patient is in bed, in no acute distress. PHYSICAL EXAMINATION: VITAL SIGNS: Blood pressure is 117/47, heart rate is paced in the 50s. NECK: Negative JVD. LUNGS: Without rales. HEART: Reveals S1, S2 with II/ systolic ejection murmur. EXTREMITIES: Positive edema. LABORATORY DATA: Hemoglobin is 11.2. Chemistries: BUN and creatinine are 39 and 1.2. IMPRESSION: 1. Resolution of hypotension. 2. Aortic stenosis. 3. Chronic atrial fibrillation. 4. Status post pacemaker placement. 5. Sepsis. PLAN: Given these findings, given her aortic stenosis, diuresis should be avoided. Homero Massey MD
--- NOTE | 2018-07-04 14:29 | CP.PCM.PN ---
Subjective - Date & Time of Evaluation Date of Evaluation: 07/04/18 Time of Evaluation: 14:28 - Subjective Subjective: Nephrology Consultation Note: Assessment: Stable Acute Kidney Injury (N17.9) likely due to pre-renal state/dehydration: improving Hypernatremia, hypomagnesemia, hx of left side nephrolithiasis acute on chronic hypercapnic respi failure with lactic acidosis sepsis with UTI Diabetic chronic Kidney Disease (E11.22) Hypertensive Chronic Kidney Disease (I12.9) Chronic Kidney Disease (N18.3) Stage 3 with ? mg proteinuria (R80.9) likely due to AKIs in past/age related changes Anemia, COPD, diastolic CHF, A fib, CA breast, morbid obesity, dementia, Vit D def mild left hydronephrosis Plan Renal function remains stable na improved on 1/2 ns Maintain hemodynamics stable. Avoid hypotension. Avoid gifty/arb given low bp Monitor Input/Output, daily weights and renal function with basic metabolic panel supplement lytes as needed on oral iron S:seen in ICU , clinically unchanged, moaning Physical Examination: General Appearance: Comfortable, in no acute respiratory distress, ill appearing, non communicative Vitals reviewed and noted as below Head; Atraumatic, normocephalic EYES: Pupils are equal, round Sclera is anicteric. Neck; supple no lymphadenopathy, no thyromegaly or bruit Lungs: Normal respiratory rate/effort cta anteriorrly Heart: Normal rate. s1s2 normal. No rub or gallop. SM at aortic area Extremities: trace ankle edema Neurological: Patient is mostly non communicative, opens eyes to voice Skin: Warm and dry. Normal turgor. No rash. Palpitation: Normal elasticity for age Abdomen: Abdomen is soft. Bowel sounds +. There is no abdominal tenderness, no guarding/rigidity no organomegaly Psych: unable to assess altered MSK: no joint tenderness or swelling. Digits and nails normal, no deformity : kidney or bladder not palpable. Labs/imaging reviewed. Past medical history, past surgical history, family history, social history, allergy reviewed and noted as below Family hx: no hx of CKD. Rest non-contributory Objective - Vital Signs/Intake and Output Vital Signs (last 24 hours): Temp Pulse Resp BP Pulse Ox 98.5 F 61 18 90/60 L 97 07/04/18 12:00 07/04/18 12:00 07/04/18 12:00 07/04/18 12:00 07/03/18 14:00 Intake and Output: 07/04/18 07/04/18 06:59 18:59 Intake Total 900 Output Total 300 Balance 600 - Medications Medications: Current Medications Apixaban (Eliquis) 2.5 mg PO Q12 [facility]; Protocol Last Admin: 07/04/18 09:55 Dose: 2.5 mg Ergocalciferol (Drisdol 50,000 Intl Units Cap) 1 cap PO Q7D [facility] Last Admin: 06/30/18 13:22 Dose: Not Given Escitalopram Oxalate (Lexapro) 20 mg PO DAILY [facility] Last Admin: 07/04/18 09:56 Dose: 20 mg Ferrous Gluconate (Fergon) 324 mg PO TID [facility] Last Admin: 07/04/18 09:55 Dose: 324 mg Dextrose/Sodium Chloride (Dextrose 5%/0.45% Ns 1000 Ml) 1,000 mls @ 75 mls/hr IV .[id number] [facility] Last Admin: 07/04/18 09:46 Dose: 75 mls/hr Ceftriaxone Sodium (Rocephin 1 Gram Ivpb) 1 gm in 100 mls @ 100 mls/hr IVPB DAILY [facility]; Protocol Last Admin: 07/04/18 09:57 Dose: 100 mls/hr Insulin Human Regular (Humulin R Med) 0 units SC ACHS [facility]; Protocol Last Admin: 07/04/18 11:30 Dose: Not Given Levothyroxine Sodium (Synthroid) 112 mcg PO DAILY [facility] Last Admin: 07/04/18 09:58 Dose: 112 mcg Pantoprazole Sodium (Protonix Inj) 40 mg IVP DAILY [facility] Last Admin: 07/04/18 09:56 Dose: 40 mg Potassium Chloride (K-Dur 20 Meq Er Tab) 20 meq PO BRK [facility] Last Admin: 07/04/18 08:12 Dose: 20 meq Vitamin B Complex/Vit C/Folic Acid (Nephro-Alyson) 1 tab PO 0800 [facility] Last Admin: 07/04/18 08:12 Dose: 1 tab - Labs Labs: 07/04/18 10:45 07/04/18 10:45 PT 15.7 SECONDS (9.4-12.5) H 06/28/18 21:15 INR 1.37 06/28/18 21:15
[2018-07-05] MEDS: Dextrose 5%/0.45% NS 1,000 ML IV SCH (03:32)
[2018-07-05 06:38] VITALS: O2SAT 97
[2018-07-05 06:42] LABS: BASO # 0.01 K/mm3 (0.0-2.0); BASO % 0.1 % (0.0-3.0); EOS # 0.3 (0.0-0.7); EOS % 4.1 % (1.5-5.0); GRAN # 6.74 (1.4-6.5); GRAN % 81.8 % (50.0-68.0); HEMOGLOBIN 10.4 g/dL (12.0-16.0); LYMPH # 0.9 (1.2-3.4); LYMPH % 10.7 % (22.0-35.0); MEAN CORPUSCULAR HEMOGLOBIN 28.6 pg (25.0-35.0); MEAN CORPUSCULAR HGB CONC 30.4 g/dl (31.0-37.0); MEAN PLATELET VOLUME 12.4 fl (7.0-11.0); MONO # 0.3 (0.1-0.6); MONO % 3.3 % (1.0-6.0); RBC 3.64 10^6/uL (3.5-6.1); RED CELL DISTRIBUTION WIDTH 17.2 % (11.5-14.5); WHITE BLOOD COUNT 8.2 10^3/uL (4.5-11.0)
[2018-07-05 06:56] LABS: ALB/GLOB RATIO 0.6 (1.1-1.8); ALBUMIN 1.9 g/dL (3.0-4.8); ALT/SGPT 34 U/L (7-56); AST/SGOT 33 U/L (14-36); BLOOD UREA NITROGEN 27 mg/dL (7-21); CALCIUM 9.8 mg/dL (8.4-10.5); GFR NON-AFRICAN AMERICAN 53
[2018-07-05] MEDS: Levothyroxine 112 MCG TAB PO SCH (09:04)
[2018-07-05] MEDS: Potassium Chloride 20 mEq ER Tab PO SCH (09:04)
[2018-07-05] MEDS: Insulin Reg-MEDIUM-Coverage SC SCH ×2 (09:04→15:06)
[2018-07-05] MEDS: Multivitamin Vitamin B Complex (Nephro-Vite) Tab PO SCH (09:05)
[2018-07-05] MEDS: cefTRIAXone 1 gm 1 GM/100 ML BAG IVPB SCH (09:06)
[2018-07-05] MEDS ORDERED: Morphine 2 mg/ml ISec IVP PRN (09:58)
[2018-07-05] MEDS ORDERED: Mupirocin 2% Ointment 15 GM TUBE TOP SCH (10:00)
--- NOTE | 2018-07-05 10:38 | PN ---
DATE: 07/05/2018 SUBJECTIVE: I came to see her this morning in room 267. She is now moaning in pain. I was not expecting that. The nurse said she has been doing that all night long and I am not sure where that is coming from. I examined her. She has got a right arm about the elbow into the upper am red, inflammatory, looks like an infiltrate with cellulitis and nobody did anything about this. I am just looking at it now. I added Bactroban cream to the area. This was not there the other day. MEDICATIONS: She is on dextrose, Drisdol, Eliquis, Fergon, insulin, potassium, Lexapro, morphine, Nephro-Alyson, Protonix, Rocephin and Synthroid. PHYSICAL EXAMINATION: VITAL SIGNS: She has a 98.1 temp, 61 pulse, 98/54 blood pressure, 20 respiratory rate. I am adding morphine for the pain. She is kind of screaming in pain for her. HEENT: Head is atraumatic, normocephalic. Throat is moist. HEART: Regular rate. LUNGS: Decreased breath sounds. Poor inspiration. ABDOMEN: Soft, obese, nontender. Positive bowel sounds. EXTREMITIES: Have trace edema of the legs, but the right arm under the right elbow up into the right triceps, biceps medially it is all red and inflamed and an ulcer. Could be an infiltrate of an IV. LABORATORY DATA: She has an 8.2 white count, 10.4 hemoglobin, 34.2 hematocrit with 138 platelets. She is in a lot of pain right now. Moaning right in front of me. She was not doing that for the first week. Sodium is 142, potassium 3.7, BUN is 27, creatinine 1, GFR is 53, sugar is 151, calcium is 9.8, total bili is 0.5, AST is 33, ALT is 34, alk phos 91, total protein is 4.9. ASSESSMENT AND PLAN: I will discuss this with Infectious Disease. If they say I can discharge her back to the long term, I will, but I want to put some antibiotic cream on it. See if we do not need to do a change in antibiotics. She has multiple problems. She is bedridden, critical aortic stenosis, congestive heart failure, severe sepsis, acute kidney infection, urinary tract infection and a right arm cellulitis.. North Asif DO MTDShanice
[2018-07-05] MEDS ORDERED: Cefpodoxime (Vantin) 100 mg Tab PO SCH (10:45)
--- NOTE | 2018-07-05 11:18 | PN ---
DATE: 07/05/2018 SUBJECTIVE: The patient is seen in bed, in no acute distress, nontoxic. No fevers and chills. PHYSICAL EXAMINATION: VITAL SIGNS: On exam, temperature is 98, blood pressure is 98/50, respiratory rate of 18, heart rate of 61. HEENT: Examination of HEENT is unremarkable. NECK: Supple. LUNGS: Have decreased breath sounds. HEART: Normal S1, S2. ABDOMEN: Soft, nontender. LABORATORY DATA: Laboratory examination reveals the patient's white count is 8.2, hemoglobin of 10. Chemistries reveals a BUN of 27, creatinine of 1. Urinalysis is noted. Microbiology reveals E. Coli in the urine and review of orders reveals the patient to be on ceftriaxone and microbiology. The E. Coli is sensitive to ceftriaxone. ASSESSMENT AND PLAN: An 83-year-old female with obesity with body mass index of 36, [facility] patient with congestive heart failure, dementia, hypothyroidism, depression, chronic obstructive lung disease, mitral valve prolapse, history of breast cancer, lower extremity cellulitis, admitted with severe sepsis, Escherichia coli in the urine as the source with acute kidney injury, day #8 of ceftriaxone. Maybe able to switch to p.o. cefpodoxime 100 mg p.o. b.i.d. x 2 more days to complete a 10-day of therapy. Today is day #8 of 10 days, may be able to switch to p.o. upon discharge. Michael Moon MD
--- NOTE | 2018-07-05 12:35 | PN ---
DATE: 07/05/2018 PHYSICAL EXAMINATION: The patient is moaning, but still confused. Blood pressure varies from 98-110, heart rate is in the 60s, atrial fibrillation. NECK: Negative JVD. LUNGS: Without rales. HEART: There is a 2/6 systolic ejection murmur. EXTREMITIES: Chronic edema. LABORATORIES: Hemoglobin is 10.4. Chemistries, BUN and creatinine are unremarkable. IMPRESSION: 1. Chronic atrial fibrillation. 2. Resolution of hypotension. 3. Chronic atrial fibrillation. 4. Anemia. 5. Dementia. Given these findings, again I would emphasize to avoid aggressive diuresis for her pedal edema given her aortic stenosis, which should not be treated invasively given her multiple comorbidities. Homero Massey MD
[2018-07-05 15:42] VITALS: BP 101/48; PULSE 65; RESP 18; TEMP 98.6
--- NOTE | 2018-07-06 08:43 | DS ---
I discussed her new finding on the right arm with Infectious Disease and Cardiology and I feel that do not hold up her discharge. So, I went over the medications. She will be on 100 mg twice a day for seven days. She will be on IV fluids. She will be on Bactroban cream and hopefully she will do well. I will follow up on her at [facility]. She is being discharged today. She had critical aortic stenosis, congestive heart failure, severe sepsis, acute kidney injury, urinary tract infection, and a right arm infiltrate. North Asif DO MTDD
== END 2018-07-05 17:13 | DRG 871 ==
LOC: ED 16:24 → ERH 18:33 → ICU 20:48 → 2RSO 06-29 15:36 → CCU 07-01 17:51 → 2RNO 07-03 13:43
PROVIDERS: ADMIT Family Medicine; ATTEND Family Medicine
PROC: 5A09557 Assistance with Respiratory Ventilation, Greater than 96 Consecutive Hours, Continuous Positive Airway Pressure (ICD-10-PCS; principal; 2018-06-28)
DX: A41.9 Sepsis, unspecified organism (principal); G93.41 Metabolic encephalopathy; J96.22 Acute and chronic respiratory failure with hypercapnia; R65.21 Severe sepsis with septic shock; J96.01 Acute respiratory failure with hypoxia; N13.6 Pyonephrosis; N39.0 Urinary tract infection, site not specified; E87.0 Hyperosmolality and hypernatremia; Z68.41 Body mass index [BMI] 40.0-44.9, adult; N17.9 Acute kidney failure, unspecified; I13.0 Hypertensive heart and chronic kidney disease with heart failure and stage 1 through stage 4 chronic kidney disease, or unspecified chronic kidney disease; I50.32 Chronic diastolic (congestive) heart failure; E87.2 Acidosis; L03.113 Cellulitis of right upper limb; E66.01 Morbid (severe) obesity due to excess calories; J44.9 Chronic obstructive pulmonary disease, unspecified; F32.9 Major depressive disorder, single episode, unspecified; F03.90 Unspecified dementia, unspecified severity, without behavioral disturbance, psychotic disturbance, mood disturbance, and anxiety; E11.22 Type 2 diabetes mellitus with diabetic chronic kidney disease; E86.0 Dehydration; I25.10 Atherosclerotic heart disease of native coronary artery without angina pectoris; I48.2 Chronic atrial fibrillation; E83.42 Hypomagnesemia; E55.9 Vitamin D deficiency, unspecified; B96.20 Unspecified Escherichia coli [E. coli] as the cause of diseases classified elsewhere; N18.3 Chronic kidney disease, stage 3 (moderate); E03.9 Hypothyroidism, unspecified; D64.9 Anemia, unspecified; K21.9 Gastro-esophageal reflux disease without esophagitis; I08.0 Rheumatic disorders of both mitral and aortic valves; Z74.01 Bed confinement status; Z79.01 Long term (current) use of anticoagulants; Z85.3 Personal history of malignant neoplasm of breast; Z87.440 Personal history of urinary (tract) infections; Z90.81 Acquired absence of spleen; Z90.12 Acquired absence of left breast and nipple; Z87.442 Personal history of urinary calculi; Z79.4 Long term (current) use of insulin; Z95.5 Presence of coronary angioplasty implant and graft; Z87.891 Personal history of nicotine dependence; Z95.0 Presence of cardiac pacemaker